=== PATIENT | male | born 1960 | race Caucasian/White ===

== ENCOUNTER 2024-03-09 20:39 | Emergency (ER) | payer OTHER, SELFPAY ==
[2024-03-09] VITALS (8 sets, daily range): BP systolic 148–174; BP diastolic 59–88; BMI 33.9
--- NOTE | 2024-03-09 21:10 | ED.GENMED ---
History of Present Illness
General
Chief Complaint: Breathing Problem
Source: patient
Exam Limitations: none
Time Seen by Provider: 03/09/24 21:01
Nursing documentation reviewed up to this point in time: agreed with
Travel History
Have you had any contact with someone who has COVID-19?: No
Do you have any symptoms of coronavirus? Fever > 100 degrees, chills, cough, shortness of breath, sore throat, loss of taste or smell, muscle aches, or headache?: No
History of Present Illness
History of Present Illness:
63-year-old male presents emergency department due to shortness of breath ongoing for the past week. He states his blood count is low and he was due to get a blood transfusion at [facility]. He had a valve replacement surgery at
[facility]. This was in the past month. He states he had some type of abnormality on his EKG.
Past History
Past History
ED Past Medical History: CAD, Cancer (Kidney, Prostate CA, ), GERD, HTN, Hypercholesterolemia, [place], Renal failure, Seizures, Valvular disease and Other (Chronic kidney disease, Sleep apnea, H-Pylori, Anemia, Stage 4 kidney disease)
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
Social History
Tobacco: Former smoker
Alcohol: None
Drug: None
Personal:
Living: with family
Employment: Employed
Family History
Family History: Hypertension
Review of Systems
Review of Systems
Allergies reviewed?: Yes
All Other Systems: Not applicable
Constitutional: Reports fatigue
EENT: Reports no symptoms
Respiratory: Reports trouble breathing
Cardiac: Reports no symptoms
ABD/GI: Reports black stools
: Reports no symptoms
Musculoskeletal: Reports no symptoms
Skin: Reports no symptoms
Neurological: Reports no symptoms
Endocrine: Reports no symptoms
Hematologic/Lymphatic: Reports no symptoms
Psychiatric: Reports no symptoms
Phy Exam
Physical Exam
Physical Exam:
Physical Exam
General: no apparent distress, not acutely ill
Neck: supple. no meningeal signs. normal posterior pharynx
Heart: s1/s2 regular rate and rhythm, no murmur. equal radial
pulses.
HEENT: Pupils equal round reactive to light, EOMI
Lungs: no acute respiratory distress. clear bilaterally, port right upper chest
Abdomen: normal bowel sounds. not tender. no CVAT
Neuro: alert and oriented. no focal neurological deficits cranial nerves II through XII intact
Skin: no rash
Psychiatric: well kept. interactive and cooperative
Extremities: no edema. no calf tenderness. negative homans. good distal pulses
Scores
Heart Failure Risk
Heart Failure Risk Score: Not Applicable
Course
Orders/Labs/Results
Orders:
Orders
03/09/24 20:48
Electrocardiogram (*1) Urgent
Reason for Study: Shortness of Breath
EKG- Treatment ONCE
03/09/24 21:13
Type+Screen Urgent
CMP [Comprehensive Metabolic Panel] Urgent
Complete Blood Count/With Diff Urgent
03/09/24 21:32
Blood Bank Products [* Blood Bank Products] Urgent
Dr's Orders: 2 units prbcs
Blood Bank Products: *Packed RBC Leuko(PRBC's)
Quantity: 2
Transfuse Today: Yes
Reason: Anemia
Abnormal Lab Results
03/09/24
21:13
RBC 2.06 L 10^6/uL
(4.70-6.10)
Hgb 6.0 L* g/dL
(13.0-18.0)
Hct 18.1 L* %
(39.0-52.0)
RDW 15.4 H %
(11.5-14.5)
MPV 10.6 H fL
(7.4-10.4)
Abs Immat Gran (auto) 0.1 H 10^3/uL
(0-0.05)
Absolute Lymphs (auto) 1.0 L 10^3/uL
(1.2-3.4)
Absolute Monos (auto) 0.7 H 10^3/uL
(0.1-0.6)
Immature Gran % 1.4 H %
(0-0.5)
Lymphocytes % 11.8 L %
(20.5-51.1)
Sodium 133 L mmol/L
(135-145)
Chloride 110 H mmol/L
(98-107)
Carbon Dioxide 16 L mmol/L
(22-30)
BUN 78 H mg/dl
(9-20)
Creatinine 4.8 H* mg/dL
(0.7-1.3)
Glucose 157 H mg/dl
(70-99)
Calcium 7.5 L mg/dl
(8.4-10.2)
Total Bilirubin 0.1 L mg/dl
(0.2-1.3)
AST 16 L U/L
(17-59)
Total Protein 5.4 L g/dl
(6.3-8.2)
Albumin 3.3 L g/dl
(3.5-5.0)
Crossmatch IS Only See Detail
03/09/24 21:13
03/09/24 21:13
Vital Signs
Initial and Last Documented VS:
Initial Vital Signs
Temp Pulse Resp BP Pulse Ox
98.3 F 104 18 174/88 99
03/09/24 20:41 03/09/24 20:41 03/09/24 20:41 03/09/24 20:41 03/09/24 20:41
Last Documented Vital Signs
Temp Pulse Resp BP Pulse Ox
97.5 F 75 17 153/63 98
03/10/24 01:50 03/10/24 01:50 03/10/24 01:50 03/10/24 01:50 03/10/24 01:50
MDM/Problems Addressed
Differential Diagnosis Includes:
GI bleed, renal failure
MDM/Problems Addressed:
63-year-old male with anemia, chronic renal failure and likely GI bleed. Patient declines admission. Will give 2 units packed red blood cells and discharge. Patient will follow-up with nephrology and his dry end tester at [place].
Chronic conditions affecting care: CAD, Cardiomyopathy and Other (Anemia, GI bleed)
Acute Exacerbation and/or Progression of Chronic Illness: CAD, Cardiomyopathy and Other (Anemia, GI bleed)
*Pulse Oximetry
Patient hypoxic: no
*EKG
Interpreted by ED Provider?: Yes
EKG Intrepretation Date: 03/09/24
EKG Intrepretation Time: 20:51
Interpretation: abnormal
Comparison EKG: changes noted
Heart Rate: 96
Rate: normal
Rhythm: sinus
[place]: normal axis
Interval: normal interval
QRS Pattern: left bundle branch block
Ischemia: no ischemia
*Executive Wellness Programs Director Interpretation
Rate: Executive Wellness Programs Director- N/A
*Critical Care Note
Total Time (30-74mins, 75-104mins- exclusive of procedures): 30
comment:
Critical care statement: A total of 30 minutes of critical care time was provided for this patient. This includes management of unstable vital signs, evaluation of the patient at bedside, reviewing the patient's pertinent medical records, discussion
with consultants, review of old EKGs and review of pertinent medical records. This time with separate from time utilized to perform the aforementioned documented procedures
Data Reviewed
Review of Other/Old Records Reveals: Labs
Source: records (Prior hemoglobin 6)
Further Testing Considered But Not Given:
Endoscopy considered, patient declines admission
Patient Management
Social determinants of health affecting care: Living situation
Escalation/DeEscalation of care consider admission/obs:
Admit considered, but patient declines
ED Attending Note
-
Portions of this chart may have been created with voice recognition software.� Occasional wrong word or��sound alike� substitutions may have occurred due to the inherent limitations of voice recognition software.
Discharge Plan
Departure
Patient Disposition: Home (Routine Discharge)
Date of Disposition: 03/10/24
Time of Disposition: 02:06
Patient with high blood pressure during this ER visit?: Yes
Condition: Fair
Discharge Problem:
Anemia
Instructions: Blood transfusion
Prescriptions:
No Action
calcitriol 0.25 mcg capsule
0.25 mcg PO DAILY
cholecalciferol (vitamin D3) [Vitamin D3] 25 mcg (1,000 unit) Tablet
25 mcg PO BID
Blood Dr Infusion
1 dose IM MO PRN (Reason: if hematocrit is below 30)
sertraline 100 mg Tablet
100 mg PO DAILY
hydralazine 25 mg Tablet
75 mg PO Q8H
aspirin 81 mg Tablet,Delayed Release (Dr/Ec)
81 mg PO DAILY
sodium bicarbonate 650 mg Tablet
650 mg PO Q12H
amlodipine 10 mg Tablet
10 mg PO DAILY
lansoprazole 30 mg Capsule,Delayed Release(Dr/Ec)
30 mg PO DAILY
rosuvastatin 10 mg Tablet
10 mg PO HS
Referrals:
NONE,* [Active] -
Activity Restrictions/Additional Instructions:
Follow-up with your primary care and dry end tester, along with your deli manager.
Interventions
Interventions:
*Risk Screen - Suicide Last Done: 03/09/24 22:44
*General Assessment Last Done: 03/09/24 20:41
*Neglect/Abuse Screening Last Done: 03/09/24 20:41
ED- Fall Risk Assessment Last Done: 03/09/24 21:31
*ED COVID-19 Vaccine History Last Done: 03/09/24 22:38
ED- Cardiac Assessment Last Done: 03/09/24 21:31
ED- Pulmonary Assessment Last Done: 03/09/24 21:31
Discharge Date and Time
Print Language: BARBADIAN
[2024-03-09 21:22] LABS: % Basophils 1.4 % (0-2); % Eosinophils 4.2 % (0-6); % Immature Granulocytes 1.4 % (0-0.5); % Lymphocytes 11.8 % (20.5-51.1); % Monocytes 8.1 % (1.7-9.3); % Neutrophils 73.1 % (42.2-75.2); Absolute Basophils 0.1 10^3/uL (0-0.2); Absolute Eosinophils 0.3 10^3/uL (0-0.7); Absolute Immature Granulocytes 0.1 10^3/uL (0-0.05); Absolute Monocytes 0.7 10^3/uL (0.1-0.6); Absolute Neutrophils 5.9 10^3/uL (1.4-6.5); Mean Corp Hgb Conc. 33.1 g/dL (33.0-37.0); Mean Corpuscular Hgb 29.1 pg (27.0-31.0); Mean Corpuscular Volume 87.9 fL (80.0-94.0); Mean Platelet Volume 10.6 fL (7.4-10.4); Nucleated Red Blood Cells % 0 % (-); Platelet Count 250 10^3/uL (130-400); Red Blood Cell Count 2.06 10^6/uL (4.70-6.10); Red Cell Dist. Width 15.4 % (11.5-14.5); White Blood Cell Count 8.1 10^3/uL (4.8-10.8)
[2024-03-09 21:23] LABS: Hematocrit 18.1 % (39.0-52.0)
[2024-03-09 21:53] LABS: ALT (SGPT) 12 U/L (0-50); AST (SGOT) 16 U/L (17-59); Albumin 3.3 g/dl (3.5-5.0); Alkaline Phosphatase 82 U/L (38-126); Blood Urea Nitrogen 78 mg/dl (9-20); Calcium 7.5 mg/dl (8.4-10.2); Carbon Dioxide 16 mmol/L (22-30); Chloride 110 mmol/L (98-107); Estimated Creatinine Clearance 21 ml/min; Glucose 157 mg/dl (70-99); Potassium 4.7 mmol/L (3.5-5.1); Sodium 133 mmol/L (135-145); Total Bilirubin 0.1 mg/dl (0.2-1.3); Total Protein 5.4 g/dl (6.3-8.2); eGFR 12.87
[2024-03-10] VITALS (8 sets, daily range): BP systolic 138–157; BP diastolic 44–64
== END 2024-03-10 02:20 | disposition home or self-care (01) ==
LOC: EMR 20:39
PROVIDERS: EMERGENCY PHYSICIAN Emergency Medicine; FAMILY PHYSICIAN Family Medicine
DX: D64.9 Anemia, unspecified (principal); I25.10 Atherosclerotic heart disease of native coronary artery without angina pectoris; K21.9 Gastro-esophageal reflux disease without esophagitis; I12.9 Hypertensive chronic kidney disease with stage 1 through stage 4 chronic kidney disease, or unspecified chronic kidney disease; D63.1 Anemia in chronic kidney disease; N18.4 Chronic kidney disease, stage 4 (severe); I38 Endocarditis, valve unspecified; E78.00 Pure hypercholesterolemia, unspecified; G47.30 Sleep apnea, unspecified; Z82.49 Family history of ischemic heart disease and other diseases of the circulatory system; Z85.46 Personal history of malignant neoplasm of prostate; Z85.528 Personal history of other malignant neoplasm of kidney; Z87.891 Personal history of nicotine dependence; Z90.5 Acquired absence of kidney; Z95.2 Presence of prosthetic heart valve; Z95.5 Presence of coronary angioplasty implant and graft
CPT/HCPCS: 99283; 36430; 80053; 85025; 86850; 86900; 86901; 86920; 93005; P9016

== ENCOUNTER 2024-04-04 17:03 | Emergency (ER) | payer OTHER, SELFPAY ==
[2024-04-04] VITALS (12 sets, daily range): BP systolic 150–184; BP diastolic 55–90; BMI 33.7
[2024-04-04 18:05] LABS: % Basophils 0.8 % (0-2); % Eosinophils 4.3 % (0-6); % Immature Granulocytes 0.5 % (0-0.5); % Lymphocytes 12.7 % (20.5-51.1); % Neutrophils 74.7 % (42.2-75.2); Absolute Basophils 0.1 10^3/uL (0-0.2); Absolute Eosinophils 0.3 10^3/uL (0-0.7); Absolute Lymphocytes 0.8 10^3/uL (1.2-3.4); Absolute Monocytes 0.5 10^3/uL (0.1-0.6); Absolute Neutrophils 4.9 10^3/uL (1.4-6.5); Hematocrit 23.2 % (39.0-52.0); Hemoglobin 7.4 g/dL (13.0-18.0); Mean Corp Hgb Conc. 31.9 g/dL (33.0-37.0); Mean Corpuscular Hgb 28.7 pg (27.0-31.0); Mean Corpuscular Volume 89.9 fL (80.0-94.0); Mean Platelet Volume 10.6 fL (7.4-10.4); Nucleated Red Blood Cells % 0 % (-); Platelet Count 218 10^3/uL (130-400); Red Blood Cell Count 2.58 10^6/uL (4.70-6.10); Red Cell Dist. Width 15.2 % (11.5-14.5); White Blood Cell Count 6.5 10^3/uL (4.8-10.8)
[2024-04-04 18:19] LABS: ALT (SGPT) 11 U/L (0-50); AST (SGOT) 18 U/L (17-59); Albumin 3.8 g/dl (3.5-5.0); Alkaline Phosphatase 83 U/L (38-126); Blood Urea Nitrogen 61 mg/dl (9-20); Calcium 8.4 mg/dl (8.4-10.2); Carbon Dioxide 19 mmol/L (22-30); Chloride 110 mmol/L (98-107); Glucose 183 mg/dl (70-99); Potassium 4.1 mmol/L (3.5-5.1); Total Bilirubin 0.3 mg/dl (0.2-1.3); Total Protein 6.1 g/dl (6.3-8.2)
[2024-04-04 18:28] LABS: Sodium 138 mmol/L (135-145)
[2024-04-04 18:29] LABS: Troponin I 0.141 ng/ml
--- NOTE | 2024-04-04 19:08 | ED.GENMED ---
History of Present Illness
General
Chief Complaint: Chest Pain
Source: patient
Exam Limitations: none
Time Seen by Provider: 04/04/24 18:53
Nursing documentation reviewed up to this point in time: agreed with
Travel History
Have you had any contact with someone who has COVID-19?: No
Do you have any symptoms of coronavirus? Fever > 100 degrees, chills, cough, shortness of breath, sore throat, loss of taste or smell, muscle aches, or headache?: No
History of Present Illness
History of Present Illness:
Pleasant 63-year-old male presents with substernal chest pain that began yesterday and has progressively worsened since then. He does have a past medical history significant for coronary artery disease. He has had stenting and is followed at
[facility]. GI bleeding, chronic kidney disease, hypertension, lipidemia, dyspnea. Patient is unable to take any anticoagulation because while he has chronic GI bleeding, he states that anticoagulation of any type exacerbates it.
Patient has had dark stools. Patient was initially on blood thinners and brought back down to Plavix and aspirin and the Plavix was discontinued. Patient has had frequent transfusions for chronic GI bleeding.
Vital signs are stable. Patient not hypoxic
Nursing note reviewed. I agree with nursing documentation up to this point in time.
Home Meds and allergies reviewed.
NUMBER AND COMPLEXITY OF PROBLEMS ADDRESSED AT THE ENCOUNTER
� Chronic conditions affecting care:
� Acute Exacerbation and/or Progression of Chronic Illness:
� Differential Diagnosis includes:
AMOUNT AND/OR COMPLEXITY OF DATA TO BE REVIEWED AND ANALYZED
I performed an independent evaluation of the following and my interpretation is:
EKG:
CT:
X-rays:
Ultrasound:
Laboratory Studies:
Other:
Review of other/old records:
Clinical information was obtained by an independent historian:
Prescriptions/Medications Considered but not given:
Further testing considered but not performed:
RISK OF COMPLICATIONS AND/OR MORBIDITY OR MORTALITY OF PATIENT MANAGEMENT
Social determinants of health affecting care: Good Social Support
Discussion with other providers:
Escalation of care including admission/observation vs risk of discharge considered:
CRITICAL CARE NOTE:
Total Time (exclusive of procedures):
Update:
Past History
Past History
ED Past Medical History: CAD, Cancer (Kidney, Prostate CA, ), GERD, HTN, Hypercholesterolemia, [place], Renal failure, Seizures, Valvular disease and Other (Chronic kidney disease, Sleep apnea, H-Pylori, Anemia, Stage 4 kidney disease)
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
Social History
Tobacco: Former smoker
Alcohol: None
Drug: None
Personal:
Living: with family
Employment: Employed
Family History
Family History: Hypertension
Phy Exam
General Physical Exam
General Presentation: mild distress
General age: appears stated age
General Skin: warm and dry
General Habitus: debilitated
General Mental: alert
General Hydration: appears well hydrated
ENT Exam
ENT Exam: EOMI, pharynx normal, neck supple and normocephalic
Eye Exam
Eye Exam: PERRL, cornea clear and conjunctiva normal
Cardiovascular Exam
Cardiovascular Exam: regular rate/rhythm and no edema
Pulmonary Exam
Pulmonary Exam: generalized wheezing
Breath Sounds: Wheeze: generalized
Gastrointestinal Exam
Gastrointestinal Exam: normal bowel sounds, non tender, soft, no organomegaly, no pulsatile mass and non distended
Rectal Exam: normal external exam and normal sphincter tone
Stool: brown
Guaiac Status: negative
Neurological Exam
Neurological Exam: alert, oriented x3, no motor deficits and speech normal
Musculoskeletal Exam
Musculoskeletal Exam: full ROM and no edema
Skin Exam
Skin Exam: normal color, warm/dry, no rash and no petechia
Psychiatric Exam
Psychiatric Exam: normal mood/affect
Scores
Heart Score for Chest Pain Patients
STEMI patient?: No
History: Moderately Suspicious
ECG: Normal
Age: >45 - <65 years
Risk Factors: >/= 3 Risk Factors or History of CAD
Troponin: >1 - <3 x Normal Limit
Heart Score for Chest Pain Patients: 5
Heart Score Risk: 20.3% MACE over next 6 weeks
Course
Orders/Labs/Results
Orders:
Orders
04/04/24 17:10
Electrocardiogram (*1) Urgent
Reason for Study: Chest Pain
EKG- Treatment ONCE
04/04/24 17:49
Type+Screen Urgent
Complete Blood Count/With Diff Urgent
Comprehensive Metabolic Panel Urgent
Troponin I Urgent
04/04/24 19:15
Pantoprazole [Protonix IV] 80 mg IV NOW STA
04/04/24 19:31
Heparin Pf [Heparin Lock Flush] 500 unit .ROUTE .STK-MED ONE
04/04/24 21:13
* Blood Bank Products Urgent
Blood Bank Products: *Packed RBC Leuko(PRBC's)
Quantity: 2
Transfuse Today: Yes
Reason: Anemia
Abnormal Lab Results
04/04/24
17:49
RBC 2.58 L 10^6/uL
(4.70-6.10)
Hgb 7.4 L g/dL
(13.0-18.0)
Hct 23.2 L %
(39.0-52.0)
MCHC 31.9 L g/dL
(33.0-37.0)
RDW 15.2 H %
(11.5-14.5)
MPV 10.6 H fL
(7.4-10.4)
Absolute Lymphs (auto) 0.8 L 10^3/uL
(1.2-3.4)
Lymphocytes % 12.7 L %
(20.5-51.1)
Chloride 110 H mmol/L
(98-107)
Carbon Dioxide 19 L mmol/L
(22-30)
BUN 61 H mg/dl
(9-20)
Creatinine 4.7 H* mg/dL
(0.7-1.3)
Glucose 183 H mg/dl
(70-99)
Troponin I 0.141 H* ng/ml
Total Protein 6.1 L g/dl
(6.3-8.2)
Crossmatch IS Only See Detail
04/04/24 17:49
04/04/24 17:49
Vital Signs
Initial and Last Documented VS:
Initial Vital Signs
Temp Pulse Resp BP Pulse Ox
98.1 F 94 20 184/90 98
04/04/24 17:10 04/04/24 17:10 04/04/24 17:10 04/04/24 17:10 04/04/24 17:10
Last Documented Vital Signs
Temp Pulse Resp BP Pulse Ox
97.9 F 64 16 166/66 99
04/05/24 01:20 04/05/24 01:20 04/05/24 01:20 04/05/24 01:20 04/05/24 01:20
*Critical Care Note
Total Time (30-74mins, 75-104mins- exclusive of procedures): 30
comment:
Critical care statement: A total of 30 minutes of critical care time was provided for this patient. This time is separate from time utilized to perform the aforementioned documented procedures. Aggregate critical care time includes only time
during which I was engaged in work directly related to the patient's care, as described above, whether at the bedside or elsewhere in the Emergency Department.
Update Note
Update Note:
Hemoccult negative on rectal exam
Patient signed blood consent.
AMA Statement: This patient is choosing to leave against medical advice. I have personally explained to the patient that choosing to do so may result in permanent bodily harm or . I discussed at great length that without further evaluation
and monitoring there may be unforeseen circumstances and deterioration causing permanent bodily harm or as a result of their choice. The patient is alert, oriented, and shows the mental capacity to make clear decisions regarding his health
care at the time. The patient verbalized understanding of these risks and continues to wish to leave against medical advice.
In light of the patient�s decision to leave AMA, follow-up has been arranged and he is aware of the importance of following up as instructed. The patient has been advised that he should return to the ED immediately if he changes his mind at any
time, or if his condition begins to change or worsen.
ED Attending Note
-
Portions of this chart may have been created with voice recognition software.� Occasional wrong word or��sound alike� substitutions may have occurred due to the inherent limitations of voice recognition software.
Discharge Plan
Departure
Patient Disposition: Against Medical Advice
Date of Disposition: 04/04/24
Time of Disposition: 21:15
Admit to: IVU
Presentation/result/management discussed w/ accepting MD/DO: Hospitalist
Condition: Fair
Discharge Problem:
Anemia, CKD (chronic kidney disease), Elevated troponin, Left against medical advice
Instructions: Anemia of inflammation (anemia of chronic disease), Blood transfusion
Prescriptions:
No Action
calcitriol 0.25 mcg capsule
0.25 mcg PO HS
cholecalciferol (vitamin D3) [Vitamin D3] 25 mcg (1,000 unit) Tablet
25 mcg PO DAILY
sertraline 100 mg Tablet
100 mg PO DAILY
hydralazine 25 mg Tablet
75 mg PO Q8H
aspirin 81 mg Tablet,Delayed Release (/Ec)
81 mg PO DAILY
sodium bicarbonate 650 mg Tablet
650 mg PO Q12H
amlodipine 10 mg Tablet
10 mg PO HS
lansoprazole 30 mg Capsule,Delayed Release(Dr/Ec)
30 mg PO BID
rosuvastatin 10 mg Tablet
10 mg PO HS
acetaminophen 325 mg Tablet
650 mg PO Q4H PRN (Reason: mild pain/fever)
Referrals:
Cici Schulz DO [Family Provider] -
Interventions
Interventions:
*Risk Screen - Suicide Last Done: 04/04/24 18:59
*General Assessment Last Done: 04/04/24 18:59
*Neglect/Abuse Screening Last Done: 04/04/24 18:59
ED- Fall Risk Assessment Last Done: 04/04/24 19:15
*ED COVID-19 Vaccine History Last Done: 04/04/24 18:59
ED- Cardiac Assessment Last Done: 04/04/24 19:15
Discharge Date and Time
Print Language: HUNGARIAN
[2024-04-04] MEDS: PROTONIX IV 80 MG IV (19:31)
[2024-04-05] VITALS (12 sets, daily range): BP systolic 110–174; BP diastolic 62–85
--- NOTE | 2024-04-05 03:33 | VATNOTE ---
04/05 200
Paged by PCN to deaccess patients port. Port flushed with hep and deaccessed per protocol.
== END 2024-04-05 04:42 | disposition left against medical advice (07) ==
LOC: EMR 17:03
PROVIDERS: Emergency Medicine; EMERGENCY PHYSICIAN Student in an Organized Health Care Education/Training Program; FAMILY PHYSICIAN Family Medicine
DX: D64.9 Anemia, unspecified (principal); I12.9 Hypertensive chronic kidney disease with stage 1 through stage 4 chronic kidney disease, or unspecified chronic kidney disease; N18.4 Chronic kidney disease, stage 4 (severe); R79.89 Other specified abnormal findings of blood chemistry; I25.10 Atherosclerotic heart disease of native coronary artery without angina pectoris; E78.00 Pure hypercholesterolemia, unspecified; G47.30 Sleep apnea, unspecified; K21.9 Gastro-esophageal reflux disease without esophagitis; Z79.01 Long term (current) use of anticoagulants; Z82.49 Family history of ischemic heart disease and other diseases of the circulatory system; Z85.46 Personal history of malignant neoplasm of prostate; Z85.528 Personal history of other malignant neoplasm of kidney; Z87.891 Personal history of nicotine dependence; Z90.5 Acquired absence of kidney; Z95.5 Presence of coronary angioplasty implant and graft
CPT/HCPCS: 99284; 80053; 84484; 85025; 86850; 86900; 86901; 86920; 93005; P9016

== ENCOUNTER 2024-04-13 15:14 | Emergency (ER) | payer OTHER, SELFPAY ==
[2024-04-13] VITALS (8 sets, daily range): BP systolic 160–187; BP diastolic 65–88; BMI 34.2
--- NOTE | 2024-04-13 15:37 | ED.GENMED ---
History of Present Illness
General
Chief Complaint: Abnormal Lab Value
Time Seen by Provider: 04/13/24 15:29
Travel History
Have you had any contact with someone who has COVID-19?: No
Do you have any symptoms of coronavirus? Fever > 100 degrees, chills, cough, shortness of breath, sore throat, loss of taste or smell, muscle aches, or headache?: No
History of Present Illness
History of Present Illness:
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 Today he was found to have a hemoglobin of 7.1. This is down from a few days ago at 8.4. He feels more weak and somewhat short of
breath. He had a TAVR a few months ago. He denies any obvious rectal bleeding. He states he could not tolerate being on 'blood thinners' in the past and is now currently just on baby aspirin. He had Procrit earlier today.
EXAM:
GENERAL: Well appearing but appears only slightly weak
HEENT: Moist oral mucosa
CARDIOVASCULAR: No murmurs, normal heart rate, regular rhythm, No chest wall tenderness
PULMONARY: No respiratory distress, breath sounds are clear and equal
ABDOMEN: Soft with no peritoneal signs, no tenderness, heme positive brown stool with no gross blood or any obvious hemorrhoids
NEUROLOGIC: Excellent strength all extremities, no coordination deficits
PSYCHIATRIC: Appropriate mental status, normal insight and judgement
EXTREMITIES: Nontender, no edema, moves all extremities equally
SKIN: No rash, no lesions
TIME OF INITIAL ENCOUNTER: 40 5 PM
NUMBER AND COMPLEXITY OF PROBLEMS ADDRESSED AT THE ENCOUNTER
� Chronic conditions affecting care: CKD stage V, chronic anemia, seizure disorder, CAD, high blood pressure, hyperlipidemia
� Acute Exacerbation and/or Progression of Chronic Illness: This is an acute but recurring problem
� Differential Diagnosis includes: GI bleed, anemia of chronic disease
AMOUNT AND/OR COMPLEXITY OF DATA TO BE REVIEWED AND ANALYZED
� I performed an independent evaluation of and my interpretation is:
EKG:
CT:
X-rays:
Laboratory Studies: Hemoglobin 6.6, white count 6.6, creatinine 4.4, BUN 68
Other:
� Review of other/old records: The patient had a hemoglobin of 6.0 recently. Renal function is near baseline.
� Clinical information was obtained by an independent historian: None needed
� Prescriptions/Medications Considered but not given:
� Further testing considered but not performed:
RISK OF COMPLICATIONS AND/OR MORBIDITY OR MORTALITY OF PATIENT MANAGEMENT
� Social determinants of health affecting care: Lives at home
� Discussion with other providers:
� Escalation of care including admission/observation vs risk of discharge considered: Patient has a hemoglobin 7.1. Old records show that he had a clean globin of 6.0 about a month ago and was given blood through the ED and
discharged. He does have some symptoms. I did inform patient of the patient's low hemoglobin and positive Hemoccult testing. I offered and considered keeping him here in the hospital however the patient declined stating that he wants to follow-up
with his GI doctor as an outpatient. He is on baby aspirin. The patient was given 2 units of blood. He has no further symptoms or concerns and adamantly does not want to stay in the hospital. He is to follow-up with GI this coming Friday. He
will remain on aspirin for cardiac protection.
Past History
Past History
ED Past Medical History: CAD, Cancer (Kidney, Prostate CA, ), GERD, HTN, Hypercholesterolemia, [place], Renal failure, Seizures, Valvular disease and Other (Chronic kidney disease, Sleep apnea, H-Pylori, Anemia, Stage 4 kidney disease)
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
Social History
Tobacco: Former smoker
Alcohol: None
Drug: None
Personal:
Living: with family
Employment: Employed
Family History
Family History: Hypertension
Phy Exam
Physical Exam
Physical Exam:
See HPI
Course
Orders/Labs/Results
Orders:
Orders
04/13/24 15:49
* Blood Bank Products Urgent
Blood Bank Products: *Packed RBC Leuko(PRBC's)
Quantity: 2
Transfuse Today: Yes
Reason: Anemia
Patient will require pre-treatment for transfusion:: No
04/13/24 15:57
Type+Screen Urgent
Complete Blood Count/With Diff Urgent
Comprehensive Metabolic Panel Urgent
Ferritin Urgent
Iron Urgent
TIBC [Total Iron Binding] Urgent
Abnormal Lab Results
04/13/24
15:57
RBC 2.37 L 10^6/uL
(4.70-6.10)
Hgb 6.6 L* g/dL
(13.0-18.0)
Hct 20.2 L* %
(39.0-52.0)
MCHC 32.7 L g/dL
(33.0-37.0)
RDW 14.9 H %
(11.5-14.5)
Absolute Lymphs (auto) 0.9 L 10^3/uL
(1.2-3.4)
Lymphocytes % 13.1 L %
(20.5-51.1)
Monocytes % 9.6 H %
(1.7-9.3)
Chloride 110 H mmol/L
(98-107)
Carbon Dioxide 21 L mmol/L
(22-30)
BUN 68 H mg/dl
(9-20)
Creatinine 4.4 H* mg/dL
(0.7-1.3)
Glucose 124 H mg/dl
(70-99)
Calcium 7.8 L mg/dl
(8.4-10.2)
% Saturation 17 L %
(20-50)
Total Protein 5.7 L g/dl
(6.3-8.2)
Albumin 3.4 L g/dl
(3.5-5.0)
Crossmatch IS Only See Detail
04/13/24 15:57
04/13/24 15:57
Vital Signs
Initial and Last Documented VS:
Initial Vital Signs
Temp Pulse Resp BP Pulse Ox
97.5 F 80 20 187/77 85
04/13/24 15:15 04/13/24 15:15 04/13/24 15:15 04/13/24 15:15 04/13/24 15:15
Last Documented Vital Signs
Temp Pulse Resp BP Pulse Ox
97.6 F 78 18 178/80 98
04/13/24 20:12 04/13/24 20:12 04/13/24 20:12 04/13/24 20:12 04/13/24 20:12
*Critical Care Note
Total Time (30-74mins, 75-104mins- exclusive of procedures): Not Applicable
ED Attending Note
-
Portions of this chart may have been created with voice recognition software.� Occasional wrong word or��sound alike� substitutions may have occurred due to the inherent limitations of voice recognition software.
Discharge Plan
Departure
Patient Disposition: Home (Routine Discharge)
Date of Disposition: 04/13/24
Time of Disposition: 18:32
Patient with high blood pressure during this ER visit?: Yes
Discharge Problem:
Anemia
Instructions: Anemia of inflammation (anemia of chronic disease)
Prescriptions:
No Action
calcitriol 0.25 mcg capsule
0.25 mcg PO DAILY
cholecalciferol (vitamin D3) [Vitamin D3] 25 mcg (1,000 unit) Tablet
25 mcg PO DAILY
sertraline 100 mg Tablet
100 mg PO DAILY
hydralazine 25 mg Tablet
75 mg PO Q8H
aspirin 81 mg Tablet,Delayed Release (Dr/Ec)
81 mg PO DAILY
sodium bicarbonate 650 mg Tablet
650 mg PO Q12H
amlodipine 10 mg Tablet
10 mg PO HS
lansoprazole 30 mg Capsule,Delayed Release(Dr/Ec)
30 mg PO DAILY
rosuvastatin 10 mg Tablet
10 mg PO DAILY
Referrals:
Cici Schulz DO [Family Provider] -
Activity Restrictions/Additional Instructions:
Iron level is within normal range, hemoglobin is 6.6. We have given you 2 units of blood. I did inform you that you do have blood in your stool and it is strongly recommend that you follow-up with your GI doctor. Return here if worse.
Interventions
Interventions:
*Risk Screen - Suicide Last Done: 04/13/24 15:15
*General Assessment Last Done: 04/13/24 15:15
*Neglect/Abuse Screening Last Done: 04/13/24 15:15
Discharge Date and Time
Print Language: MONTSERRATIAN
[2024-04-13 16:14] LABS: % Basophils 1.1 % (0-2); % Eosinophils 4.3 % (0-6); % Immature Granulocytes 0.5 % (0-0.5); % Lymphocytes 13.1 % (20.5-51.1); % Monocytes 9.6 % (1.7-9.3); % Neutrophils 71.4 % (42.2-75.2); Absolute Basophils 0.1 10^3/uL (0-0.2); Absolute Eosinophils 0.3 10^3/uL (0-0.7); Absolute Lymphocytes 0.9 10^3/uL (1.2-3.4); Absolute Monocytes 0.6 10^3/uL (0.1-0.6); Absolute Neutrophils 4.7 10^3/uL (1.4-6.5); Mean Corp Hgb Conc. 32.7 g/dL (33.0-37.0); Mean Corpuscular Hgb 27.8 pg (27.0-31.0); Mean Corpuscular Volume 85.2 fL (80.0-94.0); Mean Platelet Volume 10.3 fL (7.4-10.4); Nucleated Red Blood Cells % 0 % (-); Platelet Count 246 10^3/uL (130-400); Red Blood Cell Count 2.37 10^6/uL (4.70-6.10); Red Cell Dist. Width 14.9 % (11.5-14.5); White Blood Cell Count 6.6 10^3/uL (4.8-10.8)
[2024-04-13 16:31] LABS: ALT (SGPT) 10 U/L (0-50); AST (SGOT) 19 U/L (17-59); Albumin 3.4 g/dl (3.5-5.0); Alkaline Phosphatase 84 U/L (38-126); Blood Urea Nitrogen 68 mg/dl (9-20); Calcium 7.8 mg/dl (8.4-10.2); Carbon Dioxide 21 mmol/L (22-30); Chloride 110 mmol/L (98-107); Glucose 124 mg/dl (70-99); Iron 60 ug/dl (49-181); Potassium 4.4 mmol/L (3.5-5.1); Sodium 138 mmol/L (135-145); Total Bilirubin 0.2 mg/dl (0.2-1.3); Total Protein 5.7 g/dl (6.3-8.2); eGFR 14.29
[2024-04-13 16:34] LABS: Hematocrit 20.2 % (39.0-52.0); Hemoglobin 6.6 g/dL (13.0-18.0)
[2024-04-13 16:40] LABS: Percent Saturation 17 % (20-50); Total Iron Binding Capacity 337 ug/dl (261-462)
[2024-04-13 18:01] LABS: Ferritin 24.9 ng/ml (17.9-464.0)
--- NOTE | 2024-04-13 22:05 | PTCARENOTE ---
Right SC port de-accessed, 10 ml saline flush and heparin flush instilled
== END 2024-04-13 22:10 | disposition home or self-care (01) ==
LOC: EMR 15:14
PROVIDERS: EMERGENCY PHYSICIAN Emergency Medicine; FAMILY PHYSICIAN Family Medicine
DX: D64.9 Anemia, unspecified (principal); I12.9 Hypertensive chronic kidney disease with stage 1 through stage 4 chronic kidney disease, or unspecified chronic kidney disease; N18.4 Chronic kidney disease, stage 4 (severe); Z87.891 Personal history of nicotine dependence
CPT/HCPCS: 99283; 80053; 82728; 83540; 83550; 85025; 86850; 86900; 86901; 86920; P9016

== ENCOUNTER 2024-05-07 09:25 | Inpatient (IN) | payer OTHER, SELFPAY ==
[2024-05-05 18:39] VITALS: BP 173/96
[2024-05-05] MEDS: TYLENOL 650 MG PO (20:28)
[2024-05-05] MEDS: NSS 500 IV (20:29)
[2024-05-05 20:32] VITALS: BMI 32.9
[2024-05-05 20:37] LABS: % Basophils 0.9 % (0-2); % Eosinophils 2.3 % (0-6); % Immature Granulocytes 0.4 % (0-0.5); % Lymphocytes 6.2 % (20.5-51.1); % Monocytes 8.8 % (1.7-9.3); % Neutrophils 81.4 % (42.2-75.2); Absolute Basophils 0.1 10^3/uL (0-0.2); Absolute Eosinophils 0.3 10^3/uL (0-0.7); Absolute Lymphocytes 0.7 10^3/uL (1.2-3.4); Absolute Neutrophils 8.8 10^3/uL (1.4-6.5); Hematocrit 25.6 % (39.0-52.0); Mean Corp Hgb Conc. 31.3 g/dL (33.0-37.0); Mean Corpuscular Hgb 26.8 pg (27.0-31.0); Mean Corpuscular Volume 85.9 fL (80.0-94.0); Mean Platelet Volume 10.7 fL (7.4-10.4); Nucleated Red Blood Cells % 0 % (-); Platelet Count 258 10^3/uL (130-400); Red Blood Cell Count 2.98 10^6/uL (4.70-6.10); Red Cell Dist. Width 15.1 % (11.5-14.5); White Blood Cell Count 10.9 10^3/uL (4.8-10.8)
[2024-05-05 20:39] VITALS: BP 166/73
--- NOTE | 2024-05-05 20:45 | ED.GENMED ---
History of Present Illness
General
Chief Complaint: Breathing Problem
Source: patient
Exam Limitations: none
Time Seen by Provider: 05/05/24 19:56
Nursing documentation reviewed up to this point in time: agreed with
History of Present Illness
History of Present Illness:
63 Y/O M with h/o CAD, stetns, ckd stage v, s/p nephrectomy L isaac, prostate ca
chrnoinc anemia requiring transfusions
also h/o GI bleed and does not tolerate AC
here with exertional dyspnea since yesterday
and chest pain with walking today when he got from the car to the ER
no ches tpain at rest
says that he felt chills today and stood in a hot shower to warm up
he didn't know about his fever until he got here
nausea and 1 episode dry heave
no cough, sore throat, colds ymtpoms, diarrhea, urinary sypmtoms
Past History
Past History
ED Past Medical History: CAD, Cancer (Kidney, Prostate CA, ), GERD, HTN, Hypercholesterolemia, MD, Renal failure, Seizures, Valvular disease and Other (Chronic kidney disease, Sleep apnea, H-Pylori, Anemia, Stage 4 kidney disease)
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
Social History
Tobacco: Former smoker
Alcohol: None
Drug: None
Personal:
Living: with family
Employment: Employed
Family History
Family History: Hypertension
Review of Systems
Review of Systems
Allergies reviewed?: Yes
All Other Systems: Not applicable
Phy Exam
Physical Exam
Physical Exam:
GENERAL: Alert , in no apparent distress, nontoxic
EYE: pupils equal and reactive
NECK: Supple
ENT: o/p clr, mmm.
CARDIAC: initially mildly tachy (pt was febrile)
chest wall: port
LUNGS: Clear breath sounds bilaterally, no acute respiratory distress, no wheezes/rales/rhonchi
ABDOMEN: Soft, without focal tenderness, no r/g, no cvat, normal bowel sounds
NEUROLOGICAL: Alert and oriented, no focal neuro deficits
SKIN: Warm and dry, skin intact.
MUSCULOSKELETAL: No edema, well perfused. neg deshawn's sign
PSYCH: Normal and appropriate interaction.
Scores
Heart Failure Risk
Heart Failure Risk Score: Not Applicable
Course
Orders/Labs/Results
Orders:
Orders
05/05/24 20:16
Electrocardiogram (*1) Urgent
Reason for Study: Other
Other Reason for Exam: sepsis
Cardiac Monitoring- Treatment ONCE
EKG- Treatment ONCE
0.9% Sodium Chloride 500 ml [Nss] 500 ml IV BOLUS
Acetaminophen [Tylenol] 650 mg PO NOW STA
CR Chest - 2 Views Urgent
Comment:
Reason For Exam: fever, sob
05/05/24 20:21
Type+Screen Urgent
COVID-19 Antigen Urgent
Source: Nasal Swab
Complete Blood Count/With Diff Urgent
Comprehensive Metabolic Panel Urgent
Lactic Acid Q4H
Comment: CANCEL 2nd LACTIC ACID IF 1st LACTIC ACID IS LESS THAN 2
Lipase Urgent
NT-proBNP Urgent
Troponin I Urgent
Blood Culture Urgent
EDVIN Source: Blood/Venous
Specimen Description:
05/05/24 21:13
COVID-19 Antigen Urgent
Urinalysis Reflex To Culture Urgent
Date Specimen was Collected: 05/05/24
Time Specimen was Collected: 21:12
Urine Microscopic Reflex Cult Urgent
05/05/24 23:00
Flush (0.9% Sodium Chloride) [Flush (Nss)] See Dose Instructions IV PER PROTOCOL
05/05/24 23:07
Admit/Transfer Patient As Directed
Co-Sign Provider:
Level of Care: Observation services
Assign to:: Telemetry
Physician / Group: carmela
Diagnosis: covid
Reason for Telemetry: Arrhythmia
Date to Stop Telemetry: 05/08/24
Time to Stop Telemetry: 11:00
Code Status As Directed
Resuscitation Status: Full Code
05/05/24 23:16
Sodium Bicarbonate 50 meq IV NOW STA
05/06/24 00:30
Lactic Acid Q4H
Comment: CANCEL 2nd LACTIC ACID IF 1st LACTIC ACID IS LESS THAN 2
05/08/24 11:00
DC Protocol for Telemetry ONCE
Abnormal Lab Results
05/05/24 05/05/24
20:21 21:13
WBC 10.9 H 10^3/uL
(4.8-10.8)
RBC 2.98 L 10^6/uL
(4.70-6.10)
Hgb 8.0 L g/dL
(13.0-18.0)
Hct 25.6 L %
(39.0-52.0)
MCH 26.8 L pg
(27.0-31.0)
MCHC 31.3 L g/dL
(33.0-37.0)
RDW 15.1 H %
(11.5-14.5)
MPV 10.7 H fL
(7.4-10.4)
Absolute Neuts (auto) 8.8 H 10^3/uL
(1.4-6.5)
Absolute Lymphs (auto) 0.7 L 10^3/uL
(1.2-3.4)
Absolute Monos (auto) 1.0 H 10^3/uL
(0.1-0.6)
Neutrophils % 81.4 H %
(42.2-75.2)
Lymphocytes % 6.2 L %
(20.5-51.1)
Chloride 112 H mmol/L
(98-107)
Carbon Dioxide 12 L* mmol/L
(22-30)
BUN 68 H mg/dl
(9-20)
Creatinine 4.7 H* mg/dL
(0.7-1.3)
Glucose 108 H mg/dl
(70-99)
Troponin I 0.259 H* ng/ml
Ur Occult Blood Reflex 1+ A
(Negative)
Urine Glucose Trace A
(Negative)
Urine Albumin (Reflex) 3+ A
(Neg - Trace)
SARS-CoV-2 Antigen Positive A
(Negative)
05/05/24 20:21
05/05/24 20:21
Vital Signs
Initial and Last Documented VS:
Initial Vital Signs
Temp Pulse Resp BP Pulse Ox
99.6 F 107 20 173/96 98
05/05/24 18:39 05/05/24 18:39 05/05/24 18:39 05/05/24 18:39 05/05/24 18:39
Last Documented Vital Signs
Temp Pulse Resp BP Pulse Ox
98.6 F 89 24 147/63 96
05/05/24 23:46 05/05/24 22:30 05/05/24 22:30 05/05/24 22:00 05/05/24 22:30
MDM/Problems Addressed
Differential Diagnosis Includes:
nstemi, trop elevation secnodary to CKD, less likely PE
MDM/Problems Addressed:
63 y/o M cad, stent 2022, AVR, L nephrectomy kdiney cancer, stage V CKD, h/o severe anemia and h/o GI bleed doesn't tolerate ac;
here with exertional dyspnea since yesterday, he thought his hemoglobin was low
but he had a fever and reported when walking from the car to the ER, he had chest pain which was unusual for him, it resolved
bp 150/60, febrile; has COVID
hg 8
LBBB on ekg which is unchanged
trop 0.2
his highest previously was in april 0.14;
he is pain free at rest; trend trop, consider VQ in the AM but low suspicion for PE;
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 grimes who agrees;
*Critical Care Note
Total Time (30-74mins, 75-104mins- exclusive of procedures): Not Applicable
ED Attending Note
-
Portions of this chart may have been created with voice recognition software.� Occasional wrong word or��sound alike� substitutions may have occurred due to the inherent limitations of voice recognition software.
Discharge Plan
Departure
Patient Disposition: Admit
Date of Disposition: 05/05/24
Time of Disposition: 22:08
Admit to: Telemetry
Presentation/result/management discussed w/ accepting MD/DO: Hospitalist
Condition: Fair
Covid-19: Not Applicable
Discharge Problem:
COVID-19, Elevated troponin
Prescriptions:
No Action
calcitriol 0.25 mcg capsule
0.25 mcg PO DAILY
cholecalciferol (vitamin D3) [Vitamin D3] 25 mcg (1,000 unit) Tablet
25 mcg PO DAILY
sertraline 100 mg Tablet
100 mg PO DAILY
hydralazine 25 mg Tablet
25 mg PO TID
aspirin 81 mg Tablet,Delayed Release (Dr/Ec)
81 mg PO DAILY
sodium bicarbonate 650 mg Tablet
650 mg PO Q12H
amlodipine 10 mg Tablet
10 mg PO HS
lansoprazole 30 mg Capsule,Delayed Release(Dr/Ec)
30 mg PO DAILY
rosuvastatin 10 mg Tablet
10 mg PO DAILY
octreotide acetate 50 mcg/mL Solution
100 mcg SC BID
Referrals:
NONE,* [Family Provider] -
Interventions
Interventions:
*Risk Screen - Suicide Last Done: 05/05/24 20:05
*Neglect/Abuse Screening Last Done: 05/05/24 20:05
ED- Fall Risk Assessment Last Done: 05/05/24 20:57
*ED COVID-19 Vaccine History Last Done: 05/05/24 18:41
ED- Cardiac Assessment Last Done: 05/05/24 20:57
ED- Pulmonary Assessment Last Done: 05/05/24 20:57
Discharge Date and Time
Print Language: KITTITIAN
[2024-05-05 20:47] LABS: Lactic Acid 1.2 mmol/L (0.7-2.0)
[2024-05-05 21:02] LABS: ALT (SGPT) 11 U/L (0-50); AST (SGOT) 19 U/L (17-59); Albumin 4.4 g/dl (3.5-5.0); Alkaline Phosphatase 70 U/L (38-126); Blood Urea Nitrogen 68 mg/dl (9-20); Calcium 8.6 mg/dl (8.4-10.2); Carbon Dioxide 12 mmol/L (22-30); Chloride 112 mmol/L (98-107); Estimated Creatinine Clearance 21 ml/min; Glucose 108 mg/dl (70-99); Lipase 80 U/L (23-300); Potassium 4.7 mmol/L (3.5-5.1); Sodium 138 mmol/L (135-145); Total Bilirubin 0.4 mg/dl (0.2-1.3); Total Protein 6.6 g/dl (6.3-8.2)
[2024-05-05 21:04] LABS: COVID-19 Antigen Invalid (Negative); NT-proBNP 5060 pg/ml; Troponin I 0.259 ng/ml
[2024-05-05 21:20] VITALS: BP 143/79
[2024-05-05 21:29] LABS: Urine Albumin 3+ (Neg - Trace); Urine Bilirubin Negative (Negative); Urine Color Yellow; Urine Glucose Trace (Negative); Urine Ketone Negative (Negative); Urine Leukocyte Negative (Negative); Urine Nitrite Negative (Negative); Urine Occult Blood 1+ (Negative); Urine Urobilinogen Negative (Neg - 1+)
[2024-05-05 21:40] LABS: Urine Red Blood Cell 0-2 /HPF (0-2)
[2024-05-05 21:41] LABS: Urine Character Clear (Clear)
[2024-05-05 21:42] LABS: COVID-19 Antigen Positive (Negative)
[2024-05-05 22:00] VITALS: BP 147/63
--- NOTE | 2024-05-05 22:57 | CON.CAR ---
Consultation
Consultation Request
Date/Time Consultation Requested: 05/05/24
Date/Time Consultation Performed: 05/05/24
Requesting Provider: Merna WADE
Performing Provider: Dr Parks
Reason for Consultation: elevated troponin
Medical History
-
History of Present Illness:
Patient is a 63-year-old gentleman with past medical history of chronic kidney disease STG 5 undergoing evaluation for transplant at [facility] [place], , extensive history of GI bleeding managed on octreotide injections, hypertension,
hyperlipidemia, coronary artery disease s/p prior PCI x 2 and prior TAVR, p/w ALVAREZ, palpitations and chills since getting home from work today. He states he came because he felt like either his hemoglobin was low or he thought he had COVID. He was
found to be COVID + with low grade fever and leukocytosis. He states he only feels poor if he is walking. At rest he feels well. Currently without complaint.
Past Medical History
Past Medical History: CAD (PCI to the 01/03/23), HTN, Hypercholesterolemia, Renal Failure ( currently being evaluated for transplant) and Valvular Disease (Moderate )
Past Surgical History: Other (pci on 01/03/23)
Social History
Tobacco: Former Smoker
Alcohol: Occasional
Family History
Family History: Reviewed & Not Pertinent
Allergies / Home Medications
Allergy/AdvReac Type Severity Reaction Status Date / Time
isosorbide Allergy Unknown Verified 05/05/24 18:40
Penicillins Allergy Anaphylaxis Verified 05/05/24 18:40
�Medication �Instructions �Recorded �Confirmed �Type
calcitriol 0.25 mcg capsule 0.25 mcg PO DAILY 05/23/23 05/05/24 History
cholecalciferol (vitamin D3) 25 25 mcg PO DAILY 05/23/23 05/05/24 History
mcg (1,000 unit) tablet (Vitamin
D3)
amlodipine 10 mg tablet 10 mg PO HS 03/09/24 05/05/24 History
aspirin 81 mg tablet,delayed 81 mg PO DAILY 03/09/24 05/05/24 History
release
hydralazine 25 mg tablet 25 mg PO TID 03/09/24 05/05/24 History
lansoprazole 30 mg capsule,delayed 30 mg PO DAILY 03/09/24 05/05/24 History
release
rosuvastatin 10 mg tablet 10 mg PO DAILY 03/09/24 05/05/24 History
sertraline 100 mg tablet 100 mg PO DAILY 03/09/24 05/05/24 History
sodium bicarbonate 650 mg tablet 650 mg PO Q12H 03/09/24 05/05/24 History
octreotide acetate 50 mcg/mL 100 mcg SC BID 05/05/24 05/05/24 History
injection solution
Review of Systems
-
All other systems: Negative unless noted
Abdomen/GI: Other (Bright red blood in his stool from his hemorrhoids per his report)
Physical Exam
Vital Signs
Temp Pulse Resp BP Pulse Ox
100.1 F 89 24 147/63 96
05/05/24 20:28 05/05/24 22:30 05/05/24 22:30 05/05/24 22:00 05/05/24 22:30
Lab Results
05/05/24 20:21
05/05/24 20:21
Troponin I 0.259 ng/ml H* 05/05/24 20:21
Qix-U-Uvfjbsqdvng Pept 5060 pg/ml 05/05/24 20:21
Physical Exam
General: Well Developed, Well Nourished and No Apparent Distress
HEENT: Normocephalic and Moist Mucous Membranes
Respiratory: Clear
Cardiac: S1/S2, Regular Rhythm, Murmur (None), Peripheral Edema (None) and JVD (None)
GI: Soft
Musculoskeletal: No Clubbing, No Cyanosis and No Edema
Neuro: AO x 3
Impression / Plan
-
63 yo with CKD st5, CAD sp PCI, S/p TAVR, extensive GIB history p/w alvarez, palpitations and found to have COVID-19.
Elevated troponin:
-suspect nonischemic myocardial injury due to acute COVID 19 infection and CKD
-given COVID 19 reasonable to consider PE, but he is not hypoxic or tachycardic, given h/o of GI bleeding ok with holding off on heparin
-trend troponin
[id number]:
-suspect the source of ALVAREZ
-as per medicine
ALVAREZ: likely due to COVID
-no e/o volume overload, BNP unreliable with CKD, would not diurese at this time
CAD: on asa, would continue
-no cp
h/o GIB: hgb at 8 which is better than prior baseline
CKD: Undergoing transplant evaluation, today is acidotic due to infection. Treat underlying cause. Monitor progression of acidosis and kidney failure.
s/p TAVR:
Data Reviewed
-
EKG: Tracing Personally Visualized and interpreted (NSR with LBBB and LAD)
Radiology: Image Personally Visualized and interpreted (prior tavr, no pna or chf, port )
Labs: Labs Reviewed by me (co2 12, cr 4.7(bl 4.4), hgb 8, trop 0.259, probnp 5060)
[2024-05-05 23:00] VITALS: BP 156/63
--- NOTE | 2024-05-05 23:13 | HPS.HSE ---
Family Physician
-
Family Physician: * NONE
Chief Complaint
-
chills, chest pressure, SOB
History of Present Illness
63-year-old male past medical history of anemia secondary to GI bleeding on chronic transfusions, history of small bowel angiectasias, coronary artery disease status post stenting 2022, aortic stenosis status post TAVR in February of this year,
hypertension, hyperlipidemia, CKD stage IV, kidney cancer status post left nephrectomy, prostate cancer, GERD, presenting with shortness of breath and chest pressure with walking today. He also had severe chills. He denies any sore throat or runny
nose. He did have some nausea and dry heaving but denies vomiting or diarrhea. He denies any dizziness. He denies any sick contacts.
He states that he is transfusion dependent due to history of small bowel angiectasias. Since his aortic valve replacement in February he has had 11 units of blood. He occasionally has some bright red blood or hemorrhoidal bleeding but he denied any
blood in the stool recently. However today he did note some dark stool. He is normally transfused to keep his hemoglobin above is 7.8.
He denies smoking or alcohol use.
Medical History
Past Medical History
Past Medical History: Reports Other (anemia secondary to GI bleeding on chronic transfusions, history of small bowel angiectasias, coronary artery disease status post stenting 2022, aortic stenosis status post TAVR in February of this year,
hypertension, hyperlipidemia, CKD stage IV, kidney cancer status post left nephrectomy, prostate ca)
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
Social History
Tobacco: Non-smoker
Alcohol: None
Drug: None
Family History
Family History: Not pertinent
Allergies / Home Medications
Allergies reflects when Allergies were last updated in [facility].
Home Medications with original date entered in [facility]
Allergy/Medication List:
Allergies
Allergy/AdvReac Type Severity Reaction Status Date / Time
isosorbide Allergy Unknown Verified 05/05/24 18:40
Penicillins Allergy Anaphylaxis Verified 05/05/24 18:40
Home Medications
calcitriol 0.25 mcg capsule 0.25 mcg PO DAILY 05/23/23
cholecalciferol (vitamin D3) 25 mcg (1,000 unit) tablet (Vitamin D3) 25 mcg PO DAILY 05/23/23
amlodipine 10 mg tablet 10 mg PO HS 03/09/24
aspirin 81 mg tablet,delayed release 81 mg PO DAILY 03/09/24
hydralazine 25 mg tablet 25 mg PO TID 03/09/24
lansoprazole 30 mg capsule,delayed release 30 mg PO DAILY 03/09/24
rosuvastatin 10 mg tablet 10 mg PO DAILY 03/09/24
sertraline 100 mg tablet 100 mg PO DAILY 03/09/24
sodium bicarbonate 650 mg tablet 650 mg PO Q12H 03/09/24
octreotide acetate 50 mcg/mL injection solution 100 mcg SC BID 05/05/24
Review of Systems
-
History Source: Patient
A 12 point ROS was completed and negative except as noted: Yes
Constitutional: Reports No Symptoms
EENT: Reports No Symptoms
Respiratory: Reports See HPI
Cardiac: Reports See HPI
Abdomen/GI: Reports No Symptoms
: Reports No Symptoms
Musculoskeletal: Reports No Symptoms
Skin: Reports No Symptoms
Neurological: Reports No Symptoms
Endocrine: Reports No Symptoms
Hematologic/Lymphatic: Reports No Symptoms
Psych: Reports No Symptoms
Physical Exam
Vital Signs
Vital Signs
Temp Pulse Resp BP Pulse Ox
100.1 F 89 24 147/63 96
05/05/24 20:28 05/05/24 22:30 05/05/24 22:30 05/05/24 22:00 05/05/24 22:30
Physical Exam
General: Well Developed, Well Nourished and No Apparent Distress
HEENT: NormoCephalic, Moist mucous membranes and Atraumatic
Respiratory: Clear
Cardiac: S1/S2 and Regular Rhythm; No Murmur or Rub
GI: Soft, Non Tender, Non Distended and Normal Bowel Sounds; No Organomegaly
Rectal: Deferred by Provider
Musculoskeletal: No Clubbing, No Cyanosis and No Edema
Skin: No Rash
Neuro: Nonfocal/grossly intact
Laboratory Results
-
05/05/24 20:21
05/05/24 20:21
Laboratory Results
Lactic Acid 1.2 mmol/L (0.7-2.0) 05/05/24 20:21
Total Bilirubin 0.4 mg/dl (0.2-1.3) 05/05/24 20:21
AST 19 U/L (17-59) 05/05/24 20:21
ALT 11 U/L (0-50) 05/05/24 20:21
Alkaline Phosphatase 70 U/L (38-126) 05/05/24 20:21
Troponin I 0.259 ng/ml H* 05/05/24 20:21
Lipase 80 U/L (23-300) 05/05/24 20:21
Data Reviewed
-
Lab Data: Labs Reviewed by me
Old Records: Reviewed
Impression/Plan
-
IMPRESSION:
PLAN:
# COVID infection
-Low-grade fever, leukocytosis,
-Chest x-ray does not appear to show infiltrates, report pending
-Not hypoxic
# Nonischemic myocardial injury
# History of CAD status post prior stent
# Old left bundle branch block
-Troponin of 0.26
-Continue to trend troponins
-EKG shows old left bundle branch block, no ischemic changes visible
-Cardiac BNP of 5000
-Continue aspirin
# Anion gap metabolic acidosis likely due to worsening of underlying renal failure
-IV fluids given in ER
-Bicarbonate pushe
CKD stage 4/5
-Renal function at baseline
-Continue calcitriol
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
History of GI bleeding secondary to small bowel angioectasias
-Patient with black stool today
-Check Hemoccult
-Hemoglobin of 8 which is at baseline
-Continue octreotide
-consult GI if significant hemoglobin drop or active bleeding
Aortic stenosis status post TAVR in February
-Continue aspirin
Essential hypertension
-Continue amlodipine, hydralazine
Hyperlipidemia
History of left kidney cancer status post left nephrectomy
History of prostate cancer
GERD
-Continue lansoprazole
Anxiety/depression
-Continue sertraline
Full code
DVT prophylaxis- SCDs
Regular diet
[2024-05-05] MEDS: SODIUM BICARBONATE 50 MEQ IV (23:40)
[2024-05-06] VITALS (11 sets, daily range): BP systolic 141–173; BP diastolic 61–85; BMI 32.9
[2024-05-06] MEDS: SODIUM BICARBONATE 650 MG PO (01:28)
[2024-05-06 01:59] LABS: Troponin I 0.299 ng/ml
[2024-05-06] MEDS: TYLENOL 650 MG PO (02:56)
[2024-05-06 07:45] LABS: % Basophils 0.8 % (0-2); % Eosinophils 2.2 % (0-6); % Immature Granulocytes 0.4 % (0-0.5); % Lymphocytes 7.8 % (20.5-51.1); % Monocytes 9.6 % (1.7-9.3); % Neutrophils 79.2 % (42.2-75.2); Absolute Eosinophils 0.1 10^3/uL (0-0.7); Absolute Lymphocytes 0.4 10^3/uL (1.2-3.4); Absolute Monocytes 0.5 10^3/uL (0.1-0.6); Absolute Neutrophils 4.1 10^3/uL (1.4-6.5); Hematocrit 21.9 % (39.0-52.0); Mean Corp Hgb Conc. 31.1 g/dL (33.0-37.0); Mean Corpuscular Hgb 26.9 pg (27.0-31.0); Mean Corpuscular Volume 86.6 fL (80.0-94.0); Mean Platelet Volume 10.5 fL (7.4-10.4); Nucleated Red Blood Cells % 0 % (-); Platelet Count 192 10^3/uL (130-400); Red Blood Cell Count 2.53 10^6/uL (4.70-6.10); Red Cell Dist. Width 14.8 % (11.5-14.5); White Blood Cell Count 5.1 10^3/uL (4.8-10.8)
[2024-05-06 07:59] LABS: Hemoglobin 6.8 g/dL (13.0-18.0)
[2024-05-06 08:10] LABS: Troponin I 0.443 ng/ml
[2024-05-06] MEDS: ROCALTROL 0.25 MCG PO (08:18)
[2024-05-06] MEDS: APRESOLINE 25 MG PO ×3 (08:18→20:53)
[2024-05-06] MEDS: ZOLOFT 100 MG PO (08:18)
[2024-05-06] MEDS: CRESTOR 10 MG PO (08:18)
[2024-05-06 08:19] LABS: ALT (SGPT) 12 U/L (0-50); AST (SGOT) 21 U/L (17-59); Albumin 3.4 g/dl (3.5-5.0); Alkaline Phosphatase 54 U/L (38-126); Blood Urea Nitrogen 65 mg/dl (9-20); Calcium 8.1 mg/dl (8.4-10.2); Carbon Dioxide 17 mmol/L (22-30); Chloride 114 mmol/L (98-107); Estimated Creatinine Clearance 23 ml/min; Glucose 94 mg/dl (70-99); Potassium 4.3 mmol/L (3.5-5.1); Sodium 140 mmol/L (135-145); Total Bilirubin 0.3 mg/dl (0.2-1.3); Total Protein 5.4 g/dl (6.3-8.2); eGFR 14.29
[2024-05-06] MEDS: SANDOSTATIN 100 MCG SC ×2 (08:19→20:42)
[2024-05-06] MEDS: VITAMIN D3 (cholecalciferol) 25 MCG PO (08:19)
[2024-05-06] MEDS: PROTONIX 40 MG PO (08:19)
[2024-05-06] MEDS: ASPIR LOW (ENTERIC COATED) PO (08:22)
--- NOTE | 2024-05-06 10:00 | W.PN.CD ---
Today's Communication / Plan
-
-Suspect nonischemic myocardial injury due to acute COVID 19 infection, CKD, and anemia.
-Trend troponin to peak.
-Hemoglobin dropped from 8.0 to 6.8; management as per primary team.
Impression / Plan
-
63 yo with CKD st5, CAD sp PCI, S/p TAVR, extensive GIB history p/w sinha, palpitations and found to have COVID-19.
Elevated troponin:
-Suspect nonischemic myocardial injury due to acute COVID 19 infection, CKD, and anemia.
-Trend troponin to peak.
[id number]:
-Management as per medicine.
CAD: On aspirin and statin.
h/o GIB:
-Hemoglobin dropped from 8.0 to 6.8; management as per primary team.
CKD:
-Undergoing transplant evaluation
-Monitor renal function.
s/p TAVR:
-Stable.
Hypertension:
-On amlodipine.
Physical Exam
Vital Signs/Labs
Vital Signs
Temp Pulse Resp BP Pulse Ox
98.6 F 82 16 141/61 97
05/06/24 07:35 05/06/24 07:35 05/06/24 07:35 05/06/24 08:18 05/06/24 07:35
05/05/24 05/06/24 05/07/24
06:59 06:59 06:59
Actual Weight 113.143 kg
05/06/24 07:37
05/06/24 07:37
05/05/24
20:21
Lxx-L-Jrfhvbeatli Pept 5060
LAB Results
05/05/24 05/06/24 05/06/24
20:21 01:23 07:37
Troponin I 0.259 H* 0.299 H* 0.443 H* D
Physical Exam
Examination deferred secondary to COVID-19 isolation protocols.
Data Reviewed
-
Date of Service: May 06, 2024
EKG: Tracing Personally Visualized and interpreted (Telemetry: Sinus rhythm)
Labs: Labs Reviewed by me
--- NOTE | 2024-05-06 12:19 | W.PN.HOSP.TC ---
Today's Communication/Plan
-
see outlined plan
Assessment / Plan
Assessment / Plan
Assessment:
COVID-19 infection
- CXR: negative
- no hypoxia, just chills
- supportive care, monitor O2 needs
- continue isolation
Nonischemic myocardial injury, likely driven by CKD, COVID and anemia
History of CAD status post prior stent
Old left bundle branch block
- trend to peak
- continue ASA/Statin
- Cardiac BNP of 5000 in setting of CKD, no overt volume overload on exam
Anion gap metabolic acidosis likely due to worsening of underlying CKD stage 5
- s/p IVF and IV Bicarb pushes
- increase oral sodium bicarb to 1300mg BID
- continue Calcitriol
- he is on transplant pathway with [facility]
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
History of GI bleeding secondary to small bowel angioectasias
- Patient with black stool today; has known history of small bowel bleeding and takes Octreotide
- continue Octreotide
- Hb 6.8 today, 1 unit PRBC ordered
- repeat AM Hb
- consider GI evaluation if overt bleeding develops
Aortic stenosis status post TAVR in February
- continue aspirin
Essential hypertension
- continue amlodipine, hydralazine
Hyperlipidemia
History of left kidney cancer status post left nephrectomy
History of prostate cancer
GERD
- continue lansoprazole
Anxiety/depression
- continue sertraline
DVT ppx: SCDs
Code: Full
Anticipated Discharge: > 48 hours
Subjective/Interval History
-
Date of Service: May 06, 2024
mild chills, no fevers
no SOB, cough. on RA
no chest pain
Objective Data
-
Labs:
Laboratory Results
05/06/24
07:37
WBC 5.1
Hgb 6.8 L*
Hct 21.9 L
Plt Count 192 D
Sodium 140
Potassium 4.3
Chloride 114 H
Carbon Dioxide 17 L
BUN 65 H
Creatinine 4.4 H*
Glucose 94
Calcium 8.1 L
Total Bilirubin 0.3
AST 21
ALT 12
Alkaline Phosphatase 54
Vital Signs:
Vital Signs
Temp Pulse Resp BP Pulse Ox
98.6 F 82 16 141/61 97
05/06/24 07:35 05/06/24 07:35 05/06/24 07:35 05/06/24 08:18 05/06/24 07:35
I&O
05/05/24 05/06/24 05/07/24
06:59 06:59 06:59
Intake Total 480 / 480
Output Total 800 / 800
Balance 480 / 480 -800 / -800
Physical Exam
-
General: No Apparent Distress
HEENT: Normocephalic and Atraumatic
Respiratory: Negative Wheezes
Cardiac: Regular Rhythm
GI: Soft
Genito-urinary: No Costovertebral Tender
Musculoskeletal: No Edema
Neuro: AO x 3
Psych: Calm
Data Reviewed
-
Total Time Spent with Patient (in minutes): 45
Labs: Labs Reviewed by me
--- NOTE | 2024-05-06 12:32 | PTCARENOTE ---
Addendum entered by Franca White RN 05/06/24 12:34:
pt states he typically takes benadryl PO or IV prior to blood administration. blood going through pt R SQ port.
Original Note:
pt with hx of anemia and gets frequent blood transfusions. morning CBC results showed hgb of 6.8. made aware, consent signed and PRBC hung by this nurse at the bedside. pt tested positive for covid in ED. pt is from home with his . he is a
self within the room and verbalizes no complaints at this time. See TAR for proper charting of blood administration.
[2024-05-06] MEDS: BENADRYL 50 MG IV (12:51)
[2024-05-06] MEDS: SODIUM BICARBONATE 1300 MG PO ×2 (12:51→20:43)
[2024-05-06 14:35] LABS: Troponin I 0.882 ng/ml
[2024-05-06 19:46] LABS: Troponin I 0.848 ng/ml
[2024-05-06] MEDS: NORVASC 10 MG PO (20:53)
--- NOTE | 2024-05-06 22:27 | PTCARENOTE ---
[employer] notified regarding Trop result, 0.848. No new orders at this time per Cardiology.
[2024-05-07 01:59] LABS: Troponin I 0.839 ng/ml
[2024-05-07 03:20] VITALS: BP 168/75
[2024-05-07 07:25] VITALS: BP 148/58
[2024-05-07 08:36] LABS: Hematocrit 23.7 % (39.0-52.0); Hemoglobin 7.8 g/dL (13.0-18.0); Mean Corp Hgb Conc. 32.9 g/dL (33.0-37.0); Mean Corpuscular Hgb 27.7 pg (27.0-31.0); Mean Platelet Volume 10.9 fL (7.4-10.4); Platelet Count 206 10^3/uL (130-400); Red Blood Cell Count 2.82 10^6/uL (4.70-6.10); Red Cell Dist. Width 15.2 % (11.5-14.5); White Blood Cell Count 4.7 10^3/uL (4.8-10.8)
[2024-05-07 08:54] LABS: Blood Urea Nitrogen 65 mg/dl (9-20); Calcium 8.1 mg/dl (8.4-10.2); Carbon Dioxide 19 mmol/L (22-30); Chloride 113 mmol/L (98-107); Estimated Creatinine Clearance 21 ml/min; Glucose 105 mg/dl (70-99); Potassium 4.4 mmol/L (3.5-5.1); Sodium 140 mmol/L (135-145); Troponin I 0.683 ng/ml; eGFR 12.87
--- NOTE | 2024-05-07 09:10 | W.PN.HOSP.TC ---
Today's Communication/Plan
-
ID consult, discussed with Dr. Gonsales
recheck Hgb tomorrow
Assessment / Plan
Assessment / Plan
Assessment:
COVID-19 infection
- CXR: negative
- no hypoxia, just chills
- supportive care, monitor O2 needs. SaO2 remains 97-98% on room air
- continue isolation
ID consult regarding benefit vs risk of anti viral agent in pt with CKD
Nonischemic myocardial injury, likely driven by CKD, COVID and anemia
History of CAD status post prior stent
Old left bundle branch block
- trend to peak
- continue ASA/Statin
- Cardiac BNP of 5000 in setting of CKD, no overt volume overload on exam
Trop 0.259-->0.299-->0.443-->0.882-->0.848-->0.839-->0.683
Anion gap metabolic acidosis likely due to worsening of underlying CKD stage 5
- s/p IVF and IV Bicarb pushes
- increase oral sodium bicarb to 1300mg BID
- continue Calcitriol
- he is on transplant pathway with [facility]
Creat 4.8/K 4.4
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
History of GI bleeding secondary to small bowel angioectasias
- Patient with black stool 05/06; has known history of small bowel bleeding and takes Octreotide
- continue Octreotide
- Hb 6.8 05/06, 1 unit PRBC-->7.8
- repeat AM Hb
- consider GI evaluation if overt bleeding develops
will recheck Hgb tomorrow, if drops again will transfuse 2nd unit and consider GI consult, if stable consider dc if all other aspects stable
Aortic stenosis status post TAVR in February
- continue aspirin
Essential hypertension
- continue amlodipine, hydralazine
Hyperlipidemia
History of left kidney cancer status post left nephrectomy
History of prostate cancer
GERD
- continue lansoprazole
Anxiety/depression
- continue sertraline
DVT ppx: SCDs
Code: Full
case reviewed with Dr. Watt, pt meets criteria for admission
Anticipated Discharge: 24 - 48 hours
Subjective/Interval History
-
Date of Service: May 07, 2024
Awake, alert, feels better since receiving blood
Objective Data
-
Labs:
Laboratory Results
05/07/24
08:06
WBC 4.7 L
Hgb 7.8 L
Hct 23.7 L
Plt Count 206
Sodium 140
Potassium 4.4
Chloride 113 H
Carbon Dioxide 19 L
BUN 65 H
Creatinine 4.8 H*
Glucose 105 H
Calcium 8.1 L
Vital Signs:
Vital Signs
Temp Pulse Resp BP Pulse Ox
98.4 F 68 18 148/58 98
05/07/24 07:25 05/07/24 07:25 05/07/24 07:25 05/07/24 07:25 05/07/24 07:25
I&O
05/06/24 05/07/24 05/08/24
06:59 06:59 06:59
Intake Total 480 / 480 3130 / 3130
Output Total 2500 / 2500
Balance 480 / 480 630 / 630
Review of Systems
-
History Source: Patient
Constitutional: Reports Fever (05/06 @03:00 was 100.5, afebrile otherwise)
EENT: Reports No Symptoms Reported
Respiratory: Reports No Symptoms; Denies Cough or Trouble Breathing
Cardiac: Reports No Symptoms; Denies Chest Pain
Abdomen/GI: Reports No Symptoms; Denies Abdominal Pain
Breast: Reports No Symptoms
Physical Exam
-
General: Well Developed, Well Nourished and No Apparent Distress
HEENT: Normocephalic, Atraumatic and Moist Mucous Membranes
Respiratory: Clear to Auscultation; Negative Wheezes, Rales or Rhonchi
Cardiac: Regular Rhythm and S1/S2
GI: Soft, Nontender and Nondistended
Musculoskeletal: No Clubbing, No Cyanosis and No Edema
Neuro: Awake, Alert and Oriented
[2024-05-07] MEDS: APRESOLINE 25 MG PO ×3 (09:11→23:01)
[2024-05-07] MEDS: CRESTOR 10 MG PO (09:11)
[2024-05-07] MEDS: PROTONIX 40 MG PO (09:11)
[2024-05-07] MEDS: VITAMIN D3 (cholecalciferol) 25 MCG PO (09:11)
[2024-05-07] MEDS: ZOLOFT 100 MG PO (09:11)
[2024-05-07] MEDS: SODIUM BICARBONATE 1300 MG PO ×2 (09:11→20:48)
[2024-05-07] MEDS: ROCALTROL 0.25 MCG PO (09:11)
[2024-05-07] MEDS: SANDOSTATIN 100 MCG SC ×2 (09:12→21:00)
[2024-05-07] MEDS: ASPIR LOW (ENTERIC COATED) PO (09:20)
--- NOTE | 2024-05-07 10:06 | CON.ID ---
Consultation
-
Date/Time Consultation Requested: 05/07/24 9:10
Date/Time Consultation Performed: 05/07/24 10:06
Requesting Provider: Dr Gonzales
Performing Provider: Dr Gonsales
Reason for Consultation: COVID, CKD5
Chief Complaint / Past History
Chief Complaint
chills, chest pressure, SOB
History of Present Illness
Mr Camacho is a 63 year old male with history of CKD stage IV, kidney cancer status post left nephrectomy who presented here 05/05 for shaking chills, dyspnea on exertion, chest pressure with exertion, nausea. No sore throat, runny nose, vomiting or
diarrhea. No known sick contacts.
Of note reports he's transfusion dependent due to small bowel angiectasias.
Since arrival here tmax 100.5 orally, otherwise no furhter betsy fevers, BP stable, saturating well on room air, wbc initially 10.9 now 4.7, hgb 7.8, plt 206, L shift was noted first two days as was lymphopenia, K 4.4, Cr 4.8, lactic acid 1.2,
troponins peaked at 0.8 now downtrending, covid ag initially invalid on repeat 05/05 positive, 05/05 CXR: no infiltrates, there is a port, single blood culture done on arrival and no growth at 24 hrs. Currently not on antivirals
Past History
Additional Past Medical History:
anemia secondary to GI bleeding on chronic transfusions, history of small bowel angiectasias, coronary artery disease status post stenting 2022, aortic stenosis status post TAVR in February of this year, hypertension, hyperlipidemia, CKD stage IV,
kidney cancer status post left nephrectomy, prostate ca
Additional Past Surgical History:
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
Allergy History:
isosorbide Allergy (Verified 05/05/24 18:40)
Unknown
Penicillins Allergy (Verified 05/05/24 18:40)
Anaphylaxis
Medications Reviewed: Yes
Social History
Tobacco: Non-Smoker
Alcohol: None
Drug: None
Family History
Family History: Not Pertinent
Review of Systems
Review of Systems
General: Fever and Chills
All systems: All other systems were reviewed and were negative
Vital Signs
Temp Pulse Resp BP Pulse Ox
98.4 F 68 18 148/58 97
05/07/24 07:25 05/07/24 07:25 05/07/24 07:25 05/07/24 09:11 05/07/24 09:41
Physical Exam
Physical Exam
Constitutional: No Acute Distress
Cardiovascular: Regular Rate and S1/S2; Negative Murmur or Rub
Pulmonary: Clear and Symmetric; Negative Wheezes, Rales or Rhonchi
Gastrointestinal: Soft, Non Tender, Non Distended and Normal Bowel Sounds
Skin: Warm and Dry; Negative Rash or Jaundice
Lab / Diagnostic Study Results
05/07/24 08:06
05/07/24 08:06
Abs Immat Gran (auto) 0.0 10^3/uL (0-0.05) 05/06/24 07:37
Absolute Neuts (auto) 4.1 10^3/uL (1.4-6.5) 05/06/24 07:37
Absolute Lymphs (auto) 0.4 10^3/uL (1.2-3.4) L 05/06/24 07:37
Absolute Monos (auto) 0.5 10^3/uL (0.1-0.6) 05/06/24 07:37
Absolute Basos (auto) 0.0 10^3/uL (0-0.2) 05/06/24 07:37
Immature Gran % 0.4 % (0-0.5) 05/06/24 07:37
Neutrophils % 79.2 % (42.2-75.2) H 05/06/24 07:37
Lymphocytes % 7.8 % (20.5-51.1) L 05/06/24 07:37
Monocytes % 9.6 % (1.7-9.3) H 05/06/24 07:37
Eosinophils % 2.2 % (0-6) 05/06/24 07:37
Basophils % 0.8 % (0-2) 05/06/24 07:37
Lactic Acid Cancelled 05/06/24 00:30
Microbiology Results
Micro:
05/05/24 20:21 Blood Culture - Preliminary
Blood/Venous No Growth in 24 hours- Final report to follow
Assessment / Plan
COVID-19 Infection - mild
Leukopenia
CKD4/5
Allergy: reports anaphylaxis to penicillin
- mild covid infection - previously vaccinated x3, one previous infection
- minimal symptoms some dyspnea with moderate exertion
- we discussed that there may be some mild benefit to paxlovid, either taking or not taking it are reasonable, given that no decline in kidney function would be expected he's happy to try the medication; renal dose ordered x5 days
- hold statin while on paxlovid
- stable for dc from ID perspective, follow up with PCP
Care Review
Plan reviewed with: Physician (Dr Manzano - consult)
[2024-05-07 11:15] VITALS: BP 147/77
--- NOTE | 2024-05-07 11:48 | W.PN.CD ---
Addendum entered and electronically signed by Kemar Mathur MD 05/07/24 16:16:
63 yo male with recent TAVR, CAD s/p PCI last in 04/2023, recurrent GI bleed and anemia, CKD5 undergoing renal txp eval. Admitted with COVID. We are consulted for abnormal troponin. He denies CP. Exam with RRR, no edema.EKG: NSR, LBBB (stable from
prior). TnI peak 0.882. Echo shows EF 55-60%, TAVR with grads 31/18 mmHg, no AR.
Elevated troponin seems to be acute non-ischemic myocardial injury in setting of anemia, renal failure, COVID.
Please call us back with additional questions.
Original Note:
Today's Communication / Plan
-
-no CP, trop peaked as below. Tele stable.
-echo results pending
-continue current cardiac meds
Impression / Plan
-
63 y/o with CKD IV, CAD sp PCI, s/p TAVR, extensive GIB history p/w sinha and palpitations and found to have COVID-19.
Elevated troponin:
-Suspect nonischemic myocardial injury due to acute COVID 19 infection, CKD, and anemia.
-peak trop 0.882
-no CP
-echo pending
COVID19 Positive:
-Management as per medicine and ID
CAD:
-denies any CP
-On aspirin and statin.
h/o GIB:
-Hemoglobin as low as 6.8. Now s/p 1 unit PRBC and is 7.8. Management as per primary team.
CKD:
-Undergoing transplant evaluation
-Monitor renal function.
s/p TAVR:
-Stable
-echo updated and pending
Hypertension:
-On amlodipine and hydralazine- continue
Physical Exam
Vital Signs/Labs
Vital Signs
Temp Pulse Resp BP Pulse Ox
98.4 F 68 18 148/58 97
05/07/24 07:25 05/07/24 07:25 05/07/24 07:25 05/07/24 09:11 05/07/24 09:41
05/06/24 05/07/24 05/08/24
06:59 06:59 06:59
Actual Weight 113.143 kg
05/07/24 08:06
05/07/24 08:06
05/05/24
20:21
[id number] Pept 5060
LAB Results
05/05/24 05/06/24 05/06/24
20:21 01:23 07:37
Troponin I 0.259 H* 0.299 H* 0.443 H* D
05/06/24 05/06/24 05/07/24
13:55 19:12 01:24
Troponin I 0.882 H* D 0.848 H* 0.839 H*
05/07/24
08:06
Troponin I 0.683 H*
Physical Exam
Constitutional: No acute distress
EENT: Anicteric
Cardiovascular: Rhythm & rate is regular
Respiratory: Respiratory effort normal and Lungs clear to auscul.
Neuro/Psych: AO x 3
Data Reviewed
-
Date of Service: May 07, 2024
Medical Tests (PFT, Pathology etc): Other (tele SR)
Labs: Labs Reviewed by me
[2024-05-07] MEDS: PAXLOVID 150-100 MG DOSE PACK 1 DOSE PO ×2 (11:55→20:47)
--- NOTE | 2024-05-07 11:59 | CM ---
CM placed call to patients room due to COVID restrictions, initial assessment completed. Patient resides with his in a two story home, two steps to enter. Patient is employed, denies DME, VN, or SNF history. Patient does not currently have a
PCP, is in process of finding new PCP. Pharmacy used is [facility] in [place]. Patient denies housing/utility, food, and transportation insecurities. CM reviewed OBS form with patient, understands status. CM will continue to follow for all
discharge planning needs.
Plan; home no needs likely.
[2024-05-07 15:53] VITALS: BP 148/74
[2024-05-07 19:32] VITALS: BP 154/74
[2024-05-07] MEDS: NORVASC 10 MG PO (23:00)
[2024-05-07 23:11] VITALS: BP 155/69
[2024-05-08 02:43] VITALS: BP 102/65
[2024-05-08 03:02] VITALS: BP 102/65
[2024-05-08 05:25] LABS: % Eosinophils 3.6 % (0-6); % Immature Granulocytes 0.4 % (0-0.5); % Lymphocytes 14.9 % (20.5-51.1); % Monocytes 14.7 % (1.7-9.3); % Neutrophils 65.4 % (42.2-75.2); Absolute Basophils 0.1 10^3/uL (0-0.2); Absolute Eosinophils 0.2 10^3/uL (0-0.7); Absolute Lymphocytes 0.7 10^3/uL (1.2-3.4); Absolute Monocytes 0.7 10^3/uL (0.1-0.6); Absolute Neutrophils 3.2 10^3/uL (1.4-6.5); Hematocrit 26.7 % (39.0-52.0); Hemoglobin 8.5 g/dL (13.0-18.0); Mean Corp Hgb Conc. 31.8 g/dL (33.0-37.0); Mean Corpuscular Hgb 27.4 pg (27.0-31.0); Mean Corpuscular Volume 86.1 fL (80.0-94.0); Mean Platelet Volume 11.1 fL (7.4-10.4); Nucleated Red Blood Cells % 0 % (-); Platelet Count 213 10^3/uL (130-400); Red Cell Dist. Width 14.9 % (11.5-14.5)
[2024-05-08 05:59] LABS: Blood Urea Nitrogen 67 mg/dl (9-20); Calcium 8.2 mg/dl (8.4-10.2); Carbon Dioxide 18 mmol/L (22-30); Chloride 111 mmol/L (98-107); Estimated Creatinine Clearance 21 ml/min; Glucose 108 mg/dl (70-99); Potassium 4.5 mmol/L (3.5-5.1); Sodium 140 mmol/L (135-145)
[2024-05-08 07:30] VITALS: BP 166/81
--- NOTE | 2024-05-08 07:55 | W.PN.HOSP.TC ---
Today's Communication/Plan
-
dc to home
Assessment / Plan
Assessment / Plan
Assessment:
COVID-19 infection
- CXR: negative
- no hypoxia, just chills
- supportive care, monitor O2 needs. SaO2 remains 97-98% on room air
- continue isolation
ID consult regarding benefit vs risk of anti viral agent in pt with CKD, noted and appreciated
Nonischemic myocardial injury, likely driven by CKD, COVID and anemia
History of CAD status post prior stent
Old left bundle branch block
- trend to peak
- continue ASA/Statin
- Cardiac BNP of 5000 in setting of CKD, no overt volume overload on exam
Trop 0.259-->0.299-->0.443-->0.882-->0.848-->0.839-->0.683
Anion gap metabolic acidosis likely due to worsening of underlying CKD stage 5
- s/p IVF and IV Bicarb pushes
- increase oral sodium bicarb to 1300mg BID
- continue Calcitriol
- he is on transplant pathway with [facility]
Creat 4.8/K 4.4
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
History of GI bleeding secondary to small bowel angioectasias
- Patient with black stool 05/06; has known history of small bowel bleeding and takes Octreotide
- continue Octreotide
- Hb 6.8 05/06, 1 unit PRBC-->7.8
- repeat AM Hb
- consider GI evaluation if overt bleeding develops
will recheck Hgb tomorrow, if drops again will transfuse 2nd unit and consider GI consult, if stable consider dc if all other aspects stable
Aortic stenosis status post TAVR in February
- continue aspirin
Essential hypertension
- continue amlodipine, hydralazine
Hyperlipidemia
History of left kidney cancer status post left nephrectomy
History of prostate cancer
GERD
- continue lansoprazole
Anxiety/depression
- continue sertraline
DVT ppx: SCDs
Code: Full
case reviewed with Dr. Watt, pt meets criteria for admission
Doing well for dc, will need f/u with PCP prior to return to work
More than 30 minutes spent in discharge including
Final examination of the patient
Summarizing hospital stay
Instructions for continuing care to all relevant caregivers
Preparation of discharge records, prescriptions, and referral forms
Total time spent (in minutes): 45
Anticipated Discharge: Today
Subjective/Interval History
-
Date of Service: May 08, 2024
Generally feels well, had bad coughing episode last evening, none since
Objective Data
-
Labs:
Laboratory Results
05/08/24
05:12
WBC 5.0
Hgb 8.5 L
Hct 26.7 L
Plt Count 213
Sodium 140
Potassium 4.5
Chloride 111 H
Carbon Dioxide 18 L
BUN 67 H
Creatinine 4.7 H*
Glucose 108 H
Calcium 8.2 L
Vital Signs:
Vital Signs
Temp Pulse Resp BP Pulse Ox
98.4 F 73 16 102/65 96
05/08/24 03:02 05/08/24 03:02 05/08/24 03:02 05/08/24 03:02 05/08/24 03:02
I&O
05/07/24 05/08/24 05/09/24
06:59 06:59 06:59
Intake Total 3130 / 3130 2219 / 2220
Output Total 2500 / 2500
Balance 630 / 630 2219 / 2220
Review of Systems
-
History Source: Patient
Constitutional: Reports Fever (05/06 @03:00 was 100.5, afebrile otherwise)
EENT: Reports No Symptoms Reported
Respiratory: Reports No Symptoms; Denies Cough (last evening, none since) or Trouble Breathing
Cardiac: Reports No Symptoms; Denies Chest Pain
Abdomen/GI: Reports No Symptoms; Denies Abdominal Pain
Breast: Reports No Symptoms
Neuro: Reports No Symptoms
Physical Exam
-
General: Well Developed, Well Nourished and No Apparent Distress
HEENT: Normocephalic, Atraumatic and Moist Mucous Membranes
Respiratory: Clear to Auscultation; Negative Wheezes, Rales or Rhonchi
Cardiac: Regular Rhythm and S1/S2
GI: Soft, Nontender and Nondistended
Musculoskeletal: No Clubbing, No Cyanosis and No Edema
Neuro: Awake, Alert and Oriented
--- NOTE | 2024-05-08 08:17 | W.DS.TRANS ---
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
-
Discharge Instructions:
Discharge Diagnosis/Procedures Covid
Diet Low Sodium
Activity No strenuous activity
Additional Activity no work and stay out of crowds until cleared by
PCP
Driving Restrictions Not until seen by your Dr
Bathing Restrictions None
Blood Work CBC, BMP in 1-2 weeks
Instructions:
Stand-Alone Forms:
Changes to Home Medications: Yes
Discharge Medications:
DC Medications w/original date entered in [facility]
calcitriol 0.25 mcg capsule 0.25 mcg PO DAILY Kidney Disease 05/23/23
cholecalciferol (vitamin D3) 25 mcg (1,000 unit) tablet (Vitamin D3) 25 mcg PO DAILY Supplement 05/23/23
amlodipine 10 mg tablet 10 mg PO HS Blood Pressure 03/09/24
aspirin 81 mg tablet,delayed release 81 mg PO DAILY Blood Clot Prevention/Tx 03/09/24
hydralazine 25 mg tablet 25 mg PO TID Blood Pressure 03/09/24
lansoprazole 30 mg capsule,delayed release 30 mg PO DAILY Gastrointestinal Issue 03/09/24
sertraline 100 mg tablet 100 mg PO DAILY Mental Health/Anxiety 03/09/24
sodium bicarbonate 650 mg tablet 650 mg PO Q12H Electrolyte Repletion 03/09/24
octreotide acetate 50 mcg/mL injection solution 100 mcg SC BID CHRONIC GIB 05/05/24
nirmatrelvir 150 mg-ritonavir 100 mg tablets in a dose pack (Paxlovid) 1 ea PO BID Infection #10 tabs 05/08/24
rosuvastatin 10 mg tablet 10 mg PO DAILY High Cholesterol #0 tabs 05/08/24
Home Medication Changes
Paxlovid bid for 8 more doses
Do not take Crestor while on Paxlovid, resume after completes dose course
Pending Results: No
[2024-05-08] MEDS: SANDOSTATIN 100 MCG SC (08:38)
[2024-05-08] MEDS: ASPIR LOW (ENTERIC COATED) 81 MG PO (08:38)
[2024-05-08] MEDS: APRESOLINE 25 MG PO (08:38)
[2024-05-08] MEDS: PROTONIX 40 MG PO (08:39)
[2024-05-08] MEDS: SODIUM BICARBONATE 1300 MG PO (08:39)
[2024-05-08] MEDS: VITAMIN D3 (cholecalciferol) 25 MCG PO (08:39)
[2024-05-08] MEDS: ZOLOFT 100 MG PO (08:39)
[2024-05-08] MEDS: ROCALTROL 0.25 MCG PO (08:39)
[2024-05-08] MEDS: PAXLOVID 150-100 MG DOSE PACK 1 DOSE PO (08:39)
--- NOTE | 2024-05-08 10:17 | W.PN.ID1 ---
Date of Service
Date of Service: May 08, 2024
Today's Communication
complete 5 day course of paxlovid
follow up with pcp
Assessment / Plan
COVID-19 Infection - mild
Leukopenia
CKD4/5
H/o hypogammaglobulinemia 2021
Allergy: reports anaphylaxis to penicillin
- mild covid infection - previously vaccinated x3, one previous infection
- minimal symptoms some dyspnea with moderate exertion
- we discussed that there may be some mild benefit to paxlovid x5 day course, either taking or not taking it are reasonable, given that no decline in kidney function would be expected he's happy to try the medication; renal dose ordered x5 days
- hold statin while on paxlovid
- stable for dc from ID perspective, follow up with PCP
Chief Complaint
-: Other (covid infection)
Subjective / Review of Systems
remains afebrile
saturating well on room air
leukopenia resolved
hgb improved
K 4.5
note hypogammaglobulinemia 2021
blood culture no growth to date
less dyspnea on exertion
Vital Signs / Physical Exam
Vital Signs
Vital Signs
Temp Pulse Resp BP Pulse Ox
98.1 F 67 16 166/81 96
05/08/24 07:30 05/08/24 08:38 05/08/24 07:30 05/08/24 08:38 05/08/24 07:30
Physical Exam
Constitutional: No Acute Distress
Cardiovascular: Regular Rate and S1/S2; Negative Murmur or Rub
Pulmonary: Clear and Symmetric; Negative Wheezes or Rales
Gastrointestinal: Soft, Non Tender, Non Distended and Normal Bowel Sounds
Skin: Warm and Dry; Negative Rash or Jaundice
Objective Data
Lab Data
Lab Results
05/08/24 05:12
05/08/24 05:12
Estimated Creat Clear 21 ml/min 05/08/24 05:12
Lactic Acid Cancelled 05/06/24 00:30
Total Bilirubin 0.3 mg/dl (0.2-1.3) 05/06/24 07:37
AST 21 U/L (17-59) 05/06/24 07:37
ALT 12 U/L (0-50) 05/06/24 07:37
Alkaline Phosphatase 54 U/L (38-126) 05/06/24 07:37
Most recent labs reviewed.
Micro Results:
05/05/24 20:21 Blood Culture - Preliminary
Blood/Venous No Growth in 48 hours- Final report to follow
[2024-05-08 11:28] VITALS: BP 163/79
--- NOTE | 2024-05-08 13:13 | PTCARENOTE ---
Patient discharged home, transported by spouse. This RN removed patient's telemetry pack, R subq port de-accessed by IV team. Discharge instructions and medications reviewed with patient, patient verbalized understanding. Patient confirmed paxlovid
prescription was sent and filled at appropriate pharmacy. Patient dressed and belongings gathered in room independently, patient taken down to spouse's car at main lobby via staff escort and wheelchair.
--- NOTE | 2024-05-08 15:35 | CM ---
Patient has been medically cleared for discharge to home with no additional skilled services. Patient arranged for transport home.
== END 2024-05-08 13:11 | disposition home or self-care (01) | DRG 177 ==
LOC: 2 NORTH 09:25
PROVIDERS: Internal Medicine; Nurse Practitioner Family; Physician Assistant; ADMITTING PHYSICIAN Hospitalist; ATTENDING PHYSICIAN Internal Medicine; CONSULT PHYSICIAN Student in an Organized Health Care Education/Training Program; EMERGENCY PHYSICIAN Emergency Medicine; OTHER PHYSICIAN Internal Medicine Cardiovascular Disease
PROC: 30243N1 Transfusion of Nonautologous Red Blood Cells into Central Vein, Percutaneous Approach (ICD-10-PCS; 2024-05-06)
DX: U07.1 COVID-19 (principal); K31.811 Angiodysplasia of stomach and duodenum with bleeding; E87.20 Acidosis, unspecified; I12.0 Hypertensive chronic kidney disease with stage 5 chronic kidney disease or end stage renal disease; N18.5 Chronic kidney disease, stage 5; I5A Non-ischemic myocardial injury (non-traumatic); I25.10 Atherosclerotic heart disease of native coronary artery without angina pectoris; D50.0 Iron deficiency anemia secondary to blood loss (chronic); K21.9 Gastro-esophageal reflux disease without esophagitis; F41.9 Anxiety disorder, unspecified; F32.A Depression, unspecified; E78.5 Hyperlipidemia, unspecified; D72.819 Decreased white blood cell count, unspecified; E78.00 Pure hypercholesterolemia, unspecified; G47.30 Sleep apnea, unspecified; I25.2 Old myocardial infarction; Z87.891 Personal history of nicotine dependence; Z95.5 Presence of coronary angioplasty implant and graft; Z85.46 Personal history of malignant neoplasm of prostate; Z90.5 Acquired absence of kidney; Z82.49 Family history of ischemic heart disease and other diseases of the circulatory system; Z88.0 Allergy status to penicillin; Z88.8 Allergy status to other drugs, medicaments and biological substances; Z95.2 Presence of prosthetic heart valve; Z85.528 Personal history of other malignant neoplasm of kidney
CPT/HCPCS: 71046; 80048; 80053; 81003; 81015; 83605; 83690; 83880; 84484; 85025; 85027; 86850; 86900; 86901; 86920; 87040; 87811; 93005; 93306; 96360; 99285; P9016

== ENCOUNTER 2024-05-29 23:56 | Emergency (ER) | payer OTHER, SELFPAY ==
[2024-05-30] VITALS (10 sets, daily range): BP systolic 153–177; BP diastolic 70–87
[2024-05-30 02:09] LABS: % Basophils 0.7 % (0-2); % Eosinophils 3.6 % (0-6); % Immature Granulocytes 1.3 % (0-0.5); % Lymphocytes 9.9 % (20.5-51.1); % Monocytes 9.9 % (1.7-9.3); % Neutrophils 74.6 % (42.2-75.2); Absolute Basophils 0.1 10^3/uL (0-0.2); Absolute Eosinophils 0.3 10^3/uL (0-0.7); Absolute Immature Granulocytes 0.1 10^3/uL (0-0.05); Absolute Lymphocytes 0.7 10^3/uL (1.2-3.4); Absolute Monocytes 0.7 10^3/uL (0.1-0.6); Absolute Neutrophils 5.2 10^3/uL (1.4-6.5); Hematocrit 21.9 % (39.0-52.0); Hemoglobin 7.5 g/dL (13.0-18.0); Mean Corp Hgb Conc. 34.2 g/dL (33.0-37.0); Mean Corpuscular Volume 84.6 fL (80.0-94.0); Mean Platelet Volume 10.6 fL (7.4-10.4); Nucleated Red Blood Cells % 0.3 % (-); Platelet Count 206 10^3/uL (130-400); Red Blood Cell Count 2.59 10^6/uL (4.70-6.10); Red Cell Dist. Width 17.1 % (11.5-14.5); White Blood Cell Count 6.9 10^3/uL (4.8-10.8)
[2024-05-30 02:23] LABS: ALT (SGPT) 13 U/L (0-50); AST (SGOT) 19 U/L (17-59); Albumin 3.6 g/dl (3.5-5.0); Alkaline Phosphatase 103 U/L (38-126); Blood Urea Nitrogen 66 mg/dl (9-20); Carbon Dioxide 17 mmol/L (22-30); Chloride 113 mmol/L (98-107); Glucose 128 mg/dl (70-99); Sodium 139 mmol/L (135-145); Total Bilirubin 0.3 mg/dl (0.2-1.3); Total Protein 5.8 g/dl (6.3-8.2); eGFR 11.97
[2024-05-30 02:47] LABS: Troponin I 0.117 ng/ml
[2024-05-30] MEDS: BENADRYL 50 MG IV (03:22)
--- NOTE | 2024-05-30 03:39 | ED.GENMED ---
History of Present Illness
General
Chief Complaint: Abnormal Lab Value
Source: patient
Exam Limitations: none
Time Seen by Provider: 05/30/24 00:29
History of Present Illness
History of Present Illness:
63-year-old male with a history of end-stage renal disease and chronic anemia who presents feeling like his hemoglobin is low. He states he has a history of GI bleeds in the past but this time he has not had a GI bleeding. He reports cynthia when he
is walking he feels short of breath. He admits that when his hemoglobin drops below 7.8 he does get symptomatic and they have been transfusing him. Denies abdominal pain or chest pain. Does occasionally get chest tightness when he is short of
breath. He states same symptoms he has had in the past. No fevers.
Past History
Past History
ED Past Medical History: CAD, Cancer (Kidney, Prostate CA, ), GERD, HTN, Hypercholesterolemia, [place], Renal failure, Seizures, Valvular disease and Other (Chronic kidney disease, Sleep apnea, H-Pylori, Anemia, Stage 4 kidney disease)
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
Social History
Tobacco: Former smoker
Alcohol: None
Drug: None
Personal:
Living: with family
Employment: Employed
Family History
Family History: Hypertension
Phy Exam
Physical Exam
Physical Exam:
CONSTITUTIONAL Patient alert and oriented to person, place and time. Well-appearing. Vital signs reviewed.
HEAD atraumatic, normocephalic.
EYES eyelids normal to inspection, Pupils equally round and reactive to light, Extraocular muscles intact, Conjunctiva normal, Sclera normal.
NECK normal range of motion, Trachea midline, no jugular venous distention.
RESPIRATORY CHEST No respiratory distress noted, Chest expansion equal, Bilateral breath sounds clear.
CARDIOVASCULAR regular rate and rhythm, 3/6 systolic ejection murmur
ABDOMEN abdomen nontender, Bowel sounds normal. No distention.
BACK normal inspection, no obvious deformities
UPPER EXTREMITY range of motion normal, Motor strength normal, no cyanosis, no edema.
LOWER EXTREMITY range of motion normal, Motor strength normal, no cyanosis, no edema.
NEURO Speech normal, No focal motor deficits, Meaghan coma scale 15, Memory normal, Cranial Nerves intact to screening exam.
SKIN skin warm, dry, and normal in color.
PSYCHIATRIC patient oriented to person place and time, Normal affect.
Course
Orders/Labs/Results
Orders:
Orders
05/30/24 00:48
Electrocardiogram (*1) Stat
Reason for Study: Shortness of Breath
EKG- Treatment ONCE
05/30/24 01:59
Type+Screen Urgent
Complete Blood Count/With Diff Urgent
Comprehensive Metabolic Panel Urgent
Troponin I Urgent
05/30/24 02:28
CR Chest - 2 Views Urgent
Comment:
Reason For Exam: dyspnea
05/30/24 02:58
* Blood Bank Products Urgent
Blood Bank Products: *Packed RBC Leuko(PRBC's)
Quantity: 1
Transfuse Today: Yes
Reason: Anemia
Patient will require pre-treatment for transfusion:: No
05/30/24 03:02
Diphenhydramine [Benadryl] 50 mg IV NOW STA
Abnormal Lab Results
05/30/24
01:59
RBC 2.59 L 10^6/uL
(4.70-6.10)
Hgb 7.5 L g/dL
(13.0-18.0)
Hct 21.9 L %
(39.0-52.0)
RDW 17.1 H %
(11.5-14.5)
MPV 10.6 H fL
(7.4-10.4)
Abs Immat Gran (auto) 0.1 H 10^3/uL
(0-0.05)
Absolute Lymphs (auto) 0.7 L 10^3/uL
(1.2-3.4)
Absolute Monos (auto) 0.7 H 10^3/uL
(0.1-0.6)
Immature Gran % 1.3 H %
(0-0.5)
Lymphocytes % 9.9 L %
(20.5-51.1)
Monocytes % 9.9 H %
(1.7-9.3)
Chloride 113 H mmol/L
(98-107)
Carbon Dioxide 17 L mmol/L
(22-30)
BUN 66 H mg/dl
(9-20)
Creatinine 5.1 H* mg/dL
(0.7-1.3)
Glucose 128 H mg/dl
(70-99)
Calcium 8.0 L mg/dl
(8.4-10.2)
Troponin I 0.117 H* ng/ml
Total Protein 5.8 L g/dl
(6.3-8.2)
Crossmatch IS Only See Detail
05/30/24 01:59
05/30/24 01:59
Vital Signs
Initial and Last Documented VS:
Initial Vital Signs
Temp Pulse Resp BP Pulse Ox
97.8 F 84 16 176/86 98
05/30/24 00:14 05/30/24 00:14 05/30/24 00:14 05/30/24 00:14 05/30/24 00:14
Last Documented Vital Signs
Temp Pulse Resp BP Pulse Ox
98.0 F 68 18 177/76 97
05/30/24 03:29 05/30/24 03:29 05/30/24 03:29 05/30/24 03:29 05/30/24 03:29
MDM/Problems Addressed
MDM/Problems Addressed:
Acute on chronic anemia, chronic renal failure
*Radiology
Radiology exam reviewed: all reviewed NAD by ED Provider
*Pulse Oximetry
Patient hypoxic: no
*EKG
Interpreted by ED Provider?: Yes
Interpretation: abnormal
Rate: normal
Rhythm: sinus
QRS Pattern: left bundle branch block
Ischemia: non-specific ST changes
*Water Treatment Plant Operator Interpretation
Rate: normal
Interpretation: normal
Rhythm: sinus
*Critical Care Note
Total Time (30-74mins, 75-104mins- exclusive of procedures): Not Applicable
Data Reviewed
Review of Other/Old Records Reveals: Labs (Prior labs reviewed)
Source: patient
Patient Management
Escalation/DeEscalation of care consider admission/obs:
Patient states that he is typically transfused and less than 7.8-8. Will give 1 unit and okay for discharge and outpatient follow-up.
ED Attending Note
-
Portions of this chart may have been created with voice recognition software.� Occasional wrong word or��sound alike� substitutions may have occurred due to the inherent limitations of voice recognition software.
Discharge Plan
Departure
Patient Disposition: Home (Routine Discharge)
Date of Disposition: 05/30/24
Time of Disposition: 03:42
Patient with high blood pressure during this ER visit?: Yes
Discharge Problem:
CKD (chronic kidney disease), Symptomatic anemia
Instructions: BLOOD PRESSURE
Prescriptions:
No Action
calcitriol 0.25 mcg capsule
0.25 mcg PO DAILY
cholecalciferol (vitamin D3) [Vitamin D3] 25 mcg (1,000 unit) Tablet
25 mcg PO DAILY
sertraline 100 mg Tablet
100 mg PO DAILY
hydralazine 25 mg Tablet
25 mg PO TID
aspirin 81 mg Tablet,Delayed Release (Dr/Ec)
81 mg PO DAILY
sodium bicarbonate 650 mg Tablet
650 mg PO Q12H
amlodipine 10 mg Tablet
10 mg PO HS
lansoprazole 30 mg Capsule,Delayed Release(Dr/Ec)
30 mg PO DAILY
octreotide acetate 50 mcg/mL Solution
100 mcg SC BID
rosuvastatin 10 mg Tablet
10 mg PO DAILY Qty: 0 0RF
Rx Instructions:
do not take while on Paxlovid
Paxlovid 150-100 mg tablets,dose pack
See Rx Instructions .ROUTE .COMPLEX Qty: 10 0RF
Rx Instructions:
orally per package directions orally 2 times a day;
Referrals:
NONE,* [Family Provider] -
Activity Restrictions/Additional Instructions:
Anemia
Please see your doctor in follow-up in the next 48 hours. Return for chest shortness of breath, fevers or any other concerns
Interventions
Interventions:
*Risk Screen - Suicide Last Done: 05/30/24 00:14
*Neglect/Abuse Screening Last Done: 05/30/24 00:14
ED- Fall Risk Assessment Last Done: 05/30/24 01:55
*ED COVID-19 Vaccine History Last Done: 05/30/24 00:14
Discharge Date and Time
Print Language: KYRGYZ
== END 2024-05-30 06:27 | disposition home or self-care (01) ==
LOC: EMR 23:56
PROVIDERS: EMERGENCY PHYSICIAN Emergency Medicine
DX: N18.6 End stage renal disease (principal); D63.1 Anemia in chronic kidney disease; I12.0 Hypertensive chronic kidney disease with stage 5 chronic kidney disease or end stage renal disease; Z87.891 Personal history of nicotine dependence
CPT/HCPCS: 99285; 36430; 96374; 71046; 80053; 84484; 85025; 86850; 86900; 86901; 86920; 93005; P9016

== ENCOUNTER 2024-06-05 01:40 | Inpatient (IN) | payer OTHER, SELFPAY ==
[2024-06-04 21:43] VITALS: BMI 33.6
[2024-06-04 21:46] VITALS: BP 197/92
[2024-06-04 22:00] VITALS: BP 188/74
[2024-06-04 22:17] LABS: % Eosinophils 4.3 % (0-6); % Immature Granulocytes 1.2 % (0-0.5); % Lymphocytes 10.3 % (20.5-51.1); % Monocytes 9.2 % (1.7-9.3); Absolute Basophils 0.1 10^3/uL (0-0.2); Absolute Eosinophils 0.3 10^3/uL (0-0.7); Absolute Immature Granulocytes 0.1 10^3/uL (0-0.05); Absolute Lymphocytes 0.6 10^3/uL (1.2-3.4); Absolute Monocytes 0.6 10^3/uL (0.1-0.6); Absolute Neutrophils 4.4 10^3/uL (1.4-6.5); Hematocrit 26.6 % (39.0-52.0); Hemoglobin 8.9 g/dL (13.0-18.0); Mean Corp Hgb Conc. 33.5 g/dL (33.0-37.0); Mean Corpuscular Volume 86.6 fL (80.0-94.0); Mean Platelet Volume 10.5 fL (7.4-10.4); Nucleated Red Blood Cells % 0 % (-); Platelet Count 232 10^3/uL (130-400); Red Blood Cell Count 3.07 10^6/uL (4.70-6.10); Red Cell Dist. Width 18.9 % (11.5-14.5)
[2024-06-04] MEDS: NITROSTAT (SUBLINGUAL) 0.4 MG SL ×2 (22:32→22:56)
[2024-06-04] MEDS: TYLENOL 1000 MG PO (22:34)
--- NOTE | 2024-06-04 22:35 | ED.GENMED ---
History of Present Illness
General
Chief Complaint: Chest Pain
Source: patient
Time Seen by Provider: 06/04/24 22:14
History of Present Illness
History of Present Illness:
63-year-old male presents to the emergency room complaining of chest pain. Patient was getting his medication together for the evening when he began having chest discomfort. Chest pain is on the left side radiates down both arms and into his back.
He had associated shortness of breath. Pain was like an 8 out of 10. It feels somewhat better now and he rates it a 4 out of 10. Patient had 2 stents placed about 1 year ago. He was unable to tolerate Plavix due to bleeding from small intestine
angiodysplasia. The patient's procedures were done at the hospital of the [facility]. His initial catheterization showed triple-vessel disease. His stenting was done in 2 stages. Patient was hospitalized almost a month ago for
COVID.
Past History
Past History
ED Past Medical History: CAD, Cancer (Kidney, Prostate CA, ), GERD, HTN, Hypercholesterolemia, [place], Renal failure, Seizures, Valvular disease and Other (Chronic kidney disease, Sleep apnea, H-Pylori, Anemia, Stage 4 kidney disease)
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
Social History
Tobacco: Former smoker
Alcohol: None
Drug: None
Personal:
Living: with family
Employment: Employed
Family History
Family History: Hypertension
Phy Exam
Physical Exam
Physical Exam:
General: Awake, Alert, Oriented X3. No acute distress.
Vitals: unremarkable
Head: Atraumatic
Eyes: Pupils equal, EOMI
Throat: Airway intact, no exudates
Neck: Trachea midline
Lungs: Clear and equal b/l
Heart: Regular rate, 2/6 murmur noted with maximum intensity left lower sternal border
Abd: Soft, Nontender, No pulsatile mass
Neuro: Cranial nerves intact, muscle strength equal bilaterally, cerebellar exam normal
Skin: Warm, dry, no rash
Extremities: pulses equal b/l, no edema
Scores
Heart Score for Chest Pain Patients
STEMI patient?: No
History: Highly Suspicious
ECG: Significant ST-Depression
Age: >45 - <65 years
Risk Factors: >/= 3 Risk Factors or History of CAD
Troponin: >/= 3 x Normal Limit
Heart Score for Chest Pain Patients: 9
Heart Score Risk: 72.7 % MACE over next 6 weeks
Course
Orders/Labs/Results
Orders:
Orders
06/04/24 21:45
Electrocardiogram (*1) Urgent
Reason for Study: QTc Monitoring
06/04/24 21:46
EKG- Treatment ONCE
06/04/24 22:09
Complete Blood Count/With Diff Urgent
Comprehensive Metabolic Panel Urgent
Troponin I Urgent
06/04/24 22:30
Nitroglycerin Sublingual [Nitrostat (Sublingual)] 0.4 mg SL [id number] PRN
06/04/24 22:31
Acetaminophen [Tylenol] 1,000 mg PO NOW STA
Nitroglycerin Sublingual [Nitrostat (Sublingual)] 0.4 mg .ROUTE .STK-MED ONE
CR Chest - 2 Views Urgent
Comment:
Reason For Exam: chest pain
06/04/24 22:56
Nitroglycerin Sublingual [Nitrostat (Sublingual)] 0.4 mg SL NOW STA
06/04/24 23:19
Electrocardiogram (*1) Urgent
Reason for Study: QTc Monitoring
EKG- Treatment ONCE
06/05/24 00:11
Heparin 4,000 units IV NOW STA
Nursing to Place Non Medication Order As Directed
Physician Order: PTT 6 hours after initial start of Heparin infusion
Above order entered?: Yes
06/05/24 00:14
PTT Urgent
Comment: Obtain baseline before beginning heparin infusion if not already collected
06/05/24 00:15
Heparin 78280 Units/250 ml 25,000 units in 250 ml IV PER PROTOCOL
Weight to be used for heparin protocol in kilograms (kg):: 115.6
Protocol:: Cardiac Tx/Acute Coronary
PTT Goal Range to be used:: PTT 73 to 111 seconds
Order type:: Initial
INITIAL Infusion Dose (UNITS/KG/hr) & then follow protocol:: 12 units/kg/hr
Infusion Dose in UNITS/hr & then follow protocol (UNITS/hr):: 1,000
INFUSION RATE in mL/hr & then follow protocol (mL/hr):: 10
PTT less than or equal to 64 seconds:: Increase rate by 200 units/hr (+ 2 mL/hr)
PTT 64.1 to 72.9 seconds:: Increase rate by 100 units/hr (+ 1 mL/hr)
PTT 73 to 111 seconds:: Target Range. No change in rate.
PTT 111.1 to 130.9 seconds:: Decrease rate by 100 units/hr (- 1 mL/hr)
PTT 131 to 199.9 seconds:: HOLD for 1 hr. Then decrease rate by 200 units/hr (- 2 mL/hr)
PTT greater than or equal to 200 seconds:: HOLD for 2 hrs & Notify Provider. Then decrease by 200 units/hr (-
2 mL/hr)
Lab follow-up:: Each change, PTT q6h until 2 consecutive are therapeutic. Then PTT
daily.
06/05/24 00:57
Admit/Transfer Patient As Directed
Co-Sign Provider:
Level of Care: Inpatient admission
Assign to:: IVU
Physician / Group: Paige
Diagnosis: Paige
Patient Condition: Fair
Reason for Hospitalization: NSTEMI
Expected length of stay greater than two midnights?: Yes
ELOS- Estimated Length of Stay in days: 2
I certify the patient meets the requirements for IP care: Yes
PRN Pain Medication Management As Directed
May give lesser potent ordered pain med per pt: Yes
preference::
Protocol:: Medication orders for pain may be administered in a
manner that supports deferring to patient preference
when the pt is:
- Requesting an ordered lesser potent pain medication.
Least to most potent pain medications are defined
as: acetaminophen < NSAID < tramadol < opioids
(morphine, oxycodone, hydromorphone).
- Requesting a lesser dose of the same medication IF
ORDERED.
- Requesting a less intrusive route of administration
if both routes are prescribed by the provider (PO <
IV).
06/05/24 01:00
Flush (0.9% Sodium Chloride) [Flush (Nss)] See Dose Instructions IV PER PROTOCOL
06/05/24 01:01
Code Status As Directed
Resuscitation Status: Full Code
06/05/24 01:04
CARDIOLOGY CONSULT Routine
Consulting Provider: Madi Lomas
Was physician already notified: Yes
Reason for consult: nstemi - does not want heparin (hx gib)
06/05/24 01:19
Transfer Patient As Directed
Transfer to: IVU
Patient Condition: Fair
06/05/24 01:20
NEPHROLOGY CONSULT Routine
Consulting Provider: Arnaud Carty V.
Was physician already notified: Yes
Reason for consult: advanced CKD. metabolic acidosis
06/05/24 02:29
Acetaminophen [Tylenol] 650 mg PO Q4HPRN PRN
Bisacodyl [Dulcolax] 10 mg RECTAL [id number] PRN
Docusate W/Senna [Senokot-S] 1 tablet PO BIDPRN PRN
Morphine Sulfate 2 mg IV Q4HPRN PRN
Octreotide [Sandostatin] 100 mcg SC BID
Polyethylene Glycol Powder [Miralax] 17 grams PO DAILYPRN PRN
06/05/24 02:29
Activity As Directed
Activity Level: Bedrest
Intake/ Output As Directed
Frequency: Per unit guidelines
Pneumatic Compression Sleeves As Directed
Type: Knee high
Venous Foot Pumps As Directed
Location: Bilateral feet
Vital Signs As Directed
Frequency: Per unit guidelines
Rx Incentive Spirometry [RESP] Routine
Frequency: q1h while awake
DX Deep Vein Thrombosis Video Routine
06/05/24 04:00
Troponin I Q6H
06/05/24 05:00
EKG [Electrocardiogram (*1)] Q4H
Reason for Study: Chest Pain
06/05/24 06:00
Echo 2D MMode Color/Doppler [Echo 2D MMode Color/Doppler] IN AM
Reason for Study: nstemi
Cardiology Consult: Madi Lomas
NPO
Allow oral meds: Yes
Allow clear liquids: No
NPO with Ice Chips: Yes
Basic Metabolic Panel IN AM
Cardiovascular Evaluation IN AM
Complete Blood Count/With Diff IN AM
Hemoglobin A1c [Glycohemoglobin (HgbA1c)] IN AM
Venous Blood Gas IN AM
%Oxygen/Room Air: 21%
06/05/24 08:00
Aspirin Low Dose EC [Aspir Low (Enteric Coated)] 81 mg PO DAILY
Calcitriol [Rocaltrol] 0.25 mcg PO DAILY
Cholecalciferol (Vitamin D3) [VITAMIN D3 (cholecalciferol)] 25 mcg PO DAILY
HydrALAZINE [Apresoline] 25 mg PO TID
Pantoprazole [Protonix] 40 mg PO DAILY
Rosuvastatin Calcium [Crestor] 10 mg PO DAILY
Sertraline HCl [Zoloft] 100 mg PO DAILY
Sodium Bicarbonate 650 mg PO Q8
06/05/24 09:00
EKG [Electrocardiogram (*1)] Q4H
Reason for Study: Chest Pain
06/05/24 10:00
Troponin I Q6H
06/05/24 22:00
Amlodipine [Norvasc] 10 mg PO HS
Abnormal Lab Results
06/04/24 06/05/24
22:09 00:14
RBC 3.07 L 10^6/uL
(4.70-6.10)
Hgb 8.9 L g/dL
(13.0-18.0)
Hct 26.6 L %
(39.0-52.0)
RDW 18.9 H %
(11.5-14.5)
MPV 10.5 H fL
(7.4-10.4)
Abs Immat Gran (auto) 0.1 H 10^3/uL
(0-0.05)
Absolute Lymphs (auto) 0.6 L 10^3/uL
(1.2-3.4)
Immature Gran % 1.2 H %
(0-0.5)
Lymphocytes % 10.3 L %
(20.5-51.1)
APTT 45.6 H Sec
(23.4-35.0)
Chloride 113 H mmol/L
(98-107)
Carbon Dioxide 16 L mmol/L
(22-30)
BUN 62 H mg/dl
(9-20)
Creatinine 4.7 H* mg/dL
(0.7-1.3)
Glucose 219 H mg/dl
(70-99)
Calcium 8.2 L mg/dl
(8.4-10.2)
Troponin I 0.197 H* ng/ml
Total Protein 6.0 L g/dl
(6.3-8.2)
06/04/24 22:09
06/04/24 22:09
Vital Signs
Initial and Last Documented VS:
Initial Vital Signs
Temp Pulse Resp BP Pulse Ox
97.5 F 92 20 197/92 98
06/04/24 21:46 06/04/24 21:46 06/04/24 21:46 06/04/24 21:46 06/04/24 21:46
Last Documented Vital Signs
Temp Pulse Resp BP Pulse Ox
97.5 F 84 13 161/70 97
06/04/24 21:46 06/05/24 02:31 06/05/24 02:15 06/05/24 02:00 06/05/24 02:15
MDM/Problems Addressed
Differential Diagnosis Includes:
NSTEMI, hypertensive emergency, unstable angina
MDM/Problems Addressed:
Patient presents with chest pain. His EKG shows a chronic left bundle. There does appear to be more ST depression laterally when compared to an EKG on May 30.
Troponin is elevated 0.19. He has had elevated troponins during a recent hospitalization for symptomatic anemia. At that time it was thought that the elevated troponins were due to nonischemic myocardial injury from the anemia. Given that he had
chest pain that is suspicious for angina, some EKG changes and now an elevated troponin we must assume that his chest pain is angina and that he is having a non-ST elevation RI. We will trend troponins. He already had 4 baby aspirin. We will
start heparin. Case discussed with Dr. monroe who is on-call for cardiology.
*Pulse Oximetry
Patient hypoxic: no
*EKG
Interpreted by ED Provider?: Yes
Interpretation: abnormal
Comparison EKG: changes noted
Heart Rate: 86
Rate: normal
Rhythm: sinus
QRS Pattern: left vent hypertrophy
Ischemia: ST depression (Subtle ST depression noted laterally)
*Lawn Sprinkler Installer Interpretation
Rate: normal
Rhythm: sinus
*Critical Care Note
Total Time (30-74mins, 75-104mins- exclusive of procedures): 33 min
comment:
Critical care statement: A total of 33 minutes of critical care time was provided for this patient. This includes management of unstable vital signs, evaluation of the patient at bedside, reviewing the patient's pertinent medical records, discussion
with consultants, review of old EKGs and review of pertinent medical records. This time with separate from time utilized to perform the aforementioned documented procedures
ED Attending Note
-
Portions of this chart may have been created with voice recognition software.� Occasional wrong word or��sound alike� substitutions may have occurred due to the inherent limitations of voice recognition software.
Discharge Plan
Departure
Patient Disposition: Admit
Date of Disposition: 06/04/24
Time of Disposition: 23:48
Admit to: IVU
Presentation/result/management discussed w/ accepting MD/DO: Hospitalist
Condition: Fair
Discharge Problem:
Non-ST elevation RI (NSTEMI), CKD (chronic kidney disease)
Interventions
Interventions:
*Risk Screen - Suicide Last Done: 06/05/24 02:41
*General Assessment Last Done: 06/05/24 02:33
*Neglect/Abuse Screening Last Done: 06/05/24 00:00
ED- Fall Risk Assessment Last Done: 06/04/24 22:30
*ED COVID-19 Vaccine History Last Done: 06/05/24 02:37
*Nursing Disposition Last Done: 06/05/24 02:33
ED- Cardiac Assessment Last Done: 06/04/24 22:30
Discharge Date and Time
Discharge Date/Time: 06/05/24 02:34
[2024-06-04 22:38] LABS: ALT (SGPT) 14 U/L (0-50); AST (SGOT) 20 U/L (17-59); Albumin 3.9 g/dl (3.5-5.0); Alkaline Phosphatase 88 U/L (38-126); Blood Urea Nitrogen 62 mg/dl (9-20); Calcium 8.2 mg/dl (8.4-10.2); Carbon Dioxide 16 mmol/L (22-30); Chloride 113 mmol/L (98-107); Glucose 219 mg/dl (70-99); Potassium 3.5 mmol/L (3.5-5.1); Sodium 139 mmol/L (135-145); Total Bilirubin 0.3 mg/dl (0.2-1.3)
[2024-06-04 22:43] LABS: Troponin I 0.197 ng/ml
[2024-06-04 22:51] VITALS: BP 142/77
[2024-06-04 23:00] VITALS: BP 172/70
[2024-06-04 23:49] VITALS: BP 174/61
[2024-06-05] VITALS (11 sets, daily range): BP systolic 141–178; BP diastolic 60–86; BMI 32.8
[2024-06-05] MEDS: HEPARIN 25000 UNITS/250 ML IV (00:31)
[2024-06-05 00:33] LABS: APTT 45.6 Sec (23.4-35.0)
[2024-06-05] MEDS: HEPARIN 4000 UNITS IV (00:35)
--- NOTE | 2024-06-05 01:10 | HPS.HSE ---
Addendum entered and electronically signed by Yen Gibson DO 06/05/24 01:36:
EKGs personally reviewed:
06/04/242: NSR @ 86bpm LBBB, ST-Depressions/TWI V5-V6, I-AVL, QTC 557ms.�
06/04/240:�NSR @ 75bpm, LBBB, ST-Depressions/TWI V5-V6, I-AVL, QTC 556ms
Original Note:
Family Physician
-
Family Physician: * NONE
Chief Complaint
-
Chest Pain
History of Present Illness
63yo M with PMH HTN/HLD, LBBB, CAD s/p Stentsx2, Aortic Stenosis s/p TAVR, ELENI untreated, CKD V, Seizures, Prostate Ca, BPH, Hx GIB on Chronic Octreotide, Chronic Anemia, Former Tobacco abuse presents to ER [facility] complaint of left sided chest pain
with radiation to left scapula. Pt states pain was 10/10 in severity, 'so severe i dont remember whether I was SOB.' Denies any recent significant limitations with exertion though does state he was ambulating to bathroom when this event happened
around 8-9pm. Pt took SL nitro with improvement and was given 4 baby aspirin by EMS en route.
Pt reports having most recent stents placed approximately 1 year ago ant [facility]. States TAVR surgeon Dr. Lackey and Smokehouse Worker Dr. Butt. Currently denies CP. After discussion of risks/benefits of heparin, heparin was discontinued as pt has
severe GIB concerns noting last bleed was 1 month ago. Denies fever, chills, palps, wheezing, cough, abd pain, n/v/d/c, dysuria, calf or leg pain.
ER course: Pt presents BP 197/92, RR 20-25, HR 78-92, Sat 98% RA. Hgb 8.9 g/dL. CO2 16. BUN/Cr 62/4.7, BG 219. Trop 0.197. S/P Tylenol 1000mg, Heparin bolus/gtt, and SL Nitro with BP improvement to 144/77, chest pain free. CXR NAD. Cardiology
notified in ER.
Swamper: Dr. Burns; Follows with Transplant team awaiting transplant
Medical History
Past Medical History
Past Medical History: Reports Other (HTN/HLD, LBBB, CAD s/p Stentsx2, Aortic Stenosis s/p TAVR, ELENI untreated, Seizures, Prostate Ca, BPH, Hx GIB on Chronic Octreotide, Chronic Anemia, Former Tobacco abuse)
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
Social History
Tobacco: Former Smoker
Alcohol: None
Drug: None
Personal:
Employment: Employed
Family History
Family History: Other (Father with HTN and CAD)
Allergies / Home Medications
Allergies reflects when Allergies were last updated in [employer].
Home Medications with original date entered in [employer]
Allergy/Medication List:
Allergies
Allergy/AdvReac Type Severity Reaction Status Date / Time
isosorbide Allergy Unknown Verified 05/30/24 00:14
Penicillins Allergy Anaphylaxis Verified 05/30/24 00:14
Home Medications
calcitriol 0.25 mcg capsule 0.25 mcg PO DAILY Kidney Disease 05/23/23
cholecalciferol (vitamin D3) 25 mcg (1,000 unit) tablet (Vitamin D3) 25 mcg PO DAILY Supplement 05/23/23
amlodipine 10 mg tablet 10 mg PO HS Blood Pressure 03/09/24
aspirin 81 mg tablet,delayed release 81 mg PO DAILY Blood Clot Prevention/Tx 03/09/24
hydralazine 25 mg tablet 25 mg PO TID Blood Pressure 03/09/24
lansoprazole 30 mg capsule,delayed release 30 mg PO DAILY Gastrointestinal Issue 03/09/24
sertraline 100 mg tablet 100 mg PO DAILY Mental Health/Anxiety 03/09/24
sodium bicarbonate 650 mg tablet 650 mg PO Q12H Electrolyte Repletion 03/09/24
octreotide acetate 50 mcg/mL injection solution 100 mcg SC BID CHRONIC GIB 05/05/24
rosuvastatin 10 mg tablet 10 mg PO DAILY High Cholesterol #0 tabs 05/08/24
Review of Systems
-
A 12 point ROS was completed and negative except as noted: Yes
Physical Exam
Vital Signs
Vital Signs
Temp Pulse Resp BP Pulse Ox
97.5 F 66 20 158/65 98
06/04/24 21:46 06/05/24 00:30 06/05/24 00:30 06/05/24 00:00 06/05/24 00:30
Physical Exam
General: Well Developed, Well Nourished and No Apparent Distress
HEENT: NormoCephalic, Moist mucous membranes and Atraumatic
Respiratory: Clear
Cardiac: S1/S2, Regular Rhythm, Murmur and Other (no reproducible chest wall tenderness)
GI: Soft, Non Tender, Non Distended, Normal Bowel Sounds and Other (obese); No Organomegaly
Rectal: Deferred by Provider
Musculoskeletal: No Clubbing, No Cyanosis and No Edema
Skin: No Rash
Neuro: Nonfocal/grossly intact
Laboratory Results
-
06/04/24 22:09
06/04/24 22:09
Laboratory Results
APTT Cancelled 06/05/24 06:31
Total Bilirubin 0.3 mg/dl (0.2-1.3) 06/04/24 22:09
AST 20 U/L (17-59) 06/04/24 22:09
ALT 14 U/L (0-50) 06/04/24 22:09
Alkaline Phosphatase 88 U/L (38-126) 06/04/24 22:09
Troponin I 0.197 ng/ml H* 06/04/24 22:09
Data Reviewed
-
Diagnostic Radiology: Image Personally Visualized and interpreted
Lab Data: Labs Reviewed by me
Old Records: Reviewed
Impression/Plan
-
NSTEMI / Hx CAD s/p Stent / HTN / HLD
- Endorses left sided CP with radiation to left scapula with 10/10 severity, now resolved
- HS Trop 0.197. Trend per ACS protocol. EKG with chronic LBBB ST-Depressions/TWI laterally more prominent. Repeat EKG for AM
- Initial heparin bolus/gtt started. After further discussion given his bleed risks pt is adamant about holding off on heparin. Heparin discontinued, nurse notified.
- S/P 4 bASA and Nitro SL en route. Continue bASA daily and Nitro SL
- BP improved from 197/92 -> 142/77 on admission. Continue home hydralazine, amlodipine. Continue home statin
- TTE 05/07/2024:
Normal biventricular size and systolic function without regional wall motion
abnormality. Estimated LVEF 55-60%.
Mild concentric left ventricular hypertrophy.
Abnormal (paradoxical) septal motion consistent with left bundle branch block.
s/p TAVR. Peak/mean gradients 31/18 mmHg. No aortic regurgitation is seen.
- Check Lipids/A1C. Obtain repeat TTE
- NPO pending cardiac eval.
Hx Aortic Stenosis - S/P TAVR approx 1 year ago at [facility]. Follow up TTE.
Anemia - Hgb 8.9 g/dL. Normocytic. At or above prior thresholds. Denies current bleeding but was given heparin bolus/gtt in ER. Will monitor closely with gtt now discontinued. Consider chemical DVT ppx pending reassessment in AM.
Metabolic Acidosis - Bicarb 16. Likely 2/2 advanced CKD V. Increase bicarb to 650mg TID. Check VBG for completeness in AM. Appreciate nephro recs.
CKD V
- BUN/Cr 62/4.7. Pt is on transplant list following with Swamper Dr. Burns. Consult nephro for further management.
- Continue vitamin D3 and calcitriol
Hyperglycemia - BG 219 on admission. Check A1C. Consider SSI/accuchecks if remains elevated.
Hx GIB - Hx noted. Continue octreotide SC BID.
Anxiety/Depression - Continue sertraline.
Diet: NPO
DVT Ppx: SCDs, consider chemical pending reassessment of H&H and monitor of GIB
Code status: Full
[2024-06-05] MEDS: SANDOSTATIN 100 MCG SC ×3 (03:14→21:05)
[2024-06-05] MEDS: FLUSH (NSS) 2 FLUSH IV ×2 (04:24→06:33)
[2024-06-05 05:12] LABS: % Basophils 1.4 % (0-2); % Eosinophils 4.3 % (0-6); % Immature Granulocytes 1.2 % (0-0.5); % Lymphocytes 13.7 % (20.5-51.1); % Monocytes 12.2 % (1.7-9.3); % Neutrophils 67.2 % (42.2-75.2); Absolute Basophils 0.1 10^3/uL (0-0.2); Absolute Eosinophils 0.3 10^3/uL (0-0.7); Absolute Immature Granulocytes 0.1 10^3/uL (0-0.05); Absolute Lymphocytes 0.8 10^3/uL (1.2-3.4); Absolute Monocytes 0.7 10^3/uL (0.1-0.6); Absolute Neutrophils 3.9 10^3/uL (1.4-6.5); Hemoglobin 8.7 g/dL (13.0-18.0); Mean Corp Hgb Conc. 32.2 g/dL (33.0-37.0); Mean Platelet Volume 11.1 fL (7.4-10.4); Nucleated Red Blood Cells % 0 % (-); Platelet Count 220 10^3/uL (130-400); Red Cell Dist. Width 18.6 % (11.5-14.5); White Blood Cell Count 5.8 10^3/uL (4.8-10.8)
--- NOTE | 2024-06-05 05:12 | PTCARENOTE ---
Rec'd pt from ED. Pt ambulated from stretcher to scale then to bed with minimal assistance. Pt oriented to room and unit. Pt on threat monitoring analyst in normal sinus rhythm, with left bundle branch block confirmed by ekg and hr in the 60's. Pt
admission complete and denies any chest pain or discomfort. Pt agreed to report any pain or discomfort. Pt resting in bed. Plan of care continues.
[2024-06-05 05:45] LABS: Blood Urea Nitrogen 64 mg/dl (9-20); Calcium 8.2 mg/dl (8.4-10.2); Carbon Dioxide 13 mmol/L (22-30); Chloride 115 mmol/L (98-107); Estimated Creatinine Clearance 21 ml/min; Glucose 96 mg/dl (70-99); HDL Cholesterol 27 mg/dl; LDL Cholesterol, Calculated 123 mg/dl; Potassium 4.2 mmol/L (3.5-5.1); Sodium 141 mmol/L (135-145); Total Cholesterol 206 mg/dl (50-199); Triglyceride 283 mg/dl (10-149); Very Low Density Lipoprotein 56 mg/dl (0-30); eGFR 12.87
--- NOTE | 2024-06-05 06:13 | W.PN.UPDATE ---
Update Note
Progress Note Update
Patient with worsening of bicarb from 16 to 13 overnight. Will give 2 amps Bicarbonate push. Follow up VBG. Pt increased to 650mg TID bicarbonate tabs on admission but on review of last admission 1300mg BID adjustment made. Will consider further
dose increases accordingly.
[2024-06-05] MEDS: SODIUM BICARBONATE 50 MEQ IV ×2 (06:32)
--- NOTE | 2024-06-05 08:32 | CON.CAR ---
Addendum entered and electronically signed by Madi Lomas MD 06/05/24 11:37:
Patient seen and examined in collaboration with PACKAGE DESIGNER; agree with below.
-Patient with coronary artery disease (as outlined below), TAVR earlier this year, and significant CKD (currently on the transplant list at [facility]), and history of significant GI bleeding admitted with chest pain; cardiac enzymes elevated, consistent
with an NSTEMI.
-Patient currently declines heparin due to bleeding risk and states that he would not want to take Plavix either; therefore, patient will be managed conservatively from a cardiac standpoint.
-Continue aspirin 81 mg daily.
-Continue to trend cardiac enzymes until peak; the patient denies chest pain currently.
-Continue gambling monitor.
-Will obtain an echocardiogram on Friday to thoroughly reassess cardiac function.
-Will follow.
Original Note:
Consultation
Consultation Request
Date/Time Consultation Requested: 06/05/2024 08
Date/Time Consultation Performed: 06/05/2024 0800
Requesting Provider: DR. Borges
Performing Provider:
Reason for Consultation: CP
Medical History
-
Chief Complaint: CP
History of Present Illness:
63-year-old patient with history of CAD prior stenting at the [facility] in 01/23/23 and April 2023, (had bleeding on Plavix post PCI and was only able to tolerate aspirin therapy) TAVR 02/2024, CKD currently on transplant list at [facility],
chronic anemia, history of GI bleeding, hypertension, hyperlipidemia and recent COVID 05/2024. He was going to the bathroom yesterday evening and developed sharp chest discomfort. It was on the left side. It radiated to the back and bilateral
arms. He did feel nausea and did vomit. An ambulance was called. He chewed 4 aspirins prior to their arrival. Upon arrival at [place] he was given nitroglycerin. After his second nitroglycerin dose he became chest pain-free. He has not had
any recurrent chest pain. Leading up to yesterday he denies having episodes of chest pain or shortness of breath. Of note for his chronic anemia he receives Procrit and since February 2024 has had 13 units of packed red blood cells. This is managed
by his communications supervisor Dr. Casanova at the [facility].
Past Medical History
Past Medical History: Other (CAD previous PCI in 2022, GI bleeding, chronic anemia, hypertension hyperlipidemia, hypertension CKD 5 on transplant list, TAVR 02/2024, TIA 01/2023, ELENI untreated)
Past Surgical History: Other (CAD-PCI January 2023 and April 2023, TAVR 02/2024-all at [facility]. Bilateral rotator cuff surgery, left nephrectomy, brain tumor removed as a child, hernia repair)
Social History
Tobacco: Former Smoker
Alcohol: None
Drug: None
Personal:
Living: With Family
Family History
Family History: Reviewed & Not Pertinent
Allergies / Home Medications
Allergy/AdvReac Type Severity Reaction Status Date / Time
isosorbide Allergy Unknown Verified 05/30/24 00:14
Penicillins Allergy Anaphylaxis Verified 05/30/24 00:14
�Medication �Instructions �Recorded �Confirmed �Type
calcitriol 0.25 mcg capsule 0.25 mcg PO DAILY Kidney Disease 05/23/23 06/05/24 History
cholecalciferol (vitamin D3) 25 25 mcg PO BID Supplement 05/23/23 06/05/24 History
mcg (1,000 unit) tablet (Vitamin
D3)
amlodipine 10 mg tablet 10 mg PO HS Blood Pressure 03/09/24 06/05/24 History
aspirin 81 mg tablet,delayed 81 mg PO DAILY Blood Clot 03/09/24 06/05/24 History
release Prevention/Tx
hydralazine 25 mg tablet 25 mg PO TID Blood Pressure 03/09/24 06/05/24 History
lansoprazole 30 mg capsule,delayed 30 mg PO BID Gastrointestinal Issue 03/09/24 06/05/24 History
release
sertraline 100 mg tablet 100 mg PO DAILY Mental 03/09/24 06/05/24 History
Health/Anxiety
sodium bicarbonate 650 mg tablet 650 mg PO Q12H Electrolyte 03/09/24 06/05/24 History
Repletion
octreotide acetate 50 mcg/mL 100 mcg SC BID CHRONIC GIB 05/05/24 06/05/24 History
injection solution
rosuvastatin 10 mg tablet 10 mg PO DAILY High Cholesterol #0 05/08/24 06/05/24 Rx
tabs
Review of Systems
-
History Source: Patient
Constitutional: Fatigue
EENT: No Symptoms
Respiratory: No Symptoms
Cardiac: No Symptoms
Abdomen/GI: No Symptoms
: No Symptoms
Musculoskeletal: No Symptoms
Neurological: No Symptoms
Hematologic/Lymphatic: No Symptoms
Physical Exam
Vital Signs
Temp Pulse Resp BP Pulse Ox
97.8 F 66 16 163/86 99
06/05/24 03:00 06/05/24 03:00 06/05/24 03:00 06/05/24 03:00 06/05/24 04:45
Lab Results
06/05/24 04:35
06/05/24 04:35
Troponin I 4.200 ng/ml H* D 06/05/24 04:35
Physical Exam
General: Well Developed, Well Nourished and No Apparent Distress
HEENT: Normocephalic and Moist Mucous Membranes
Respiratory: Clear
Cardiac: S1/S2 and Regular Rhythm
Breast: N/A
GI: Soft, Non Tender and Normal Bowel Sounds
Rectal: Deferred by Provider
Musculoskeletal: No Edema
Neuro: AO x 3
Psych: Calm
Impression / Plan
-
Fire Extinguisher Mechanic: Dr. Burns;
[place] Utility Worker: Dr. Butt
CT surgery: Dr. Lackey
Hematology: Dr. Casanova
Non-STEMI:
-Patient with chest pain concerning for anginal pattern. Currently chest pain-free.
-Peak troponin so far was 4.2. Continue to trend.
-Patient declined IV heparin as in the past he has had GI bleeding on Plavix. He also has chronic anemia for which she receives Procrit and frequent blood transfusions. Patient has received 13 units of packed red blood cells since February 2024 per
his report.
-Previous PCI at the [facility] in January 2023 and April 2023. On aspirin.
-Patient states he does not tolerate isosorbide secondary to severe headaches.
-Patient not currently on beta-peter therapy. He does not recall why.
-Continue current statin. LDL 123 - increase rosuvastatin
-Update echocardiogram
LBBB:
-Left bundle branch block noted. This was noted on previous EKGs as well.
CKD V:
-Followed by transplant team at the [facility]. He has a family donor who is in the process of their workup.
Chronic anemia:
-Patient states he usually gets transfused for hemoglobins less than 7.8. He is on chronic Procrit as well. He is followed by hematology at the [facility]
h/o GIB: on octreotide SC BID.
Hypertension:
-Continue current antihypertensives
Data Reviewed
-
EKG: Tracing Personally Visualized and interpreted (EKG with normal sinus rhythm at 63 bpm with left bundle branch block.)
Radiology: Report Reviewed by me (Chest x-ray no acute disease)
Labs: Labs Reviewed by me, Discussed with Physician and Discussed with Patient
[2024-06-05] MEDS: CRESTOR 10 MG PO (08:36)
[2024-06-05] MEDS: SODIUM BICARBONATE 650 MG PO (08:36)
[2024-06-05] MEDS: VITAMIN D3 (cholecalciferol) 25 MCG PO (08:37)
[2024-06-05] MEDS: PROTONIX 40 MG PO (08:37)
[2024-06-05] MEDS: APRESOLINE 25 MG PO ×3 (08:37→22:53)
[2024-06-05] MEDS: ASPIR LOW (ENTERIC COATED) 81 MG PO (08:37)
[2024-06-05] MEDS: ZOLOFT 100 MG PO (08:38)
[2024-06-05] MEDS: ROCALTROL 0.25 MCG PO (08:38)
--- NOTE | 2024-06-05 08:38 | W.PN.HOSP.TC ---
Today's Communication/Plan
-
await cards/renal input for next steps
Assessment / Plan
Assessment / Plan
pt is a 63 year old male
NSTEMI--Hx CAD s/p Stent --did not tolerate plavix due to GI bleeding--await cards--no IV heparin due to bleeding risk as well--s/p SL NTG en rout to hospital with improvement--no need to repeat ECHO as had 05/07/24- Normal biventricular size and
systolic function without regional wall motion abnormality. Estimated LVEF 55-60%. Mild concentric left ventricular hypertrophy. Abnormal (paradoxical) septal motion consistent with left bundle branch block-- s/p TAVR--Peak/mean gradients 31/18
Essential HTN--cont hydralazine and amlodipine
HLD--cont statin--check lipids
Hx Aortic Stenosis - S/P TAVR approx 1 year ago at [facility]
Anemia likely of chronic disease from CKD stage 5- Hgb 8.9 g/dL. Normocytic. At or above prior thresholds
Metabolic Acidosis due to CKD stage 5-- Bicarb 16. Increase bicarb to 650mg TID--await renal
CKD V --transplant eval with [facility]- BUN/Cr 62/4.7. Pt is on transplant list following with [employer] Sql Developer Dr. Burns--await renal-- Continue vitamin D3 and calcitriol
Hyperglycemia - BG 219 on admission. Check A1C. Consider SSI/accuchecks if remains elevated.
Hx GIB - Hx noted. Continue octreotide SC BID.
Anxiety/Depression - Continue sertraline.
DVT Ppx: SCDs
Code status: Full
Anticipated Discharge: 24 - 48 hours
Subjective/Interval History
-
Date of Service: June 05, 2024
pt not very talkative--denies further chest pain
Objective Data
-
Labs:
Laboratory Results
06/04/24 06/05/24 06/05/24
22:09 00:14 04:35
WBC 6.0 5.8
Hgb 8.9 L 8.7 L
Hct 26.6 L 27.0 L
Plt Count 232 220
APTT 45.6 H
Sodium 139 141
Potassium 3.5 4.2
Chloride 113 H 115 H
Carbon Dioxide 16 L 13 L*
BUN 62 H 64 H
Creatinine 4.7 H* 4.8 H*
Glucose 219 H 96
Calcium 8.2 L 8.2 L
Total Bilirubin 0.3
AST 20
ALT 14
Alkaline Phosphatase 88
06/05/24
06:31
WBC
Hgb
Hct
Plt Count
APTT Cancelled
Sodium
Potassium
Chloride
Carbon Dioxide
BUN
Creatinine
Glucose
Calcium
Total Bilirubin
AST
ALT
Alkaline Phosphatase
Vital Signs:
max temp for 24 hours
06/05/24
03:00
Temp 97.8 F
Vital Signs
Temp Pulse Resp BP Pulse Ox
97.8 F 66 16 163/86 99
06/05/24 03:00 06/05/24 03:00 06/05/24 03:00 06/05/24 03:00 06/05/24 04:45
Review of Systems
-
All other systems: Reviewed and negative
Physical Exam
-
General: Well Developed, Well Nourished and No Apparent Distress
HEENT: Normocephalic and Atraumatic
Respiratory: Clear to Auscultation; Negative Wheezes, Rhonchi or Crackles
Cardiac: Regular Rhythm and S1/S2; Negative Murmur
GI: Soft, Nontender, Nondistended and Normal Bowel Sounds
Musculoskeletal: No Clubbing, No Cyanosis and No Edema
Skin: Warm
Neuro: Awake
Psych: Calm
[2024-06-05 10:22] LABS: Venous Blood Gas B.E. -7.6 mmol/L (-4 to +4); Venous Blood Gas HCO3 18.8 mmol/L (22-27); Venous Blood Gas O2 Sat % 98.2 %; Venous Blood Gas pCO2 41 mmHg (35-48); Venous Blood Gas pH 7.27 (7.32-7.43); Venous Blood Gas pO2 95 mmHg (30-50)
--- NOTE | 2024-06-05 10:24 | W.CON.NEPH ---
Consultation
-
Date/Time Consultation Requested: 06/05/2024 7:30 AM
Date/Time Consultation Performed: 06/05/2024 10:15 AM
Requesting Provider: Dr. Borges
Performing Provider: Dr. Carty
Reason for Consultation: Chronic kidney disease stage V
Medical History
-
Chief Complaint: Chronic kidney disease stage V
History of Present Illness:
The patient is a 63-year-old male with a past medical history of CKD stage V who maintains a baseline creatinine of 4.8. He has a history of hypertension and is maintained on amlodipine. He is maintained on sodium bicarbonate for his chronic
metabolic acidosis and calcitriol for secondary hyperparathyroidism. Patient presented to the hospital with left-sided chest pain with radiation to the left scapula. Patient's symptoms were consistent with non-ST elevation LA. Troponin currently
at 4.2 The patient does have an extensive history of coronary artery disease and has undergone previous coronary stents the last 1 being approximately 1 year prior to [facility]. He also has a history of aortic stenosis and has
undergone previous TAVR procedure at an outside institution. He was hypertensive on presentation. He is followed by an outside bottle packer Dr. Burns. Nephrology was consulted in regards to his chronic kidney disease stage V anemia metabolic
acidosis, and secondary hyperparathyroid.
Past Medical History
CAD previous PCI in 2022, GI bleeding, chronic anemia, hypertension hyperlipidemia, hypertension CKD 5 (4.8)on transplant list, TAVR 02/2024, TIA 01/2023, ELENI untreated, secondary hyperparathyroidism, metabolic acidosis
Past Surgical History: Other (CAD-PCI January 2023 and April 2023, TAVR 02/2024-all at [facility]. Bilateral rotator cuff surgery, left nephrectomy, brain tumor removed as a child, hernia repair)
Social History
Tobacco: Former Smoker
Alcohol: None
Family History
No CKD
Allergies / Home Medications
Allergy/AdvReac Type Severity Reaction Status Date / Time
isosorbide Allergy Unknown Verified 05/30/24 00:14
Penicillins Allergy Anaphylaxis Verified 05/30/24 00:14
�Medication �Instructions �Recorded �Confirmed �Type
calcitriol 0.25 mcg capsule 0.25 mcg PO DAILY Kidney Disease 05/23/23 06/05/24 History
cholecalciferol (vitamin D3) 25 25 mcg PO BID Supplement 05/23/23 06/05/24 History
mcg (1,000 unit) tablet (Vitamin
D3)
amlodipine 10 mg tablet 10 mg PO HS Blood Pressure 03/09/24 06/05/24 History
aspirin 81 mg tablet,delayed 81 mg PO DAILY Blood Clot 03/09/24 06/05/24 History
release Prevention/Tx
hydralazine 25 mg tablet 25 mg PO TID Blood Pressure 03/09/24 06/05/24 History
lansoprazole 30 mg capsule,delayed 30 mg PO BID Gastrointestinal Issue 03/09/24 06/05/24 History
release
sertraline 100 mg tablet 100 mg PO DAILY Mental 03/09/24 06/05/24 History
Health/Anxiety
sodium bicarbonate 650 mg tablet 650 mg PO Q12H Electrolyte 03/09/24 06/05/24 History
Repletion
octreotide acetate 50 mcg/mL 100 mcg SC BID CHRONIC GIB 05/05/24 06/05/24 History
injection solution
rosuvastatin 10 mg tablet 10 mg PO DAILY High Cholesterol #0 05/08/24 06/05/24 Rx
tabs
Review of Systems
-
History Source: Patient
All other systems: Negative unless noted
Cardiac: Chest Pain (Now without symptoms)
Physical Exam
Vital Signs
Vital Signs
Temp Pulse Resp BP Pulse Ox
97.8 F 63 16 177/69 99
06/05/24 03:00 06/05/24 08:37 06/05/24 03:00 06/05/24 08:37 06/05/24 04:45
Lab Results
06/05/24 04:35
06/05/24 04:35
WBC 5.8 10^3/uL (4.8-10.8) 06/05/24 04:35
RBC 3.00 10^6/uL (4.70-6.10) L 06/05/24 04:35
Hgb 8.7 g/dL (13.0-18.0) L 06/05/24 04:35
Hct 27.0 % (39.0-52.0) L 06/05/24 04:35
Plt Count 220 10^3/uL (130-400) 06/05/24 04:35
Sodium 141 mmol/L (135-145) 06/05/24 04:35
Potassium 4.2 mmol/L (3.5-5.1) 06/05/24 04:35
Chloride 115 mmol/L (98-107) H 06/05/24 04:35
Carbon Dioxide 13 mmol/L (22-30) L* 06/05/24 04:35
BUN 64 mg/dl (9-20) H 06/05/24 04:35
Creatinine 4.8 mg/dL (0.7-1.3) H* 06/05/24 04:35
eGFR 12.87 06/05/24 04:35
Glucose 96 mg/dl (70-99) 06/05/24 04:35
Calcium 8.2 mg/dl (8.4-10.2) L 06/05/24 04:35
Albumin 3.9 g/dl (3.5-5.0) 06/04/24 22:09
Physical Exam
General: AOx3, Nontoxic , NAD
HEENT: PERRL, EOMI, Anicteric, Conjunctivae Clear, Ear/Nose Intact, Hearing Normal, Oropharynx Clear/Moist, Dentition Intact, Facial Symmetry, Neck Supple, Neck: Trachea Midline, No JVD and No Thyromegaly, no Bruits
Respiratory: Clear to auscultation bilaterally with normal lung exersion
Cardiac: S1/S2 and Regular Rate/Rhythm
Breast: Deferred by me
Abdomen: Soft, Nontender, Nondistended, Normal Bowel Sounds and No Hepatosplenomegaly
Rectal: Deferred by Provider
Genito-urinary: No Costovertebral Tenderness
Extremities: No Clubbing, No Cyanosis and No Edema
Skin: No Rash or open lesions
Neuro: Nonfocal/Grossly Intact, CN II-XII (Intact) and Strength (Musculoskeletal exam 5 out of 5 both upper and lower extremities)
Hematologic/Lymphatic: No Cervical Lymphadenopathy, No Submandibular Lymphadenopathy and No Supraclavicular Lymphadenopathy
Psych: Mood/afflect pleasant, Insight/judgement good and Appropriate
Vascular: plus 2 pedal and radial pulses
Data Reviewed
-
Radiology: Image Personally Visualized and interpreted (Chest x-ray reviewed without evidence of congestive heart failure, right IJ CVC noted)
Medical Tests (Nuc Med, Echo etc): Other (EKG reviewed left bundle branch block sinus rhythm at 63 bpm)
Labs: Labs Reviewed by me (BMP CBC)
Old Records: Reviewed (Creatinine value reviewed from March 09, 2024 in electronic medical record 4.8)
Assessment/Plan
-
Impression:
CKD V
Non-ST elevation LA/Chest pain
Hypertension
Secondary hyperparathyroidism
Chronic metabolic acidosis
Chronic anemia
Coronary artery disease with previous PCI in January and April 2023 with stents
History of TAVR are February 2024
History of GI bleed
Plan:
-Although patient has advanced kidney disease his creatinine remained stable at his baseline
-No acute need for dialysis nor evidence of gross volume overload
-Maintain sodium bicarbonate in setting of metabolic acidosis, will escalate in setting of worsening metabolic acidosis
-Maintain current antihypertensives in setting of hypertension
-Maintain calcitriol in setting of secondary hyperparathyroid
-If patient proceeds to cardiac Game Producer he will likely require dialysis secondary to contrast administration
-Will check iron stores and provide IV iron in setting of anemia
[2024-06-05] MEDS: LOPRESSOR 12.5 MG PO ×2 (11:04→19:55)
--- NOTE | 2024-06-05 11:32 | PTCARENOTE ---
pt continues to be sr on the monitor, hr in the 60s, vss. pt offers no complaints at this time. trop level drawn and notified dr. valderrama, will draw another trop at 1600. pt denies cp at this time. pt educated on plan of care and pt verbalized
understanding. pt ambulating in room and tolerating well. pt visiting with family at bedside. call bonilla within reach.
[2024-06-05] MEDS: SODIUM BICARBONATE 1300 MG PO ×2 (15:52→22:53)
[2024-06-05] MEDS: LIPITOR 40 MG PO (17:19)
--- NOTE | 2024-06-05 17:48 | PTCARENOTE ---
pt is sr on the monitor, hr in the 60s, vss. pt offers no complaints at this time. pt has been educated on plan of care throughout the day and pt verbalized understanding. call bonilla within reach.
[2024-06-05] MEDS: SANDOSTATIN SC (19:56)
[2024-06-05] MEDS: NORVASC 10 MG PO (22:53)
[2024-06-06] VITALS (8 sets, daily range): BP systolic 146–176; BP diastolic 61–74; BMI 32.8
--- NOTE | 2024-06-06 02:44 | PTCARENOTE ---
Pt. has had no complaints of chest pain or discomfort so far this shift, VSS, NSR with rate high 50's-60's on the monitor. Pt. pleasant and cooperative, currently asleep.
[2024-06-06] MEDS: FLUSH (NSS) 2 FLUSH IV (05:04)
[2024-06-06 06:00] LABS: Hematocrit 25.8 % (39.0-52.0); Hemoglobin 8.4 g/dL (13.0-18.0); Mean Corp Hgb Conc. 32.6 g/dL (33.0-37.0); Mean Corpuscular Hgb 28.4 pg (27.0-31.0); Mean Corpuscular Volume 87.2 fL (80.0-94.0); Mean Platelet Volume 10.8 fL (7.4-10.4); Platelet Count 218 10^3/uL (130-400); Red Blood Cell Count 2.96 10^6/uL (4.70-6.10); Red Cell Dist. Width 18.9 % (11.5-14.5); White Blood Cell Count 6.6 10^3/uL (4.8-10.8)
[2024-06-06 06:24] LABS: ALT (SGPT) 15 U/L (0-50); AST (SGOT) 29 U/L (17-59); Albumin 3.4 g/dl (3.5-5.0); Alkaline Phosphatase 62 U/L (38-126); Blood Urea Nitrogen 62 mg/dl (9-20); Calcium 7.8 mg/dl (8.4-10.2); Carbon Dioxide 19 mmol/L (22-30); Chloride 112 mmol/L (98-107); Estimated Creatinine Clearance 21 ml/min; Glucose 122 mg/dl (70-99); Iron 57 ug/dl (49-181); Magnesium 1.5 mg/dl (1.6-2.3); Sodium 139 mmol/L (135-145); Total Bilirubin 0.3 mg/dl (0.2-1.3); Total Protein 5.5 g/dl (6.3-8.2)
[2024-06-06 06:32] LABS: Percent Saturation 23 % (20-50); Potassium 4.3 mmol/L (3.5-5.1); Total Iron Binding Capacity 247 ug/dl (261-462)
--- NOTE | 2024-06-06 08:30 | W.PN.HOSP.TC ---
Today's Communication/Plan
-
ECHO Friday
apprec all consultants' input
Assessment / Plan
Assessment / Plan
pt is a 63 year old male
NSTEMI--Hx CAD s/p Stent --did not tolerate plavix due to GI bleeding--apprec cards--no IV heparin due to bleeding risk as well--s/p SL NTG en rout to hospital with improvement-- ECHO 05/07/24- Normal biventricular size and systolic function without
regional wall motion abnormality. Estimated LVEF 55-60%. Mild concentric left ventricular hypertrophy. Abnormal (paradoxical) septal motion consistent with left bundle branch block, repeat Friday-- s/p TAVR--Peak/mean gradients 31/18--troponin
downtrending
Essential HTN--cont hydralazine and amlodipine
HLD--cont statin--lipids (trig 283, Tchol 206, LDL 123)--should have better control, consider increasing rosuvastatin dosing
Hx Aortic Stenosis - S/P TAVR approx 1 year ago at [facility]
Anemia likely of chronic disease from CKD stage 5- Hgb 8.9 g/dL. Normocytic. At or above prior thresholds
Metabolic Acidosis due to CKD stage 5-- Bicarb 16. Increase bicarb to 650mg TID--await renal
CKD V --transplant eval with [facility]- BUN/Cr 62/4.7. Pt is on transplant list following with Braille Operator Dr. Burns--apprec renal-- Continue vitamin D3 and calcitriol
Hyperglycemia - BG 219 on admission--HGB A1C pending-- Consider SSI/accuchecks if remains elevated.
Hx GIB - Hx noted. Continue octreotide SC BID.
Anxiety/Depression - Continue sertraline.
DVT Ppx: SCDs
Code status: Full
Anticipated Discharge: 24 - 48 hours
Subjective/Interval History
-
Date of Service: June 06, 2024
pt denies chest pain--otherwise not interested in communicating
Objective Data
-
Labs:
Laboratory Results
06/06/24
05:07
WBC 6.6
Hgb 8.4 L
Hct 25.8 L
Plt Count 218
Sodium 139
Potassium 4.3
Chloride 112 H
Carbon Dioxide 19 L
BUN 62 H
Creatinine 4.7 H*
Glucose 122 H
Calcium 7.8 L
Total Bilirubin 0.3
AST 29
ALT 15
Alkaline Phosphatase 62
Vital Signs:
max temp for 24 hours
06/06/24
03:10
Temp 98.4 F
Vital Signs
Temp Pulse Resp BP Pulse Ox
97.4 F 58 20 166/62 98
06/06/24 06:58 06/06/24 05:00 06/06/24 06:58 06/06/24 03:08 06/06/24 06:58
I&O
06/05/24 06/06/24 06/07/24
06:59 06:59 06:59
Intake Total 1440 / 1440
Balance 1440 / 1440
Review of Systems
-
All other systems: Reviewed and negative
Physical Exam
-
General: Well Developed, Well Nourished and No Apparent Distress
HEENT: Normocephalic and Atraumatic
Respiratory: Clear to Auscultation; Negative Wheezes or Rhonchi
Cardiac: Regular Rhythm and S1/S2; Negative Murmur
GI: Soft, Nontender, Nondistended and Normal Bowel Sounds
Musculoskeletal: No Clubbing, No Cyanosis and No Edema
Skin: Warm
Psych: Calm
[2024-06-06] MEDS: LOPRESSOR 12.5 MG PO ×2 (09:21→20:33)
[2024-06-06] MEDS: PROTONIX 40 MG PO (09:22)
[2024-06-06] MEDS: ASPIR LOW (ENTERIC COATED) 81 MG PO (09:22)
[2024-06-06] MEDS: VITAMIN D3 (cholecalciferol) 25 MCG PO (09:22)
[2024-06-06] MEDS: ROCALTROL 0.25 MCG PO (09:22)
[2024-06-06] MEDS: SODIUM BICARBONATE 1300 MG PO ×3 (09:22→22:58)
[2024-06-06] MEDS: ZOLOFT 100 MG PO (09:22)
[2024-06-06] MEDS: SANDOSTATIN 100 MCG SC ×2 (09:22→20:34)
[2024-06-06] MEDS: APRESOLINE 50 MG PO ×3 (09:24→21:54)
[2024-06-06] MEDS: APRESOLINE PO (09:30)
--- NOTE | 2024-06-06 10:02 | W.PN.NEPH.PH ---
Today's Communication / Plan
-
Follow BMP while inpatient
Maintain escalated sodium bicarb drip for metabolic acidosis
Assessment/Plan
-
Impression:
CKD V
Non-ST elevation CT/Chest pain
Hypertension
Secondary hyperparathyroidism
Chronic metabolic acidosis
Chronic anemia
Coronary artery disease with previous PCI in January and April 2023 with stents
History of TAVR are February 2024
History of GI bleed
Plan:
-Although patient has advanced kidney disease his creatinine remained stable at his baseline 4.7
-No acute need for dialysis nor evidence of gross volume overload
-Maintain sodium bicarbonate which was escalated yesterday to 1300 mg 3 times daily with improvement of metabolic acidosis
-Maintain current antihypertensives in setting of hypertension
-Maintain calcitriol in setting of secondary hyperparathyroid
-If patient proceeds to cardiac Research Electrician he will likely require dialysis secondary to contrast administration, creatinine has a apparently peaked around 7.5, echo tomorrow
-Checked iron stores and provide IV iron in setting of anemia
-
-
Date of Service: June 06, 2024
CC / HPI / ROS
-
Chief Complaint:
CKD stage IV
History of Present Illness:
Hemodynamically stable
Metabolic acidosis improved with escalated sodium bicarb
Creatinine stable at 4.7
Review of Systems:
Labs
-
Labs:
WBC 6.6 10^3/uL (4.8-10.8) 06/06/24 05:07
RBC 2.96 10^6/uL (4.70-6.10) L 06/06/24 05:07
Hgb 8.4 g/dL (13.0-18.0) L 06/06/24 05:07
Hct 25.8 % (39.0-52.0) L 06/06/24 05:07
Plt Count 218 10^3/uL (130-400) 08/04/24 05:07
Sodium 139 mmol/L (135-145) 06/06/24 05:07
Potassium 4.3 mmol/L (3.5-5.1) 06/06/24 05:07
Chloride 112 mmol/L (98-107) H 06/06/24 05:07
Carbon Dioxide 19 mmol/L (22-30) L 06/06/24 05:07
BUN 62 mg/dl (9-20) H 06/06/24 05:07
Creatinine 4.7 mg/dL (0.7-1.3) H* 06/06/24 05:07
eGFR 13.20 06/06/24 05:07
Glucose 122 mg/dl (70-99) H 06/06/24 05:07
Calcium 7.8 mg/dl (8.4-10.2) L 06/06/24 05:07
Albumin 3.4 g/dl (3.5-5.0) L 06/06/24 05:07
Physical Exam
-
Vital Signs:
Vital Signs
Temp Pulse Resp BP Pulse Ox
97.4 F 56 20 143/63 98
06/06/24 06:58 06/06/24 09:21 06/06/24 06:58 06/06/24 09:21 06/06/24 06:58
Cardiovascular:: Regular rate and rhythm
Respiratory:: Bilateral: CTA
Lung Excursion:: Normal
Abdomen:: Nontender and Soft
Bowel Sounds:: Normal
Extremity Edema:: None: Bilateral:
Joseph Catheter: No
[2024-06-06 10:58] LABS: Glycohemoglobin (HgbA1c) 5.5 % (4.0-5.6)
--- NOTE | 2024-06-06 12:44 | W.PN.CD ---
Today's Communication / Plan
-
-Troponin now peaked at 7.5, down to 6.0; patient refused intravenous heparin and Plavix due to bleeding.
-Patient is currently chest pain-free.
-Echocardiogram tomorrow; possible discharge to home thereafter, if unremarkable.
-Blood pressure suboptimally controlled; will increase hydralazine to 50 mg TID.
Impression / Plan
-
High School Principal: Dr. Burns;
Organ Pipe Finisher: Dr. Butt
CT surgery: Dr. Lackey
Hematology: Dr. Casanova
Non-STEMI:
-Troponin now peaked at 7.5, down to 6.0; patient refused intravenous heparin and Plavix due to bleeding.
-Patient is currently chest pain-free.
-Echocardiogram tomorrow; possible discharge to home thereafter, if unremarkable.
-Patient declined IV heparin as in the past he has had GI bleeding on Plavix. He also has chronic anemia for which she receives Procrit and frequent blood transfusions. Patient has received 13 units of packed red blood cells since February 2024 per
his report.
-Previous PCI at the [facility] in January 2023 and April 2023; on aspirin.
-Patient states he does not tolerate isosorbide secondary to severe headaches.
-Continue metoprolol tartrate 12.5 mg BID.
-Continue atorvastatin 40 mg daily (was increased from 20 mg daily as LDL was 123).
LBBB:
-Chronic; stable.
CKD V:
-Followed by transplant team at the [facility]. He has a family donor who is in the process of their workup.
Chronic anemia:
-Patient states he usually gets transfused for hemoglobins less than 7.8. He is on chronic Procrit as well. He is followed by hematology at the [facility]
h/o GIB: on octreotide SC BID.
Hypertension:
-Blood pressure suboptimally controlled; will increase hydralazine to 50 mg TID.
Physical Exam
Vital Signs/Labs
Vital Signs
Temp Pulse Resp BP Pulse Ox
97.8 F 62 18 148/73 97
06/06/24 11:55 06/06/24 12:00 06/06/24 11:55 06/06/24 11:58 06/06/24 11:55
06/05/24 06/06/24 06/07/24
06:59 06:59 06:59
Actual Weight 112.9 kg 112.7 kg
06/06/24 05:07
06/06/24 05:07
APTT Cancelled 06/05/24 06:31
Magnesium 1.5 mg/dl (1.6-2.3) L 06/06/24 05:07
Triglycerides 283 mg/dl (10-149) H 06/05/24 04:35
LDL Cholesterol, Calc 123 mg/dl 06/05/24 04:35
VLDL Cholesterol, Calc 56 mg/dl (0-30) H 06/05/24 04:35
HDL Cholesterol 27 mg/dl 06/05/24 04:35
LAB Results
06/04/24 06/05/24 06/05/24
22:09 04:35 10:13
Troponin I 0.197 H* 4.200 H* D 7.520 H* D
06/05/24 06/05/24
15:59 16:58
Troponin I 6.080 H* Cancelled
Physical Exam
Constitutional: No acute distress and Comfortable
EENT: Anicteric
Cardiovascular: Rhythm & rate is regular, Pedal edema is absent, Systolic murmur present (2-3/6) and S1S2 is normal
Respiratory: Respiratory effort normal and Lungs clear to auscul.
GI: Soft
Neuro/Psych: AO x 3
Other: Skin (Warm, dry, intact)
Data Reviewed
-
Date of Service: June 06, 2024
EKG: Tracing Personally Visualized and interpreted (Telemetry: Sinus rhythm)
Labs: Labs Reviewed by me
[2024-06-06] MEDS: LIPITOR 40 MG PO (17:16)
--- NOTE | 2024-06-06 17:37 | PTCARENOTE ---
pt continues to be sr on the monitor, hr in the 60s, vss. pt educated on plan of care and pt verbalized understanding. pt ambulating in room and tolerating well. pt denies cp at this time. call bonilla within reach.
[2024-06-06] MEDS: NORVASC 10 MG PO (21:54)
[2024-06-07] VITALS (7 sets, daily range): BP systolic 142–164; BP diastolic 61–71; BMI 32.6
[2024-06-07 04:45] LABS: Hematocrit 27.1 % (39.0-52.0); Mean Corp Hgb Conc. 33.2 g/dL (33.0-37.0); Mean Corpuscular Hgb 28.6 pg (27.0-31.0); Mean Platelet Volume 10.9 fL (7.4-10.4); Platelet Count 228 10^3/uL (130-400); Red Blood Cell Count 3.15 10^6/uL (4.70-6.10); Red Cell Dist. Width 18.3 % (11.5-14.5); White Blood Cell Count 6.9 10^3/uL (4.8-10.8)
[2024-06-07 05:11] LABS: Blood Urea Nitrogen 67 mg/dl (9-20); Calcium 7.6 mg/dl (8.4-10.2); Carbon Dioxide 17 mmol/L (22-30); Chloride 109 mmol/L (98-107); Estimated Creatinine Clearance 21 ml/min; Glucose 120 mg/dl (70-99); Magnesium 1.5 mg/dl (1.6-2.3); Potassium 4.4 mmol/L (3.5-5.1); Sodium 138 mmol/L (135-145); eGFR 12.87
[2024-06-07 05:16] LABS: NT-proBNP 6680 pg/ml
[2024-06-07] MEDS: LOPRESSOR 12.5 MG PO ×2 (08:36→20:25)
[2024-06-07] MEDS: PROTONIX 40 MG PO (08:37)
[2024-06-07] MEDS: ASPIR LOW (ENTERIC COATED) 81 MG PO (08:37)
[2024-06-07] MEDS: SODIUM BICARBONATE 1300 MG PO ×3 (08:37→23:03)
[2024-06-07] MEDS: ROCALTROL 0.25 MCG PO (08:37)
[2024-06-07] MEDS: ZOLOFT 100 MG PO (08:37)
[2024-06-07] MEDS: APRESOLINE 50 MG PO ×3 (08:37→23:02)
[2024-06-07] MEDS: SANDOSTATIN 100 MCG SC ×2 (08:38→20:25)
[2024-06-07] MEDS: VITAMIN D3 (cholecalciferol) 25 MCG PO (08:38)
--- NOTE | 2024-06-07 11:41 | W.PN.CD ---
Today's Communication / Plan
-
Echocardiogram pending.
Repeat lipid panel in 3 months.
The patient will likely need a heart catheterization given his NSTEMI and transplant intentions.
The question will be timing and location. Depending on the findings on echo and [facility] transplant team, we can consider cath here vs. deferring to the [facility] system.
Begin discharge planning.
Impression / Plan
-
Impression/Plan: 63 y/o male with HTN, HLD, s/p TAVR, untreated ELENI, SzDO, CAD s/p PCI x2, chronic anemia due to GIB on chronic octreotide admitted with NSTEMI, managed medically due to patient declining any anticoagulation/antiplatelet therapy
due to history and frequency of GIB's.
#NSTEMI
-Acute.
-Troponin peaked at 7.5, down to 6.0.
-Previous PCI at the [facility] in January 2023 and April 2023; on aspirin.
-Patient refused intravenous heparin and P2Y12i due to bleeding.
-Patient is currently chest pain-free.
-Echocardiogram today, possible discharge to home if unremarkable.
-Previous PCI at the [facility] in January 2023 and April 2023; on aspirin.
-Patient states he does not tolerate isosorbide secondary to severe headaches.
-Continue metoprolol tartrate 12.5 mg BID.
-Continue atorvastatin 40 mg daily (was increased from rosuvastatin 10 mg daily as LDL was 123).
#HLD
-Chronic, uncontrolled.
-Total cholestrol = 206, LDL = 123, HDL = 27, Triglycerides = 283.
-Atorvastatin increased to 40 mg daily.
-Goal LDL < 55.
-He may benefit from icosapent ethyl at discharge.
#LBBB
-Chronic; stable.
#CKD V
-Followed by transplant team at the [facility].
-He has a family donor who is in the process of their workup.
#Anemia
-Chronic, stable.
-Patient has received 13 units of packed red blood cells since February 2024 per his report.
-Patient states he usually gets transfused for hemoglobins less than 7.8. He is on chronic Procrit as well. He is followed by hematology at the [facility].
#GIB
-Recurrent.
-On octreotide SC BID.
#Hypertension
-Chronic, uncontrolled.
-Blood pressure suboptimally controlled; will increase hydralazine to 50 mg TID.
Route Process Administrator: Dr. Burns
Shoe Handler: Dr. Butt
TAVR IC: Dr. Lackey
Hematology: Dr. Casanova
Subjective/Interval History:
Hydralazine increased to 50 mg TID yesterday.
BP is better controlled today.
DATA:
TTE, 05/07/2024:
CONCLUSIONS
Normal biventricular size and systolic function without regional wall motion
abnormality. Estimated LVEF 55-60%.
Mild concentric left ventricular hypertrophy.
Abnormal (paradoxical) septal motion consistent with left bundle branch block.
s/p TAVR. Peak/mean gradients 31/18 mmHg. No aortic regurgitation is seen.
No prior study available for comparison.
Physical Exam
Vital Signs/Labs
Vital Signs
Temp Pulse Resp BP Pulse Ox
36.8 C 58 20 150/61 97
06/07/24 10:43 06/07/24 11:00 06/07/24 10:43 06/07/24 10:44 06/07/24 10:43
06/05/24 06/06/24 06/07/24
11:59 11:59 11:59
Actual Weight 112.9 kg 112.6 kg 112 kg
06/07/24 04:17
06/07/24 04:17
APTT Cancelled 06/05/24 06:31
Magnesium 1.5 mg/dl (1.6-2.3) L 06/07/24 04:17
Triglycerides 283 mg/dl (10-149) H 06/05/24 04:35
LDL Cholesterol, Calc 123 mg/dl 06/05/24 04:35
VLDL Cholesterol, Calc 56 mg/dl (0-30) H 06/05/24 04:35
HDL Cholesterol 27 mg/dl 06/05/24 04:35
06/07/24
04:17
Awe-K-Khtayfezaxb Pept 6680
LAB Results
06/04/24 06/05/24 06/05/24
22:09 04:35 10:13
Troponin I 0.197 H* 4.200 H* D 7.520 H* D
06/05/24 06/05/24
15:59 16:58
Troponin I 6.080 H* Cancelled
Physical Exam
Constitutional: No acute distress and Comfortable
EENT: Anicteric and Moist mucous membranes
Cardiovascular: Rhythm & rate is regular, Pedal edema is absent, JVD pressure is normal, S1S2 is normal and Murmur/rub/gallop absent
Respiratory: Respiratory effort normal, Lungs clear to auscul., Wheeze Absent, Crackles Absent and Rhonchi Absent
GI: Soft, Distention absent, Flat, Non tender and Normal bowel sounds
Neuro/Psych: AO x 3
Data Reviewed
-
Date of Service: June 07, 2024
Medical Decision Making: Reviewed Test Results, Independent Historian Assessment, Test Interpretation and Review of Case with other Provider
EKG: Tracing Personally Visualized and interpreted and Report Reviewed by me
Echo: Report Reviewed by me
X-Ray/CT/US/MRI/NUC/PET: Image Personally Visualized and interpreted and Report Reviewed by me
Labs: Labs Reviewed by me
Old Records: Reviewed
--- NOTE | 2024-06-07 11:57 | PTCARENOTE ---
Assumed care of pt from prev nsg shift this AM; Pt AAOx3 w/no c/o CP or SOB. Pt's VS stable w/HR in the 60's and most recent BP 150/61. Pt remain's SB?SRw/L BBB & prol Qt on telemetry monitoring. Pt's ECHO from this AM completed, awaiting report. Pt
w/call bonilla within reach & no addtl needs at this time. Plan of care ongoing.
--- NOTE | 2024-06-07 12:25 | CM ---
spoke to pt in room, he is prev i ndep, lives with his son and in a 2 story home with 3 steps to enter. he denies any dc planning needs or dme's. plan is for dc to home when medically stable.
--- NOTE | 2024-06-07 12:34 | W.PN.NEPH.PH ---
Today's Communication / Plan
-
- EPO provided
Assessment/Plan
-
Impression:
CKD V
Non-ST elevation VA/Chest pain
Hypertension
Secondary hyperparathyroidism
Chronic metabolic acidosis
Chronic anemia
Coronary artery disease with previous PCI in January and April 2023 with stents
History of TAVR are February 2024
History of GI bleed
Plan:
-Although patient has advanced kidney disease his creatinine remained stable at his baseline 4.8
-No acute need for dialysis nor evidence of gross volume overload
-Maintain sodium bicarbonate which was escalated yesterday to 1300 mg 3 times daily, might need an amp of bicarb to correct his bicarb defecit
-Maintain current antihypertensives in setting of hypertension
-Maintain calcitriol in setting of secondary hyperparathyroid
-If patient proceeds to cardiac Professor Of Management he will likely require dialysis secondary to contrast administration, echo today with d/c home afterwards if okay with cardiology
-Checked iron stores, okay for DANIEL today as TSAT >20%. will give 10,000 units, can get another dose in 2 weeks.
-
-
Date of Service: June 07, 2024
CC / HPI / ROS
-
Chief Complaint:
CKD stage IV
History of Present Illness:
Hemodynamically stable
Metabolic acidosis stable with escalated sodium bicarb
Creatinine stable at 4.7
Review of Systems:
feeling well
Labs
-
Labs:
WBC 6.9 10^3/uL (4.8-10.8) 06/07/24 04:17
RBC 3.15 10^6/uL (4.70-6.10) L 06/07/24 04:17
Hgb 9.0 g/dL (13.0-18.0) L 06/07/24 04:17
Hct 27.1 % (39.0-52.0) L 06/07/24 04:17
Plt Count 228 10^3/uL (130-400) 06/07/24 04:17
Sodium 138 mmol/L (135-145) 06/07/24 04:17
Potassium 4.4 mmol/L (3.5-5.1) 06/07/24 04:17
Chloride 109 mmol/L (98-107) H 06/07/24 04:17
Carbon Dioxide 17 mmol/L (22-30) L 06/07/24 04:17
BUN 67 mg/dl (9-20) H 06/07/24 04:17
Creatinine 4.8 mg/dL (0.7-1.3) H* 06/07/24 04:17
eGFR 12.87 06/07/24 04:17
Glucose 120 mg/dl (70-99) H 06/07/24 04:17
Calcium 7.6 mg/dl (8.4-10.2) L 06/07/24 04:17
Mwz-R-Igdzlrkjdnb Pept 6680 pg/ml 06/07/24 04:17
Albumin 3.4 g/dl (3.5-5.0) L 06/06/24 05:07
Physical Exam
-
Vital Signs:
Vital Signs
Temp Pulse Resp BP Pulse Ox
98.3 F 58 20 150/61 97
06/07/24 10:43 06/07/24 11:00 06/07/24 10:43 06/07/24 10:44 06/07/24 10:43
Cardiovascular:: Regular rate and rhythm
Respiratory:: Bilateral: Coarse
Lung Excursion:: Normal
Abdomen:: Nontender and Soft
Bowel Sounds:: Normal
Extremity Edema:: None: Bilateral:
Joseph Catheter: No
[2024-06-07] MEDS: FLUSH (NSS) 2 FLUSH IV (15:01)
[2024-06-07] MEDS: RETACRIT 10000 UNITS IV (15:02)
--- NOTE | 2024-06-07 16:05 | W.PN.HOSP.TC ---
Addendum entered and electronically signed by Prasad Simpson MD 06/07/24 20:32:
I saw and evaluated the patient. I reviewed the resident�s note and agree with findings and plan as documented in the resident�s note.
Pt asymptomatic without further CP or is having clincal evidence of CHF.Cr stable.
ECHO without WMA and EF is ok.
DW Cards - inview of plans for renal transplant , need to know anatomy of the CA . Dr Alston spoke with primary card at [facility] and plan is for transfer to [facility] for cardiac cath eval and tx.
Tx to [facility] when bed available.
Original Note:
Today's Communication/Plan
-
Discharge planning
Pending echocardiography
Appreciate cards, nephro consult
Assessment / Plan
Assessment / Plan
IMPRESSION: Pt is a 63 year old male with a known history of left kidney cancer (transplant candidate for left kidney), hypertension, hyperlipidemia, CAD status post stents, TAVR, CKD stage V, prostate cancer hyperparathyroidism, GI bleeding (on
chronic octreotide) with NSTEMI. Patient denies chest pain. Discharge planning
NSTEMI--Hx CAD s/p Stent --did not tolerate plavix due to GI bleeding--apprec cards--no IV heparin due to bleeding risk as well--s/p SL NTG en rout to hospital with improvement-- ECHO 05/07/24- Normal biventricular size and systolic function without
regional wall motion abnormality. Estimated LVEF 55-60%. Mild concentric left ventricular hypertrophy. Abnormal (paradoxical) septal motion consistent with left bundle branch block, repeat echo shows normal right ventricular size and systolic
function without regional wall motion abnormality. Normal functioning aortic valve. Mild to moderate mitral regurgitation-- s/p TAVR--Peak/mean gradients 31/18--troponin downtrending
Essential HTN--cont hydralazine and amlodipine
HLD--cont statin--lipids (trig 283, Tchol 206, LDL 123)--should have better control, repeat lipid panel in 3 months
Hx Aortic Stenosis - S/P TAVR approx 1 year ago at [facility]
Anemia likely of chronic disease from CKD stage 5- Hgb 9.0 g/dL. Normocytic. At or above prior thresholds-Per nephrology, EPO 10,000 units provided, can get another dose in 2 weeks
Metabolic Acidosis due to CKD stage 5-- Bicarb 16. Increase bicarb to 650mg TID--await renal
CKD V --transplant eval with [facility]- BUN/Cr 62/4.7. Pt is on transplant list following with Enforcement Officer Dr. Burns--apprec renal-- Continue vitamin D3 and calcitriol
Hyperglycemia - BG 219 on admission--today 120-
Hx GIB - Hx noted. Continue octreotide SC BID.
Anxiety/Depression - Continue sertraline.
DVT Ppx: SCDs
Code status: Full
Anticipated Discharge: Today
Subjective/Interval History
-
Date of Service: June 07, 2024
Objective Data
-
Labs:
Laboratory Results
06/07/24
04:17
WBC 6.9
Hgb 9.0 L
Hct 27.1 L
Plt Count 228
Sodium 138
Potassium 4.4
Chloride 109 H
Carbon Dioxide 17 L
BUN 67 H
Creatinine 4.8 H*
Glucose 120 H
Calcium 7.6 L
Vital Signs:
Vital Signs
Temp Pulse Resp BP Pulse Ox
97.9 F 60 20 157/66 98
06/07/24 15:01 06/07/24 15:02 06/07/24 15:01 06/07/24 15:02 06/07/24 15:01
I&O
06/06/24 06/07/24 06/08/24
06:59 06:59 06:59
Intake Total 1440 / 1440 1440 / 1440 480 / 480
Output Total 1275 / 1275 500 / 500
Balance 1440 / 1440 165 / 165 -20 / -20
Review of Systems
-
All other systems: Reviewed and negative
Physical Exam
-
General: Well Developed, Well Nourished and No Apparent Distress
HEENT: Normocephalic and Atraumatic
Respiratory: Clear to Auscultation; Negative Wheezes or Rhonchi
Cardiac: Regular Rhythm and S1/S2; Negative Murmur
GI: Soft, Nontender, Nondistended and Normal Bowel Sounds
Musculoskeletal: No Clubbing, No Cyanosis and No Edema
Skin: Warm
Psych: Calm
[2024-06-07] MEDS: LIPITOR 40 MG PO (17:52)
--- NOTE | 2024-06-07 18:54 | PTCARENOTE ---
Pt's D/C cancelled and pt has orders to be transferred to [facility] when bed available. medical data entry clerk setting up transport. This RN gave report to transport center at [facility]. Pt aware of waiting for bed at this time. Plan of care
ongoing.
[2024-06-07] MEDS: NORVASC 10 MG PO (23:01)
[2024-06-08] VITALS (8 sets, daily range): BP systolic 140–169; BP diastolic 56–68; BMI 32.2
--- NOTE | 2024-06-08 03:28 | PTCARENOTE ---
Rec'd pt at change of shift. Pt on cafeteria monitor in a sinus juana rhythm with BBB and prolonged QT interval. Pt waiting for room at [place] for heart cath. Pt denies any pain or discomfort. Pt resting in bed with call bonilla in reach. Plan of care
ongoing.
[2024-06-08 04:47] LABS: % Basophils 0.8 % (0-2); % Eosinophils 4.3 % (0-6); % Immature Granulocytes 0.3 % (0-0.5); % Lymphocytes 9.3 % (20.5-51.1); % Monocytes 9.9 % (1.7-9.3); % Neutrophils 75.4 % (42.2-75.2); Absolute Basophils 0.1 10^3/uL (0-0.2); Absolute Eosinophils 0.3 10^3/uL (0-0.7); Absolute Lymphocytes 0.6 10^3/uL (1.2-3.4); Absolute Monocytes 0.6 10^3/uL (0.1-0.6); Absolute Neutrophils 4.7 10^3/uL (1.4-6.5); Hematocrit 28.5 % (39.0-52.0); Hemoglobin 9.4 g/dL (13.0-18.0); Mean Corpuscular Hgb 29.2 pg (27.0-31.0); Mean Corpuscular Volume 88.5 fL (80.0-94.0); Mean Platelet Volume 10.5 fL (7.4-10.4); Nucleated Red Blood Cells % 0 % (-); Platelet Count 202 10^3/uL (130-400); Red Blood Cell Count 3.22 10^6/uL (4.70-6.10); White Blood Cell Count 6.3 10^3/uL (4.8-10.8)
[2024-06-08 05:51] LABS: Blood Urea Nitrogen 69 mg/dl (9-20); Calcium 7.7 mg/dl (8.4-10.2); Carbon Dioxide 20 mmol/L (22-30); Chloride 109 mmol/L (98-107); Estimated Creatinine Clearance 21 ml/min; Glucose 121 mg/dl (70-99); Potassium 4.2 mmol/L (3.5-5.1); Sodium 139 mmol/L (135-145); eGFR 12.87
--- NOTE | 2024-06-08 08:06 | W.PN.HOSP.TC ---
Today's Communication/Plan
-
Awaiting transfer to [facility]
Continue blood pressure meds
Monitor sodium bicarbonate
Monitor creatinine
Assessment / Plan
Assessment / Plan
IMPRESSION: Pt is a 63 year old male with a known history of left kidney cancer (transplant candidate for left kidney), hypertension, hyperlipidemia, CAD status post stents, TAVR, CKD stage V, prostate cancer hyperparathyroidism, GI bleeding (on
chronic octreotide) with NSTEMI. Patient is chest pain-free. No new symptoms. Waiting for transfer to [facility].
NSTEMI--Hx CAD s/p Stent --did not tolerate plavix due to GI bleeding--apprec cards--no IV heparin due to bleeding risk as well--s/p SL NTG en rout to hospital with improvement-- ECHO 05/07/24- Normal biventricular size and systolic function without
regional wall motion abnormality. Estimated LVEF 55-60%. Mild concentric left ventricular hypertrophy. Abnormal (paradoxical) septal motion consistent with left bundle branch block, repeat echo shows normal right ventricular size and systolic
function without regional wall motion abnormality. Normal functioning aortic valve. Mild to moderate mitral regurgitation-- s/p TAVR--Peak/mean gradients 31/18--troponin downtrending
Essential HTN--cont hydralazine, amlodipine, Lopressor
HLD--cont statin--lipids (trig 283, Tchol 206, LDL 123)--should have better control, repeat lipid panel in 3 months
Hx Aortic Stenosis - S/P TAVR approx 1 year ago at [facility]
Anemia likely of chronic disease from CKD stage 5- Hgb 9.4 g/dL. Normocytic. At or above prior thresholds-Per nephrology, EPO 10,000 units received yesterday, can get another dose in 2 weeks
Metabolic Acidosis due to CKD stage 5-- Bicarb 16. Continue bicarb 1300 mg TID
CKD V --transplant eval with [facility]- BUN/Cr 62/4.7. Pt is on transplant list following with [employer] Boat Assembly Supervisor Dr. Burns--apprec renal-- Continue vitamin D3 and calcitriol
Hyperglycemia - BG 219 on admission--today 120-
Hx GIB - Hx noted. Continue octreotide SC BID.
Anxiety/Depression - Continue sertraline.
DVT Ppx: SCDs
Code status: Full
Anticipated Discharge: Today
Subjective/Interval History
-
Date of Service: June 08, 2024
Objective Data
-
Labs:
Laboratory Results
06/08/24
04:36
WBC 6.3
Hgb 9.4 L
Hct 28.5 L
Plt Count 202
Sodium 139
Potassium 4.2
Chloride 109 H
Carbon Dioxide 20 L
BUN 69 H
Creatinine 4.8 H*
Glucose 121 H
Calcium 7.7 L
Vital Signs:
Vital Signs
Temp Pulse Resp BP Pulse Ox
97.6 F 58 16 155/63 97
06/08/24 07:43 06/08/24 07:44 06/08/24 07:43 06/08/24 07:44 06/08/24 07:43
I&O
06/07/24 06/08/24 06/09/24
06:59 06:59 06:59
Intake Total 1440 / 1440 960 / 960
Output Total 1275 / 1275 500 / 500
Balance 165 / 165 460 / 460
Review of Systems
-
All other systems: Reviewed and negative
Physical Exam
-
General: Well Developed, Well Nourished and No Apparent Distress
HEENT: Normocephalic and Atraumatic
Respiratory: Clear to Auscultation; Negative Wheezes or Rhonchi
Cardiac: Regular Rhythm and S1/S2; Negative Murmur
GI: Soft, Nontender, Nondistended and Normal Bowel Sounds
Musculoskeletal: No Clubbing, No Cyanosis and No Edema
Skin: Warm
Psych: Calm
--- NOTE | 2024-06-08 08:27 | PTCARENOTE ---
Assumed care of pt from prev nsg shift this AM; Pt AAOx3 w/no c/o CP or SOB. Pt's VS stable w/HR in the 50's/60's and most recent BP 155/63. Pt remain's SB/SR w/L BBB & prol QT on telemetry monitoring. Pt awaiting transport to [facility]. Pt
w/call bonilla within reach & no addtl needs at this time. Plan of care ongoing.
[2024-06-08] MEDS: SANDOSTATIN 100 MCG SC ×2 (08:46→19:41)
[2024-06-08] MEDS: PROTONIX 40 MG PO (08:47)
[2024-06-08] MEDS: SODIUM BICARBONATE 1300 MG PO ×3 (08:47→23:56)
[2024-06-08] MEDS: VITAMIN D3 (cholecalciferol) 25 MCG PO (08:48)
[2024-06-08] MEDS: LOPRESSOR 12.5 MG PO ×2 (08:48→19:41)
[2024-06-08] MEDS: ASPIR LOW (ENTERIC COATED) 81 MG PO (08:48)
[2024-06-08] MEDS: ZOLOFT 100 MG PO (08:48)
[2024-06-08] MEDS: ROCALTROL 0.25 MCG PO (08:48)
[2024-06-08] MEDS: APRESOLINE 50 MG PO ×3 (08:48→21:20)
--- NOTE | 2024-06-08 09:15 | W.PN.UPDATE ---
Update Note
Progress Note Update
I saw and evaluated the patient. I reviewed the resident�s note and agree with findings and plan as documented in the resident�s note.
Patient remains asymptomatic without further chest pain.
No overnight events.
Hemodynamically stable.
Clinically not in heart failure.
Await transfer to [facility] for further cardiac eval. see my discussions yesterday with cardiology team from here.Pt is in agreement for transfer to [facility].
Discussed with transfer center-they have accepting physician and await a bed availability. Also insurance authorization pending.
--- NOTE | 2024-06-08 11:20 | W.PN.NEPH.PH ---
Today's Communication / Plan
-
- transfer to [place]
Assessment/Plan
-
Impression:
CKD V
Non-ST elevation DC/Chest pain
Hypertension
Secondary hyperparathyroidism
Chronic metabolic acidosis
Chronic anemia
Coronary artery disease with previous PCI in January and April 2023 with stents
History of TAVR are February 2024
History of GI bleed
Plan:
-Although patient has advanced kidney disease his creatinine remained stable at his baseline 4.8
-No acute need for dialysis nor evidence of gross volume overload
-Maintain sodium bicarbonate which was escalated yesterday to 1300 mg 3 times daily, might need an amp of bicarb to correct his bicarb deficit
-Maintain current antihypertensives in setting of hypertension
-Maintain calcitriol in setting of secondary hyperparathyroid
-per discussion with primary team, the patient is planned for [facility] transfer for further cardiac eval. patient in agreement with transfer
-Checked iron stores, okay for DANIEL today as TSAT >20%. will give 10,000 units, can get another dose in 2 weeks.
-
-
Date of Service: June 08, 2024
CC / HPI / ROS
-
Chief Complaint:
CKD stage IV
History of Present Illness:
Hemodynamically stable
Metabolic acidosis stable with escalated sodium bicarb
Creatinine stable at 4.8
Review of Systems:
feeling well
Labs
-
Labs:
WBC 6.3 10^3/uL (4.8-10.8) 06/08/24 04:36
RBC 3.22 10^6/uL (4.70-6.10) L 06/08/24 04:36
Hgb 9.4 g/dL (13.0-18.0) L 06/08/24 04:36
Hct 28.5 % (39.0-52.0) L 06/08/24 04:36
Plt Count 202 10^3/uL (130-400) 06/08/24 04:36
Sodium 139 mmol/L (135-145) 06/08/24 04:36
Potassium 4.2 mmol/L (3.5-5.1) 06/08/24 04:36
Chloride 109 mmol/L (98-107) H 06/08/24 04:36
Carbon Dioxide 20 mmol/L (22-30) L 06/08/24 04:36
BUN 69 mg/dl (9-20) H 06/08/24 04:36
Creatinine 4.8 mg/dL (0.7-1.3) H* 06/08/24 04:36
eGFR 12.87 06/08/24 04:36
Glucose 121 mg/dl (70-99) H 06/08/24 04:36
Calcium 7.7 mg/dl (8.4-10.2) L 06/08/24 04:36
Qlh-G-Tvrooexduiz Pept 6680 pg/ml 06/07/24 04:17
Albumin 3.4 g/dl (3.5-5.0) L 06/06/24 05:07
Physical Exam
-
Vital Signs:
Vital Signs
Temp Pulse Resp BP Pulse Ox
97.8 F 53 18 156/68 97
06/08/24 10:48 06/08/24 11:00 06/08/24 10:48 06/08/24 10:48 06/08/24 10:48
Cardiovascular:: Regular rate and rhythm
Respiratory:: Bilateral: Coarse
Lung Excursion:: Normal
Abdomen:: Nontender and Soft
Bowel Sounds:: Normal
Extremity Edema:: None: Bilateral:
Joseph Catheter: No
--- NOTE | 2024-06-08 11:20 | PTCARENOTE ---
Clinical status update on pt given to Mary at [facility]'s transport center at [phone]. Pt still awaiting a bed at [facility]. plan of care ongoing.
--- NOTE | 2024-06-08 11:28 | W.PN.CD ---
Today's Communication / Plan
-
Stable and awaiting discharge to [facility] for coronary angiography. No medication changes.
Impression / Plan
-
Impression/Plan: 63 y/o male with HTN, HLD, s/p TAVR, untreated ELENI, SzDO, CAD s/p PCI x2, chronic anemia due to GIB on chronic octreotide admitted with NSTEMI, managed medically due to patient declining any anticoagulation/antiplatelet therapy
due to history and frequency of GIBs and concern regarding contrast toxicity in setting of severe CKD. Awaiting transfer to [facility] for coronary angiography for continuity of care.
#NSTEMI in setting of acute on set chest pain
-Troponin peaked at 7.5, down to 6.0.
-Previous PCI at the [facility] in January 2023 and April 2023; on aspirin
-Patient refused intravenous heparin and P2Y12i due to bleeding.
-Patient is currently chest pain-free.
-Echocardiogram yesterday without RWMAs
-Patient states he does not tolerate isosorbide secondary to severe headaches.
-Continue metoprolol tartrate 12.5 mg BID
-Continue atorvastatin 40 mg daily (was increased from rosuvastatin 10 mg daily as LDL was 123).
#HLD
-Chronic, uncontrolled.
-Total cholestrol = 206, LDL = 123, HDL = 27, Triglycerides = 283.
-Atorvastatin increased to 40 mg daily.
-Goal LDL < 55. May require zetia/PCSK9i
-He may benefit from icosapent ethyl at discharge.
#LBBB
-Chronic; stable.
#CKD V
-Followed by transplant team at the [facility].
-He has a family donor who is in the process of their workup.
#Anemia
-Chronic, stable.
-Patient has received 13 units of packed red blood cells since February 2024 per his report.
-Patient states he usually gets transfused for hemoglobins less than 7.8. He is on chronic Procrit as well. He is followed by hematology at the [facility].
#GIB
-Recurrent.
-On octreotide SC BID.
-Hb stable here and no clinical bleeding
#Hypertension
-Chronic, uncontrolled.
-cont. hydralazine to 50 mg TID (recently uptitrated), amlodipine 10; consider further uptitration but will defer for now given likely upcoming cath
Travel Accommodations Rater: Dr. Burns
Cosmetologist: Dr. Butt
TAVR IC: Dr. Lackey
Hematology: Dr. Casanova
Subjective/Interval History:
No new chest pain.
BP remains suboptimally controlled
Pending transfer to [facility] for coronary angiography
DATA:
TTE, 05/07/2024:
CONCLUSIONS
Normal biventricular size and systolic function without regional wall motion
abnormality. Estimated LVEF 55-60%.
Mild concentric left ventricular hypertrophy.
Abnormal (paradoxical) septal motion consistent with left bundle branch block.
s/p TAVR. Peak/mean gradients 31/18 mmHg. No aortic regurgitation is seen.
No prior study available for comparison.
Physical Exam
Vital Signs/Labs
Vital Signs
Temp Pulse Resp BP Pulse Ox
36.6 C 53 18 156/68 97
06/08/24 10:48 06/08/24 11:00 06/08/24 10:48 06/08/24 10:48 06/08/24 10:48
06/07/24 06/08/24 06/09/24
06:59 06:59 06:59
Actual Weight 112 kg 110.7 kg
06/08/24 04:36
06/08/24 04:36
APTT Cancelled 06/05/24 06:31
Magnesium 1.5 mg/dl (1.6-2.3) L 06/07/24 04:17
Triglycerides 283 mg/dl (10-149) H 08/03/24 04:35
LDL Cholesterol, Calc 123 mg/dl 06/05/24 04:35
VLDL Cholesterol, Calc 56 mg/dl (0-30) H 06/05/24 04:35
HDL Cholesterol 27 mg/dl 06/05/24 04:35
06/07/24
04:17
Hnt-H-Scrgqmwtkyd Pept 6680
LAB Results
06/05/24
15:59
Troponin I 6.080 H*
Physical Exam
Constitutional: No acute distress
Cardiovascular: Rhythm & rate is regular, Pedal edema is absent, Systolic murmur absent and Diastolic murmur absent
Respiratory: Respiratory effort normal, Lungs clear to auscul., Wheeze Absent and Crackles Absent
GI: Soft and Distention absent
Neuro/Psych: Alert and Oriented
Data Reviewed
-
Date of Service: June 08, 2024
Medical Decision Making: Reviewed Test Results
EKG: Tracing Personally Visualized and interpreted
Echo: Tracing Personally Visualized and interpreted
Labs: Labs Reviewed by me
[2024-06-08] MEDS: LIPITOR 40 MG PO (16:58)
--- NOTE | 2024-06-08 19:13 | PTCARENOTE ---
Pt. received at change of shift. Pt. seen in room. Pt. AOx3. No complaints at this time. VS WNL. Tele reading SB/NSR. Continuing to monitor the patient.
[2024-06-08] MEDS: NORVASC 10 MG PO (21:21)
[2024-06-09] VITALS (7 sets, daily range): BP systolic 137–161; BP diastolic 58–70; BMI 32.1
[2024-06-09 06:03] LABS: Hematocrit 29.1 % (39.0-52.0); Hemoglobin 9.6 g/dL (13.0-18.0); Mean Corpuscular Hgb 28.4 pg (27.0-31.0); Mean Corpuscular Volume 86.1 fL (80.0-94.0); Mean Platelet Volume 10.6 fL (7.4-10.4); Platelet Count 226 10^3/uL (130-400); Red Blood Cell Count 3.38 10^6/uL (4.70-6.10); Red Cell Dist. Width 18.3 % (11.5-14.5); White Blood Cell Count 6.5 10^3/uL (4.8-10.8)
[2024-06-09 06:33] LABS: Blood Urea Nitrogen 68 mg/dl (9-20); Calcium 7.8 mg/dl (8.4-10.2); Carbon Dioxide 22 mmol/L (22-30); Chloride 108 mmol/L (98-107); Estimated Creatinine Clearance 21 ml/min; Glucose 118 mg/dl (70-99); Potassium 4.2 mmol/L (3.5-5.1); Sodium 139 mmol/L (135-145); eGFR 12.87
[2024-06-09] MEDS: SODIUM BICARBONATE 1300 MG PO ×3 (08:33→22:49)
[2024-06-09] MEDS: ZOLOFT 100 MG PO (08:33)
[2024-06-09] MEDS: APRESOLINE 50 MG PO ×4 (08:33→22:49)
[2024-06-09] MEDS: VITAMIN D3 (cholecalciferol) 25 MCG PO (08:33)
[2024-06-09] MEDS: ASPIR LOW (ENTERIC COATED) 81 MG PO (08:33)
[2024-06-09] MEDS: ROCALTROL 0.25 MCG PO (08:33)
[2024-06-09] MEDS: LOPRESSOR 12.5 MG PO ×2 (08:34→20:18)
[2024-06-09] MEDS: PROTONIX 40 MG PO (08:34)
[2024-06-09] MEDS: SANDOSTATIN 100 MCG SC ×2 (08:39→20:17)
--- NOTE | 2024-06-09 09:16 | W.PN.UPDATE ---
Update Note
Progress Note Update
I saw and evaluated the patient. I reviewed the resident�s note and agree with findings and plan as documented in the resident�s note.
No overnight events.
No chest pain or shortness of breath. Tolerating diet.
Afebrile and hemodynamically stable.
Blood pressure not under goal.
Chest CTA.
continue with current treatments but increase hydralazine to 50 mg 4 times daily to optimize blood pressure as he is not under goal for severe chronic kidney disease scenario.
Await transfer to [facility] for cardiac catheterization eval. Patient is waiting for her renal transplant.
--- NOTE | 2024-06-09 10:36 | W.PN.CD ---
Today's Communication / Plan
-
-Awaiting transfer to [facility] to undergo cardiac catheterization, as coronary anatomy needs to be known as the patient is on the renal transplant list.
-Blood pressure remains suboptimally controlled.
-Increase hydralazine.
Impression / Plan
-
Impression/Plan: 63 y/o male with HTN, HLD, s/p TAVR, untreated ELENI, SzDO, CAD s/p PCI x2, chronic anemia due to GIB on chronic octreotide admitted with NSTEMI, managed medically due to patient declining any anticoagulation/antiplatelet therapy
due to history and frequency of GIBs and concern regarding contrast toxicity in setting of severe CKD. Awaiting transfer to [facility] for coronary angiography for continuity of care.
#NSTEMI in setting of acute on set chest pain
-Troponin peaked at 7.5, down to 6.0.
-Previous PCI at the [facility] in January 2023 and April 2023; on aspirin
-Patient refused intravenous heparin and P2Y12i due to bleeding.
-Patient is currently chest pain-free.
-Echocardiogram 06/07/2024 with LVEF of 55-60%, normal TAVR function, and mild to moderate MR.
-Patient states he does not tolerate isosorbide secondary to severe headaches.
-Continue metoprolol tartrate 12.5 mg BID
-Continue atorvastatin 40 mg daily (was increased from rosuvastatin 10 mg daily as LDL was 123).
-Awaiting transfer to [facility] to undergo cardiac catheterization, as coronary anatomy needs to be known as the patient is on the renal transplant list.
#CKD V
-Followed by transplant team at the [facility]; awaiting transfer to there.
#HLD
-Chronic, uncontrolled.
-Total cholestrol = 206, LDL = 123, HDL = 27, Triglycerides = 283.
-Atorvastatin increased to 40 mg daily.
-Goal LDL < 55. May require zetia/PCSK9i
-He may benefit from icosapent ethyl at discharge.
#LBBB
-Chronic; stable.
#Anemia
-Chronic, stable.
-Patient has received 13 units of packed red blood cells since February 2024 per his report.
-Patient states he usually gets transfused for hemoglobins less than 7.8. He is on chronic Procrit as well. He is followed by hematology at the [facility].
#GIB
-Recurrent.
-On octreotide SC BID.
-Currently stable.
#Hypertension
-Blood pressure remains suboptimally controlled.
-Increase hydralazine.
Senior Bi Developer: Dr. Burns
Finishing Pan Operator: Dr. Butt
TAVR IC: Dr. Lackey
Hematology: Dr. Casanova
Subjective/Interval History:
No major events overnight. No cardiac complaints this a.m.
DATA:
TTE, 05/07/2024:
CONCLUSIONS
Normal biventricular size and systolic function without regional wall motion
abnormality. Estimated LVEF 55-60%.
Mild concentric left ventricular hypertrophy.
Abnormal (paradoxical) septal motion consistent with left bundle branch block.
s/p TAVR. Peak/mean gradients 31/18 mmHg. No aortic regurgitation is seen.
No prior study available for comparison.
Physical Exam
Vital Signs/Labs
Vital Signs
Temp Pulse Resp BP Pulse Ox
98.0 F 59 16 161/60 96
06/09/24 06:59 06/09/24 08:00 06/09/24 06:59 06/09/24 07:02 06/09/24 06:59
06/08/24 06/09/24 06/10/24
06:59 06:59 06:59
Actual Weight 110.7 kg 110.5 kg
06/09/24 05:52
06/09/24 05:52
APTT Cancelled 06/05/24 06:31
Magnesium 1.5 mg/dl (1.6-2.3) L 06/07/24 04:17
Triglycerides 283 mg/dl (10-149) H 06/05/24 04:35
LDL Cholesterol, Calc 123 mg/dl 06/05/24 04:35
VLDL Cholesterol, Calc 56 mg/dl (0-30) H 06/05/24 04:35
HDL Cholesterol 27 mg/dl 06/05/24 04:35
06/07/24
04:17
Ovb-Q-Lmbfpybxrvk Pept 6680
Physical Exam
Constitutional: No acute distress and Comfortable
EENT: Anicteric
Cardiovascular: Rhythm & rate is regular, Pedal edema is absent, Systolic murmur present (12/09) and S1S2 is normal
Respiratory: Respiratory effort normal and Lungs clear to auscul.
GI: Soft
Neuro/Psych: AO x 3
Other: Skin (Warm, dry, intact)
Data Reviewed
-
Date of Service: June 09, 2024
EKG: Tracing Personally Visualized and interpreted (Telemetry: Sinus rhythm)
Medical Tests (PFT, Pathology etc): Discussed with Physician (Primary Hospitalist) and Discussed with Nurse
Labs: Labs Reviewed by me
--- NOTE | 2024-06-09 14:01 | CM ---
CM following for DC planning needs.
Reviewed initial assessment. Pt. resides w/ spouse/ son in a private, 2 story home w/ 3 ATUL. Functionally, patient is indep. w/ ADLs, mobility without the use of any assisted device.
Anticipated transfer to [facility]. Awaiting bed availability.
Call to [facility] transfer center, - no available beds yet, however, patient is on the list. They have IVU # to call when bed is available.
CM will cont to follow.
--- NOTE | 2024-06-09 14:59 | W.PN.HOSP.TC ---
Today's Communication/Plan
-
Awaiting transfer to [facility]
Continue blood pressure meds
Continue sodium bicarbonate
Monitor creatinine
Assessment / Plan
Assessment / Plan
IMPRESSION: Pt is a 63 year old male with a known history of left kidney cancer (transplant candidate for left kidney), hypertension, hyperlipidemia, CAD status post stents, TAVR, CKD stage V, prostate cancer hyperparathyroidism, GI bleeding (on
chronic octreotide) with NSTEMI. Patient is chest pain-free. No new symptoms. Waiting for transfer to [facility].
NSTEMI--Hx CAD s/p Stent --did not tolerate plavix due to GI bleeding--apprec cards--no IV heparin due to bleeding risk as well--s/p SL NTG en rout to hospital with improvement-- ECHO 05/07/24- Normal biventricular size and systolic function without
regional wall motion abnormality. Estimated LVEF 55-60%. Mild concentric left ventricular hypertrophy. Abnormal (paradoxical) septal motion consistent with left bundle branch block, repeat echo shows normal right ventricular size and systolic
function without regional wall motion abnormality. Normal functioning aortic valve. Mild to moderate mitral regurgitation-- s/p TAVR--Peak/mean gradients 31/18--troponin downtrended
Essential HTN--cont hydralazine, amlodipine, Lopressor
HLD--cont statin--lipids (trig 283, Tchol 206, LDL 123)--should have better control, repeat lipid panel in 3 months
Hx Aortic Stenosis - S/P TAVR approx 1 year ago at [facility]
Anemia likely of chronic disease from CKD stage 5- Hgb 9.4 g/dL. Normocytic. At or above prior thresholds-Per nephrology, EPO 10,000 units received yesterday, can get another dose in 2 weeks
Metabolic Acidosis due to CKD stage 5-- Bicarb 16. Continue bicarb 1300 mg TID
CKD V --transplant eval with [facility]- BUN/Cr 62/4.7. Pt is on transplant list following with Chain Sales Consultant Dr. Burns--apprec renal-- Continue vitamin D3 and calcitriol
Hyperglycemia - BG 219 on admission--today 120-
Hx GIB - Hx noted. Continue octreotide SC BID.
Anxiety/Depression - Continue sertraline.
DVT Ppx: SCDs
Code status: Full
Anticipated Discharge: Within 24 hours
Subjective/Interval History
-
Date of Service: June 09, 2024
Objective Data
-
Labs:
Laboratory Results
06/09/24
05:52
WBC 6.5
Hgb 9.6 L
Hct 29.1 L
Plt Count 226
Sodium 139
Potassium 4.2
Chloride 108 H
Carbon Dioxide 22
BUN 68 H
Creatinine 4.8 H*
Glucose 118 H
Calcium 7.8 L
Vital Signs:
Vital Signs
Temp Pulse Resp BP Pulse Ox
98.0 F 56 18 153/68 98
06/09/24 11:19 06/09/24 12:00 06/09/24 11:19 06/09/24 11:22 06/09/24 11:19
I&O
06/08/24 06/09/24 06/10/24
06:59 06:59 06:59
Intake Total 960 / 960 920 / 920
Output Total 500 / 500
Balance 460 / 460 920 / 920
Review of Systems
-
All other systems: Reviewed and negative
Physical Exam
-
General: Well Developed, Well Nourished and No Apparent Distress
HEENT: Normocephalic and Atraumatic
Respiratory: Clear to Auscultation; Negative Wheezes or Rhonchi
Cardiac: Regular Rhythm and S1/S2; Negative Murmur
GI: Soft, Nontender, Nondistended and Normal Bowel Sounds
Musculoskeletal: No Clubbing, No Cyanosis and No Edema
Skin: Warm
Psych: Calm
[2024-06-09] MEDS: LIPITOR 40 MG PO (18:19)
--- NOTE | 2024-06-09 18:24 | PTCARENOTE ---
Pt denies any chest pain or sob. Awaiting to be transferred to [place] when bed available. OOB ad angely with no c/o offered.
[2024-06-09] MEDS: NORVASC 10 MG PO (22:48)
--- NOTE | 2024-06-10 02:43 | PTCARENOTE ---
Assumed care of patient at change of shift. Sinus juana with BBB on tele. Pt. denies chest pain at this time and instructed to call RN immediately if chest pain occurs. Ambulating independently in room without difficulty. Awaiting bed at [facility] for
cardiac cath. Update provided via telephone to [facility] transfer center. Patient verbalizes understanding of plan of care and can make needs known. Call bonilla within reach.
[2024-06-10 04:15] VITALS: BMI 32.0
[2024-06-10 04:23] VITALS: BP 141/59
[2024-06-10 04:48] LABS: % Basophils 0.9 % (0-2); % Immature Granulocytes 0.4 % (0-0.5); % Lymphocytes 10.3 % (20.5-51.1); % Monocytes 10.4 % (1.7-9.3); Absolute Basophils 0.1 10^3/uL (0-0.2); Absolute Eosinophils 0.3 10^3/uL (0-0.7); Absolute Lymphocytes 0.7 10^3/uL (1.2-3.4); Absolute Monocytes 0.7 10^3/uL (0.1-0.6); Absolute Neutrophils 5.1 10^3/uL (1.4-6.5); Hematocrit 32.1 % (39.0-52.0); Hemoglobin 10.5 g/dL (13.0-18.0); Mean Corp Hgb Conc. 32.7 g/dL (33.0-37.0); Mean Corpuscular Hgb 29.2 pg (27.0-31.0); Mean Corpuscular Volume 89.4 fL (80.0-94.0); Mean Platelet Volume 10.6 fL (7.4-10.4); Nucleated Red Blood Cells % 0 % (-); Platelet Count 233 10^3/uL (130-400); Red Blood Cell Count 3.59 10^6/uL (4.70-6.10); Red Cell Dist. Width 18.1 % (11.5-14.5); White Blood Cell Count 6.9 10^3/uL (4.8-10.8)
[2024-06-10 05:16] LABS: Blood Urea Nitrogen 71 mg/dl (9-20); Calcium 8.4 mg/dl (8.4-10.2); Carbon Dioxide 21 mmol/L (22-30); Chloride 106 mmol/L (98-107); Estimated Creatinine Clearance 19 ml/min; Glucose 123 mg/dl (70-99); Potassium 4.5 mmol/L (3.5-5.1); Sodium 137 mmol/L (135-145)
[2024-06-10 07:31] VITALS: BP 140/56
[2024-06-10] MEDS: ZOLOFT 100 MG PO (07:40)
[2024-06-10] MEDS: ASPIR LOW (ENTERIC COATED) 81 MG PO (07:40)
[2024-06-10] MEDS: VITAMIN D3 (cholecalciferol) 25 MCG PO (07:40)
[2024-06-10] MEDS: APRESOLINE 50 MG PO (07:40)
[2024-06-10] MEDS: PROTONIX 40 MG PO (07:40)
[2024-06-10] MEDS: LOPRESSOR 12.5 MG PO (07:44)
[2024-06-10] MEDS: SODIUM BICARBONATE 1300 MG PO (07:45)
[2024-06-10] MEDS: ROCALTROL 0.25 MCG PO (07:45)
--- NOTE | 2024-06-10 08:21 | W.PN.CD ---
Today's Communication / Plan
-
will discuss timing of transfer with [facility] cytology laboratory manager; if unalbe to be cathed at [facility] this week will plan on discharge to home with plan for outpatient cath next week; if still poorly controlled BP tomorrow, recommend transitioning from metop 12.5
BID to coreg 12.5 BID
Impression / Plan
-
Impression/Plan: 63 y/o male with HTN, HLD, s/p TAVR, untreated ELENI, SzDO, CAD s/p PCI x2, chronic anemia due to GIB on chronic octreotide admitted with NSTEMI, managed medically due to patient declining any anticoagulation/antiplatelet therapy
due to history and frequency of GIBs and concern regarding contrast toxicity in setting of severe CKD. Awaiting transfer to [facility] for coronary angiography for continuity of care.
#NSTEMI in setting of acute on set chest pain
-Troponin peaked at 7.5, down to 6.0.
-Previous PCI at the [facility] in January 2023 and April 2023; on aspirin
-Patient refused intravenous heparin and P2Y12i due to bleeding.
-Patient is currently chest pain-free.
-Echocardiogram 06/07/2024 with LVEF of 55-60%, normal TAVR function, and mild to moderate MR.
-Patient states he does not tolerate isosorbide secondary to severe headaches.
-Continue metoprolol tartrate 12.5 mg BID
-Continue atorvastatin 40 mg daily (was increased from rosuvastatin 10 mg daily as LDL was 123).
-Awaiting transfer to [facility] to undergo cardiac catheterization, as coronary anatomy needs to be known as the patient is on the renal transplant list.
#CKD V
-Followed by transplant team at the [facility]; awaiting transfer to there.
#HLD
-Chronic, uncontrolled.
-Total cholestrol = 206, LDL = 123, HDL = 27, Triglycerides = 283.
-Atorvastatin increased to 40 mg daily.
-Goal LDL < 55. May require zetia/PCSK9i
-He may benefit from icosapent ethyl at discharge.
#LBBB
-Chronic; stable.
#Anemia
-Chronic, stable.
-Patient has received 13 units of packed red blood cells since February 2024 per his report.
-Patient states he usually gets transfused for hemoglobins less than 7.8. He is on chronic Procrit as well. He is followed by hematology at the [facility].
#GIB
-Recurrent.
-On octreotide SC BID.
-Currently stable.
#Hypertension
-Blood pressure remains suboptimally controlled with hydral increased 25-->50
-if remains >150 systolics throughout today, tomorrow can transition metoprolol to carvedilol 12.5 BID
Belting Cutter: Dr. Burns
Hospitalist: Dr. Butt
TAVR IC: Dr. Lackey
Hematology: Dr. Casanova
Subjective/Interval History:
No major events overnight. No cardiac complaints this a.m. Anxious to be transferred for cath.
DATA:
TTE, 05/07/2024:
CONCLUSIONS
Normal biventricular size and systolic function without regional wall motion
abnormality. Estimated LVEF 55-60%.
Mild concentric left ventricular hypertrophy.
Abnormal (paradoxical) septal motion consistent with left bundle branch block.
s/p TAVR. Peak/mean gradients 31/18 mmHg. No aortic regurgitation is seen.
No prior study available for comparison.
Physical Exam
Vital Signs/Labs
Vital Signs
Temp Pulse Resp BP Pulse Ox
37.0 C 64 16 141/59 94
06/10/24 07:28 06/10/24 07:28 06/10/24 07:28 06/10/24 04:23 06/10/24 07:28
06/09/24 06/10/24 06/11/24
06:59 06:59 06:59
Actual Weight 110.5 kg 110.1 kg
06/10/24 04:21
06/10/24 04:21
APTT Cancelled 06/05/24 06:31
Magnesium 1.5 mg/dl (1.6-2.3) L 06/07/24 04:17
Triglycerides 283 mg/dl (10-149) H 06/05/24 04:35
LDL Cholesterol, Calc 123 mg/dl 06/05/24 04:35
VLDL Cholesterol, Calc 56 mg/dl (0-30) H 06/05/24 04:35
HDL Cholesterol 27 mg/dl 06/05/24 04:35
06/07/24
04:17
Uai-M-Hivehgnghqi Pept 6680
Physical Exam
Constitutional: No acute distress
Cardiovascular: Rhythm & rate is regular, JVD pressure is normal, Systolic murmur absent and Diastolic murmur absent
Respiratory: Respiratory effort normal and Lungs clear to auscul.
GI: Soft and Distention absent
Neuro/Psych: Alert, Oriented and AO x 3
Data Reviewed
-
Date of Service: June 10, 2024
Labs: Labs Reviewed by me
[2024-06-10] MEDS: SANDOSTATIN 100 MCG SC (09:09)
--- NOTE | 2024-06-10 09:14 | W.PN.HOSP.TC ---
Addendum entered and electronically signed by Prasad Simpson MD 06/10/24 10:05:
Seen and examined by me independently in collaboration with the medical management trainer Yazmin.
Lab data and imaging data reviewed.
No chest pain or shortness of breath
Improved blood pressure with adjustment of hydralazine.
Just heard from cardiology that he will be going to [facility] straight to [place] [employer] there today. Will keep him n.p.o. as the plan is for Cardiac catheterization today.
Discussed with RN.
Medically stable for transfer to [facility].
Total time of discharge 32 minutes.
Original Note:
Today's Communication/Plan
-
Awaiting transfer to [facility]
Monitor blood pressures
Assessment / Plan
Assessment / Plan
IMPRESSION: Pt is a 63 year old male with a known history of left kidney cancer (transplant candidate for left kidney), hypertension, hyperlipidemia, CAD status post stents, TAVR, CKD stage V, prostate cancer hyperparathyroidism, GI bleeding (on
chronic octreotide) with NSTEMI. Patient is chest pain-free. No new symptoms. Waiting for transfer to [facility]. Patient is agitated. Per cardiology, if transferred to [facility] will not happen this week, will discharge to home and recommend outpatient
follow-up.
NSTEMI--Hx CAD s/p Stent --did not tolerate plavix due to GI bleeding--apprec cards--no IV heparin due to bleeding risk as well--s/p SL NTG en rout to hospital with improvement-- ECHO 05/07/24- Normal biventricular size and systolic function without
regional wall motion abnormality. Estimated LVEF 55-60%. Mild concentric left ventricular hypertrophy. Abnormal (paradoxical) septal motion consistent with left bundle branch block, repeat echo shows normal right ventricular size and systolic
function without regional wall motion abnormality. Normal functioning aortic valve. Mild to moderate mitral regurgitation-- s/p TAVR--Peak/mean gradients 31/18--troponin downtrended
Essential HTN--cont hydralazine, amlodipine, Lopressor
Blood pressure suboptimally controlled. Per cardiology, if blood pressures not controlled by tomorrow, recommend transitioning from metoprolol 12.5 twice daily to Coreg 12.5 twice daily.
HLD--cont statin--lipids (trig 283, Tchol 206, LDL 123)--should have better control, repeat lipid panel in 3 months
Hx Aortic Stenosis - S/P TAVR approx 1 year ago at [facility]
Anemia likely of chronic disease from CKD stage 5- Hgb 9.4 g/dL. Normocytic. At or above prior thresholds-Per nephrology, EPO 10,000 units received yesterday, can get another dose in 2 weeks
Metabolic Acidosis due to CKD stage 5-- Bicarb 16. Continue bicarb 1300 mg TID
CKD V --transplant eval with [facility]- BUN/Cr 71/5.2. Pt is on transplant list following with Homicide Detective Dr. Burns--apprec renal-- Continue vitamin D3 and calcitriol
Hyperglycemia - BG 219 on admission--today 123
Hx GIB - Hx noted. Continue octreotide SC BID.
Anxiety/Depression - Continue sertraline.
DVT Ppx: SCDs
Code status: Full
Anticipated Discharge: Within 24 hours
Subjective/Interval History
-
Date of Service: June 10, 2024
Objective Data
-
Labs:
Laboratory Results
06/10/24
04:21
WBC 6.9
Hgb 10.5 L
Hct 32.1 L
Plt Count 233
Sodium 137
Potassium 4.5
Chloride 106
Carbon Dioxide 21 L
BUN 71 H
Creatinine 5.2 H*
Glucose 123 H
Calcium 8.4
Vital Signs:
Vital Signs
Temp Pulse Resp BP Pulse Ox
98.6 F 64 16 141/59 94
06/10/24 07:28 06/10/24 07:28 06/10/24 07:28 06/10/24 04:23 06/10/24 07:28
I&O
06/09/24 06/10/24 06/11/24
06:59 06:59 06:59
Intake Total 920 / 920
Balance 920 / 920
Review of Systems
-
All other systems: Reviewed and negative
Physical Exam
-
General: Well Developed, Well Nourished and No Apparent Distress
HEENT: Normocephalic and Atraumatic
Respiratory: Clear to Auscultation; Negative Wheezes or Rhonchi
Cardiac: Regular Rhythm and S1/S2; Negative Murmur
GI: Soft, Nontender, Nondistended and Normal Bowel Sounds
Musculoskeletal: No Clubbing, No Cyanosis and No Edema
Skin: Warm
Psych: Calm
--- NOTE | 2024-06-10 10:10 | CM ---
Rec'd call from [facility]. 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
Arranged ALS transport for 1045 PU.
Updated Attg., RN, and patient at bedside.
No other identified needs.
PLAN: Emi TA., 6th flr., electric distribution engineer
RN report: [phone]
--- NOTE | 2024-06-10 11:27 | PTCARENOTE ---
Pt received this am with no c/o of chest pain or sob. OOB independently in the room. Room air sat 96%. Pt was awaiting bed at [facility] for cardiac cath. [facility] able to take pt today and was transferred at 11am via ambulance. Report called to nurse
receiving pt in the bundle tier and labeler.
== END 2024-06-10 10:38 | disposition short-term general hospital (02) | DRG 281 ==
LOC: IVU 01:40
PROVIDERS: Emergency Medicine; Internal Medicine; Nurse Practitioner; ADMITTING PHYSICIAN Internal Medicine; ATTENDING PHYSICIAN Internal Medicine; CONSULT PHYSICIAN Internal Medicine; CONSULT PHYSICIAN Specialist; EMERGENCY PHYSICIAN Emergency Medicine
DX: I21.4 Non-ST elevation (NSTEMI) myocardial infarction (principal); E87.22 Chronic metabolic acidosis; I12.0 Hypertensive chronic kidney disease with stage 5 chronic kidney disease or end stage renal disease; N18.5 Chronic kidney disease, stage 5; N25.81 Secondary hyperparathyroidism of renal origin; D63.1 Anemia in chronic kidney disease; E78.00 Pure hypercholesterolemia, unspecified; N40.0 Benign prostatic hyperplasia without lower urinary tract symptoms; G47.33 Obstructive sleep apnea (adult) (pediatric); I44.7 Left bundle-branch block, unspecified; G47.30 Sleep apnea, unspecified; R73.9 Hyperglycemia, unspecified; F32.A Depression, unspecified; F41.9 Anxiety disorder, unspecified; I25.10 Atherosclerotic heart disease of native coronary artery without angina pectoris; K21.9 Gastro-esophageal reflux disease without esophagitis; I25.2 Old myocardial infarction; Z95.5 Presence of coronary angioplasty implant and graft; Z87.891 Personal history of nicotine dependence; Z90.5 Acquired absence of kidney; Z86.16 Personal history of COVID-19; Z95.3 Presence of xenogenic heart valve; Z85.46 Personal history of malignant neoplasm of prostate; Z82.49 Family history of ischemic heart disease and other diseases of the circulatory system; Z88.0 Allergy status to penicillin; Z88.8 Allergy status to other drugs, medicaments and biological substances; Z79.82 Long term (current) use of aspirin; Z76.82 Awaiting organ transplant status
CPT/HCPCS: 71046; 80048; 80053; 80061; 82728; 82805; 83036; 83540; 83550; 83735; 83880; 84484; 85025; 85027; 85730; 93005; 93306; 99291; Q5106

== ENCOUNTER 2024-07-09 18:24 | Emergency (ER) | payer OTHER, SELFPAY ==
[2024-07-09 18:28] VITALS: BP 156/80
--- NOTE | 2024-07-09 18:43 | ED.GENMED ---
History of Present Illness
General
Chief Complaint: Abnormal Lab Value
Source: patient
Exam Limitations: none
Time Seen by Provider: 07/09/24 18:31
History of Present Illness
History of Present Illness:
This is a 63 year old male that comes in with c/o abnormal labs. States that he got a phone call from his Financial Operations Analyst and he was told that his potassium is elevated. States that his blood work was done yesterday and his potassium was 6.1. States
that he is SOB with activity and he just has to stop and catch his breath. Patient has Open heart surgery in June and was discharged on 06/24/24. Denies any fever, chills, chest pain, abd pain, nausea, vomiting, diarrhea, headache, dizziness,
urinary burning.
Past History
Past History
ED Past Medical History: CAD, Cancer (Kidney, Prostate CA, ), GERD, HTN, Hypercholesterolemia, [place], Renal failure, Seizures, Valvular disease and Other (Chronic kidney disease, Sleep apnea, H-Pylori, Anemia, Stage 4 kidney disease, GI bleeding)
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
3, Hydrocele X 2)
Social History
Tobacco: Former smoker
Alcohol: None
Drug: None
Personal:
Living: with family
Employment: Employed
Family History
Family History: Hypertension
Review of Systems
Review of Systems
All Other Systems: ROS reviewed and negative except as documented in HPI and ROS
Constitutional: Reports no symptoms; Denies fever or chills
EENT: Reports no symptoms
Respiratory: Reports trouble breathing; Denies cough
Cardiac: Reports no symptoms; Denies chest pain
ABD/GI: Reports no symptoms; Denies abdominal pain, nausea, vomiting or diarrhea
: Reports no symptoms; Denies dysuria, frequency or urgency
Musculoskeletal: Reports no symptoms
Skin: Reports no symptoms
Neurological: Reports no symptoms; Denies dizzy or headache
Psychiatric: Reports no symptoms
Phy Exam
General Physical Exam
General Presentation: no apparent distress
General age: appears stated age
General Skin: warm and dry
General Habitus: normal
General Mental: alert
General Hydration: appears well hydrated
ENT Exam
ENT Exam: TM's normal, pharynx normal and neck supple
Eye Exam
Eye Exam: EOMI
Cardiovascular Exam
Cardiovascular Exam: regular rate/rhythm, no edema and normal peripheral pulses
Pulmonary Exam
Pulmonary Exam: no rales, chest non tender, no crackles, no rhonchi, no wheezing, no cough and decreased breath sounds (at bases)
Gastrointestinal Exam
Gastrointestinal Exam: normal bowel sounds, non tender, soft, no organomegaly, no pulsatile mass and non distended
Musculoskeletal Exam
Musculoskeletal Exam: full ROM and no edema
Skin Exam
Skin Exam: normal color, warm/dry, no rash and no petechia
Psychiatric Exam
Psychiatric Exam: normal mood/affect
Course
Orders/Labs/Results
Orders:
Orders
07/09/24 18:30
Electrocardiogram (*1) Urgent
Reason for Study: Other
Other Reason for Exam: hyperkalemia
EKG- Treatment ONCE
07/09/24 18:42
CR Chest - 2 Views Urgent
Comment:
Reason For Exam: SOB
07/09/24 19:20
Complete Blood Count/With Diff Urgent
Comprehensive Metabolic Panel Urgent
NT-proBNP Urgent
Troponin I Urgent
Abnormal Lab Results
07/09/24
19:20
RBC 3.03 L 10^6/uL
(4.70-6.10)
Hgb 8.8 L g/dL
(13.0-18.0)
Hct 27.4 L %
(39.0-52.0)
MCHC 32.1 L g/dL
(33.0-37.0)
RDW 14.6 H %
(11.5-14.5)
MPV 10.5 H fL
(7.4-10.4)
Absolute Lymphs (auto) 0.8 L 10^3/uL
(1.2-3.4)
Lymphocytes % 11.0 L %
(20.5-51.1)
Eosinophils % 9.6 H %
(0-6)
Potassium 5.2 H mmol/L
(3.5-5.1)
Carbon Dioxide 21 L mmol/L
(22-30)
BUN 64 H mg/dl
(9-20)
Creatinine 5.2 H* mg/dL
(0.7-1.3)
Glucose 117 H mg/dl
(70-99)
Calcium 8.3 L mg/dl
(8.4-10.2)
Troponin I 0.071 H* ng/ml
Total Protein 5.8 L g/dl
(6.3-8.2)
07/09/24 19:20
07/09/24 19:20
H/H low. Potassium 5.2, Carbon dioxide very slightly elevated. Chronic renal failure ( numbers are consistent with prior labs), glucose nonfasting. troponin 0.071 ( patient chronically elevated due to renal function)
Vital Signs
Initial and Last Documented VS:
Initial Vital Signs
Temp Pulse Resp BP Pulse Ox
98.6 F 76 16 156/80 98
07/09/24 18:28 07/09/24 18:28 07/09/24 18:28 07/09/24 18:28 07/09/24 18:28
Last Documented Vital Signs
Temp Pulse Resp BP Pulse Ox
98.6 F 76 16 156/80 98
07/09/24 18:28 07/09/24 18:28 07/09/24 18:28 07/09/24 18:28 07/09/24 18:28
County Adviser consulted with Physician
County Adviser consulted with physician?: Yes
Name of Physician Consulted: Dr. Catalan
MDM/Problems Addressed
Differential Diagnosis Includes:
Abnormal labs. Pleural effusion, CHF
MDM/Problems Addressed:
This is a 63 year old male that comes in with c/o abnormal labs. States that he was called today and told he needed to come in by his group director as his potassium was elevated.
will check labs, Chest x-ray, ECG, Will medicate as needed
Back into see patient. Reviewed labs and chest x-ray findings. Offered patient admission. State that he was told that he will be SOB for another week or more due to his surgery. Patient Pulse ox is 98% on room air. Patient states that he wants to go
home. Patient has not had any chest pain. Will discharge.
Chronic conditions affecting care: CAD and Kidney disease
Acute Exacerbation and/or Progression of Chronic Illness: CAD and Kidney disease
*Radiology
Radiology exam reviewed: preliminary read by ED provider (Chest- Pleural effusion)
*Pulse Oximetry
Patient hypoxic: no
*EKG
Interpreted by ED Provider?: Yes
Heart Rate: 72
Rate: normal
Rhythm: sinus
[place]: normal axis
Interval: normal interval
QRS Pattern: left bundle branch block
Ischemia: T-wave inversion (I, II, aVL, aVF, V5, V6, Checked by Dr. Funes)
*Media Sales Consultant Interpretation
Rate: normal
Heart Rate: 86
Rhythm: sinus
*Critical Care Note
Total Time (30-74mins, 75-104mins- exclusive of procedures): Not Applicable
ED Attending Note
-
Portions of this chart may have been created with voice recognition software.� Occasional wrong word or��sound alike� substitutions may have occurred due to the inherent limitations of voice recognition software.
Discharge Plan
Departure
Patient Disposition: Home (Routine Discharge)
Date of Disposition: 07/09/24
Time of Disposition: 20:32
Patient with high blood pressure during this ER visit?: Yes
Condition: Good
Covid-19: Not Applicable
Discharge Problem:
Chronic renal failure, Pleural effusion on left
Instructions: Chronic kidney disease, Pleural effusion - Discharge instructions, BLOOD PRESSURE
Prescriptions:
No Action
cholecalciferol (vitamin D3) [Vitamin D3] 25 mcg (1,000 unit) Tablet
25 mcg PO BID
sertraline 100 mg Tablet
100 mg PO DAILY
hydralazine 25 mg Tablet
25 mg PO TID
aspirin 81 mg Tablet,Delayed Release (Dr/Ec)
81 mg PO DAILY
amlodipine 10 mg Tablet
10 mg PO DAILY
lansoprazole 30 mg Capsule,Delayed Release(Dr/Ec)
30 mg PO BID
Rx Instructions:
before meals
metoprolol tartrate 25 mg Tablet
12.5 mg PO BID Qty: 60 1RF
carvedilol 25 mg Tablet
25 mg PO BID
rosuvastatin 20 mg Tablet
20 mg PO HS
sevelamer carbonate 800 mg Tablet
1,600 mg PO TID
sodium bicarbonate 650 mg tablet
650 mg PO BID
Referrals:
Georgina Dunn MD [Family Provider] - Follow up in 2-3 days
Activity Restrictions/Additional Instructions:
As discussed, your blood work shows that your potassium is 5.2. Normal high is 5.1. This will not be treated as this changes daily with your fluid volume. YOU NEED TO FOLLOW UP WITH THE COMMODITY SUPERVISOR. PLEASE CALL THEM ON FRIDAY. You chest x-ray shows
that you have a pleural effusion. IF YOU HAVE INCREASED SHORTNESS OF BREATH, OR YOU HAVE ANY OTHER CONCERNS PLEASE RETURN TO THE EMERGENCY ROOM.
Interventions
Interventions:
*Risk Screen - Suicide Last Done: 07/09/24 19:05
*General Assessment Last Done: 07/09/24 19:05
*Neglect/Abuse Screening Last Done: 07/09/24 19:05
ED- Fall Risk Assessment Last Done: 07/09/24 19:06
Discharge Date and Time
Print Language: ICELANDIC
[2024-07-09 19:28] LABS: % Basophils 1.6 % (0-2); % Eosinophils 9.6 % (0-6); % Immature Granulocytes 0.3 % (0-0.5); % Monocytes 8.3 % (1.7-9.3); % Neutrophils 69.2 % (42.2-75.2); Absolute Basophils 0.1 10^3/uL (0-0.2); Absolute Eosinophils 0.7 10^3/uL (0-0.7); Absolute Lymphocytes 0.8 10^3/uL (1.2-3.4); Absolute Monocytes 0.6 10^3/uL (0.1-0.6); Absolute Neutrophils 5.3 10^3/uL (1.4-6.5); Hematocrit 27.4 % (39.0-52.0); Hemoglobin 8.8 g/dL (13.0-18.0); Mean Corp Hgb Conc. 32.1 g/dL (33.0-37.0); Mean Corpuscular Volume 90.4 fL (80.0-94.0); Mean Platelet Volume 10.5 fL (7.4-10.4); Nucleated Red Blood Cells % 0 % (-); Platelet Count 294 10^3/uL (130-400); Red Blood Cell Count 3.03 10^6/uL (4.70-6.10); Red Cell Dist. Width 14.6 % (11.5-14.5); White Blood Cell Count 7.7 10^3/uL (4.8-10.8)
[2024-07-09 19:53] LABS: ALT (SGPT) 10 U/L (0-50); AST (SGOT) 20 U/L (17-59); Albumin 3.5 g/dl (3.5-5.0); Alkaline Phosphatase 84 U/L (38-126); Blood Urea Nitrogen 64 mg/dl (9-20); Calcium 8.3 mg/dl (8.4-10.2); Carbon Dioxide 21 mmol/L (22-30); Chloride 107 mmol/L (98-107); Glucose 117 mg/dl (70-99); Potassium 5.2 mmol/L (3.5-5.1); Sodium 141 mmol/L (135-145); Total Bilirubin 0.3 mg/dl (0.2-1.3); Total Protein 5.8 g/dl (6.3-8.2)
[2024-07-09 20:06] LABS: NT-proBNP 6700 pg/ml; Troponin I 0.071 ng/ml
--- NOTE | 2024-07-09 20:54 | VATNOTE ---
deaccessed right subq power port now per protocol. Brisk blood return noted prior to.
== END 2024-07-09 20:56 | disposition home or self-care (01) ==
LOC: EMR 18:24
PROVIDERS: Clinical Nurse Specialist Family Health; EMERGENCY PHYSICIAN Emergency Medicine; FAMILY PHYSICIAN Internal Medicine Nephrology
DX: N18.4 Chronic kidney disease, stage 4 (severe) (principal); J90 Pleural effusion, not elsewhere classified; I25.10 Atherosclerotic heart disease of native coronary artery without angina pectoris; I12.9 Hypertensive chronic kidney disease with stage 1 through stage 4 chronic kidney disease, or unspecified chronic kidney disease; I25.2 Old myocardial infarction; I38 Endocarditis, valve unspecified; E78.00 Pure hypercholesterolemia, unspecified; G47.30 Sleep apnea, unspecified; D64.9 Anemia, unspecified; K21.9 Gastro-esophageal reflux disease without esophagitis; Z82.49 Family history of ischemic heart disease and other diseases of the circulatory system; Z85.46 Personal history of malignant neoplasm of prostate; Z85.528 Personal history of other malignant neoplasm of kidney; Z87.891 Personal history of nicotine dependence; Z90.5 Acquired absence of kidney; Z95.2 Presence of prosthetic heart valve; Z95.5 Presence of coronary angioplasty implant and graft
CPT/HCPCS: 99283; 96374; 71046; 80053; 83880; 84484; 85025; 93005

== ENCOUNTER 2024-07-24 11:05 | Emergency (ER) | payer OTHER, SELFPAY ==
[2024-07-24] VITALS (20 sets, daily range): BP systolic 111–163; BP diastolic 48–75; BMI 30.2
--- NOTE | 2024-07-24 11:53 | ED.GENMED ---
History of Present Illness
<Moises Diaz PA-C - Last Filed: 07/24/24 14:46>
General
Chief Complaint: Abnormal Lab Value
Source: patient
Exam Limitations: none
Time Seen by Provider: 07/24/24 11:36
History of Present Illness
History of Present Illness:
63-year-old male with chronic kidney disease, coronary artery disease requiring recent CABG surgery with history of anemia presents with feelings of lightheadedness and fatigue. He states blood work drawn as an outpatient yesterday which
demonstrated hemoglobin of 7.2. He notes a chronic GI bleed. He is followed at [facility] for all of these issues. He was told to come to the emergency room for blood transfusion. He denies chest pain. He denies any significant
shortness of breath. No other complaints
Past History
<Moises Diaz PA-C - Last Filed: 07/24/24 14:46>
Past History
ED Past Medical History: CAD, Cancer (Kidney, Prostate CA, ), GERD, HTN, Hypercholesterolemia, [place], Renal failure, Seizures, Valvular disease and Other (Chronic kidney disease, Sleep apnea, H-Pylori, Anemia, Stage 4 kidney disease, GI bleeding)
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
3, Hydrocele X 2)
Social History
Tobacco: Former smoker
Alcohol: None
Drug: None
Personal:
Living: with family
Employment: Employed
Family History
Family History: Hypertension
Phy Exam
<Moises Diaz PA-C - Last Filed: 07/24/24 14:46>
Physical Exam
Physical Exam:
General: Well appearing male, NAD
HEENT: NC/at
Heart: RRr, no murmurs
Lungs; CTA bilaterally
ABd: soft, nontender
Ext: No cyanosis
Skin: Warm, no rash
Course
<Moises Diaz PA-C - Last Filed: 07/24/24 14:46>
Orders/Labs/Results
Orders:
Orders
07/24/24 12:18
Type+Screen Urgent
Complete Blood Count/With Diff Urgent
Comprehensive Metabolic Panel Urgent
07/24/24 12:30
Heparin Pf [Heparin Lock Flush] 500 unit IV PER PROTOCOL
07/24/24 14:13
Blood Bank Products [* Blood Bank Products] Urgent
Blood Bank Products: *Packed RBC Leuko(PRBC's)
Quantity: 2
Transfuse Today: Yes
Reason: Anemia
Patient will require pre-treatment for transfusion:: No
Abnormal Lab Results
07/24/24
12:18
RBC 2.31 L 10^6/uL
(4.70-6.10)
Hgb 6.4 L* g/dL
(13.0-18.0)
Hct 20.2 L* %
(39.0-52.0)
MCHC 31.7 L g/dL
(33.0-37.0)
RDW 15.1 H %
(11.5-14.5)
Absolute Lymphs (auto) 0.7 L 10^3/uL
(1.2-3.4)
Lymphocytes % 12.2 L %
(20.5-51.1)
Monocytes % 9.7 H %
(1.7-9.3)
BUN 78 H mg/dl
(9-20)
Creatinine 5.4 H* mg/dL
(0.7-1.3)
Glucose 109 H mg/dl
(70-99)
Total Protein 6.0 L g/dl
(6.3-8.2)
Crossmatch IS Only See Detail
07/24/24 12:18
07/24/24 12:18
Vital Signs
Initial and Last Documented VS:
Initial Vital Signs
Temp Pulse Resp BP Pulse Ox
98.2 F 68 18 113/58 98
07/24/24 11:16 07/24/24 11:16 07/24/24 11:16 07/24/24 11:16 07/24/24 11:16
Last Documented Vital Signs
Temp Pulse Resp BP Pulse Ox
97.9 F 66 22 144/65 95
07/24/24 18:07 07/24/24 19:00 07/24/24 19:00 07/24/24 18:07 07/24/24 19:00
<Dat Guzman PA-C - Last Filed: 07/24/24 19:43>
Orders/Labs/Results
Orders:
Orders
07/24/24 12:18
Type+Screen Urgent
Complete Blood Count/With Diff Urgent
Comprehensive Metabolic Panel Urgent
07/24/24 12:30
Heparin Pf [Heparin Lock Flush] 500 unit IV PER PROTOCOL
07/24/24 14:13
Blood Bank Products [* Blood Bank Products] Urgent
Blood Bank Products: *Packed RBC Leuko(PRBC's)
Quantity: 2
Transfuse Today: Yes
Reason: Anemia
Patient will require pre-treatment for transfusion:: No
Abnormal Lab Results
07/24/24
12:18
RBC 2.31 L 10^6/uL
(4.70-6.10)
Hgb 6.4 L* g/dL
(13.0-18.0)
Hct 20.2 L* %
(39.0-52.0)
MCHC 31.7 L g/dL
(33.0-37.0)
RDW 15.1 H %
(11.5-14.5)
Absolute Lymphs (auto) 0.7 L 10^3/uL
(1.2-3.4)
Lymphocytes % 12.2 L %
(20.5-51.1)
Monocytes % 9.7 H %
(1.7-9.3)
BUN 78 H mg/dl
(9-20)
Creatinine 5.4 H* mg/dL
(0.7-1.3)
Glucose 109 H mg/dl
(70-99)
Total Protein 6.0 L g/dl
(6.3-8.2)
Crossmatch IS Only See Detail
07/24/24 12:18
07/24/24 12:18
Vital Signs
Initial and Last Documented VS:
Initial Vital Signs
Temp Pulse Resp BP Pulse Ox
98.2 F 68 18 113/58 98
07/24/24 11:16 07/24/24 11:16 07/24/24 11:16 07/24/24 11:16 07/24/24 11:16
Last Documented Vital Signs
Temp Pulse Resp BP Pulse Ox
97.9 F 66 22 144/65 95
07/24/24 18:07 07/24/24 19:00 07/24/24 19:00 07/24/24 18:07 07/24/24 19:00
<Moises Diaz PA-C - Last Filed: 07/24/24 14:46>
MDM/Problems Addressed
Differential Diagnosis Includes:
Fatigue and lightheadedness. Recent outpatient labs demonstrated low hemoglobin. Question anemia acute on chronic. Check labs.
If hemoglobin low consider blood transfusion. This is not an acute problem. May be a candidate for discharge
<Dat Guzman PA-C - Last Filed: 07/24/24 19:43>
*Critical Care Note
Total Time (30-74mins, 75-104mins- exclusive of procedures): Not Applicable
<Dat Guzman PA-C - Last Filed: 07/24/24 19:43>
Patient Management
Escalation/DeEscalation of care consider admission/obs:
Patient received in signout pending completion of blood transfusions. Tolerated without difficulty. Continues to want to go home. Aware of return precautions and follow up recommendations. Needs repeat labs in 1 week.
<Moises Diaz PA-C - Last Filed: 07/24/24 14:46>
Update Note
Update Note:
Hemoglobin is 6.4. Reviewed prior records. He has been here before for the same. He has chronic kidney disease. Creatinine today is 5.4 which is baseline he has a normal potassium. Vital signs remained stable. Offered and recommended admission
to hospital secondary to amount of blood he would need however he is declining. He will receive 2 units of blood and will be discharged with follow-up with his GI to [facility].
ED Attending Note
<Moises Diaz PA-C - Last Filed: 07/24/24 14:46>
-
Portions of this chart may have been created with voice recognition software.� Occasional wrong word or��sound alike� substitutions may have occurred due to the inherent limitations of voice recognition software.
Discharge Plan
Departure
Patient Disposition: Home (Routine Discharge)
Date of Disposition: 07/24/24
Time of Disposition: 19:33
Patient with high blood pressure during this ER visit?: No
Discharge Problem:
Anemia
Instructions: Anemia caused by low iron in adults - Discharge instructions
Prescriptions:
No Action
cholecalciferol (vitamin D3) [Vitamin D3] 25 mcg (1,000 unit) Tablet
25 mcg PO BID
sertraline 100 mg Tablet
100 mg PO DAILY
hydralazine 25 mg Tablet
25 mg PO TID
aspirin 81 mg Tablet,Delayed Release (Dr/Ec)
81 mg PO DAILY
amlodipine 10 mg Tablet
10 mg PO DAILY
lansoprazole 30 mg Capsule,Delayed Release(Dr/Ec)
30 mg PO BID
Rx Instructions:
before meals
metoprolol tartrate 25 mg Tablet
12.5 mg PO BID Qty: 60 1RF
carvedilol 25 mg Tablet
25 mg PO BID
rosuvastatin 20 mg Tablet
20 mg PO HS
sevelamer carbonate 800 mg Tablet
1,600 mg PO TID
sodium bicarbonate 650 mg tablet
650 mg PO BID
Referrals:
NONE,* [Family Provider] -
Activity Restrictions/Additional Instructions:
Please return here for worsening symptoms. Follow-up with your treating physicians
Interventions
Interventions:
*Risk Screen - Suicide Last Done: 07/24/24 11:07
*General Assessment Last Done: 07/24/24 13:30
*Neglect/Abuse Screening Last Done: 07/24/24 13:30
ED- Fall Risk Assessment Last Done: 07/24/24 15:18
*ED COVID-19 Vaccine History Last Done: 07/24/24 15:36
Discharge Date and Time
Print Language: FAROESE
[2024-07-24 12:55] LABS: ALT (SGPT) 13 U/L (0-50); AST (SGOT) 19 U/L (17-59); Albumin 3.6 g/dl (3.5-5.0); Alkaline Phosphatase 79 U/L (38-126); Blood Urea Nitrogen 78 mg/dl (9-20); Calcium 8.8 mg/dl (8.4-10.2); Carbon Dioxide 23 mmol/L (22-30); Chloride 106 mmol/L (98-107); Glucose 109 mg/dl (70-99); Sodium 140 mmol/L (135-145); Total Bilirubin 0.3 mg/dl (0.2-1.3); eGFR 11.18
[2024-07-24 13:36] LABS: % Basophils 0.9 % (0-2); % Eosinophils 5.6 % (0-6); % Immature Granulocytes 0.2 % (0-0.5); % Lymphocytes 12.2 % (20.5-51.1); % Monocytes 9.7 % (1.7-9.3); % Neutrophils 71.4 % (42.2-75.2); Absolute Basophils 0.1 10^3/uL (0-0.2); Absolute Eosinophils 0.3 10^3/uL (0-0.7); Absolute Lymphocytes 0.7 10^3/uL (1.2-3.4); Absolute Monocytes 0.5 10^3/uL (0.1-0.6); Hematocrit 20.2 % (39.0-52.0); Hemoglobin 6.4 g/dL (13.0-18.0); Mean Corp Hgb Conc. 31.7 g/dL (33.0-37.0); Mean Corpuscular Hgb 27.7 pg (27.0-31.0); Mean Corpuscular Volume 87.4 fL (80.0-94.0); Mean Platelet Volume 10.3 fL (7.4-10.4); Nucleated Red Blood Cells % 0 % (-); Platelet Count 199 10^3/uL (130-400); Red Blood Cell Count 2.31 10^6/uL (4.70-6.10); Red Cell Dist. Width 15.1 % (11.5-14.5); White Blood Cell Count 5.6 10^3/uL (4.8-10.8)
--- NOTE | 2024-07-24 20:38 | VATNOTE ---
Patient's right SQ port was flushed with heparin then deaccessed as patient is being discharged.
== END 2024-07-24 20:45 | disposition home or self-care (01) ==
LOC: EMR 11:05
PROVIDERS: Physician Assistant; EMERGENCY PHYSICIAN Student in an Organized Health Care Education/Training Program
DX: D64.9 Anemia, unspecified (principal); I12.9 Hypertensive chronic kidney disease with stage 1 through stage 4 chronic kidney disease, or unspecified chronic kidney disease; N18.4 Chronic kidney disease, stage 4 (severe); E78.00 Pure hypercholesterolemia, unspecified; G47.30 Sleep apnea, unspecified; I25.10 Atherosclerotic heart disease of native coronary artery without angina pectoris; K21.9 Gastro-esophageal reflux disease without esophagitis; Z82.49 Family history of ischemic heart disease and other diseases of the circulatory system; Z85.46 Personal history of malignant neoplasm of prostate; Z85.528 Personal history of other malignant neoplasm of kidney; Z87.891 Personal history of nicotine dependence; Z90.5 Acquired absence of kidney; Z95.1 Presence of aortocoronary bypass graft; Z95.2 Presence of prosthetic heart valve; Z95.5 Presence of coronary angioplasty implant and graft
CPT/HCPCS: 99283; 80053; 85025; 86850; 86900; 86901; 86920; P9016

== ENCOUNTER 2025-01-11 16:18 | Emergency (ER) | payer OTHER, SELFPAY ==
[2025-01-11] VITALS (18 sets, daily range): BP systolic 117–141; BP diastolic 61–93; BMI 28.2
--- NOTE | 2025-01-11 17:25 | ED.GENMED ---
History of Present Illness
General
Chief Complaint: Abnormal Lab Value
Source: patient
Exam Limitations: none
Time Seen by Provider: 01/11/25 17:08
Nursing documentation reviewed up to this point in time: agreed with
History of Present Illness
History of Present Illness:
64 yo male self peritoneal dialysis patient, one kidney, on transplant list, L nephrectomy d/t CA, CAD, HTN, HLD, [place], GERD, GI bleed, chronic anemia getting iron infusions went to [facility] today for iron infusion and found to have Hgb 6.1, it
was too late to get PRBCs there so sent here. Denies CP. Has felt SOB w exertion and feels heart beating fast with exertion.
Is scheduled for mitral valve clip at [place] in 2 weeks
Past History
Past History
ED Past Medical History: CAD, Cancer (L Kidney, Prostate CA, ), GERD, HTN, Hypercholesterolemia, [place], Renal failure, Seizures, Valvular disease and Other (Self Peritoneal Dialysis, Sleep apnea, H-Pylori, Anemia, GI bleeding)
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
3, Hydrocele X 2)
Social History
Tobacco: Former smoker
Alcohol: None
Drug: None
Personal:
Living: with family
Employment: Employed
Family History
Family History: Hypertension
Review of Systems
Review of Systems
Allergies reviewed?: Yes
All Other Systems: ROS reviewed and negative except as documented in HPI and ROS
Constitutional: Reports fatigue; Denies fever
Respiratory: Denies trouble breathing (SOB with exertion)
Cardiac: Reports palpitations (heart 'beats fast' with exertion); Denies chest pain
ABD/GI: Denies abdominal pain, nausea, vomiting, diarrhea, constipated, bloody stools, black stools or anorexia
: Reports other (makes very little urine)
Musculoskeletal: Reports no symptoms
Skin: Reports no symptoms
Neurological: Reports no symptoms
Phy Exam
Physical Exam
Physical Exam:
GENERAL: No acute distress. A&Ox3.
CONSTITUTIONAL: Afebrile.
EYES: clear, conjunctivae normal
ENMT: moist mucus membranes, Pharynx nl
RESPIRATORY: Regular respirations, nonlabored, lungs clear.
CARDIOVASCULAR: Regular rate and rhythm, no murmurs, no rubs.
GI: Soft, nontender, normal BS
: No stool in rectal vault. Mucus on gloved finger heme positive
MUSCULOSKELETAL: Moves with ease. Well perfused.
SKIN: Warm, dry, pale
PSYCH: Normal mood and affect. Well kept, interactive and appropriate
NEUROLOGIC: Awake, alert and oriented. No focal neurological deficits
Course
Orders/Labs/Results
Orders:
Orders
01/11/25 17:31
Type+Screen Urgent
Basic Metabolic Panel Urgent
Complete Blood Count/With Diff Urgent
01/11/25 17:50
* Blood Bank Products Urgent
Blood Bank Products: *Packed RBC Leuko(PRBC's)
Quantity: 2
Transfuse Today: Yes
Reason: Anemia
Patient will require pre-treatment for transfusion:: No
IV Insert/Care/Rem.- Treatment PRN
Pantoprazole 80 mg/100 ml Nss [Protonix] 80 mg in 100 ml IV NOW
01/11/25 17:52
Acetaminophen [Tylenol] 1,000 mg PO NOW STA
Diphenhydramine [Benadryl] 50 mg IV NOW STA
01/11/25 19:06
Pantoprazole [Protonix IV] 80 mg IV NOW STA
01/11/25 19:07
Pantoprazole [Protonix IV] 80 mg .ROUTE .STK-MED ONE
Abnormal Lab Results
01/11/25
17:31
RBC 2.04 L 10^6/uL
(4.70-6.10)
Hgb 5.6 L* g/dL
(13.0-18.0)
Hct 18.5 L* %
(39.0-52.0)
MCHC 30.3 L g/dL
(33.0-37.0)
RDW 17.1 H %
(11.5-14.5)
Absolute Lymphs (auto) 0.9 L 10^3/uL
(1.2-3.4)
Absolute Monos (auto) 0.8 H 10^3/uL
(0.1-0.6)
Lymphocytes % 11.4 L %
(20.5-51.1)
Monocytes % 9.4 H %
(1.7-9.3)
BUN 61 H mg/dl
(9-20)
Creatinine 5.1 H* mg/dL
(0.7-1.3)
Glucose 162 H mg/dl
(70-99)
Calcium 8.3 L mg/dl
(8.4-10.2)
Crossmatch IS Only See Detail
01/11/25 17:31
01/11/25 17:31
Vital Signs
Initial and Last Documented VS:
Initial Vital Signs
Temp Pulse Resp BP Pulse Ox
97.9 F 97 16 121/65 98
01/11/25 16:29 01/11/25 16:29 01/11/25 16:29 01/11/25 16:29 01/11/25 16:29
Last Documented Vital Signs
Temp Pulse Resp BP Pulse Ox
97.8 F 102 20 141/85 97
01/11/25 20:01 01/11/25 20:01 01/11/25 20:01 01/11/25 20:01 01/11/25 20:01
MDM/Problems Addressed
Differential Diagnosis Includes:
GI bleed, Iron deficiency anemia
MDM/Problems Addressed:
64 yo male self peritoneal dialysis patient, one kidney, on transplant list, L nephrectomy d/t CA, CAD, HTN, HLD, [place], GERD, GI bleed, chronic anemia getting iron infusions went to [facility] today for iron infusion and found to have Hgb 6.1, it
was too late to get PRBCs there so sent here. Denies CP. Has felt SOB w exertion and feels heart beating fast with exertion. Denies change in color of stool.
Is scheduled for mitral valve clip at [place] in 2 weeks
VSS, NAD
5:50 p.m.
CBC: Hgb 5.6
CMP:
Pt states he usually gets pre treatment with 'Tylenol and Benadryl' but does not know why. These have been ordered
Pt does not want to be admitted as all his doctors are at [facility]
He is hemodynamically stable, no significant active bleeding, VSS
Case discussed with Dr. Laguerre who agrees he is stable for discharge
He has appointment with his Image Processing Engineer in one week. Sees his claims representative in 3 days.
Chronic conditions affecting care: HTN and CAD
ED Attending Note
-
Portions of this chart may have been created with voice recognition software.� Occasional wrong word or��sound alike� substitutions may have occurred due to the inherent limitations of voice recognition software.
Discharge Plan
Departure
Prescriptions:
No Action
cholecalciferol (vitamin D3) [Vitamin D3] 25 mcg (1,000 unit) Tablet
25 mcg PO BID
sertraline 100 mg Tablet
100 mg PO DAILY
hydralazine 25 mg Tablet
25 mg PO TID
aspirin 81 mg Tablet,Delayed Release (Dr/Ec)
81 mg PO DAILY
amlodipine 10 mg Tablet
10 mg PO DAILY
lansoprazole 30 mg Capsule,Delayed Release(Dr/Ec)
30 mg PO BID
Rx Instructions:
before meals
metoprolol tartrate 25 mg Tablet
12.5 mg PO BID Qty: 60 1RF
carvedilol 25 mg Tablet
25 mg PO BID
rosuvastatin 20 mg Tablet
20 mg PO HS
sevelamer carbonate 800 mg Tablet
1,600 mg PO TID
sodium bicarbonate 650 mg tablet
650 mg PO BID
Referrals:
UNKNOWN - PT DOES,NOT KNOW [Family Provider] -
Interventions
Interventions:
*Risk Screen - Suicide Last Done: 01/11/25 16:29
*General Assessment Last Done: 01/11/25 16:29
*Neglect/Abuse Screening Last Done: 01/11/25 16:29
*ED COVID-19 Vaccine History Last Done: 01/11/25 17:34
Discharge Date and Time
Print Language: ALBANIAN
[2025-01-11 17:50] LABS: % Basophils 0.9 % (0-2); % Eosinophils 5.5 % (0-6); % Immature Granulocytes 0.4 % (0-0.5); % Lymphocytes 11.4 % (20.5-51.1); % Monocytes 9.4 % (1.7-9.3); % Neutrophils 72.4 % (42.2-75.2); Absolute Basophils 0.1 10^3/uL (0-0.2); Absolute Eosinophils 0.5 10^3/uL (0-0.7); Absolute Lymphocytes 0.9 10^3/uL (1.2-3.4); Absolute Monocytes 0.8 10^3/uL (0.1-0.6); Absolute Neutrophils 5.9 10^3/uL (1.4-6.5); Hematocrit 18.5 % (39.0-52.0); Hemoglobin 5.6 g/dL (13.0-18.0); Mean Corp Hgb Conc. 30.3 g/dL (33.0-37.0); Mean Corpuscular Hgb 27.5 pg (27.0-31.0); Mean Corpuscular Volume 90.7 fL (80.0-94.0); Mean Platelet Volume 10.2 fL (7.4-10.4); Nucleated Red Blood Cells % 0 % (-); Platelet Count 228 10^3/uL (130-400); Red Blood Cell Count 2.04 10^6/uL (4.70-6.10); Red Cell Dist. Width 17.1 % (11.5-14.5); White Blood Cell Count 8.2 10^3/uL (4.8-10.8)
[2025-01-11 18:11] LABS: Blood Urea Nitrogen 61 mg/dl (9-20); Calcium 8.3 mg/dl (8.4-10.2); Carbon Dioxide 24 mmol/L (22-30); Chloride 106 mmol/L (98-107); Estimated Creatinine Clearance 17 ml/min; Glucose 162 mg/dl (70-99); Sodium 139 mmol/L (135-145)
[2025-01-11] MEDS: TYLENOL 1000 MG PO (19:07)
[2025-01-11] MEDS: PROTONIX IV 80 MG IV (19:09)
[2025-01-11] MEDS: BENADRYL 50 MG IV (19:30)
== END 2025-01-11 23:01 | disposition home or self-care (01) ==
LOC: EMR 16:18
PROVIDERS: EMERGENCY PHYSICIAN Emergency Medicine
DX: K92.1 Melena (principal); D64.9 Anemia, unspecified; I10 Essential (primary) hypertension; I25.10 Atherosclerotic heart disease of native coronary artery without angina pectoris; Z87.891 Personal history of nicotine dependence; K21.9 Gastro-esophageal reflux disease without esophagitis; E78.00 Pure hypercholesterolemia, unspecified
CPT/HCPCS: 99285; 36430; 96374; 96375; 80048; 85025; 86850; 86900; 86901; 86920; P9016

== ENCOUNTER 2025-03-01 19:24 | Emergency (ER) | payer OTHER, SELFPAY ==
[2025-03-01 19:32] VITALS: BP 124/86
[2025-03-01 20:32] LABS: % Basophils 1.4 % (0-2); % Eosinophils 5.4 % (0-6); % Immature Granulocytes 0.4 % (0-0.5); % Lymphocytes 9.1 % (20.5-51.1); % Monocytes 9.2 % (1.7-9.3); % Neutrophils 74.5 % (42.2-75.2); Absolute Basophils 0.1 10^3/uL (0-0.2); Absolute Eosinophils 0.4 10^3/uL (0-0.7); Absolute Lymphocytes 0.7 10^3/uL (1.2-3.4); Absolute Monocytes 0.7 10^3/uL (0.1-0.6); Hematocrit 22.2 % (39.0-52.0); Hemoglobin 6.9 g/dL (13.0-18.0); Mean Corp Hgb Conc. 31.1 g/dL (33.0-37.0); Mean Corpuscular Hgb 28.9 pg (27.0-31.0); Mean Corpuscular Volume 92.9 fL (80.0-94.0); Mean Platelet Volume 10.8 fL (7.4-10.4); Nucleated Red Blood Cells % 0 % (-); Platelet Count 239 10^3/uL (130-400); Red Blood Cell Count 2.39 10^6/uL (4.70-6.10); Red Cell Dist. Width 17.1 % (11.5-14.5)
[2025-03-01 20:36] LABS: INR 0.96; PT 13.1 Sec (11.4-14.6)
[2025-03-01 20:40] LABS: ALT (SGPT) 10 U/L (0-50); AST (SGOT) 19 U/L (17-59); Albumin 3.9 g/dl (3.5-5.0); Alkaline Phosphatase 85 U/L (38-126); Blood Urea Nitrogen 68 mg/dl (9-20); Calcium 8.1 mg/dl (8.4-10.2); Carbon Dioxide 25 mmol/L (22-30); Chloride 102 mmol/L (98-107); Glucose 193 mg/dl (70-99); Sodium 141 mmol/L (135-145); Total Bilirubin 0.5 mg/dl (0.2-1.3); Total Protein 5.9 g/dl (6.3-8.2); eGFR 8.73
[2025-03-01 21:10] VITALS: BP 143/72
[2025-03-01 21:11] VITALS: BMI 29.8
[2025-03-01 22:00] VITALS: BP 135/69
--- NOTE | 2025-03-01 22:17 | ED.GENMED ---
History of Present Illness
General
Chief Complaint: Abnormal Lab Value
Source: patient
Time Seen by Provider: 03/01/25 22:04
Nursing documentation reviewed up to this point in time: agreed with
History of Present Illness
History of Present Illness:
Pleasant 64-year-old male presents to the emergency department shortness of breath and dyspnea on exertion. He had a hemoglobin today as an outpatient of 7.5. Was sent in by his oncologist. Patient has kidney disease and is on a transplant list.
He performs peritoneal dialysis every evening. He was at [facility] today who advised him to come to the department for transfusion. He has no chest pain but does have shortness of breath especially with
Past History
Past History
ED Past Medical History: CAD, Cancer (L Kidney, Prostate CA, ), GERD, HTN, Hypercholesterolemia, [place], Renal failure, Seizures, Valvular disease and Other (Self Peritoneal Dialysis, Sleep apnea, H-Pylori, Anemia, GI bleeding)
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
3, Hydrocele X 2)
Social History
Tobacco: Former smoker
Alcohol: None
Drug: None
Personal:
Living: with family
Employment: Employed
Family History
Family History: Hypertension
Review of Systems
Review of Systems
Allergies reviewed?: Yes
All Other Systems: ROS reviewed and negative except as documented in HPI and ROS
Constitutional: Reports fatigue; Denies fever
EENT: Reports no symptoms
Respiratory: Reports trouble breathing
Cardiac: Reports no symptoms
ABD/GI: Reports no symptoms
: Reports no symptoms
Musculoskeletal: Reports no symptoms
Skin: Reports no symptoms
Neurological: Reports no symptoms
Endocrine: Reports no symptoms
Hematologic/Lymphatic: Reports no symptoms
Psychiatric: Reports no symptoms
Phy Exam
General Physical Exam
General Presentation: well appearing, mild distress and other (Port in his right chest wall)
General Skin: warm and dry
General Habitus: normal
General Mental: alert
General Hydration: appears well hydrated
ENT Exam
ENT Exam: EOMI, neck supple and normocephalic
Eye Exam
Eye Exam: PERRL, cornea clear and conjunctiva normal
Cardiovascular Exam
Cardiovascular Exam: regular rate/rhythm, no edema, no murmur and normal peripheral pulses
Pulmonary Exam
Pulmonary Exam: lungs clear, no respiratory distress, no rales, no crackles, no rhonchi, no stridor, no wheezing and no cough
Gastrointestinal Exam
Gastrointestinal Exam: normal bowel sounds, non tender, soft, no organomegaly, no pulsatile mass and non distended
Neurological Exam
Neurological Exam: alert, oriented x3, no motor deficits and speech normal
Musculoskeletal Exam
Musculoskeletal Exam: full ROM and no edema
Skin Exam
Skin Exam: normal color, warm/dry, no rash, no petechia and other (Multiple tattoos)
Psychiatric Exam
Psychiatric Exam: normal mood/affect
Course
Orders/Labs/Results
Orders:
Orders
03/01/25 20:04
Type+Screen Urgent
Complete Blood Count/With Diff Urgent
Comprehensive Metabolic Panel Urgent
Prothrombin Time Urgent
03/01/25 20:09
EKG [Electrocardiogram (*1)] Urgent
Reason for Study: Shortness of Breath
EKG- Treatment ONCE
03/01/25 22:12
Blood Bank Products [* Blood Bank Products] Urgent
Blood Bank Products: *Packed RBC Leuko(PRBC's)
Quantity: 2
Transfuse Today: Yes
Reason: Anemia
Patient will require pre-treatment for transfusion:: Yes
Acetaminophen [Tylenol] 650 mg PO NOW STA
Diphenhydramine [Benadryl] 50 mg PO NOW STA
Abnormal Lab Results
03/01/25
20:04
RBC 2.39 L 10^6/uL
(4.70-6.10)
Hgb 6.9 L* g/dL
(13.0-18.0)
Hct 22.2 L %
(39.0-52.0)
MCHC 31.1 L g/dL
(33.0-37.0)
RDW 17.1 H %
(11.5-14.5)
MPV 10.8 H fL
(7.4-10.4)
Absolute Lymphs (auto) 0.7 L 10^3/uL
(1.2-3.4)
Absolute Monos (auto) 0.7 H 10^3/uL
(0.1-0.6)
Lymphocytes % 9.1 L %
(20.5-51.1)
BUN 68 H mg/dl
(9-20)
Creatinine 6.6 H* mg/dL
(0.7-1.3)
Glucose 193 H mg/dl
(70-99)
Calcium 8.1 L mg/dl
(8.4-10.2)
Total Protein 5.9 L g/dl
(6.3-8.2)
Crossmatch IS Only See Detail
03/01/25 20:04
03/01/25 20:04
Vital Signs
Initial and Last Documented VS:
Initial Vital Signs
Temp Pulse Resp BP Pulse Ox
98.7 F 98 17 124/86 99
03/01/25 19:32 03/01/25 19:32 03/01/25 19:32 03/01/25 19:32 03/01/25 19:32
Last Documented Vital Signs
Temp Pulse Resp BP Pulse Ox
98.7 F 93 13 133/63 99
03/01/25 19:32 03/01/25 23:30 03/01/25 23:30 03/01/25 23:00 03/01/25 19:32
MDM/Problems Addressed
Differential Diagnosis Includes:
Anemia of chronic disease, end-stage renal failure
Chronic conditions affecting care:
Anemia of chronic disease, end-stage renal failure
*Pulse Oximetry
Patient hypoxic: no
*Critical Care Note
Total Time (30-74mins, 75-104mins- exclusive of procedures): 35
comment:
Critical care statement: A total of 35 minutes of critical care time was provided for this patient. This time is separate from time utilized to perform the aforementioned documented procedures. Aggregate critical care time includes only time
during which I was engaged in work directly related to the patient's care, as described above, whether at the bedside or elsewhere in the Emergency Department.
Patient Management
Social determinants of health affecting care: Strong social support
ED Attending Note
-
Portions of this chart may have been created with voice recognition software.� Occasional wrong word or��sound alike� substitutions may have occurred due to the inherent limitations of voice recognition software.
Discharge Plan
Departure
Prescriptions:
No Action
cholecalciferol (vitamin D3) [Vitamin D3] 25 mcg (1,000 unit) Tablet
25 mcg PO BID
sertraline 100 mg Tablet
100 mg PO DAILY
hydralazine 25 mg Tablet
25 mg PO TID
aspirin 81 mg Tablet,Delayed Release (Dr/Ec)
81 mg PO DAILY
lansoprazole 30 mg Capsule,Delayed Release(Dr/Ec)
30 mg PO BID
carvedilol 25 mg Tablet
25 mg PO BID
rosuvastatin 20 mg Tablet
20 mg PO HS
sevelamer carbonate 800 mg Tablet
1,600 mg PO TID
sodium bicarbonate 650 mg tablet
650 mg PO BID
metoprolol succinate [Toprol XL] 50 mg Tablet Extended Release 24 Hr
50 mg PO DAILY
amlodipine [Norvasc] 5 mg Tablet
5 mg PO DAILY
furosemide [Lasix] 80 mg Tablet
80 mg PO BIDPRN PRN (Reason: fluid build up)
Renal Softgels 1 mg Capsule
1 cap PO DAILY
calcitriol 0.25 mcg Capsule
0.25 mcg PO Q48H
Referrals:
UNKNOWN - PT DOES,NOT KNOW [Family Provider] -
Interventions
Interventions:
*Risk Screen - Suicide Last Done: 03/01/25 19:33
*General Assessment Last Done: 03/01/25 19:33
*Neglect/Abuse Screening Last Done: 03/01/25 19:33
*ED COVID-19 Vaccine History Last Done: 03/01/25 19:33
Discharge Date and Time
Print Language: GREEK
[2025-03-01 23:00] VITALS: BP 133/63
[2025-03-01] MEDS: TYLENOL 650 MG PO (23:16)
[2025-03-01] MEDS: BENADRYL 50 MG PO (23:17)
[2025-03-02] VITALS (9 sets, daily range): BP systolic 119–132; BP diastolic 67–79
== END 2025-03-02 05:30 | disposition home or self-care (01) ==
LOC: EMR 19:24
PROVIDERS: Student in an Organized Health Care Education/Training Program; EMERGENCY PHYSICIAN Student in an Organized Health Care Education/Training Program
DX: N18.6 End stage renal disease (principal); D63.1 Anemia in chronic kidney disease; Z87.891 Personal history of nicotine dependence
CPT/HCPCS: 99291; 36430; 80053; 85025; 85610; 86850; 86900; 86901; 86920; 93005; P9016

== ENCOUNTER 2025-03-12 12:42 | Emergency (ER) | payer OTHER, SELFPAY ==
[2025-03-12 12:53] VITALS: BP 124/88
--- NOTE | 2025-03-12 14:39 | ED.GENMED ---
History of Present Illness
General
Chief Complaint: Abnormal Lab Value
Source: patient and records
Exam Limitations: none
Time Seen by Provider: 03/12/25 14:08
Nursing documentation reviewed up to this point in time: agreed with
History of Present Illness
History of Present Illness:
64-year-old male with past medical history as noted significant for ESRD on peritoneal dialysis and chronic GI bleeding, chronic anemia who presents to the emergency department for evaluation of shortness of breath and fatigue similar to his chronic
anemia symptoms. Patient has chronic GI bleeding of unclear source. He gets regular octreotide injections as an outpatient. He has also been receiving iron infusions. He most recently received iron infusion this past at [facility]
[place]. He says his hemoglobin last week was 7.7. He says that over the past few days he has had some increased shortness of breath with exertion, lightheadedness and fatigue which is his typical symptom for severe anemia requiring
transfusion. He has not noticed any black or bloody stools although he says his Hemoccult is always positive and that this is a chronic issue. He says that he came in for a blood transfusion.
Past History
Past History
ED Past Medical History: CAD, Cancer (L Kidney, Prostate CA, ), GERD, HTN, Hypercholesterolemia, [place], Renal failure, Seizures, Valvular disease and Other (Self Peritoneal Dialysis, Sleep apnea, H-Pylori, Anemia, GI bleeding)
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
3, Hydrocele X 2)
Social History
Tobacco: Former smoker
Alcohol: None
Drug: None
Personal:
Living: with family
Employment: Employed
Family History
Family History: Hypertension
Review of Systems
Review of Systems
All Other Systems: ROS reviewed and negative except as documented in HPI and ROS
Constitutional: Reports fatigue
Respiratory: Reports trouble breathing
Cardiac: Denies chest pain
ABD/GI: Denies abdominal pain, vomiting, bloody stools or black stools
Neurological: Reports dizzy and headache
Phy Exam
Physical Exam
Physical Exam:
General: Awake, alert; no acute distress
Head: Normocephalic, atraumatic
Eyes: Conjunctiva normal, sclera anicteric
Throat: Airway intact, handling secretions
Neck: Trachea midline, supple without meningismus
Lungs: Clear to auscultation bilaterally, no wheezing, rales, rhonchi
Heart: Regular rate and rhythm, no murmurs, gallops, or rubs
Abd: Soft, non distended, nontender
Rectal: Brown stool Hemoccult trace positive
Neuro: No gross deficit
Skin: no rash
Extremities: Warm and well-perfused
Scores
Heart Failure Risk
Heart Failure Risk Score: Not Applicable
Heart Score for Chest Pain Patients
STEMI patient?: Not applicable
Withdrawal Assessment of Alcohol
Withdrawal Assessment Completed?: Not applicable
Course
Orders/Labs/Results
Orders:
Orders
03/12/25 12:57
Electrocardiogram (*1) Urgent
Reason for Study: Shortness of Breath
EKG- Treatment ONCE
03/12/25 15:33
Type+Screen Urgent
Complete Blood Count/With Diff Urgent
Comprehensive Metabolic Panel Urgent
03/12/25 16:07
Blood Bank Products [* Blood Bank Products] Urgent
Blood Bank Products: *Packed RBC Leuko(PRBC's)
Quantity: 2
Transfuse Today: Yes
Reason: Bleeding
Patient will require pre-treatment for transfusion:: No
Abnormal Lab Results
03/12/25
15:33
RBC 2.26 L 10^6/uL
(4.70-6.10)
Hgb 6.2 L* g/dL
(13.0-18.0)
Hct 20.2 L* %
(39.0-52.0)
MCHC 30.7 L g/dL
(33.0-37.0)
RDW 16.4 H %
(11.5-14.5)
MPV 10.8 H fL
(7.4-10.4)
Absolute Lymphs (auto) 0.6 L 10^3/uL
(1.2-3.4)
Absolute Monos (auto) 0.8 H 10^3/uL
(0.1-0.6)
Neutrophils % 77.2 H %
(42.2-75.2)
Lymphocytes % 7.9 L %
(20.5-51.1)
Monocytes % 9.6 H %
(1.7-9.3)
03/12/25 15:33
Vital Signs
Initial and Last Documented VS:
Initial Vital Signs
Temp Pulse Resp BP Pulse Ox
36.8 C 87 16 124/88 98
03/12/25 12:53 03/12/25 12:53 03/12/25 12:53 03/12/25 12:53 03/12/25 12:53
Last Documented Vital Signs
Temp Pulse Resp BP Pulse Ox
36.8 C 87 16 124/88 98
03/12/25 12:53 03/12/25 12:53 03/12/25 12:53 03/12/25 12:53 03/12/25 12:53
MDM/Problems Addressed
Differential Diagnosis Includes:
Anemia
MDM/Problems Addressed:
64-year-old male presents for his typical anemia symptoms. He has a history of chronic anemia and chronic GI bleeding. Came to the emergency room seeking blood transfusion. Vitals and exam as above. He did have trace positive Hemoccult he says
this is a chronic issue and he gets regular outpatient octreotide injections for chronic GI bleeding. No change in his bowel movements recently. Will check labs, type and screen. Reassess after the above.
Hemoglobin today 6.2 down from reportedly 7.7 a week ago. Hemodynamically stable. Will transfuse 2 units of PRBCs. I had a long discussion with the patient�Hemoccult was trace positive today he says this is a chronic issue he does not want to
stay in the hospital. He wishes to receive blood transfusion and be discharged. Will plan to transfuse and discharge in keeping with his wishes.
Chronic conditions affecting care:
Chronic GI bleeding, chronic anemia
*Pulse Oximetry
Patient hypoxic: no
*EKG
Interpreted by ED Provider?: Yes
Comparison EKG: no changes
Heart Rate: 94
Rate: normal
Rhythm: sinus
QRS Pattern: left bundle branch block
Ischemia: non-specific ST changes
*Critical Care Note
Total Time (30-74mins, 75-104mins- exclusive of procedures): Not Applicable
Data Reviewed
Review of Other/Old Records Reveals: Labs and Records
Source: patient and records
Patient Management
Escalation/DeEscalation of care consider admission/obs:
Recommended admission�patient does not wish to stay in the hospital; shared decision making discharge after transfusion
ED Attending Note
-
Portions of this chart may have been created with voice recognition software.� Occasional wrong word or��sound alike� substitutions may have occurred due to the inherent limitations of voice recognition software.
Discharge Plan
Departure
Patient with high blood pressure during this ER visit?: No
Discharge Problem:
Acute on chronic blood loss anemia, Chronic gastrointestinal bleeding
Instructions: Anemia overview
Prescriptions:
No Action
cholecalciferol (vitamin D3) [Vitamin D3] 25 mcg (1,000 unit) Tablet
25 mcg PO BID
sertraline 100 mg Tablet
100 mg PO DAILY
hydralazine 25 mg Tablet
25 mg PO TID
aspirin 81 mg Tablet,Delayed Release (Dr/Ec)
81 mg PO DAILY
lansoprazole 30 mg Capsule,Delayed Release(Dr/Ec)
30 mg PO BID
carvedilol 25 mg Tablet
25 mg PO BID
rosuvastatin 20 mg Tablet
20 mg PO HS
sevelamer carbonate 800 mg Tablet
1,600 mg PO TID
sodium bicarbonate 650 mg tablet
650 mg PO BID
metoprolol succinate [Toprol XL] 50 mg Tablet Extended Release 24 Hr
50 mg PO DAILY
amlodipine [Norvasc] 5 mg Tablet
5 mg PO DAILY
furosemide [Lasix] 80 mg Tablet
80 mg PO BIDPRN PRN (Reason: fluid build up)
Renal Softgels 1 mg Capsule
1 cap PO DAILY
calcitriol 0.25 mcg Capsule
0.25 mcg PO Q48H
Referrals:
Cici Schulz DO [Family Provider] - Follow up in 2-3 days
Activity Restrictions/Additional Instructions:
You should follow-up earlier this week with your primary doctor to have repeat blood work. If you have increased blood in your stool or any other symptoms that are concerning return to the emergency room to be reassessed.
Interventions
Interventions:
*Risk Screen - Suicide Last Done: 03/12/25 12:53
*General Assessment Last Done: 03/12/25 14:00
*Neglect/Abuse Screening Last Done: 03/12/25 12:53
*ED- Fall Risk Assessment Last Done: 03/12/25 14:00
Discharge Date and Time
Print Language: SALVADOREAN
[2025-03-12 16:07] LABS: % Basophils 0.9 % (0-2); % Immature Granulocytes 0.4 % (0-0.5); % Lymphocytes 7.9 % (20.5-51.1); % Monocytes 9.6 % (1.7-9.3); % Neutrophils 77.2 % (42.2-75.2); Absolute Basophils 0.1 10^3/uL (0-0.2); Absolute Eosinophils 0.3 10^3/uL (0-0.7); Absolute Lymphocytes 0.6 10^3/uL (1.2-3.4); Absolute Monocytes 0.8 10^3/uL (0.1-0.6); Absolute Neutrophils 6.2 10^3/uL (1.4-6.5); Hematocrit 20.2 % (39.0-52.0); Hemoglobin 6.2 g/dL (13.0-18.0); Mean Corp Hgb Conc. 30.7 g/dL (33.0-37.0); Mean Corpuscular Hgb 27.4 pg (27.0-31.0); Mean Corpuscular Volume 89.4 fL (80.0-94.0); Mean Platelet Volume 10.8 fL (7.4-10.4); Nucleated Red Blood Cells % 0 % (-); Platelet Count 235 10^3/uL (130-400); Red Blood Cell Count 2.26 10^6/uL (4.70-6.10); Red Cell Dist. Width 16.4 % (11.5-14.5)
[2025-03-12 16:21] LABS: ALT (SGPT) < 10 U/L (0-50); AST (SGOT) 22 U/L (17-59); Albumin 3.4 g/dl (3.5-5.0); Alkaline Phosphatase 62 U/L (38-126); Blood Urea Nitrogen 89 mg/dl (9-20); Calcium 8.3 mg/dl (8.4-10.2); Carbon Dioxide 26 mmol/L (22-30); Chloride 107 mmol/L (98-107); Glucose 171 mg/dl (70-99); Potassium 4.2 mmol/L (3.5-5.1); Sodium 143 mmol/L (135-145); Total Bilirubin 0.5 mg/dl (0.2-1.3); Total Protein 5.5 g/dl (6.3-8.2); eGFR 9.79
[2025-03-12 18:28] VITALS: BP 125/76
[2025-03-12 18:46] VITALS: BP 131/68
[2025-03-12 18:47] VITALS: BP 132/77
[2025-03-12 20:47] VITALS: BP 129/75
[2025-03-12 21:06] VITALS: BP 126/66; BP 134/76
== END 2025-03-12 22:57 | disposition home or self-care (01) ==
LOC: EMR 12:42
PROVIDERS: EMERGENCY PHYSICIAN Emergency Medicine; FAMILY PHYSICIAN Family Medicine
DX: K92.2 Gastrointestinal hemorrhage, unspecified (principal); D62 Acute posthemorrhagic anemia; R79.89 Other specified abnormal findings of blood chemistry; I12.0 Hypertensive chronic kidney disease with stage 5 chronic kidney disease or end stage renal disease; N18.6 End stage renal disease; E78.00 Pure hypercholesterolemia, unspecified; I25.2 Old myocardial infarction; I38 Endocarditis, valve unspecified; G47.30 Sleep apnea, unspecified; I25.10 Atherosclerotic heart disease of native coronary artery without angina pectoris; I44.7 Left bundle-branch block, unspecified; Z82.49 Family history of ischemic heart disease and other diseases of the circulatory system; Z85.528 Personal history of other malignant neoplasm of kidney; Z87.891 Personal history of nicotine dependence; Z90.5 Acquired absence of kidney; Z95.2 Presence of prosthetic heart valve; Z95.5 Presence of coronary angioplasty implant and graft; Z99.2 Dependence on renal dialysis
CPT/HCPCS: 99283; 80053; 85025; 86850; 86900; 86901; 86920; 93005; P9016

== ENCOUNTER 2025-04-25 15:50 | Emergency (ER) | payer OTHER, SELFPAY ==
[2025-04-25] VITALS (10 sets, daily range): BP systolic 102–141; BP diastolic 57–79; BMI 31.3
[2025-04-25 16:11] LABS: % Basophils 1.6 % (0-2); % Immature Granulocytes 0.4 % (0-0.5); % Lymphocytes 10.4 % (20.5-51.1); % Monocytes 9.6 % (1.7-9.3); Absolute Basophils 0.1 10^3/uL (0-0.2); Absolute Eosinophils 0.5 10^3/uL (0-0.7); Absolute Lymphocytes 0.8 10^3/uL (1.2-3.4); Absolute Monocytes 0.7 10^3/uL (0.1-0.6); Absolute Neutrophils 5.5 10^3/uL (1.4-6.5); Hematocrit 23.7 % (39.0-52.0); Hemoglobin 7.3 g/dL (13.0-18.0); Mean Corp Hgb Conc. 30.8 g/dL (33.0-37.0); Mean Corpuscular Hgb 26.9 pg (27.0-31.0); Mean Corpuscular Volume 87.5 fL (80.0-94.0); Mean Platelet Volume 11.1 fL (7.4-10.4); Nucleated Red Blood Cells % 0 % (-); Platelet Count 230 10^3/uL (130-400); Red Blood Cell Count 2.71 10^6/uL (4.70-6.10); Red Cell Dist. Width 16.5 % (11.5-14.5); White Blood Cell Count 7.7 10^3/uL (4.8-10.8)
[2025-04-25 17:02] LABS: ALT (SGPT) < 10 U/L (0-50); AST (SGOT) 19 U/L (17-59); Alkaline Phosphatase 60 U/L (38-126); Blood Urea Nitrogen 89 mg/dl (9-20); Carbon Dioxide 18 mmol/L (22-30); Chloride 110 mmol/L (98-107); Glucose 106 mg/dl (70-99); Potassium 4.8 mmol/L (3.5-5.1); Sodium 140 mmol/L (135-145); Total Bilirubin 0.5 mg/dl (0.2-1.3); Total Protein 6.1 g/dl (6.3-8.2); eGFR 7.04
--- NOTE | 2025-04-25 20:28 | ED.GENMED ---
History of Present Illness
General
Chief Complaint: Breathing Problem
Source: patient
Time Seen by Provider: 04/25/25 20:16
History of Present Illness
History of Present Illness:
64-year-old male presents to the emergency room weakness and shortness of breath with exertion. Patient states he feels that he needs a transfusion. 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 Patient
states he has noted some black stool but this is something he has been dealing with for the past couple years. He does not believe he is experiencing any greater melena than normal. Patient states that his doctors at [facility] like to keep his
hemoglobin around 8.5-9.5. Patient has end-stage renal disease and is on the renal transplant list. Patient is also undergoing evaluation for possible heart transplant. Patient has not parents any chest pain. He is having no shortness breath at
rest.
Past History
Past History
ED Past Medical History: CAD, Cancer (L Kidney, Prostate CA, ), GERD, HTN, Hypercholesterolemia, [place], Renal failure, Seizures, Valvular disease and Other (Self Peritoneal Dialysis, Sleep apnea, H-Pylori, Anemia, GI bleeding)
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
3, Hydrocele X 2)
Social History
Tobacco: Former smoker
Alcohol: None
Drug: None
Personal:
Living: with family
Employment: Employed
Family History
Family History: Hypertension
Phy Exam
Physical Exam
Physical Exam:
General: Awake, Alert, Oriented X3. No acute distress.
Vitals: unremarkable
Head: Atraumatic
Eyes: Pupils equal, EOMI
Throat: Airway intact, no exudates
Neck: Trachea midline
Lungs: Clear and equal b/l
Heart: Regular rate, no murmurs
Abd: Soft, Nontender, No pulsatile mass
Neuro: Nonfocal
Skin: Pale, no rash
Extremities: pulses equal b/l, trace edema
Scores
Heart Failure Risk
Heart Failure Risk Score: Not Applicable
Course
Orders/Labs/Results
Orders:
Orders
04/25/25 15:53
Electrocardiogram (*1) Urgent
Reason for Study: Shortness of Breath
EKG- Treatment ONCE
04/25/25 16:05
Type+Screen Urgent
Complete Blood Count/With Diff Urgent
Comprehensive Metabolic Panel Urgent
04/25/25 20:26
Blood Bank Products [* Blood Bank Products] Urgent
Blood Bank Products: *Packed RBC Leuko(PRBC's)
Quantity: 2
Transfuse Today: Yes
Reason: Anemia
Patient will require pre-treatment for transfusion:: Yes
Acetaminophen [Tylenol] 1,000 mg PO NOW STA
Diphenhydramine [Benadryl] 25 mg IV NOW STA
Abnormal Lab Results
04/25/25
16:05
RBC 2.71 L 10^6/uL
(4.70-6.10)
Hgb 7.3 L g/dL
(13.0-18.0)
Hct 23.7 L %
(39.0-52.0)
MCH 26.9 L pg
(27.0-31.0)
MCHC 30.8 L g/dL
(33.0-37.0)
RDW 16.5 H %
(11.5-14.5)
MPV 11.1 H fL
(7.4-10.4)
Absolute Lymphs (auto) 0.8 L 10^3/uL
(1.2-3.4)
Absolute Monos (auto) 0.7 H 10^3/uL
(0.1-0.6)
Lymphocytes % 10.4 L %
(20.5-51.1)
Monocytes % 9.6 H %
(1.7-9.3)
Chloride 110 H mmol/L
(98-107)
Carbon Dioxide 18 L mmol/L
(22-30)
BUN 89 H mg/dl
(9-20)
Creatinine 7.9 H* mg/dL
(0.7-1.3)
Glucose 106 H mg/dl
(70-99)
Calcium 8.0 L mg/dl
(8.4-10.2)
Total Protein 6.1 L g/dl
(6.3-8.2)
Crossmatch IS Only See Detail
04/25/25 16:05
04/25/25 16:05
Vital Signs
Initial and Last Documented VS:
Initial Vital Signs
Temp Pulse Resp BP Pulse Ox
98.2 F 90 16 137/66 97
04/25/25 15:58 04/25/25 15:58 04/25/25 15:58 04/25/25 15:58 04/25/25 15:58
Last Documented Vital Signs
Temp Pulse Resp BP Pulse Ox
97.7 F 83 16 109/64 96
04/26/25 02:07 04/26/25 02:07 04/26/25 02:07 04/26/25 02:07 04/26/25 02:07
MDM/Problems Addressed
Differential Diagnosis Includes:
Symptomatic anemia, angina, electrolyte abnormality
MDM/Problems Addressed:
Patient has known loss through his GI tract. No further workup for this indicated. Patient will receive 2 units of blood. If he tolerates the 2 units of blood he can be discharged and follow-up as an outpatient with his doctors at [facility].
*Pulse Oximetry
SaO2: 97
Oxygen Mode of Delivery: Room air
Patient hypoxic: no
*EKG
Interpreted by ED Provider?: Yes
Interpretation: normal
Comparison EKG: no changes
Heart Rate: 95
Rate: normal
QRS Pattern: left vent hypertrophy
Ischemia: non-specific ST changes
*Tablet Making Machine Operator Helper Interpretation
Rate: normal
Interpretation: abnormal
Heart Rate: 95
Rhythm: sinus
*Critical Care Note
Total Time (30-74mins, 75-104mins- exclusive of procedures): Not Applicable
ED Attending Note
-
Portions of this chart may have been created with voice recognition software.� Occasional wrong word or��sound alike� substitutions may have occurred due to the inherent limitations of voice recognition software.
Discharge Plan
Departure
Patient Disposition: Home (Routine Discharge)
Patient with high blood pressure during this ER visit?: No
Condition: Good
Discharge Problem:
Symptomatic anemia
Instructions: Anemia in adults, possibly from low iron - ED discharge instructions
Prescriptions:
No Action
cholecalciferol (vitamin D3) [Vitamin D3] 25 mcg (1,000 unit) Tablet
25 mcg PO BID
sertraline 100 mg Tablet
100 mg PO DAILY
hydralazine 25 mg Tablet
25 mg PO TID
aspirin 81 mg Tablet,Delayed Release (Dr/Ec)
81 mg PO DAILY
lansoprazole 30 mg Capsule,Delayed Release(Dr/Ec)
30 mg PO BID
carvedilol 25 mg Tablet
25 mg PO BID
rosuvastatin 20 mg Tablet
20 mg PO HS
sevelamer carbonate 800 mg Tablet
1,600 mg PO TID
sodium bicarbonate 650 mg tablet
650 mg PO BID
metoprolol succinate [Toprol XL] 50 mg Tablet Extended Release 24 Hr
50 mg PO DAILY
amlodipine [Norvasc] 5 mg Tablet
5 mg PO DAILY
furosemide [Lasix] 80 mg Tablet
80 mg PO BIDPRN PRN (Reason: fluid build up)
Renal Softgels 1 mg Capsule
1 cap PO DAILY
calcitriol 0.25 mcg Capsule
0.25 mcg PO Q48H
Referrals:
Zack Bullock MD [Family Provider, General]
Interventions
Interventions:
*Risk Screen - Suicide Last Done: 04/25/25 16:01
*General Assessment Last Done: 04/25/25 20:56
*Neglect/Abuse Screening Last Done: 04/25/25 16:01
*ED- Fall Risk Assessment Last Done: 04/25/25 20:56
*ED COVID-19 Vaccine History Last Done: 04/25/25 20:56
*Nursing Disposition Last Done: 04/26/25 02:20
ED- Cardiac Assessment Last Done: 04/25/25 20:56
ED- Pulmonary Assessment Last Done: 04/25/25 20:56
Discharge Date and Time
Discharge Date/Time: 04/26/25 02:21
Print Language: SOL[place] ISLAND[place]
[2025-04-25] MEDS: BENADRYL 25 MG IV (21:47)
[2025-04-25] MEDS: TYLENOL 1000 MG PO (21:47)
[2025-04-26 00:23] VITALS: BP 108/64
[2025-04-26 00:25] VITALS: BP 108/64
[2025-04-26 00:41] VITALS: BP 116/51
[2025-04-26 00:42] VITALS: BP 116/51
[2025-04-26 01:00] VITALS: BP 114/66
[2025-04-26 02:07] VITALS: BP 109/64
--- NOTE | 2025-04-26 02:15 | VATNOTE ---
04/26 212
Called by ER nurse to deaccess patients port. Port deaccessed per protocol, nurse aware.
== END 2025-04-26 02:21 | disposition home or self-care (01) ==
LOC: EMR 15:50
PROVIDERS: Student in an Organized Health Care Education/Training Program; EMERGENCY PHYSICIAN Emergency Medicine; FAMILY PHYSICIAN Internal Medicine
DX: D64.9 Anemia, unspecified (principal); I25.10 Atherosclerotic heart disease of native coronary artery without angina pectoris; I12.0 Hypertensive chronic kidney disease with stage 5 chronic kidney disease or end stage renal disease; N18.6 End stage renal disease; E78.00 Pure hypercholesterolemia, unspecified; G47.30 Sleep apnea, unspecified; Z76.82 Awaiting organ transplant status; Z82.49 Family history of ischemic heart disease and other diseases of the circulatory system; Z85.528 Personal history of other malignant neoplasm of kidney; Z87.891 Personal history of nicotine dependence; Z90.5 Acquired absence of kidney; Z95.2 Presence of prosthetic heart valve; Z95.5 Presence of coronary angioplasty implant and graft
CPT/HCPCS: 99283; 96374; 36430; 80053; 85025; 86850; 86900; 86901; 86920; 93005; P9016

== ENCOUNTER 2025-05-17 15:20 | Emergency (ER) | payer OTHER, SELFPAY ==
[2025-05-17] VITALS (19 sets, daily range): BP systolic 101–138; BP diastolic 47–92; BMI 28.9
[2025-05-17 16:36] LABS: Hematocrit 21.6 % (39.0-52.0); Hemoglobin 6.7 g/dL (13.0-18.0); Mean Corp Hgb Conc. 31.0 g/dL (33.0-37.0); Mean Corpuscular Volume 87.4 fL (80.0-94.0); Platelet Count 191 10^3/uL (130-400); Red Cell Dist. Width 16.4 % (11.5-14.5)
[2025-05-17 17:32] LABS: ALT (SGPT) < 10 U/L (0-50); AST (SGOT) 13 U/L (17-59); Albumin 3.7 g/dl (3.5-5.0); Alkaline Phosphatase 57 U/L (38-126); Blood Urea Nitrogen 70 mg/dl (9-20); Calcium 7.9 mg/dl (8.4-10.2); Carbon Dioxide 22 mmol/L (22-30); Chloride 106 mmol/L (98-107); Estimated Creatinine Clearance 13 ml/min; Glucose 106 mg/dl (70-99); Magnesium 2.1 mg/dl (1.6-2.3); Potassium 4.4 mmol/L (3.5-5.1); Sodium 136 mmol/L (135-145); Total Protein 5.8 g/dl (6.3-8.2); eGFR 8.57
--- NOTE | 2025-05-17 17:32 | ED.GENMED ---
History of Present Illness
General
Chief Complaint: Abnormal Lab Value
Source: patient
Exam Limitations: none
Time Seen by Provider: 05/17/25 17:03
Nursing documentation reviewed up to this point in time: agreed with
History of Present Illness
History of Present Illness:
Patient is a 64-year-old male with CAD, stage V CKD on dialysis, hypertension, GI bleeding who presents to the emergency department for anemia found on outpatient labs. Patient is followed very closely with hematology at [facility] and has routine blood
work drawn given known stable upper GI bleeding. He had a follow-up today with his garden center manager and was found to have a hemoglobin of 7.4 and sent to the emergency department for transfusion. Apparently he was initially planning to have
transfusion performed at [facility] however they did not have an appointment until next week prompting tonight. Patient states he receives frequent transfusion and typically 2 units if his hemoglobin drops below 7.5.
Patient does report feeling fatigue over the past few days as well as some exertional shortness of breath and elevated heart rate. He denies any significant bright red blood in stool or dark stools.
Patient denies any chest pain or dizziness/lightheadedness.
Patient also receives octreotide injections monthly.
He performs hemodialysis nightly at home.
Past History
Past History
ED Past Medical History: CAD, Cancer (L Kidney, Prostate CA, ), GERD, HTN, Hypercholesterolemia, [place], Renal failure, Seizures, Valvular disease and Other (Self Peritoneal Dialysis, Sleep apnea, H-Pylori, Anemia, GI bleeding)
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
3, Hydrocele X 2)
Social History
Tobacco: Former smoker
Alcohol: None
Drug: None
Personal:
Living: with family
Employment: Employed
Family History
Family History: Hypertension
Review of Systems
Review of Systems
Allergies reviewed?: Yes
All Other Systems: ROS reviewed and negative except as documented in HPI and ROS
Phy Exam
Physical Exam
Physical Exam:
Vitals: Patient's vital signs are stable. Afebrile
General: Patient is well appearing, no acute distress
Skin: Pale. Warm and dry, no rashes or lesions
Head: Normocephalic, atraumatic
Eyes: Sclera nonicteric. EOMs intact. No nystagmus.
Throat: Protecting airway
Neck: Normal ROM, no cervical spine tenderness, no meningismus
Cardiac: Regular rate and rhythm, no murmurs. No reproducible chest wall tenderness. Hemodialysis port in right upper chest wall
Pulm: Normal respiratory effort, no wheezes, rales, rhonchi heard on exam
Abdomen: Abdomen soft. No abdominal tenderness.
Extremities: No evidence of cyanosis or edema. 2+ palpable DP pulses bilaterally
Neuro: AAOx3. Grossly intact.
Psychiatric: Normal affect.
Course
Orders/Labs/Results
Orders:
Orders
05/17/25 16:09
EKG [Electrocardiogram (*1)] Urgent
Reason for Study: Fatigue / Weakness
EKG- Treatment ONCE
05/17/25 16:13
Type+Screen Urgent
Complete Blood Count/No Diff Urgent
Comprehensive Metabolic Panel Urgent
Magnesium Urgent
05/17/25 17:28
* Blood Bank Products Urgent
Blood Bank Products: *Packed RBC Leuko(PRBC's)
Quantity: 2
Transfuse Today: Yes
Reason: Anemia
Patient will require pre-treatment for transfusion:: Yes
Acetaminophen [Tylenol] 1,000 mg PO NOW STA
Diphenhydramine [Benadryl] 25 mg IV NOW STA
Abnormal Lab Results
05/17/25
16:13
RBC 2.47 L 10^6/uL
(4.70-6.10)
Hgb 6.7 L* g/dL
(13.0-18.0)
Hct 21.6 L %
(39.0-52.0)
MCHC 31.0 L g/dL
(33.0-37.0)
RDW 16.4 H %
(11.5-14.5)
MPV 11.2 H fL
(7.4-10.4)
BUN 70 H mg/dl
(9-20)
Creatinine 6.7 H* mg/dL
(0.7-1.3)
Glucose 106 H mg/dl
(70-99)
Calcium 7.9 L mg/dl
(8.4-10.2)
AST 13 L U/L
(17-59)
Total Protein 5.8 L g/dl
(6.3-8.2)
Crossmatch IS Only See Detail
05/17/25 16:13
05/17/25 16:13
Vital Signs
Initial and Last Documented VS:
Initial Vital Signs
Temp Pulse Resp BP Pulse Ox
98.1 F 80 16 109/47 99
05/17/25 15:33 05/17/25 15:33 05/17/25 15:33 05/17/25 15:33 05/17/25 15:33
Last Documented Vital Signs
Temp Pulse Resp BP Pulse Ox
97.6 F 83 18 122/69 97
05/17/25 22:22 05/17/25 22:45 05/17/25 22:45 05/17/25 22:22 05/17/25 22:45
MDM/Problems Addressed
Differential Diagnosis Includes:
Not limited to: Symptomatic anemia, upper GI bleeding, electrolyte abnormality, acute on chronic CKD
MDM/Problems Addressed:
64-year-old male presenting with his typical symptoms of anemia including exertional shortness of breath and fatigue. He has lengthy history of anemia secondary to CKD and GI bleeding. He is on dialysis nightly at home and receives octreotide
injections. Sent by garden center manager for blood transfusion following low hemoglobin values found on outpatient labs. He reports no evidence of current GI bleeding. Patient with very lengthy history of similar symptoms and anemia�do not feel further
workup indicated today. Labs were sent in triage reveal anemia with hemoglobin of 6.7. Chemistry reveals CKD with stable creatinine. He is hemodynamically stable. Will plan to transfer to units RBCs and reassess. Blood consent signed in the
chart.
Update: Patient received 2 units of blood in the emergency department without complication. He states he feels somewhat improved. He has remained stable. Do not feel admission indicated at this time. Feel stable for discharge home with continued
outpatient follow-up with hematology, nephrology, and GI. Very strict return precautions discussed. Patient comfortable with plan.
Chronic conditions affecting care:
Stage V CKD on dialysis, GI bleeding
Acute Exacerbation and/or Progression of Chronic Illness:
Acute on chronic anemia
*Pulse Oximetry
SaO2: 96
Oxygen Mode of Delivery: Room air
Patient hypoxic: no
*EKG
Interpreted by ED Provider?: Yes
EKG Intrepretation Date: 05/17/25
Interpretation: abnormal
Comparison EKG: no changes
Heart Rate: 78
Rate: normal
Rhythm: sinus
QRS Pattern: left bundle branch block
Ischemia: no ischemia
*Music Artist Interpretation
Rate: normal
Interpretation: normal
Heart Rate: 68
Rhythm: sinus
*Critical Care Note
Total Time (30-74mins, 75-104mins- exclusive of procedures): Not Applicable
ED Attending Note
-
Portions of this chart may have been created with voice recognition software.� Occasional wrong word or��sound alike� substitutions may have occurred due to the inherent limitations of voice recognition software.
Discharge Plan
Departure
Patient Disposition: Home (Routine Discharge)
Date of Disposition: 05/17/25
Time of Disposition: 22:44
Patient with high blood pressure during this ER visit?: No
Condition: Good
Discharge Problem:
Symptomatic anemia
Instructions: Blood transfusion, Anemia in adults, possibly from low iron - ED discharge instructions
Prescriptions:
No Action
sertraline 100 mg Tablet
100 mg PO HS
aspirin 81 mg Tablet,Delayed Release (Dr/Ec)
81 mg PO DAILY
rosuvastatin 20 mg Tablet
20 mg PO HS
sevelamer carbonate 800 mg Tablet
1,600 mg PO TID
amlodipine [Norvasc] 5 mg Tablet
5 mg PO DAILY
furosemide [Lasix] 80 mg Tablet
80 mg PO BID
Renal Softgels 1 mg Capsule
1 cap PO DAILY
calcitriol 0.25 mcg Capsule
0.25 mcg PO Q48H@0800
acetaminophen [Tylenol] 325 mg Tablet
975 mg PO Q6HPRN PRN (Reason: mild pain)
mirtazapine 15 mg Tablet
15 mg PO HS
cholecalciferol (vitamin D3) 25 mcg (1,000 unit) Capsule
25 mcg PO BID
Entresto 49-51 mg Tablet
1 tab PO BID
Referrals:
Zack Bullock MD [Family Provider, General] - Follow up in 5-7 days
Activity Restrictions/Additional Instructions:
RETURN TO THE EMERGENCY DEPARTMENT WITH ANY CHEST PAIN OR SHORTNESS OF BREATH, SIGNIFICANT WEAKNESS OR FATIGUE, LIGHTHEADEDNESS/DIZZINESS, PERSISTENT GI BLEEDING, WORSENING CURRENT SYMPTOMS, OR ANY OTHER CONCERNS
- As discussed that your hemoglobin was 6.7 while in the emergency department. You were given 2 units of red blood cells.
- Please continue to take all of your medications and perform hemodialysis as instructed. Follow very closely with your primary care provider and garden center manager for continued management. Please be sure to have your blood work obtained regularly as
scheduled.
Monitor your symptoms very closely return to the emergency department with any acute worsening/new symptoms or any other concerns
Interventions
Interventions:
*Risk Screen - Suicide Last Done: 05/17/25 15:33
*General Assessment Last Done: 05/17/25 16:23
*Neglect/Abuse Screening Last Done: 05/17/25 15:33
*ED- Fall Risk Assessment Last Done: 05/17/25 16:23
*ED COVID-19 Vaccine History Last Done: 05/17/25 16:23
*Nursing Disposition Last Done: 05/17/25 22:58
Discharge Date and Time
Discharge Date/Time: 05/17/25 22:58
Print Language: INDONESIAN
[2025-05-17] MEDS: TYLENOL 1000 MG PO (18:26)
[2025-05-17] MEDS: BENADRYL 25 MG IV (18:27)
--- NOTE | 2025-05-17 23:34 | VATNOTE ---
R SUBQ PORT FLUSHED WITH 500 UNITS OF HEPARIN FLUSH AND DEACCESSED PER PROTOCOL S/P BLD TRANSFUSION. PT D/C'S TO HOME. PCN MADE AWARE OF INTERVENTION.
== END 2025-05-17 22:58 | disposition home or self-care (01) ==
LOC: EMR 15:20
PROVIDERS: EMERGENCY PHYSICIAN Emergency Medicine; FAMILY PHYSICIAN Internal Medicine
DX: I12.0 Hypertensive chronic kidney disease with stage 5 chronic kidney disease or end stage renal disease (principal); D63.1 Anemia in chronic kidney disease; N18.6 End stage renal disease; Z99.2 Dependence on renal dialysis; I25.10 Atherosclerotic heart disease of native coronary artery without angina pectoris; E78.00 Pure hypercholesterolemia, unspecified; G47.30 Sleep apnea, unspecified; Z85.528 Personal history of other malignant neoplasm of kidney; Z87.891 Personal history of nicotine dependence; Z95.5 Presence of coronary angioplasty implant and graft; Z95.2 Presence of prosthetic heart valve
CPT/HCPCS: 96374; 36430; 99285; 80053; 83735; 85027; 86850; 86900; 86901; 86920; 93005; P9016

== ENCOUNTER 2025-05-31 17:32 | Emergency (ER) | payer OTHER, SELFPAY ==
[2025-05-31] VITALS (13 sets, daily range): BP systolic 99–127; BP diastolic 53–72; BMI 31.6
[2025-05-31 18:18] LABS: Hematocrit 21.1 % (39.0-52.0); Hemoglobin 6.5 g/dL (13.0-18.0); Mean Corp Hgb Conc. 30.8 g/dL (33.0-37.0); Mean Corpuscular Volume 84.4 fL (80.0-94.0); Nucleated Red Blood Cells % 0 % (-); Platelet Count 260 10^3/uL (130-400); Red Cell Dist. Width 16.4 % (11.5-14.5)
[2025-05-31 18:49] LABS: ALT (SGPT) < 10 U/L (0-50); AST (SGOT) 13 U/L (17-59); Albumin 3.7 g/dl (3.5-5.0); Alkaline Phosphatase 66 U/L (38-126); Blood Urea Nitrogen 84 mg/dl (9-20); Calcium 7.8 mg/dl (8.4-10.2); Carbon Dioxide 19 mmol/L (22-30); Chloride 103 mmol/L (98-107); Glucose 240 mg/dl (70-99); Potassium 4.7 mmol/L (3.5-5.1); Sodium 134 mmol/L (135-145); Total Protein 5.8 g/dl (6.3-8.2); eGFR 8.42
--- NOTE | 2025-05-31 18:55 | ED.GENMED ---
History of Present Illness
<Yesika Neal, PAINTINGS CONSERVATOR - Last Filed: 06/01/25 16:12>
General
Chief Complaint: Abnormal Lab Value
Source: patient
Exam Limitations: none
Time Seen by Provider: 05/31/25 18:32
Nursing documentation reviewed up to this point in time: agreed with
History of Present Illness
History of Present Illness:
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
had iron infusion today, hx chronic intermittent black stool, blood in stools, this is chronic and pt does not want a rectal exam. No increase in melena. Denies abdominal pain. He states his Hgb is to be kept 8.5-9.5 per [place] doctors. He has felt
SOB, denies chest pain. Denies fever.
Pt states he gets 'pre medicated' with Tylenol and Benadryl because he had 'a little reaction one time' of chills, no significant reaction. 'So they always give me that before blood transfusions.'
Past History
<Yesika Neal, PAINTINGS CONSERVATOR - Last Filed: 06/01/25 16:12>
Past History
ED Past Medical History: CAD, Cancer (L Kidney, Prostate CA, ), GERD, HTN, Hypercholesterolemia, VT, Renal failure, Seizures, Valvular disease and Other (Self Peritoneal Dialysis, Sleep apnea, H-Pylori, Anemia, GI bleeding)
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
3, Hydrocele X 2)
Social History
Tobacco: Former smoker
Alcohol: None
Drug: None
Personal:
Living: with family
Employment: Employed
Family History
Family History: Hypertension
Review of Systems
<Yesika Neal, PAINTINGS CONSERVATOR - Last Filed: 06/01/25 16:12>
Review of Systems
Allergies reviewed?: Yes
All Other Systems: ROS reviewed and negative except as documented in HPI and ROS
Constitutional: Reports fatigue; Denies fever
Respiratory: Reports other (feels short of breath)
Cardiac: Denies chest pain
ABD/GI: Reports bloody stools (intermittent); Denies abdominal pain, nausea, vomiting or diarrhea
Neurological: Denies dizzy or weakness
Phy Exam
<Yesika Neal, PAINTINGS CONSERVATOR - Last Filed: 06/01/25 16:12>
Physical Exam
Physical Exam:
GENERAL: No acute distress. A&Ox3.
CONSTITUTIONAL: Afebrile.
EYES: clear, conjunctivae normal
ENMT: moist mucus membranes
RESPIRATORY: Regular respirations, nonlabored, lungs clear.
CARDIOVASCULAR: Regular rate and rhythm, no murmurs, no rubs.
GI: Soft, nontender, normal BS
: Deferred due to pt refusal
MUSCULOSKELETAL: Moves with ease. Well perfused.
SKIN: Warm, dry, pink
PSYCH: Normal mood and affect. Well kept, interactive and appropriate
NEUROLOGIC: Awake, alert and oriented. No focal neurological deficits
Course
<Yesika Neal, PAINTINGS CONSERVATOR - Last Filed: 06/01/25 16:12>
Orders/Labs/Results
Orders:
Orders
05/31/25 17:56
Type And Crossmatch [Type+Screen] Urgent
Complete Blood Count/With Diff Urgent
Comprehensive Metabolic Panel Urgent
05/31/25 18:52
* Blood Bank Products Urgent
Blood Bank Products: *Packed RBC Leuko(PRBC's)
Quantity: 2
Transfuse Today: Yes
Reason: Anemia
Patient will require pre-treatment for transfusion:: Yes
IV Insert/Care/Rem.- Treatment PRN
05/31/25 19:07
Acetaminophen [Tylenol] 1,000 mg PO NOW STA
Diphenhydramine [Benadryl] 50 mg PO NOW STA
Abnormal Lab Results
05/31/25
17:56
RBC 2.50 L 10^6/uL
(4.70-6.10)
Hgb 6.5 L* g/dL
(13.0-18.0)
Hct 21.1 L %
(39.0-52.0)
MCH 26.0 L pg
(27.0-31.0)
MCHC 30.8 L g/dL
(33.0-37.0)
RDW 16.4 H %
(11.5-14.5)
MPV 11.0 H fL
(7.4-10.4)
Absolute Lymphs (auto) 0.6 L 10^3/uL
(1.2-3.4)
Neutrophils % 77.5 H %
(42.2-75.2)
Lymphocytes % 8.7 L %
(20.5-51.1)
Sodium 134 L mmol/L
(135-145)
Carbon Dioxide 19 L mmol/L
(22-30)
BUN 84 H mg/dl
(9-20)
Creatinine 6.8 H* mg/dL
(0.7-1.3)
Glucose 240 H mg/dl
(70-99)
Calcium 7.8 L mg/dl
(8.4-10.2)
AST 13 L U/L
(17-59)
Total Protein 5.8 L g/dl
(6.3-8.2)
Crossmatch IS Only See Detail
05/31/25 17:56
05/31/25 17:56
Vital Signs
Initial and Last Documented VS:
Initial Vital Signs
Temp Pulse Resp BP Pulse Ox
97.9 F 85 16 124/60 97
05/31/25 17:37 05/31/25 17:37 05/31/25 17:37 05/31/25 17:37 05/31/25 17:37
Last Documented Vital Signs
Temp Pulse Resp BP Pulse Ox
98.2 F 89 18 109/75 92
06/01/25 01:43 06/01/25 01:43 06/01/25 01:43 06/01/25 01:43 06/01/25 01:42
<Gloria Galicia PA-C - Last Filed: 06/01/25 04:12>
Orders/Labs/Results
Orders:
Orders
05/31/25 17:56
Type And Crossmatch [Type+Screen] Urgent
Complete Blood Count/With Diff Urgent
Comprehensive Metabolic Panel Urgent
05/31/25 18:52
* Blood Bank Products Urgent
Blood Bank Products: *Packed RBC Leuko(PRBC's)
Quantity: 2
Transfuse Today: Yes
Reason: Anemia
Patient will require pre-treatment for transfusion:: Yes
IV Insert/Care/Rem.- Treatment PRN
05/31/25 19:07
Acetaminophen [Tylenol] 1,000 mg PO NOW STA
Diphenhydramine [Benadryl] 50 mg PO NOW STA
Abnormal Lab Results
05/31/25
17:56
RBC 2.50 L 10^6/uL
(4.70-6.10)
Hgb 6.5 L* g/dL
(13.0-18.0)
Hct 21.1 L %
(39.0-52.0)
MCH 26.0 L pg
(27.0-31.0)
MCHC 30.8 L g/dL
(33.0-37.0)
RDW 16.4 H %
(11.5-14.5)
MPV 11.0 H fL
(7.4-10.4)
Absolute Lymphs (auto) 0.6 L 10^3/uL
(1.2-3.4)
Neutrophils % 77.5 H %
(42.2-75.2)
Lymphocytes % 8.7 L %
(20.5-51.1)
Sodium 134 L mmol/L
(135-145)
Carbon Dioxide 19 L mmol/L
(22-30)
BUN 84 H mg/dl
(9-20)
Creatinine 6.8 H* mg/dL
(0.7-1.3)
Glucose 240 H mg/dl
(70-99)
Calcium 7.8 L mg/dl
(8.4-10.2)
AST 13 L U/L
(17-59)
Total Protein 5.8 L g/dl
(6.3-8.2)
Crossmatch IS Only See Detail
05/31/25 17:56
05/31/25 17:56
Vital Signs
Initial and Last Documented VS:
Initial Vital Signs
Temp Pulse Resp BP Pulse Ox
97.9 F 85 16 124/60 97
05/31/25 17:37 05/31/25 17:37 05/31/25 17:37 05/31/25 17:37 05/31/25 17:37
Last Documented Vital Signs
Temp Pulse Resp BP Pulse Ox
98.2 F 89 18 109/75 92
06/01/25 01:43 06/01/25 01:43 06/01/25 01:43 06/01/25 01:43 06/01/25 01:42
<Yesika Neal, PAINTINGS CONSERVATOR - Last Filed: 06/01/25 16:12>
MDM/Problems Addressed
Differential Diagnosis Includes:
symptomatic anemia
GI bleed
MDM/Problems Addressed:
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
had iron infusion today, hx chronic intermittent black stool, blood in stools, this is chronic and pt does not want a rectal exam. No increase in melena. Denies abdominal pain. He states his Hgb is to be kept 8.5-9.5 per [place] doctors. He has felt
SOB, denies chest pain. Denies fever.
Pt states he gets 'pre medicated' with Tylenol and Benadryl because he had 'a little reaction one time' of chills, no significant reaction. 'So they always give me that before blood transfusions.'
CBC: Hgb 6.5
CMP: BUN/Creat 84/6.8 PD to be done tonight at home
Pt is stable, some SOB
11:00 PM:
Patient is sleeping, blood is infusing no sign of adverse reaction
Case discussed with Gloria WADE who will assume care from this point
<Yesika Neal, PAINTINGS CONSERVATOR - Last Filed: 06/01/25 16:12>
*Pulse Oximetry
SaO2: 97
Oxygen Mode of Delivery: Room air
<Gloria Galicia PA-C - Last Filed: 06/01/25 04:12>
*Pulse Oximetry
Patient hypoxic: no
*Critical Care Note
Total Time (30-74mins, 75-104mins- exclusive of procedures): Not Applicable
<Gloria Galicia PA-C - Last Filed: 06/01/25 04:12>
Update Note
Update Note:
Update I received patient in signout on my evaluation patient is well-appearing in no acute distress he feels well he is stable for discharge advised patient to follow-up with his residential nurse
ED Attending Note
<Yesika Neal NP - Last Filed: 06/01/25 16:12>
-
Portions of this chart may have been created with voice recognition software.� Occasional wrong word or��sound alike� substitutions may have occurred due to the inherent limitations of voice recognition software.
Discharge Plan
Departure
Patient Disposition: Home (Routine Discharge)
Date of Disposition: 06/01/25
Time of Disposition: 01:45
Patient with high blood pressure during this ER visit?: No
Condition: Good
Discharge Problem:
Anemia
Prescriptions:
No Action
sertraline 100 mg Tablet
100 mg PO HS
aspirin 81 mg Tablet,Delayed Release (Dr/Ec)
81 mg PO DAILY
rosuvastatin 20 mg Tablet
20 mg PO HS
sevelamer carbonate 800 mg Tablet
1,600 mg PO TID
amlodipine [Norvasc] 5 mg Tablet
5 mg PO DAILY
furosemide [Lasix] 80 mg Tablet
80 mg PO BID
Renal Softgels 1 mg Capsule
1 cap PO DAILY
calcitriol 0.25 mcg Capsule
0.25 mcg PO Q48H@0800
acetaminophen [Tylenol] 325 mg Tablet
650 mg PO Q6HPRN PRN (Reason: mild pain)
mirtazapine 15 mg Tablet
15 mg PO HS
sacubitril-valsartan [Entresto] 49-51 mg Tablet
1 tab PO BID
Referrals:
Your Adjunct Business Instructor [Other] - Tomorrow
UNKNOWN - PT DOES,NOT KNOW [Family Provider]
Activity Restrictions/Additional Instructions:
You received 2 units of blood
Inform your residential nurse that you received 2 units of blood
Interventions
Interventions:
*Risk Screen - Suicide Last Done: 05/31/25 19:38
*General Assessment Last Done: 05/31/25 19:38
*Neglect/Abuse Screening Last Done: 05/31/25 19:38
*ED- Fall Risk Assessment Last Done: 05/31/25 19:38
*ED COVID-19 Vaccine History Last Done: 05/31/25 19:38
*Nursing Disposition Last Done: 06/01/25 02:00
Discharge Date and Time
Discharge Date/Time: 06/01/25 02:02
Print Language: IRAQI
[2025-05-31] MEDS: TYLENOL 1000 MG PO (19:41)
[2025-05-31] MEDS: BENADRYL 50 MG PO (19:41)
[2025-06-01] VITALS: BP 104/59
[2025-06-01 01:00] VITALS: BP 109/60
[2025-06-01 01:42] VITALS: BP 109/75
[2025-06-01 01:43] VITALS: BP 109/75
--- NOTE | 2025-06-01 02:10 | VATNOTE ---
PRT FLUSHED WITH 500 UNITS OF HEPARIN FLUSH PER PROTOCOL PRIOR TO DEACCESSING.
== END 2025-06-01 02:02 | disposition home or self-care (01) ==
LOC: EMR 17:32
PROVIDERS: EMERGENCY PHYSICIAN Emergency Medicine
DX: I12.0 Hypertensive chronic kidney disease with stage 5 chronic kidney disease or end stage renal disease (principal); N18.6 End stage renal disease; D63.1 Anemia in chronic kidney disease; Z99.2 Dependence on renal dialysis; E78.00 Pure hypercholesterolemia, unspecified; G47.30 Sleep apnea, unspecified; Z85.528 Personal history of other malignant neoplasm of kidney; Z87.891 Personal history of nicotine dependence; Z90.5 Acquired absence of kidney; Z95.2 Presence of prosthetic heart valve; Z95.5 Presence of coronary angioplasty implant and graft; I25.10 Atherosclerotic heart disease of native coronary artery without angina pectoris
CPT/HCPCS: 99283; 80053; 85025; 86850; 86900; 86901; 86920; P9016

== ENCOUNTER 2025-06-25 10:41 | Emergency (ER) | payer OTHER, SELFPAY ==
[2025-06-25] VITALS (17 sets, daily range): BP systolic 115–138; BP diastolic 56–73; BMI 28.4
--- NOTE | 2025-06-25 11:37 | ED.GENMED ---
History of Present Illness
General
Chief Complaint: Abnormal Lab Value
Source: patient
Exam Limitations: none
Time Seen by Provider: 06/25/25 11:28
Nursing documentation reviewed up to this point in time: agreed with
History of Present Illness
History of Present Illness:
Note:
CHIEF COMPLAINT(S)
Anemia requiring regular blood transfusions.
HISTORY OF PRESENT ILLNESS
The patient is a 64-year-old male with a history of anemia requiring blood transfusions. The patients recent laboratory results indicated the necessity for a blood transfusion. According to the patient, this issue of low hemoglobin levels requiring
transfusions is a predictable occurrence but does not happen every month. The patient mentions undergoing a recent surgical procedure involving the small intestines to address bleeding. He reports always noticing a small amount of blood in his stool
but denied any noticeable increase in bleeding at this time. The patient has end-stage renal disease and is on peritoneal dialysis (PD), receiving erythropoietin injections weekly and an iron check every six weeks. He has deferred a rectal exam in
the past and again chose not to undergo one today. There seem to be inconsistencies in scheduling regular transfusions, pushing the patient to seek help through the emergency department frequently.
PAST MEDICAL AND SURIGICAL HISTORY
The patient mentions undergoing recent surgical repair of the small intestines for bleeding.
EXTERNAL RECORDS REVIEWED
The patient�s laboratory results from a few days prior indicated critically low hemoglobin levels necessitating a potentially urgent blood transfusion.
CHRONIC MEDICAL CONDITIONS SIGNIFICANTLY AFFECTING CARE
- End-stage renal disease requiring peritoneal dialysis
- Anemia managed with erythropoietin and regular transfusions
SOCIAL DETERMINANTS AFFECTING HEALTH
Frequent reliance on emergency department visits for blood transfusions due to challenges with scheduling routine appointments at the transfusion center.
REVIEW OF SYSTEMS
- Gastrointestinal: Routine presence of a small amount of blood in stool
PHYSICAL EXAM
General: Alert, no acute distress.
Skin: Warm, dry. Pallor observed.
Head: Normocephalic, atraumatic.
Neck: Supple, trachea midline.
Eye, Ears, Nose, Mouth, and Throat: Oral mucosa moist.
Cardiovascular: Normal peripheral perfusion, no edema.
Respiratory: Respirations are non-labored.
Gastrointestinal: Abdomen nondistended. Presence of surgical scars noted.
Back: Normal range of motion, normal alignment.
Musculoskeletal: Normal range of motion, normal strength.
Neurological: Alert and oriented to person, place, time, and situation, no focal neurological deficit observed.
Psychiatric: Cooperative, appropriate mood & affect.
PROBLEM LIST
Acute Problems:
- Anemia requiring transfusion
Chronic Problems:
- End-stage renal disease
- Chronic anemia
PLAN
The patient will be set up for a unit of blood to address the current low hemoglobin level. Further blood work will be ordered to assess current hemoglobin levels in conjunction to evaluate ongoing management needs. Coordination with a transfusion
center will be attempted to avoid emergency department reliance.
DIFFERENTIAL DIAGNOSIS
The Differential Diagnosis includes, in no particular order and is not limited to:
1. Chronic kidney disease-related anemia
2. Gastrointestinal bleeding
3. Iron deficiency anemia
4. Hemolytic anemia
5. Anemia of chronic disease
6. Malabsorption syndromes
7. Bone marrow disorders
8. Medication-induced anemia
9. Vitamin B12 deficiency
10. Folate deficiency
CARE-UPDATE
06/25/25 - 14:11
Patient continues to have chronic renal insufficiency and chronic anemia. One unit of packed red blood cells was administered. Plan is to discharge the patient with follow-up care coordinated through the primary care physician.
Disposition:
SUMMARY OF ENCOUNTER
The patient, a 64-year-old male with a history of anemia requiring regular blood transfusions, presented to the emergency department due to critically low hemoglobin levels identified in recent laboratory results. The anemia is likely due to
gastrointestinal-related blood loss. A blood transfusion was administered to address the current low hemoglobin levels, as the patient declined further workup and expressed a desire to receive the transfusion and return home.
DISPOSITION
Discharge
EMERGENCY TREATMENTS ADMINISTERED
One unit of packed red blood cells was administered.
PLAN
The plan includes the administration of a unit of blood, monitoring the patients hemoglobin levels, and organizing follow-up care with his primary care physician. Coordination with a transfusion center will be attempted to minimize emergency
department utilization, reflecting the patients reliance on emergency resources due to inadequate scheduling of regular transfusions.
MEDICATION RECONCILIATION
No new prescriptions were made as the focus was on immediate red blood cell transfusion.
MEDICAL DECISION MAKING
-Complexity of Data Reviewed: Chronic conditions affecting care include end-stage renal disease and chronic anemia. Differential diagnoses considered are chronic kidney disease-related anemia, gastrointestinal bleeding, and iron deficiency anemia.
-Data:
Category 1
Clinical information from external records: The patients outpatient laboratory results indicated critically low hemoglobin levels.
Category 3
Discussion of management was coordinated with a transfusion center to avoid future reliance on emergency department visits for transfusions.
DIAGNOSIS
Anemia due to chronic disease (ICD-10: D63.8)
Gastrointestinal hemorrhage (ICD-10: K92.2)
End-stage renal disease (ICD-10: N18.6)
Past History
Past History
ED Past Medical History: CAD, Cancer (L Kidney, Prostate CA, ), GERD, HTN, Hypercholesterolemia, [place], Renal failure, Seizures, Valvular disease and Other (Self Peritoneal Dialysis, Sleep apnea, H-Pylori, Anemia, GI bleeding)
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
3, Hydrocele X 2)
Social History
Tobacco: Former smoker
Alcohol: None
Drug: None
Personal:
Living: with family
Employment: Employed
Family History
Family History: Hypertension
Phy Exam
Physical Exam
Physical Exam:
.
Course
Orders/Labs/Results
Orders:
Orders
06/25/25 11:35
* Blood Bank Products Urgent
's Orders: 1 unit prbcs
Blood Bank Products: *Packed RBC Leuko(PRBC's)
Quantity: 1
Transfuse Today: Yes
Reason: Anemia
Patient will require pre-treatment for transfusion:: Yes
IV Insert/Care/Rem.- Treatment PRN
Acetaminophen [Tylenol] 650 mg PO NOW STA
Diphenhydramine [Benadryl] 25 mg IV NOW STA
06/25/25 12:50
Type+Screen Urgent
Complete Blood Count/No Diff Urgent
Comprehensive Metabolic Panel Urgent
Abnormal Lab Results
06/25/25
12:50
RBC 1.97 L 10^6/uL
(4.70-6.10)
Hgb 5.9 L* g/dL
(13.0-18.0)
Hct 18.6 L* %
(39.0-52.0)
MCV 94.4 H fL
(80.0-94.0)
MCHC 31.7 L g/dL
(33.0-37.0)
RDW 16.3 H %
(11.5-14.5)
Potassium 5.6 H mmol/L
(3.5-5.1)
Chloride 113 H mmol/L
(98-107)
Carbon Dioxide 18 L mmol/L
(22-30)
BUN 85 H mg/dl
(9-20)
Creatinine 6.0 H* mg/dL
(0.7-1.3)
Glucose 108 H mg/dl
(70-99)
Calcium 7.8 L mg/dl
(8.4-10.2)
Total Protein 5.0 L g/dl
(6.3-8.2)
Albumin 3.2 L g/dl
(3.5-5.0)
Crossmatch IS Only See Detail
06/25/25 12:50
06/25/25 12:50
Vital Signs
Initial and Last Documented VS:
Initial Vital Signs
Temp Pulse Resp BP Pulse Ox
98.0 F 82 16 138/73 99
06/25/25 10:42 06/25/25 10:42 06/25/25 10:42 06/25/25 10:42 06/25/25 10:42
Last Documented Vital Signs
Temp Pulse Resp BP Pulse Ox
97.7 F 85 19 127/62 98
06/25/25 14:09 06/25/25 14:09 06/25/25 14:09 06/25/25 14:09 06/25/25 14:00
*Pulse Oximetry
SaO2: 99
Oxygen Mode of Delivery: Room air
Patient hypoxic: no
*Critical Care Note
Total Time (30-74mins, 75-104mins- exclusive of procedures): 32
comment:
Critical care statement: A total of 32 minutes of critical care time was provided for this patient. This includes management of unstable vital signs, evaluation of the patient at bedside, reviewing the patient's pertinent medical records, discussion
with consultants, review of old EKGs and review of pertinent medical records. This time with separate from time utilized to perform the aforementioned documented procedures
ED Attending Note
-
Portions of this chart may have been created with voice recognition software.� Occasional wrong word or��sound alike� substitutions may have occurred due to the inherent limitations of voice recognition software.
Discharge Plan
Departure
Patient Disposition: Home (Routine Discharge)
Date of Disposition: 06/25/25
Time of Disposition: 14:14
Patient with high blood pressure during this ER visit?: Yes
Condition: Good
Discharge Problem:
Anemia
Instructions: Normocytic Normochromic Anemia (DC), BLOOD PRESSURE
Prescriptions:
No Action
sertraline 100 mg Tablet
100 mg PO HS
aspirin 81 mg Tablet,Delayed Release (Dr/Ec)
81 mg PO DAILY
rosuvastatin 20 mg Tablet
20 mg PO HS
sevelamer carbonate 800 mg Tablet
1,600 mg PO TID
amlodipine [Norvasc] 5 mg Tablet
5 mg PO DAILY
furosemide [Lasix] 80 mg Tablet
80 mg PO BID
Renal Softgels 1 mg Capsule
1 cap PO DAILY
calcitriol 0.25 mcg Capsule
0.25 mcg PO Q48H@0800
acetaminophen [Tylenol] 325 mg Tablet
650 mg PO Q6HPRN PRN (Reason: mild pain)
mirtazapine 15 mg Tablet
15 mg PO HS
sacubitril-valsartan [Entresto] 49-51 mg Tablet
1 tab PO BID
Referrals:
Zack Bullock MD [Family Provider, General]
Interventions
Interventions:
*Risk Screen - Suicide Last Done: 06/25/25 11:51
*General Assessment Last Done: 06/25/25 11:50
*Neglect/Abuse Screening Last Done: 06/25/25 11:51
*ED- Fall Risk Assessment Last Done: 06/25/25 11:50
*ED COVID-19 Vaccine History Last Done: 06/25/25 11:50
Discharge Date and Time
Print Language: AUSTRIAN
[2025-06-25 13:07] LABS: Hematocrit 18.6 % (39.0-52.0); Hemoglobin 5.9 g/dL (13.0-18.0); Mean Corp Hgb Conc. 31.7 g/dL (33.0-37.0); Mean Corpuscular Volume 94.4 fL (80.0-94.0); Platelet Count 213 10^3/uL (130-400); Red Cell Dist. Width 16.3 % (11.5-14.5)
[2025-06-25] MEDS: TYLENOL 650 MG PO (13:51)
[2025-06-25] MEDS: BENADRYL 25 MG IV (13:51)
[2025-06-25 13:54] LABS: ALT (SGPT) 12 U/L (0-50); AST (SGOT) 18 U/L (17-59); Albumin 3.2 g/dl (3.5-5.0); Alkaline Phosphatase 78 U/L (38-126); Blood Urea Nitrogen 85 mg/dl (9-20); Calcium 7.8 mg/dl (8.4-10.2); Carbon Dioxide 18 mmol/L (22-30); Chloride 113 mmol/L (98-107); Estimated Creatinine Clearance 14 ml/min; Glucose 108 mg/dl (70-99); Potassium 5.6 mmol/L (3.5-5.1); Sodium 138 mmol/L (135-145); Total Protein 5.0 g/dl (6.3-8.2); eGFR 9.79
== END 2025-06-25 18:03 | disposition home or self-care (01) ==
LOC: EMR 10:41
PROVIDERS: EMERGENCY PHYSICIAN Emergency Medicine; FAMILY PHYSICIAN Internal Medicine
DX: R79.89 Other specified abnormal findings of blood chemistry (principal); D63.1 Anemia in chronic kidney disease; I12.0 Hypertensive chronic kidney disease with stage 5 chronic kidney disease or end stage renal disease; N18.6 End stage renal disease; E78.00 Pure hypercholesterolemia, unspecified; G47.30 Sleep apnea, unspecified; I25.10 Atherosclerotic heart disease of native coronary artery without angina pectoris; Z82.49 Family history of ischemic heart disease and other diseases of the circulatory system; Z85.528 Personal history of other malignant neoplasm of kidney; Z87.891 Personal history of nicotine dependence; Z90.5 Acquired absence of kidney; Z95.2 Presence of prosthetic heart valve; Z95.5 Presence of coronary angioplasty implant and graft; Z99.2 Dependence on renal dialysis
CPT/HCPCS: 99291; 96374; 96375; 36430; 80053; 85027; 86850; 86900; 86901; 86920; P9016

== ENCOUNTER 2025-07-02 07:08 | Emergency (ER) | payer OTHER, SELFPAY ==
[2025-07-02] VITALS (18 sets, daily range): BP systolic 108–120; BP diastolic 54–72
--- NOTE | 2025-07-02 07:50 | ED.GENMED ---
History of Present Illness
<Pippa Hanna MD, Resident - Last Filed: 07/02/25 14:07>
General
Chief Complaint: Abnormal Lab Value
Source: patient
Time Seen by Provider: 07/02/25 07:34
History of Present Illness
History of Present Illness:
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
anemia. He states that he had his blood drawn on 06/30 and got his results back yesterday which showed a hemoglobin of 7.6 he states that his transfusions threshold per his certified medical records coder at [place] is <8. He presents today with palpitation, SOB on
exertion, nausea, and dizziness. He endorses black stool, without fresh blood (unlike when he had a GI bleed), and the little urine that he does make is not hematuric. Hunter states that he gets biweekly hemoglobin checks per his certified medical records coder.
Unfortunately, Hunter has been unable to get approved for regular transfusions despite multiple attempts and effort. As such, he will likely keep coming to the ED for repeat transfusions. He usually calls [facility] when he needs a transfusion,
however the timeframe has seldom worked for him. He also states that his hospitalization 06/03-06/21 for an acute GI bleed 'messed up his transfusion needs/schedule.' Today, he denies betsy blood in stool/urine, pain anywhere, being on a blood
thinner, and any other changes in his dialysis schedule.
Past History
<Pippa Hanna MD, Resident - Last Filed: 07/02/25 14:07>
Past History
ED Past Medical History: CAD, Cancer (L Kidney, Prostate CA, ), GERD, HTN, Hypercholesterolemia, CA, Renal failure, Seizures, Valvular disease and Other (Self Peritoneal Dialysis, Sleep apnea, H-Pylori, Anemia, GI bleeding)
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
3, Hydrocele X 2)
Social History
Tobacco: Former smoker
Alcohol: None
Drug: None
Personal:
Living: with family
Employment: Employed
Family History
Family History: Hypertension
Review of Systems
<Pippa Hanna MD, Resident - Last Filed: 07/02/25 14:07>
Review of Systems
Allergies reviewed?: No
All Other Systems: ROS reviewed and negative except as documented in HPI and ROS
Constitutional: Reports fatigue
Respiratory: Reports trouble breathing
Cardiac: Reports palpitations
Phy Exam
<Pippa Hanna MD, Resident - Last Filed: 07/02/25 14:07>
General Physical Exam
General Presentation: mild distress
General Skin: dry and pale
General Habitus: normal
General Mental: alert
ENT Exam
ENT Exam: EOMI
Cardiovascular Exam
Cardiovascular Exam: no edema and tachycardia
Pulmonary Exam
Pulmonary Exam: lungs clear and no respiratory distress
Gastrointestinal Exam
Gastrointestinal Exam: non tender, soft and non distended
Musculoskeletal Exam
Musculoskeletal Exam: full ROM
Course
<Pippa Hanna MD, Resident - Last Filed: 07/02/25 14:07>
Orders/Labs/Results
Orders:
Orders
07/02/25 07:47
Type+Screen Urgent
BMP [Basic Metabolic Panel] Urgent
Complete Blood Count/With Diff Urgent
07/02/25 08:28
* Blood Bank Products Urgent
Blood Bank Products: *Packed RBC Leuko(PRBC's)
Quantity: 1
Transfuse Today: Yes
Reason: Anemia
Patient will require pre-treatment for transfusion:: Yes
07/02/25 08:57
Acetaminophen [Tylenol] 650 mg PO NOW STA
Diphenhydramine [Benadryl] 50 mg IV NOW STA
07/02/25 13:29
* Blood Bank Products Urgent
Blood Bank Products: *Packed RBC Leuko(PRBC's)
Quantity: 1
Transfuse Today: Yes
Reason: Anemia
Patient will require pre-treatment for transfusion:: No
Abnormal Lab Results
07/02/25
07:47
RBC 2.36 L 10^6/uL
(4.70-6.10)
Hgb 6.9 L* g/dL
(13.0-18.0)
Hct 22.4 L %
(39.0-52.0)
MCV 94.9 H fL
(80.0-94.0)
MCHC 30.8 L g/dL
(33.0-37.0)
RDW 17.1 H %
(11.5-14.5)
MPV 10.5 H fL
(7.4-10.4)
Absolute Lymphs (auto) 0.6 L 10^3/uL
(1.2-3.4)
Absolute Monos (auto) 0.8 H 10^3/uL
(0.1-0.6)
Lymphocytes % 11.4 L %
(20.5-51.1)
Monocytes % 14.2 H %
(1.7-9.3)
Chloride 113 H mmol/L
(98-107)
Carbon Dioxide 21 L mmol/L
(22-30)
BUN 77 H mg/dl
(9-20)
Creatinine 6.0 H* mg/dL
(0.7-1.3)
Glucose 103 H mg/dl
(70-99)
Calcium 8.3 L mg/dl
(8.4-10.2)
Crossmatch IS Only See Detail
07/02/25 07:47
07/02/25 07:47
Vital Signs
Initial and Last Documented VS:
Initial Vital Signs
Temp Pulse Resp Pulse Ox
97.5 F 80 18 99
07/02/25 07:12 07/02/25 07:12 07/02/25 07:12 07/02/25 07:12
Last Documented Vital Signs
Temp Pulse Resp BP Pulse Ox
97.7 F 79 17 115/60 99
07/02/25 13:05 07/02/25 13:45 07/02/25 13:45 07/02/25 13:05 07/02/25 13:45
<Honorio Catalan MD - Last Filed: 07/02/25 08:46>
Orders/Labs/Results
Orders:
Orders
07/02/25 07:47
Type+Screen Urgent
BMP [Basic Metabolic Panel] Urgent
Complete Blood Count/With Diff Urgent
07/02/25 08:28
* Blood Bank Products Urgent
Blood Bank Products: *Packed RBC Leuko(PRBC's)
Quantity: 1
Transfuse Today: Yes
Reason: Anemia
Patient will require pre-treatment for transfusion:: Yes
07/02/25 08:57
Acetaminophen [Tylenol] 650 mg PO NOW STA
Diphenhydramine [Benadryl] 50 mg IV NOW STA
07/02/25 13:29
* Blood Bank Products Urgent
Blood Bank Products: *Packed RBC Leuko(PRBC's)
Quantity: 1
Transfuse Today: Yes
Reason: Anemia
Patient will require pre-treatment for transfusion:: No
Abnormal Lab Results
07/02/25
07:47
RBC 2.36 L 10^6/uL
(4.70-6.10)
Hgb 6.9 L* g/dL
(13.0-18.0)
Hct 22.4 L %
(39.0-52.0)
MCV 94.9 H fL
(80.0-94.0)
MCHC 30.8 L g/dL
(33.0-37.0)
RDW 17.1 H %
(11.5-14.5)
MPV 10.5 H fL
(7.4-10.4)
Absolute Lymphs (auto) 0.6 L 10^3/uL
(1.2-3.4)
Absolute Monos (auto) 0.8 H 10^3/uL
(0.1-0.6)
Lymphocytes % 11.4 L %
(20.5-51.1)
Monocytes % 14.2 H %
(1.7-9.3)
Chloride 113 H mmol/L
(98-107)
Carbon Dioxide 21 L mmol/L
(22-30)
BUN 77 H mg/dl
(9-20)
Creatinine 6.0 H* mg/dL
(0.7-1.3)
Glucose 103 H mg/dl
(70-99)
Calcium 8.3 L mg/dl
(8.4-10.2)
Crossmatch IS Only See Detail
07/02/25 07:47
07/02/25 07:47
Vital Signs
Initial and Last Documented VS:
Initial Vital Signs
Temp Pulse Resp Pulse Ox
97.5 F 80 18 99
07/02/25 07:12 07/02/25 07:12 07/02/25 07:12 07/02/25 07:12
Last Documented Vital Signs
Temp Pulse Resp BP Pulse Ox
97.7 F 79 17 115/60 99
07/02/25 13:05 07/02/25 13:45 07/02/25 13:45 07/02/25 13:05 07/02/25 13:45
<Pippa Hanna MD, Resident - Last Filed: 07/02/25 14:07>
MDM/Problems Addressed
Differential Diagnosis Includes:
Acute anemia
MDM/Problems Addressed:
Hunter is a 64-year-old male with extensive past medical history including CKD 5 on peritoneal dialysis with weekly EPO injections, CAD, recent GI bleed s/p ballooning at [facility], anemia requiring regular transfusions who presents with symptomatic anemia.
#History of anemia
#Symptomatic anemia
Today he has SOB on exertion, palpitations, nausea, and dizziness. He reports his last hemoglobin from 06/30 was 7.6, today 07/02 6.9. Will plan to transfuse 1U pRBC. Unfortunately, patient has been unable to get approved for regular transfusions
despite multiple attempts and effort. As such, he will likely keep coming to the ED for repeated transfusions.
- Transfusion threshold per his certified medical records coder: Hemoglobin <8
--Hemoglobin 6.9
--Type and screen completed, consented for blood
--Transfusing 2 pRBCs for goal of hemoglobin>8
<Pippa Hanna MD, Resident - Last Filed: 07/02/25 14:07>
*Pulse Oximetry
SaO2: 99
Oxygen Mode of Delivery: Room air
Patient hypoxic: no
*Critical Care Note
Total Time (30-74mins, 75-104mins- exclusive of procedures): Not Applicable
ED Attending Note
<Pippa Hanna MD, Resident - Last Filed: 07/02/25 14:07>
-
Portions of this chart may have been created with voice recognition software.� Occasional wrong word or��sound alike� substitutions may have occurred due to the inherent limitations of voice recognition software.
<Honorio Catalan MD - Last Filed: 07/02/25 08:46>
ED Attending Note
Patient seen and examined by attending physician: Yes
I performed a history and physical exam of patient and discussed management with resident, I reviewed resident's note and agree with documented findings and plan of care.: Yes
ED Attending Note:
I have seen and evaluated the patient with a [id number] encounter. I have spoken to the resident and involved in the medical history, the physical exam, medical decision making.
Evaluation and management service: agree unless noted differently below.
Results interpretation: agree unless noted differently below.
Focused HPI: 64-year-old male with history as noted returns to the ER for evaluation of anemia. He has a long history of chronic GI bleeding. He is well-established with hematology through [facility]. He has had extensive workup and treatment
for chronic GI bleeding including a recent hospitalization at [facility] for acute on chronic GI bleeding requiring multiple transfusions. He presents today for symptomatic anemia he says he has had increasing fatigue over
the past week consistent with his usual anemia symptoms. He had lab work drawn on that showed hemoglobin of 7.6. He was instructed go to the ER but was not able to come in until today. He did have recent admission for GI bleeding as
above at that time was having bright red blood per rectum as well as tarry stools. He says that since that admission his stools have become formed. He says they are dark brown but he has not noticed any bright red blood.
Physical exam: Awake and alert, pleasant and appropriate. Not in acute distress. Vital signs are all normal including heart rate in the 70s, blood pressure 120/63. Patient declined rectal examination today.
Medical Decision Makin-year-old male presents for evaluation of symptomatic anemia. Has a long history of chronic GI bleeding and chronic anemia requiring transfusions. He is having his typical anemia symptoms. Vitals and exam as above.
Repeat blood work today showed hemoglobin of 6.9. Will transfuse PRBCs. Offered admission, patient declined he says that he this is his typical pattern and that he is well-established as an outpatient and prefers to continue following his chronic
medical issues on an outpatient basis.
Discharge Plan
Departure
Patient Disposition: Home (Routine Discharge)
Date of Disposition: 07/02/25
Time of Disposition: 14:00
Patient with high blood pressure during this ER visit?: No
Discharge Problem:
Anemia
Instructions: Anemia overview
Prescriptions:
No Action
sertraline 100 mg Tablet
100 mg PO HS
aspirin 81 mg Tablet,Delayed Release (Dr/Ec)
81 mg PO DAILY
rosuvastatin 20 mg Tablet
20 mg PO HS
sevelamer carbonate 800 mg Tablet
1,600 mg PO TID
amlodipine [Norvasc] 5 mg Tablet
5 mg PO DAILY
furosemide [Lasix] 80 mg Tablet
80 mg PO BID
Renal Softgels 1 mg Capsule
1 cap PO DAILY
calcitriol 0.25 mcg Capsule
0.25 mcg PO Q48H@0800
acetaminophen [Tylenol] 325 mg Tablet
650 mg PO Q6HPRN PRN (Reason: mild pain)
mirtazapine 15 mg Tablet
15 mg PO HS
sacubitril-valsartan [Entresto] 49-51 mg Tablet
1 tab PO BID
Referrals:
UNKNOWN - PT DOES,NOT KNOW [Family Provider]
Activity Restrictions/Additional Instructions:
Thank you for visiting the Emergency Department at [facility].
1. Please schedule a follow up appointment as directed. Call first thing tomorrow morning to make an appointment.
2. If indicated, please take your medications as instructed and indicated on discharge paperwork.
3. If any of your symptoms do not improve, or persist, or become more severe within 6-12 hours, please return to the emergency department for further care.
4. Please return to the emergency department if you develop a headache, neck pain/stiffness, fever greater than 100.4F, chest pain, shortness of breath, persistent nausea, vomiting, slurred speech, difficulty walking, numbness/tingling, weakness,
signs of infection or any other symptoms that are worrisome to you.
Please call [phone] if you have any questions.
Interventions
Interventions:
*Risk Screen - Suicide Last Done: 07/02/25 07:12
*Neglect/Abuse Screening Last Done: 07/02/25 07:12
Discharge Date and Time
Print Language: QATARI
[2025-07-02 08:28] LABS: Hematocrit 22.4 % (39.0-52.0); Hemoglobin 6.9 g/dL (13.0-18.0); Mean Corp Hgb Conc. 30.8 g/dL (33.0-37.0); Mean Corpuscular Volume 94.9 fL (80.0-94.0); Nucleated Red Blood Cells % 0 % (-); Platelet Count 229 10^3/uL (130-400); Red Cell Dist. Width 17.1 % (11.5-14.5)
[2025-07-02 09:09] LABS: Blood Urea Nitrogen 77 mg/dl (9-20); Calcium 8.3 mg/dl (8.4-10.2); Carbon Dioxide 21 mmol/L (22-30); Chloride 113 mmol/L (98-107); Glucose 103 mg/dl (70-99); Potassium 4.7 mmol/L (3.5-5.1); Sodium 142 mmol/L (135-145); eGFR 9.79
[2025-07-02] MEDS: TYLENOL 650 MG PO (09:19)
[2025-07-02] MEDS: BENADRYL 50 MG IV (09:19)
== END 2025-07-02 16:35 | disposition home or self-care (01) ==
LOC: EMR 07:08
PROVIDERS: EMERGENCY PHYSICIAN Emergency Medicine
DX: D64.9 Anemia, unspecified (principal); I25.10 Atherosclerotic heart disease of native coronary artery without angina pectoris; I12.0 Hypertensive chronic kidney disease with stage 5 chronic kidney disease or end stage renal disease; N18.6 End stage renal disease; E78.00 Pure hypercholesterolemia, unspecified; I25.2 Old myocardial infarction; G47.30 Sleep apnea, unspecified; K21.9 Gastro-esophageal reflux disease without esophagitis; Z99.2 Dependence on renal dialysis; Z95.2 Presence of prosthetic heart valve; Z95.5 Presence of coronary angioplasty implant and graft; Z85.528 Personal history of other malignant neoplasm of kidney; Z90.5 Acquired absence of kidney; Z85.46 Personal history of malignant neoplasm of prostate; Z87.891 Personal history of nicotine dependence; Z82.49 Family history of ischemic heart disease and other diseases of the circulatory system; Z79.82 Long term (current) use of aspirin
CPT/HCPCS: 99285; 36430; 96374; 80048; 85025; 86850; 86900; 86901; 86920; P9016

== ENCOUNTER 2025-07-23 14:17 | Emergency (ER) | payer OTHER, SELFPAY ==
[2025-07-23] VITALS (18 sets, daily range): BP systolic 116–141; BP diastolic 56–83; BMI 29.7
[2025-07-23 15:41] LABS: Hematocrit 22.9 % (39.0-52.0); Hemoglobin 7.0 g/dL (13.0-18.0); Mean Corp Hgb Conc. 30.6 g/dL (33.0-37.0); Mean Corpuscular Volume 92.7 fL (80.0-94.0); Nucleated Red Blood Cells % 0 % (-); Platelet Count 238 10^3/uL (130-400); Red Cell Dist. Width 15.8 % (11.5-14.5)
--- NOTE | 2025-07-23 16:09 | ED.GENMED ---
History of Present Illness
General
Chief Complaint: Abnormal Lab Value
Source: patient
Exam Limitations: none
Time Seen by Provider: 07/23/25 15:05
Nursing documentation reviewed up to this point in time: agreed with
History of Present Illness
History of Present Illness:
The patient is a 64-year-old male past medical history of CKD chronic GI bleeds, CAD hypertension chronic anemia requiring frequent transfusions presenting to the emergency department today after he was told his hemoglobin was 7.0 as an outpatient.
The threshold at [place] [facility] recommended was anything below 8 he should be transfused for. He does have some vague fatigue and generalized weakness but denies any specific chest pain shortness of breath or other concerns. He claims that his
stool has been light brown in color and denies any overt bleeding or concerns in that regard.
Past History
Past History
ED Past Medical History: CAD, Cancer (L Kidney, Prostate CA, ), GERD, HTN, Hypercholesterolemia, AL, Renal failure, Seizures, Valvular disease and Other (Self Peritoneal Dialysis, Sleep apnea, H-Pylori, Anemia, GI bleeding)
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
3, Hydrocele X 2)
Social History
Tobacco: Former smoker
Alcohol: None
Drug: None
Personal:
Living: with family
Employment: Employed
Family History
Family History: Hypertension
Review of Systems
Review of Systems
Allergies reviewed?: Yes
All Other Systems: ROS reviewed and negative except as documented in HPI and ROS
Phy Exam
Physical Exam
Physical Exam:
GENERAL: Alert , in no apparent distress
EYE: pupils equal and reactive
NECK: Supple, no significant adenopathy.
ENT: o/p clr, mmm.
CARDIAC: Regular rate and rhythm .
LUNGS: Clear breath sounds bilaterally, no acute respiratory distress, no wheezes/rales/rhonchi
ABDOMEN: Soft, without focal tenderness, no r/g, no cvat
NEUROLOGICAL: Alert and oriented, no focal neuro deficits
SKIN: Warm and dry, skin intact.
MUSCULOSKELETAL: No edema, well perfused.
PSYCH: Normal and appropriate interaction.
Course
Orders/Labs/Results
Orders:
Orders
07/23/25 14:21
Cardiac Monitoring- Treatment ONCE
O2 Therapy [RESP] Urgent
Titrate/Wean O2 to maintain O2 sat greater than (%): 93
Special Instructions: MAINTAIN CONTINOUS O2 SATS > OR = 93%
Pulse Ox/spot Check [RESP] Urgent
Quantity: 1
Special Instructions: ON ROOM AIR
07/23/25 14:22
EKG [Electrocardiogram (*1)] Urgent
Reason for Study: Palpitations
EKG- Treatment ONCE
07/23/25 15:22
Type+Screen Urgent
BBK Wristband Number:
Complete Blood Count/With Diff Urgent
Comprehensive Metabolic Panel Urgent
07/23/25 15:59
* Blood Bank Products Urgent
Blood Bank Products: *Packed RBC Leuko(PRBC's)
Quantity: 2
Transfuse Today: Yes
Reason: Anemia
Patient will require pre-treatment for transfusion:: Yes
07/23/25 17:00
Acetaminophen [Tylenol] 650 mg PO NOW STA
Diphenhydramine [Benadryl] 50 mg IV NOW STA
07/23/25 17:02
Acetaminophen [Tylenol] 650 mg .ROUTE .STK-MED ONE
Diphenhydramine [Benadryl] 50 mg .ROUTE .STK-MED ONE
07/23/25 22:40
Heparin Pf [Heparin Lock Flush] 500 unit .ROUTE .STK-MED ONE
07/23/25 23:00
Heparin Pf [Heparin Lock Flush] 500 unit IV PER PROTOCOL
Abnormal Lab Results
07/23/25
15:22
RBC 2.47 L 10^6/uL
(4.70-6.10)
Hgb 7.0 L g/dL
(13.0-18.0)
Hct 22.9 L %
(39.0-52.0)
MCHC 30.6 L g/dL
(33.0-37.0)
RDW 15.8 H %
(11.5-14.5)
MPV 11.2 H fL
(7.4-10.4)
Absolute Lymphs (auto) 0.4 L 10^3/uL
(1.2-3.4)
Neutrophils % 79.6 H %
(42.2-75.2)
Lymphocytes % 7.1 L %
(20.5-51.1)
Monocytes % 9.5 H %
(1.7-9.3)
Chloride 109 H mmol/L
(98-107)
Carbon Dioxide 19 L mmol/L
(22-30)
BUN 64 H mg/dl
(9-20)
Creatinine 6.0 H* mg/dL
(0.7-1.3)
Glucose 259 H mg/dl
(70-99)
Calcium 7.5 L mg/dl
(8.4-10.2)
AST 12 L U/L
(17-59)
Total Protein 5.5 L g/dl
(6.3-8.2)
Crossmatch IS Only See Detail
07/23/25 15:22
07/23/25 15:22
Vital Signs
Initial and Last Documented VS:
Initial Vital Signs
Temp Pulse Resp BP Pulse Ox
97.6 F 99 26 137/71 98
07/23/25 14:19 07/23/25 14:19 07/23/25 14:19 07/23/25 14:19 07/23/25 14:19
Last Documented Vital Signs
Temp Pulse Resp BP Pulse Ox
98.3 F 98 18 141/79 96
07/23/25 20:52 07/23/25 22:30 07/23/25 22:30 07/23/25 22:30 07/23/25 22:30
MDM/Problems Addressed
MDM/Problems Addressed:
64-year-old male presenting for blood transfusion. He does get these frequently. Does have chronic GI bleeding of which he gets frequent transfusions. Recommendation is to be above 8. 2 units ordered. Pretreatment also ordered as well.
Tolerated the transfusion here well. Discharged in stable condition
*Pulse Oximetry
SaO2: 99
Oxygen Mode of Delivery: Room air
Patient hypoxic: no (96)
*Critical Care Note
Total Time (30-74mins, 75-104mins- exclusive of procedures): Not Applicable
ED Attending Note
-
Portions of this chart may have been created with voice recognition software.� Occasional wrong word or��sound alike� substitutions may have occurred due to the inherent limitations of voice recognition software.
Discharge Plan
Departure
Patient Disposition: Home (Routine Discharge)
Date of Disposition: 07/23/25
Time of Disposition: 22:51
Patient with high blood pressure during this ER visit?: No
Condition: Good
Covid-19: Not Applicable
Discharge Problem:
Anemia
Instructions: Blood transfusion
Prescriptions:
No Action
sertraline 100 mg Tablet
100 mg PO HS
aspirin 81 mg Tablet,Delayed Release (Dr/Ec)
81 mg PO DAILY
rosuvastatin 20 mg Tablet
10 mg PO HS
sevelamer carbonate 800 mg Tablet
1,600 mg PO TID
furosemide [Lasix] 80 mg Tablet
80 mg PO BID
calcitriol 0.25 mcg Capsule
0.25 mcg PO Q48H@0800
sacubitril-valsartan [Entresto] 49-51 mg Tablet
1 tab PO BID
mupirocin 2 % ointment
1 applic TOPICAL DAILY
Referrals:
Zack Bullock MD [Family Provider, General]
Activity Restrictions/Additional Instructions:
You came to the emergency department today for blood transfusion. Please follow-up closely as an outpatient. Return for any worsening, new or concerning symptoms.
Interventions
Interventions:
*Risk Screen - Suicide Last Done: 07/23/25 14:19
*General Assessment Last Done: 07/23/25 15:25
*Neglect/Abuse Screening Last Done: 07/23/25 14:19
*Nursing Disposition Last Done: 07/23/25 23:05
Discharge Date and Time
Print Language: VIET[place]ESE
[2025-07-23 16:33] LABS: ALT (SGPT) < 10 U/L (0-50); AST (SGOT) 12 U/L (17-59); Albumin 3.5 g/dl (3.5-5.0); Alkaline Phosphatase 58 U/L (38-126); Blood Urea Nitrogen 64 mg/dl (9-20); Calcium 7.5 mg/dl (8.4-10.2); Carbon Dioxide 19 mmol/L (22-30); Chloride 109 mmol/L (98-107); Estimated Creatinine Clearance 14 ml/min; Glucose 259 mg/dl (70-99); Potassium 4.6 mmol/L (3.5-5.1); Sodium 136 mmol/L (135-145); Total Protein 5.5 g/dl (6.3-8.2); eGFR 9.79
[2025-07-23] MEDS: TYLENOL 650 MG PO (17:02)
[2025-07-23] MEDS: BENADRYL 50 MG IV (17:02)
== END 2025-07-23 23:15 | disposition home or self-care (01) ==
LOC: EMR 14:17
PROVIDERS: Emergency Medicine; EMERGENCY PHYSICIAN Emergency Medicine; FAMILY PHYSICIAN Internal Medicine
DX: D64.9 Anemia, unspecified (principal); K92.2 Gastrointestinal hemorrhage, unspecified; I12.9 Hypertensive chronic kidney disease with stage 1 through stage 4 chronic kidney disease, or unspecified chronic kidney disease; N18.9 Chronic kidney disease, unspecified; G47.30 Sleep apnea, unspecified; E78.00 Pure hypercholesterolemia, unspecified; I25.10 Atherosclerotic heart disease of native coronary artery without angina pectoris; Z87.891 Personal history of nicotine dependence; Z95.2 Presence of prosthetic heart valve; Z95.5 Presence of coronary angioplasty implant and graft
CPT/HCPCS: 36430; 99285; 96374; 80053; 85025; 86850; 86900; 86901; 86920; 93005; P9016

== ENCOUNTER 2025-08-03 23:58 | Inpatient (IN) | payer OTHER, SELFPAY ==
[2025-08-03 20:02] VITALS: BP 156/91
[2025-08-03 20:21] LABS: Hematocrit 30.0 % (39.0-52.0); Hemoglobin 9.1 g/dL (13.0-18.0); Mean Corp Hgb Conc. 30.3 g/dL (33.0-37.0); Mean Corpuscular Volume 90.6 fL (80.0-94.0); Nucleated Red Blood Cells % 0 % (-); Platelet Count 242 10^3/uL (130-400); Red Cell Dist. Width 15.8 % (11.5-14.5)
[2025-08-03 20:41] LABS: ALT (SGPT) 11 U/L (0-50); AST (SGOT) 16 U/L (17-59); Albumin 3.9 g/dl (3.5-5.0); Alkaline Phosphatase 69 U/L (38-126); Blood Urea Nitrogen 63 mg/dl (9-20); Calcium 8.0 mg/dl (8.4-10.2); Carbon Dioxide 17 mmol/L (22-30); Chloride 115 mmol/L (98-107); Glucose 242 mg/dl (70-99); Potassium 4.9 mmol/L (3.5-5.1); Sodium 143 mmol/L (135-145); Total Protein 5.9 g/dl (6.3-8.2); eGFR 11.62
[2025-08-03 20:49] VITALS: BP 147/83
[2025-08-03 20:53] LABS: Troponin I 0.050 ng/ml
[2025-08-03 20:55] VITALS: BMI 30.8
[2025-08-03 21:00] VITALS: BP 138/72
--- NOTE | 2025-08-03 21:00 | ED.GENMED ---
History of Present Illness
General
Chief Complaint: Cardiac Symptoms
Source: patient and spouse
Exam Limitations: none
Time Seen by Provider: 08/03/25 20:44
Nursing documentation reviewed up to this point in time: agreed with
History of Present Illness
History of Present Illness:
Note:
CHIEF COMPLAINT(S)
Chest congestion and difficulty breathing.
HISTORY OF PRESENT ILLNESS
The patient is a 64-year-old male with a significant cardiac history who presented with concerns of chest congestion and prior episodes of shortness of breath. The patient reports that these symptoms are currently better and denies any active chest
pain at the time of the consultation. The patient has an established history of cardiac issues, including two bypasses, placement of a couple of stents, and an atrial clip procedure, typically managed through the [facility]
healthcare system. The patient acknowledges reduced heart function at 36% and current management with dialysis. He mentions experiencing a sensation liliane to breathlessness earlier but feels stable presently.
PAST MEDICAL AND SURIGICAL HISTORY
The patient has a history of coronary artery bypass graft surgery (CABG), stent placements, and atrial clip procedure, with a current ejection fraction of 36%. The patient is on dialysis and continues to produce urine.
CHRONIC MEDICAL CONDITIONS SIGNIFICANTLY AFFECTING CARE
1. Coronary artery disease with history of CABG and stents.
2. Chronic kidney disease requiring dialysis.
3. Heart failure with reduced ejection fraction (36%).
PHYSICAL EXAM
General: Alert, no acute distress.
Skin: Warm, dry.
Head: Normocephalic, atraumatic.
Neck: Supple, trachea midline.
Eye Ears, nose, mouth, and throat: Oral mucosa moist.
Cardiovascular: Normal peripheral perfusion, bilateral edema noted.
Respiratory: Non-labored breathing reported currently. rales at bases
Gastrointestinal: Abdomen nondistended
Back: Normal range of motion, Normal alignment.
Musculoskeletal: Normal range of motion, normal strength.
Neurological: Alert and oriented to person, place, time, and situation, no focal neurological deficit observed.
Psychiatric: Cooperative, appropriate mood & affect.
PLAN
1. Arrange for chest x-ray to evaluate potential fluid overload.
2. Consider admitting the patient to the hospital for overnight observation.
3. Continue current dialysis regimen as planned.
DIFFERENTIAL DIAGNOSIS
The Differential Diagnosis includes, in no particular order and is not limited to:
1. Congestive heart failure exacerbation.
2. Pulmonary edema.
3. Coronary artery disease progression.
4. Acute coronary syndrome.
5. Chronic obstructive pulmonary disease exacerbation.
6. Pleural effusion.
7. Pulmonary embolism.
8. Arrhythmias.
9. Hypertensive heart disease.
10. Diabetic cardiovascular complications.
CARE-UPDATE
08/03/25 - 23:19
Patient admitted for further evaluation due to concerns of fluid overload and elevated BNP levels. Chest pain assessment ongoing.
Disposition:
SUMMARY OF ENCOUNTER
The patient, a 64-year-old male with a significant cardiac history, presented to the emergency department with concerns of chest congestion and episodes of shortness of breath but denied active chest pain during consultation. The patient has a
history of coronary artery disease with past interventions including coronary artery bypass grafts, stent placements, and an atrial clip procedure. He has heart failure with reduced ejection fraction, currently at 36%, and is managed with dialysis
for chronic kidney disease. Given these complexities, his presentation was evaluated for fluid overload and potential cardiac events. Diagnostics include a chest x-ray, suspecting potential fluid overload as a cause for the symptoms.
DISPOSITION
Admit the hospitalist for further evaluation and observation due to concerns of fluid overload and to trend troponin levels to rule out acute coronary syndrome.
ASSESSMENT
The patients symptoms and history suggest a possible episode of fluid overload, potentially linked to heart failure exacerbation. Despite the absence of acute coronary syndrome signs, trending of cardiac markers was warranted. The potential
differential includes congestive heart failure exacerbation and fluid retention due to chronic kidney disease.
PLAN
1. Admit for further evaluation and management by the hospitalist team.
2. Continue with dialysis regimen.
3. Trend troponin levels to monitor for any delayed signs of acute coronary syndrome.
4. Conduct a chest x-ray to evaluate potential fluid overload.
INDEPENDENT REVIEW OF LABS AND INTERPRETATION OF TESTS
My independent review suggests trending of troponin levels is required to rule out myocardial injury despite the current absence of signs of acute coronary syndrome.
MEDICAL DECISION MAKING
Chronic conditions affecting care: Coronary artery disease, chronic kidney disease requiring dialysis, heart failure with reduced ejection fraction.
-Data:
Category 1
My independent interpretation of the chest x-ray is pending, targeting potential fluid overload.
-Risk:
Admission was considered necessary due to the complexity and risk of fluid overload and potential cardiac concerns, considering the patients underlying comorbidities and presenting complaints.
DIAGNOSIS
1. Fluid overload, possibly due to heart failure exacerbation (ICD-10: I50.9)
2. Chest pain, unspecified (ICD-10: R07.9)
Past History
Past History
ED Past Medical History: CAD, Cancer (L Kidney, Prostate CA, ), GERD, HTN, Hypercholesterolemia, [place], Renal failure, Seizures, Valvular disease and Other (Self Peritoneal Dialysis, Sleep apnea, H-Pylori, Anemia, GI bleeding)
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
3, Hydrocele X 2)
Social History
Tobacco: Former smoker
Alcohol: None
Drug: None
Personal:
Living: with family
Employment: Employed
Family History
Family History: Hypertension
Phy Exam
Physical Exam
Physical Exam:
.
Course
Orders/Labs/Results
Orders:
Orders
08/03/25 19:59
Electrocardiogram (*1) Urgent
Reason for Study: Chest Pain
EKG- Treatment ONCE
08/03/25 20:14
BNP [NT-proBNP] Urgent
Complete Blood Count/With Diff Urgent
Comprehensive Metabolic Panel Urgent
Troponin I Urgent
08/03/25 21:02
CR Chest - 2 Views Urgent
Comment:
Reason For Exam: short of breath, chest pain
08/03/25 22:46
Furosemide [Lasix] 80 mg IV NOW STA
08/03/25 23:32
CARDIOLOGY CONSULT Routine
Consulting Provider: Madi Lomas
Was physician already notified: No
Reason for consult: volume overload, chest pain
Consult Notification Routine
Specialty to Notify: Cardiology
08/03/25 23:33
Admit/Transfer Patient As Directed
Co-Sign Provider:
Level of Care: Inpatient admission
Assign to:: Telemetry
Physician / Group: adriane al
Diagnosis: chest pain concern acs, hx ckd5 peritoneal dialysis,cardiomyopathy
Reason for Telemetry: Arrhythmia
Date to Stop Telemetry: 08/06/25
Time to Stop Telemetry: 11:00
Reason for Hospitalization: chest pain concern acs, hx ckd5 peritoneal dialysis,cardiomyopathy
Expected length of stay greater than two midnights?: Yes
ELOS- Estimated Length of Stay in days: 3
I certify the patient meets the requirements for IP care: Yes
Code Status As Directed
Resuscitation Status: Full Code
08/03/25 23:37
PRN Pain Medication Management As Directed
May give lesser potent ordered pain med per pt: Yes
preference::
Protocol:: Medication orders for pain may be administered in a
manner that supports deferring to patient preference
when the pt is:
- Requesting an ordered lesser potent pain medication.
Least to most potent pain medications are defined
as: acetaminophen < NSAID < tramadol < opioids
(morphine, oxycodone, hydromorphone).
- Requesting a lesser dose of the same medication IF
ORDERED.
- Requesting a less intrusive route of administration
if both routes are prescribed by the provider (PO <
IV).
08/03/25 23:42
Consult Notification Routine
Specialty to Notify: Nephrology
NEPHROLOGY CONSULT Routine
Consulting Provider: Arnaud Carty V.
Was physician already notified: No
Reason for consult: ckd5 peritoneal dialysis daily
08/06/25 11:00
DC Protocol for Telemetry ONCE
Abnormal Lab Results
08/03/25
20:14
RBC 3.31 L 10^6/uL
(4.70-6.10)
Hgb 9.1 L g/dL
(13.0-18.0)
Hct 30.0 L %
(39.0-52.0)
MCHC 30.3 L g/dL
(33.0-37.0)
RDW 15.8 H %
(11.5-14.5)
MPV 11.3 H fL
(7.4-10.4)
Absolute Lymphs (auto) 0.7 L 10^3/uL
(1.2-3.4)
Neutrophils % 77.7 H %
(42.2-75.2)
Lymphocytes % 9.6 L %
(20.5-51.1)
Chloride 115 H mmol/L
(98-107)
Carbon Dioxide 17 L mmol/L
(22-30)
BUN 63 H mg/dl
(9-20)
Creatinine 5.2 H* mg/dL
(0.7-1.3)
Glucose 242 H mg/dl
(70-99)
Calcium 8.0 L mg/dl
(8.4-10.2)
AST 16 L U/L
(17-59)
Troponin I 0.050 H* ng/ml
Total Protein 5.9 L g/dl
(6.3-8.2)
08/03/25 20:14
08/03/25 20:14
Vital Signs
Initial and Last Documented VS:
Initial Vital Signs
Temp Pulse Resp BP Pulse Ox
98.6 F 107 20 156/91 98
08/03/25 20:02 08/03/25 20:02 08/03/25 20:02 08/03/25 20:02 08/03/25 20:02
Last Documented Vital Signs
Temp Pulse Resp BP Pulse Ox
98.6 F 87 18 127/81 97
08/03/25 20:02 08/03/25 23:16 08/03/25 23:16 08/03/25 23:16 08/03/25 23:16
*Pulse Oximetry
SaO2: 100
Oxygen Mode of Delivery: Room air
Patient hypoxic: no
*Critical Care Note
Total Time (30-74mins, 75-104mins- exclusive of procedures): Not Applicable
ED Attending Note
-
Portions of this chart may have been created with voice recognition software.� Occasional wrong word or��sound alike� substitutions may have occurred due to the inherent limitations of voice recognition software.
Discharge Plan
Departure
Patient Disposition: Admit
Date of Disposition: 08/03/25
Time of Disposition: 22:44
Admit to: Telemetry
Presentation/result/management discussed w/ accepting MD/DO: Hospitalist
Patient with high blood pressure during this ER visit?: Yes
Condition: Fair
Discharge Problem:
Fluid overload, Chest pain, CKD (chronic kidney disease), Anemia
Prescriptions:
No Action
sertraline 100 mg Tablet
100 mg PO HS
aspirin 81 mg Tablet,Delayed Release (Dr/Ec)
81 mg PO DAILY
rosuvastatin 20 mg Tablet
20 mg PO HS
sevelamer carbonate 800 mg Tablet
800 mg PO BID@1200,2000
furosemide [Lasix] 80 mg Tablet
80 mg PO BID
calcitriol 0.25 mcg Capsule
0.25 mcg PO Q48H@0800
sacubitril-valsartan [Entresto] 49-51 mg Tablet
1 tab PO BID
sevelamer carbonate 800 mg Tablet
1,600 mg PO DAILY
Emetrol Chewable 230 mg Tablet,Chewable
230 mg PO DAILYPRN PRN (Reason: nausea)
Referrals:
Zack Bullock MD [Family Provider, General]
Interventions
Interventions:
*Risk Screen - Suicide Last Done: 08/03/25 20:54
*General Assessment Last Done: 08/03/25 20:02
*Neglect/Abuse Screening Last Done: 08/03/25 20:54
*ED- Fall Risk Assessment Last Done: 08/03/25 20:54
*ED COVID-19 Vaccine History Last Done: 08/03/25 20:54
ED- Cardiac Assessment Last Done: 08/03/25 20:55
ED- Pulmonary Assessment Last Done: 08/03/25 20:55
Discharge Date and Time
Print Language: SOUTH AFRICAN
--- NOTE | 2025-08-03 22:56 | HPS.HSE ---
Family Physician
-
Family Physician: Zack Bullock MD
Chief Complaint
-
Shortness of breath vomiting, chest pounding after eating ring ding dessert tonight
History of Present Illness
64-year-old male from home who states he went upstairs this evening at around 730 when his gave him a chocolate ring ding dessert to eat. He states he then started to throw up mucus he felt his chest pounding as it does normally he states with
any kind of walking or exertion due to a reported EF of 36% he states via echo 2 to 3 months ago at [facility]. He reports he is status post bypass 2 vessels within the past year 1 being his LAD he is unsure of other. He has a port to his
right upper chest wall. He is on a kidney transplant list but is on hold due to poor ejection fraction. He was started on Entresto in hopes of improving his cardiomyopathy. He states he runs 222 pounds weighs himself nightly before his daily p.m.
peritoneal dialysis 7 days a week. He also reports he has chronic small intestine bleeding gets octreotide once a month of which he got last week by hematology.
Past medical history left kidney cancer, CKD 5 peritoneal dialysis, HTN, HLD, hypocalcemia, CAD status post stents, TAVR, NSTEMI/CABG x 2 vessel [facility], GI bleed, hyperparathyroidism, prostate cancer,Chronic small intestine bleed gets long-acting
octreotide once a month 2 injections got 1 week ago July 2025 at [facility] hematology
Medical History
Past Medical History
Past Medical History: Reports Other
Additional Past Medical History:
Bypass x 2 vessel 2023
HTN
HLD
LBBB
CAD s/p Stentsx2
Aortic Stenosis s/p TAVR,
ELENI untreated
Prostate Ca
BPH
Hx chronic small intestine GIB on Chronic Octreotide monthly follows with hematology
Chronic Anemia
Former Tobacco abuse
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
Social History
Tobacco: Former Smoker
Alcohol: None
Drug: None
Personal:
Employment: Employed
Family History
Family History: Other (Father with HTN and CAD)
Allergies / Home Medications
Allergies reflects when Allergies were last updated in [facility].
Home Medications with original date entered in [facility]
Allergy/Medication List:
Allergies
Allergy/AdvReac Type Severity Reaction Status Date / Time
isosorbide Allergy Unknown Verified 08/03/25 20:02
Penicillins Allergy Anaphylaxis Verified 08/03/25 20:02
Home Medications
aspirin 81 mg tablet,delayed release 81 mg PO DAILY Blood Clot Prevention/Tx 03/09/24
sertraline 100 mg tablet 100 mg PO HS Mental Health/Anxiety 03/09/24
rosuvastatin 20 mg tablet 20 mg PO HS 07/09/24
sevelamer carbonate 800 mg tablet 800 mg PO BID@1200,2000 07/09/24
calcitriol 0.25 mcg capsule 0.25 mcg PO Q48H@0800 03/01/25
furosemide 80 mg tablet (Lasix) 80 mg PO BID 03/01/25
sacubitril 49 mg-valsartan 51 mg tablet (Entresto) 1 tab PO BID 05/17/25
sevelamer carbonate 800 mg tablet 1,600 mg PO DAILY 08/03/25
sodium citrate 230 mg chewable tablet (Emetrol Chewable) 230 mg PO DAILYPRN PRN nausea 08/03/25
Review of Systems
-
History Source: Patient
A 12 point ROS was completed and negative except as noted: Yes
Constitutional: Denies Fever, Weight Gain, Fatigue or Chills
EENT: Denies Sore Throat or Runny Nose
Respiratory: Reports Trouble Breathing; Denies Cough
Cardiac: Reports Chest Pain (Chest pounding after throwing up mucus); Denies Palpitations
Abdomen/GI: Reports Vomiting; Denies Abdominal Pain, Nausea, Diarrhea, Constipated or Bloody Stools
: Reports Other (Patient chronic peritoneal dialysis 7 days a week)
Musculoskeletal: Denies Joint Pain or Edema
Skin: Reports Other (Port right upper chest wall); Denies Itching or Rash
Neurological: Denies Dizzy or Headache
Endocrine: Reports No Symptoms
Hematologic/Lymphatic: Reports No Symptoms
Psych: Reports Calm
Physical Exam
Vital Signs
Vital Signs
Temp Pulse Resp BP Pulse Ox
98.6 F 78 18 138/72 96
08/03/25 20:02 08/03/25 21:30 08/03/25 21:30 08/03/25 21:00 08/03/25 21:30
Physical Exam
General: Comfortable and Conversant; No Pain, Fever or Chills
HEENT: NormoCephalic, Anicteric, Moist mucous membranes, PERRLA, [place] Conjunctivae and No Ptosis
Respiratory: Clear; No Wheezes, Rales or Rhonchi
Cardiac: S1/S2 and Regular Rhythm; No Murmur, Rub, Gallop or Peripheral Edema
GI: Soft, Non Tender, Non Distended, Normal Bowel Sounds and No Hepatosplenomegaly
Genito-urinary: Deferred by me
Musculoskeletal: No Clubbing, No Cyanosis and No Edema
Skin: Warm, Dry and Other (Port right upper chest wall); No Rash or Jaundice
Neuro: AO x 3, No Motor Deficits, Nonfocal/grossly intact, Cranial Nerves Intact and No Sensory Deficits; No Slurred Speech, Facial Droop or Tremors
Psych: Calm
Laboratory Results
-
08/03/25 20:14
08/03/25 20:14
Laboratory Results
Total Bilirubin 0.3 mg/dl (0.2-1.3) 08/03/25 20:14
AST 16 U/L (17-59) L 08/03/25 20:14
ALT 11 U/L (0-50) 08/03/25 20:14
Alkaline Phosphatase 69 U/L (38-126) 08/03/25 20:14
Troponin I 0.050 ng/ml H* 08/03/25 20:14
Data Reviewed
-
Lab Data: Labs Reviewed by me
Impression/Plan
-
Impression/plan:
Admit to telemetry
#Chest pain concern for ACS
#Chronic troponin elevation
#History of CABG x 2 vessel [facility] reports recent EF 36% approximately 2 to 3 months ago at [facility]
#History of NSTEMI 06/05/2024/stent
Troponin 0.050 was 7.52 on 06/05/2024
-Trend troponins
-Continue aspirin 81 mg daily, rosuvastatin 20 mg at bedtime
EKG: NSR 97 bpm, LBBB no change from July 23, 2025, QTc B538 MS
#Chronic cardiomyopathy
reports recent EF 36% approximately 2 to 3 months ago at [facility]
BNP 23,600 > 6700 on 07/09/2024
patient reports weight has been consistent 222 pounds as he weighs himself every night, however our scale is weighing at 233 pounds
I/O, daily weights
-Continue Entresto
Continue Lasix 80 mg twice daily
-Obtain 2D echo from [facility]
- Consult CBC cardiology
2D echo 06/07/2024: EF 55-60% abnormal septal motion consistent with LBBB, normal LV S LVSF, well-seated bioprosthetic aortic valve status post TAVR, mild to moderate MR
#Status post TAVR
#CKD V/Peritoneal dialysis
#Left kidney cancer is on transplant list at [facility] but on hold due to low ejection fraction
Creat 5.2
-Consult nephrology
- Continue sevelamer
#Chronic small intestine bleed gets long-acting octreotide once a month 2 injections got 1 week ago July 2025 at [facility] hematology
#Anemia of chronic disease/CKD
Hgb 9.1 appears near baseline for patient
- Follow CBC
#Chronic hypocalcemia/hypoparathyroidism
Calcium 8
-continue Calcitrol 0.25 mcg p.o. every 48 H
#HTN�benign
BP 138/72
#HLD
Continue statin
#History aortic stenosis status post TAVR at [facility]
#History of GI bleed was treated with octreotide
#Anxiety/depression
-Continue Zoloft
DVT prophylaxis
SCDs
Full code
--- NOTE | 2025-08-03 22:58 | W.PN.UPDATE ---
Update Note
Progress Note Update
I
This note serves as an addendum to the H&P by machine compositor ADEN�
Paola Aron
HPI
63M HX CKDV, on PD, TAVR, untreated ELENI, LBBB, HLDSzDO, CAD s/p PCI x2, chronic anemia due to GIB on chronic octreotide, Prostate Ca, BPH seen at ER:
- report central chest discomfort
- N/V
Relevant VS
Temp Pulse Resp BP Pulse Ox
98.6 F 78 18 138/72 96
08/03/25 20:02 08/03/25 21:30 08/03/25 21:30 08/03/25 21:00 08/03/25 21:30
PE
Gen: NAD
HEENT: anicteric
Neck: supple
Lungs: symmetric AE , PORT at Rt Chest
Cor: RRR S1s2
Abdomen:�soft BS
DRY LUMBER GRADER: NFND
MS:edema
Psych: nl mod and affect
Relevant data�
07/23/25 08/03/25
15:22 20:14
WBC 5.9 7.0
Hgb 7.0 L 9.1 L
Plt Count 238 242
Chloride 115 H
Carbon Dioxide 19 L 17 L
BUN 64 H 63 H
Creatinine 6.0 H* 5.2 H*
eGFR 9.79 11.62
Troponin I 0.050 H*
Izg-V-Xhdjyslexnm Pept 36006
TTE 05/07/2024
Normal biventricular size and systolic function without regional wall motion
abnormality. Estimated LVEF 55-60%.
Mild concentric left ventricular hypertrophy.
Abnormal (paradoxical) septal motion consistent with left bundle branch block.
s/p TAVR. Peak/mean gradients 31/18 mmHg. No aortic regurgitation is seen.
ASSESSMENT & PLAN
Pending Rx reconciliation
No prior study available for comparison.
Last hospitalist admission:
ASSESSMENT & PLAN
Pending Rx reconciliation
Central CP with abn TPNI 0.050
HX CAD s/p Stent, CABG
HX severe LV dysfunction reports 36%
Risk HTN + HLD
- Trend TPNI
- r/o for ACS - NSTEMI
- c/w ASA
- SL NTG PRN
- Check Lipids/A1C.
- CBC card consult
HX CKD V on PD
Metabolic Acidosis - Bicarb 16.
- DISC JOCKEY bicarb
- Significant pro BNP but CKD4 patient
- stable Wt per patent - 222 lbs at home
- Renal consult for PD
- Followed by transplant team at the [facility] but now considering double heart and Kidnee y
- He has a family donor who is in the process of their workup.
Anemia of chronic dz - current Hgb 9s
-Patient states he usually gets transfused for hemoglobins less than 7.8.
- He is on chronic Procrit as well.
- He is followed by hematology at the [facility].
HX Aortic Stenosis - S/P TAVR approx 1 year ago at [facility].
Hx GIB
- On octreotide SC monthly
Anxiety/Depression - Continue sertraline.
DVT Ppx: SCDs, consider chemical pending reassessment of H&H and monitor of GIB
Code status: Full
DVT Px: SCD
Full code
IMU
[2025-08-03 23:16] VITALS: BP 127/81
[2025-08-03] MEDS: LASIX 80 MG IV (23:20)
[2025-08-04] VITALS (7 sets, daily range): BP systolic 123–140; BP diastolic 62–87; BMI 29.4
[2025-08-04 02:43] LABS: Hematocrit 28.3 % (39.0-52.0); Hemoglobin 8.6 g/dL (13.0-18.0); Mean Corp Hgb Conc. 30.4 g/dL (33.0-37.0); Mean Corpuscular Volume 90.1 fL (80.0-94.0); Nucleated Red Blood Cells % 0 % (-); Platelet Count 228 10^3/uL (130-400); Red Cell Dist. Width 15.8 % (11.5-14.5)
[2025-08-04 03:15] LABS: ALT (SGPT) < 10 U/L (0-50); AST (SGOT) 15 U/L (17-59); Albumin 3.6 g/dl (3.5-5.0); Alkaline Phosphatase 58 U/L (38-126); Blood Urea Nitrogen 65 mg/dl (9-20); Calcium 7.9 mg/dl (8.4-10.2); Carbon Dioxide 19 mmol/L (22-30); Chloride 114 mmol/L (98-107); Estimated Creatinine Clearance 17 ml/min; Glucose 106 mg/dl (70-99); Potassium 4.9 mmol/L (3.5-5.1); Sodium 143 mmol/L (135-145); Total Protein 5.7 g/dl (6.3-8.2); eGFR 11.90
[2025-08-04 03:16] LABS: Troponin I 0.080 ng/ml
--- NOTE | 2025-08-04 04:48 | PTCARENOTE ---
Received pt into room 2248 from ED RN @ approx 0145. pt placed on tele, SR with [facility], HR 80's. Admission completed. pt oriented to room and call bonilla. pt updated on plan of care. Encouraged pt to call RN with any questions/concerns. Call bonilla within
reach
[2025-08-04 07:00] LABS: Troponin I 0.079 ng/ml
[2025-08-04] MEDS: RENVELA 1600 MG PO (08:24)
[2025-08-04] MEDS: ROCALTROL 0.25 MCG PO (08:25)
[2025-08-04] MEDS: LASIX 80 MG PO (08:25)
[2025-08-04] MEDS: ENTRESTO 49 MG/51 MG 1 TAB PO ×2 (08:25→20:12)
[2025-08-04] MEDS: ASPIR LOW (ENTERIC COATED) 81 MG PO (08:25)
--- NOTE | 2025-08-04 08:33 | W.CON.NEPH ---
Consultation
-
Date/Time Consultation Requested: 08/04/25 7:30 AM
Date/Time Consultation Performed: 08/04/25 8:30 AM
Requesting Provider: Dr. Villanueva
Performing Provider: Dr. Carty
Reason for Consultation: ESRD/PD
Medical History
-
Chief Complaint: ESRD\\PD
History of Present Illness:
The patient is a 64-year-old male with a past medical history of ESRD now on peritoneal dialysis since.. He has a history of hypertension and congestive heart failure and is maintained on Entresto. He is maintained on sevelamer for
hyperphosphatemia in the setting of his end-stage renal disease and is maintained on calcitriol for secondary hyperparathyroidism. The patient does have an extensive history of coronary artery disease and has undergone previous coronary stents the
last 1 being approximately 1 year prior to [facility]. He also has a history of aortic stenosis and has undergone previous TAVR procedure at an outside institution. He presented to the hospital last evening following symptoms of
vomiting and chest pounding. Nephrology was consulted for end-stage renal disease management of his peritoneal dialysis.
Past Medical History
CAD previous PCI in 2022, GI bleeding, chronic anemia, hypertension hyperlipidemia, hypertension ESRD on PD on transplant list, TAVR 02/2024, TIA 01/2023, ELENI untreated, secondary hyperparathyroidism, metabolic acidosis
Past Surgical History: Other (CAD-PCI January 2023 and April 2023, TAVR 02/2024-all at [facility]. Bilateral rotator cuff surgery, left nephrectomy, brain tumor removed as a child, hernia repair) CABG x 2 vessel June 2024 at [facility]
Social History
Tobacco: Former Smoker
Alcohol: None
Family History
No CKD
Allergies / Home Medications
Allergy/AdvReac Type Severity Reaction Status Date / Time
isosorbide Allergy Unknown Verified 08/03/25 20:02
Penicillins Allergy Anaphylaxis Verified 08/03/25 20:02
�Medication �Instructions �Recorded �Confirmed �Type
aspirin 81 mg tablet,delayed 81 mg PO DAILY Blood Clot 03/09/24 08/03/25 History
release Prevention/Tx
sertraline 100 mg tablet 100 mg PO HS Mental Health/Anxiety 03/09/24 08/03/25 History
rosuvastatin 20 mg tablet 20 mg PO HS 07/09/24 08/03/25 History
sevelamer carbonate 800 mg tablet 800 mg PO BID@1200,2000 07/09/24 08/03/25 History
calcitriol 0.25 mcg capsule 0.25 mcg PO Q48H@0800 03/01/25 08/03/25 History
furosemide 80 mg tablet (Lasix) 80 mg PO BID 03/01/25 08/03/25 History
sacubitril 49 mg-valsartan 51 mg 1 tab PO BID 05/17/25 08/03/25 History
tablet (Entresto)
sevelamer carbonate 800 mg tablet 1,600 mg PO DAILY 08/03/25 08/03/25 History
sodium citrate 230 mg chewable 230 mg PO DAILYPRN PRN nausea 08/03/25 08/03/25 History
tablet (Emetrol Chewable)
Review of Systems
-
History Source: Patient
All other systems: Negative unless noted
Constitutional: No Symptoms
EENT: No Symptoms
Respiratory: No Symptoms
Cardiac: No Symptoms
Abdomen/GI: No Symptoms
: No Symptoms
Musculoskeletal: No Symptoms
Skin: No Symptoms
Neurological: No Symptoms
Endocrine: No Symptoms
Hematologic/Lymphatic: No Symptoms
Physical Exam
Vital Signs
Vital Signs
Temp Pulse Resp BP Pulse Ox
97.7 F 84 20 123/62 97
08/04/25 07:00 08/04/25 08:25 08/04/25 07:00 08/04/25 08:25 08/04/25 07:00
Lab Results
08/04/25 02:32
08/04/25 02:32
WBC 6.5 10^3/uL (4.8-10.8) 08/04/25 02:32
RBC 3.14 10^6/uL (4.70-6.10) L 08/04/25 02:32
Hgb 8.6 g/dL (13.0-18.0) L 08/04/25 02:32
Hct 28.3 % (39.0-52.0) L 08/04/25 02:32
Plt Count 228 10^3/uL (130-400) 08/04/25 02:32
Sodium 143 mmol/L (135-145) 08/04/25 02:32
Potassium 4.9 mmol/L (3.5-5.1) 08/04/25 02:32
Chloride 114 mmol/L (98-107) H 08/04/25 02:32
Carbon Dioxide 19 mmol/L (22-30) L 08/04/25 02:32
BUN 65 mg/dl (9-20) H 08/04/25 02:32
Creatinine 5.1 mg/dL (0.7-1.3) H* 08/04/25 02:32
eGFR 11.90 08/04/25 02:32
Glucose 106 mg/dl (70-99) H 08/04/25 02:32
Calcium 7.9 mg/dl (8.4-10.2) L 08/04/25 02:32
Cgk-D-Vqkxpvkcmgg Pept 87824 pg/ml 08/03/25 20:14
Albumin 3.6 g/dl (3.5-5.0) 08/04/25 02:32
Physical Exam
General: AOx3, Nontoxic , NAD
HEENT: PERRL, EOMI, Anicteric, Conjunctivae Clear, Ear/Nose Intact, Hearing Normal, Oropharynx Clear/Moist, Dentition Intact, Facial Symmetry, Neck Supple, Neck: Trachea Midline, No JVD and No Thyromegaly, no Bruits
Respiratory: Cracklesnoted bilaterally with normal lung exersion
Cardiac: S1/S2 and Regular Rate/Rhythm
Breast: Deferred by me
Abdomen: Soft, Nontender, Nondistended, Normal Bowel Sounds and No Hepatosplenomegaly, PD catheter
Rectal: Deferred by Provider
Genito-urinary: No Costovertebral Tenderness
Extremities: No Clubbing, No Cyanosis and No Edema
Skin: No Rash or open lesions
Neuro: Nonfocal/Grossly Intact, CN II-XII (Intact) and Strength (Musculoskeletal exam 5 out of 5 both upper and lower extremities)
Hematologic/Lymphatic: No Cervical Lymphadenopathy, No Submandibular Lymphadenopathy and No Supraclavicular Lymphadenopathy
Psych: Mood/afflect pleasant, Insight/judgement good and Appropriate
Vascular: plus 2 pedal and radial pulses
Data Reviewed
-
Radiology: Image Personally Visualized and interpreted (Chest x-ray personally reviewed on admission notable for sternal wires left pleural effusion, some mild interstitial edema bilaterally)
Medical Tests (Nuc Med, Echo etc): Other (EKG on presentation noted normal sinus rhythm with left bundle branch block 87 bpm)
Labs: Labs Reviewed by me (BMP CBC)
Old Records: Reviewed (Reviewed previous nephrology consultation from June 05, 2024)
Assessment/Plan
-
Impression:
ESRD on PD
Presentation with chest discomfort positive troponin/vomiting
Cardiomyopathy EF ~35%
Secondary hyperparathyroidism
Chronic metabolic acidosis
Chronic anemia
Coronary artery disease with previous PCI in January and April 2023 with stents
History of TAVR are February 2024
History of GI bleed
Plan:
Will initiate PD 2 L fill volumes every 5 hours at 2.5%
Patient with noted volume overload on chest x-ray and crackles on exam
Will attempt to UF weight down
If patient stays we will provide DANIEL therapy for anemia of chronic kidney disease
Hemodynamically stable
--- NOTE | 2025-08-04 09:30 | CON.CAR ---
Addendum entered and electronically signed by Madi Lomas MD 08/04/25 12:55:
Patient seen and examined in collaboration with PHOTOGRAPHIC PROCESSOR; agree with below.
- 64-year-old male with complex medical history, including CAD/CABG, ICM (EF 35-40%, per patient), TAVR, hypertension, hyperlipidemia, end-stage renal disease on daily PD, and obesity presenting with chest pain, shortness of breath, and
nausea/vomiting.
-Chest pain was likely noncardiac and was most likely secondary to GI etiology.
-Troponin elevation is most likely secondary to chronic non-ischemic myocardial injury in setting of ESRD, CHF, and anemia.
-Nephrology consult to assist with volume management; continue Lasix 80 mg PO BID.
-Will obtain an echocardiogram.
-No further cardiac recommendations at this time as patient is on tolerated GDMT; further GDMT limited by CKD and BP.
-Cardiology will remain available on an as-needed basis; can follow-up with primary Manager [employer] as an outpatient.
Original Note:
Consultation
Consultation Request
Date/Time Consultation Requested: 08/03/25 7912
Date/Time Consultation Performed: 08/04/25 4520
Requesting Provider: Paola Sharp NP
Performing Provider: Zoë ROCHA for Dr. Lomas
Reason for Consultation: chest discomfort
Medical History
-
Chief Complaint: CP, nausea, SOB, vomiting
History of Present Illness:
64 y/o male with complex PMH including hypertension, hyperlipidemia, s/p TAVR, NC, CAD with hx stenting, then CABG 2023, LBBB, mitral clip per patient (also 2023), sleep apnea, ESRD on HD, cardiomyopathy EF 36% per patient, chronic anemia due to
GIB (on octreotide, and requires blood transfusions- last was last week in ER here). He is here for evaluation of an episode last night around 7:30. He ate a 'ring ding' chocolate dessert, then about 10 mins later developed chest cramping, SOB,
nausea/vomiting. The whole ordeal lasted about 1 hour. He came to the ER and was admitted. He is in no distress at the time of my assessment. He has chronic unchanged ALVAREZ. CXR suggestive CHF.
Dr. Paige at [facility] is his dental mold maker.
Past Medical History
Past Medical History: CAD, HTN, Hypercholesterolemia, Valvular Disease and Other (as above)
Social History
Personal:
Living: With Family
Family History
Family History: Reviewed & Not Pertinent
Allergies / Home Medications
Allergy/AdvReac Type Severity Reaction Status Date / Time
isosorbide Allergy Unknown Verified 08/03/25 20:02
Penicillins Allergy Anaphylaxis Verified 08/03/25 20:02
�Medication �Instructions �Recorded �Confirmed �Type
aspirin 81 mg tablet,delayed 81 mg PO DAILY Blood Clot 03/09/24 08/03/25 History
release Prevention/Tx
sertraline 100 mg tablet 100 mg PO HS Mental Health/Anxiety 03/09/24 08/03/25 History
rosuvastatin 20 mg tablet 20 mg PO HS 07/09/24 08/03/25 History
sevelamer carbonate 800 mg tablet 800 mg PO BID@1200,2000 07/09/24 08/03/25 History
calcitriol 0.25 mcg capsule 0.25 mcg PO Q48H@0800 03/01/25 08/03/25 History
furosemide 80 mg tablet (Lasix) 80 mg PO BID 03/01/25 08/03/25 History
sacubitril 49 mg-valsartan 51 mg 1 tab PO BID 05/17/25 08/03/25 History
tablet (Entresto)
sevelamer carbonate 800 mg tablet 1,600 mg PO DAILY 08/03/25 08/03/25 History
sodium citrate 230 mg chewable 230 mg PO DAILYPRN PRN nausea 08/03/25 08/03/25 History
tablet (Emetrol Chewable)
Review of Systems
-
History Source: Patient
All other systems: Negative unless noted
Respiratory: Trouble Breathing
Cardiac: Chest Pain
Abdomen/GI: Nausea and Vomiting
Physical Exam
Vital Signs
Temp Pulse Resp BP Pulse Ox
97.7 F 84 20 123/62 97
08/04/25 07:00 08/04/25 08:25 08/04/25 07:00 08/04/25 08:25 08/04/25 07:00
Lab Results
08/04/25 02:32
08/04/25 02:32
Troponin I 0.079 ng/ml H* 08/04/25 06:01
Pam-D-Rljioamhjkk Pept 49946 pg/ml 08/03/25 20:14
Physical Exam
General: Well Developed, Well Nourished and No Apparent Distress
HEENT: Normocephalic and Anicteric
Respiratory: Crackles (b/l bases)
Musculoskeletal: No Edema
Skin: Warm and Dry
Neuro: AO x 3
Psych: Calm
Impression / Plan
-
CP, SOB, N/V: resolved
-seems to have been related to his ingestion prior to the event
-did not feel like his anginal CP
-troponins flat. EKG LBBB, stable.
-checking echo
Cgfmz-mb-bzygxxm HFrEF/Likely ICM EF 36% per patient:
-weight stable, no edema, but CXR suggestive CHF. He has chronic ALVAREZ, which is unchanged
-volume is being managed with PD- nephro note reviewed
-on Entresto as OP- follow-up with primary dental mold maker
-will update echo
Abnormal troponin:
-chronic, non-ischemic myocardial injury in setting of ESRD and anemia
CAD with hx stenting/CABG:
-continue ASA, statin
ESRD:
-on PD
-neprho on the case
Anemia:
-hx recurrent GIB per patient
-gets transfusions if hgb <8
Valve disease:
-hx TAVR and mitral clip per patient
-on ASA, continue to follow-up with usual dental mold maker
Data Reviewed
-
EKG: Tracing Personally Visualized and interpreted (NSR LBBB)
Radiology: Report Reviewed by me (CXR: Mild congestive heart failure.)
Medical Tests (Nuc Med, Echo etc): Report Reviewed by me
Labs: Labs Reviewed by me
[2025-08-04] MEDS: RENVELA 800 MG PO (11:39)
--- NOTE | 2025-08-04 12:44 | CM ---
Chart reviewed. Patient is independent of ADLS, lives with his in 2 STH, 4-5 ATUL, 0 DME. Plan is for the patient to return home. CM to follow
--- NOTE | 2025-08-04 14:03 | W.PN.HOSP.TC ---
Today's Communication/Plan
-
Monitor vitals
See plan
Echo pending
Continue with Lasix
PD per nephro
Assessment / Plan
Assessment / Plan
General: Comfortable and Conversant; No Pain, Fever or Chills
HEENT: NormoCephalic, Anicteric, Moist mucous membranes, PERRLA, [place] Conjunctivae and No Ptosis
Respiratory: Clear; No Wheezes, Rales or Rhonchi
Cardiac: S1/S2 and Regular Rhythm; No Murmur, Rub, Gallop or Peripheral Edema
GI: Soft, Non Tender, Non Distended, Normal Bowel Sounds
Musculoskeletal: No Edema
Skin: Warm, Dry and Other (Port right upper chest wall)
Neuro: AO x 3, No Motor Deficits, Nonfocal/grossly intact
Psych: Calm
Chest pain
#Chronic troponin elevation
#History of CABG x 2 vessel [facility] reports recent EF 36% approximately 2 to 3 months ago at [facility]
#History of NSTEMI 06/05/2024/stent
Troponin 0.050 was 7.52 on 06/05/2024
No need to trend further troponin, likely nonischemic myocardial injury
-Continue aspirin 81 mg daily, rosuvastatin 20 mg at bedtime
echo pending
pain could be GI in origin however patient reports pain felt different
#Chronic cardiomyopathy
reports recent EF 36% approximately 2 to 3 months ago at [facility]
BNP 23,600 > 6700 on 07/09/2024
patient reports weight has been consistent 222 pounds as he weighs himself every night, however our scale is weighing at 233 pounds
I/O, daily weights
-Continue Entresto
Continue Lasix 80 mg twice daily
-Obtain 2D echo from [facility]
CBC cardiology following
2D echo 06/07/2024: EF 55-60% abnormal septal motion consistent with LBBB, normal LV S LVSF, well-seated bioprosthetic aortic valve status post TAVR, mild to moderate MR
#Status post TAVR
#CKD V/Peritoneal dialysis
#Left kidney cancer is on transplant list at [facility] but on hold due to low ejection fraction
Creat 5.2
Nephrology following for PD
- Continue sevelamer
#Chronic small intestine bleed gets long-acting octreotide once a month 2 injections got 1 week ago July 2025 at [facility] hematology
#Anemia of chronic disease/CKD
Hgb 9.1 appears near baseline for patient
- Follow CBC
#Chronic hypocalcemia/hypoparathyroidism
-continue Calcitrol 0.25 mcg p.o. every 48 H
#HTN�benign
#HLD
Continue statin
#History aortic stenosis status post TAVR at [facility]
#History of GI bleed was treated with octreotide
#Anxiety/depression
-Continue Zoloft
DVT prophylaxis
SCDs
Full code
Anticipated Discharge: Within 24 hours
Subjective/Interval History
-
Date of Service: August 04, 2025
denies nausea
Objective Data
-
Labs:
Laboratory Results
08/04/25
02:32
WBC 6.5
Hgb 8.6 L
Hct 28.3 L
Plt Count 228
Sodium 143
Potassium 4.9
Chloride 114 H
Carbon Dioxide 19 L
BUN 65 H
Creatinine 5.1 H*
Glucose 106 H
Calcium 7.9 L
Total Bilirubin 0.3
AST 15 L
ALT < 10
Alkaline Phosphatase 58
Vital Signs:
Vital Signs
Temp Pulse Resp BP Pulse Ox
97.6 F 84 24 123/62 98
08/04/25 12:33 08/04/25 08:25 08/04/25 12:33 08/04/25 08:25 08/04/25 12:33
I&O
08/03/25 08/04/25 08/05/25
06:59 06:59 06:59
Intake Total 240 / 240
Output Total 975 / 975 0 / 0
Balance -735 / -735 0 / 0
[2025-08-04] MEDS: CRESTOR 20 MG PO (21:39)
[2025-08-04] MEDS: ZOLOFT 100 MG PO (21:39)
[2025-08-05 03:29] VITALS: BP 132/69
[2025-08-05 03:36] VITALS: BMI 28.1
[2025-08-05 04:37] LABS: Hematocrit 29.8 % (39.0-52.0); Hemoglobin 9.3 g/dL (13.0-18.0); Mean Corp Hgb Conc. 31.2 g/dL (33.0-37.0); Mean Corpuscular Volume 91.1 fL (80.0-94.0); Nucleated Red Blood Cells % 0 % (-); Platelet Count 253 10^3/uL (130-400); Red Cell Dist. Width 15.5 % (11.5-14.5)
[2025-08-05 05:21] LABS: ALT (SGPT) < 10 U/L (0-50); AST (SGOT) 15 U/L (17-59); Albumin 3.7 g/dl (3.5-5.0); Alkaline Phosphatase 58 U/L (38-126); Blood Urea Nitrogen 57 mg/dl (9-20); Calcium 8.4 mg/dl (8.4-10.2); Carbon Dioxide 22 mmol/L (22-30); Chloride 110 mmol/L (98-107); Estimated Creatinine Clearance 17 ml/min; Glucose 139 mg/dl (70-99); Potassium 4.8 mmol/L (3.5-5.1); Sodium 140 mmol/L (135-145); Total Protein 5.8 g/dl (6.3-8.2); eGFR 12.18
--- NOTE | 2025-08-05 06:10 | PTCARENOTE ---
Pt awake throughout the night. Pt unhappy about current PD schedule. Pt reports abd discomfort and inability to eat due to constant full stomach. Emotional support provided. Vital signs stable. PD without complications. Will continue to monitor.
[2025-08-05 07:39] VITALS: BMI 28.1
[2025-08-05 07:45] VITALS: BP 135/66
[2025-08-05] MEDS: ENTRESTO 49 MG/51 MG 1 TAB PO (08:55)
[2025-08-05] MEDS: ASPIR LOW (ENTERIC COATED) 81 MG PO (08:56)
[2025-08-05] MEDS: LASIX 80 MG PO (08:56)
[2025-08-05] MEDS: RENVELA PO (09:02)
--- NOTE | 2025-08-05 10:22 | W.PN.NEPH.PH ---
Today's Communication / Plan
-
ok fo rd/c
Assessment/Plan
-
Impression:
ESRD on PD
Presentation with chest discomfort positive troponin/vomiting
Cardiomyopathy EF ~35%
Secondary hyperparathyroidism
Chronic metabolic acidosis
Chronic anemia
Coronary artery disease with previous PCI in January and April 2023 with stents
History of TAVR are February 2024
History of GI bleed
Plan:
Wt is down with improvement of symp
pt will resume home cycler after d/c
currently no dwelling
Hemodynamically stable
resume home meds
he will f/u at [facility]
-
-
Date of Service: August 05, 2025
CC / HPI / ROS
-
Chief Complaint:
ESRD o n PD
History of Present Illness:
Hemodynamically stable
hb better at 9.3
wt is down
Bp stable
Review of Systems:
feeling well
no cp or sob
Labs
-
Labs:
WBC 6.6 10^3/uL (4.8-10.8) 08/05/25 03:47
RBC 3.27 10^6/uL (4.70-6.10) L 08/05/25 03:47
Hgb 9.3 g/dL (13.0-18.0) L 08/05/25 03:47
Hct 29.8 % (39.0-52.0) L 08/05/25 03:47
Plt Count 253 10^3/uL (130-400) 08/05/25 03:47
Sodium 140 mmol/L (135-145) 08/05/25 03:47
Potassium 4.8 mmol/L (3.5-5.1) 08/05/25 03:47
Chloride 110 mmol/L (98-107) H 08/05/25 03:47
Carbon Dioxide 22 mmol/L (22-30) 08/05/25 03:47
BUN 57 mg/dl (9-20) H 08/05/25 03:47
Creatinine 5.0 mg/dL (0.7-1.3) H* 08/05/25 03:47
eGFR 12.18 08/05/25 03:47
Glucose 139 mg/dl (70-99) H 08/05/25 03:47
Calcium 8.4 mg/dl (8.4-10.2) 08/05/25 03:47
Ikj-K-Olvrfcnizdh Pept 09912 pg/ml 08/03/25 20:14
Albumin 3.7 g/dl (3.5-5.0) 08/05/25 03:47
Physical Exam
-
Vital Signs:
Vital Signs
Temp Pulse Resp BP Pulse Ox
97.8 F 77 18 135/66 97
08/05/25 07:47 08/05/25 10:00 08/05/25 07:47 08/05/25 07:45 08/05/25 08:36
Cardiovascular:: Regular rate and rhythm
Respiratory:: Bilateral: CTA
Lung Excursion:: Normal
Bowel Sounds:: Normal
Extremity Edema:: None: Bilateral:
Joseph Catheter: No
--- NOTE | 2025-08-05 10:28 | W.PN.HOSP.TC ---
Today's Communication/Plan
-
Monitor vital signs see plan
Discussed with cardiology, okay to discharge today
PD per nephrology
Time of discharge 38 minutes
Assessment / Plan
Assessment / Plan
General: Comfortable and Conversant; No Pain, Fever or Chills
HEENT: NormoCephalic, Anicteric, Moist mucous membranes, PERRLA, [place] Conjunctivae and No Ptosis
Respiratory: Clear; No Wheezes, Rales or Rhonchi
Cardiac: S1/S2 and Regular Rhythm; No Murmur, Rub, Gallop or Peripheral Edema
GI: Soft, Non Tender, Non Distended, Normal Bowel Sounds
Musculoskeletal: No Edema
Skin: Warm, Dry and Other (Port right upper chest wall)
Neuro: AO x 3, No Motor Deficits, Nonfocal/grossly intact
Psych: Calm
Chest pain
#Chronic troponin elevation
#History of CABG x 2 vessel [facility] reports recent EF 36% approximately 2 to 3 months ago at [facility]
#History of NSTEMI 06/05/2024/stent
Troponin 0.050 was 7.52 on 06/05/2024
No need to trend further troponin, likely nonischemic myocardial injury
-Continue aspirin 81 mg daily, rosuvastatin 20 mg at bedtime
echo Noted with reduced EF and wall motion abnormality, discussed with cardiology and they did not feel this is new as they got his records from [facility]. Patient at this time denies any pain. Cardiology recommended patient to follow-up with his
physician at [facility]
pain could be GI in origin however patient reports pain felt different
#Chronic cardiomyopathy
reports recent EF 36% approximately 2 to 3 months ago at [facility]
BNP 23,600 > 6700 on 07/09/2024
patient reports weight has been consistent 222 pounds as he weighs himself every night, however our scale is weighing at 233 pounds
I/O, daily weights
-Continue Entresto
Continue Lasix 80 mg twice daily
-Obtain 2D echo from [facility]
CBC cardiology following
2D echo 06/07/2024: EF 55-60% abnormal septal motion consistent with LBBB, normal LV S LVSF, well-seated bioprosthetic aortic valve status post TAVR, mild to moderate MR
#Status post TAVR
#CKD V/Peritoneal dialysis
#Left kidney cancer is on transplant list at [facility] but on hold due to low ejection fraction
Creat 5.2
Nephrology following for PD
- Continue sevelamer
#Chronic small intestine bleed gets long-acting octreotide once a month 2 injections got 1 week ago July 2025 at [facility] hematology
#Anemia of chronic disease/CKD
Hgb 9.1 appears near baseline for patient
- Follow CBC
#Chronic hypocalcemia/hypoparathyroidism
-continue Calcitrol 0.25 mcg p.o. every 48 H
#HTN�benign
#HLD
Continue statin
#History aortic stenosis status post TAVR at [facility]
#History of GI bleed was treated with octreotide
#Anxiety/depression
-Continue Zoloft
DVT prophylaxis
SCDs
Full code
Anticipated Discharge: Today
Subjective/Interval History
-
Date of Service: August 05, 2025
Denies any further chest pain
Objective Data
-
Labs:
Laboratory Results
08/05/25
03:47
WBC 6.6
Hgb 9.3 L
Hct 29.8 L
Plt Count 253
Sodium 140
Potassium 4.8
Chloride 110 H
Carbon Dioxide 22
BUN 57 H
Creatinine 5.0 H*
Glucose 139 H
Calcium 8.4
Total Bilirubin 0.4
AST 15 L
ALT < 10
Alkaline Phosphatase 58
Vital Signs:
Vital Signs
Temp Pulse Resp BP Pulse Ox
97.8 F 81 18 132/69 95
08/05/25 07:47 08/05/25 07:47 08/05/25 07:47 08/05/25 03:29 08/05/25 07:47
I&O
08/04/25 08/05/25 08/06/25
06:59 06:59 06:59
Intake Total 240 / 240 240 / 240
Output Total 975 / 975 2800 / 2800
Balance -735 / -735 -2560 / -2560
--- NOTE | 2025-08-05 10:31 | W.DCSUMMARY ---
Discharge Summary
Discharge Data
Date of Admission: 08/03/25
Date of Discharge: 08/05/25
-
Pending Results: No
Hospital Course
64-year-old male with past medical history of CAD status post CABG, CHF, cardiomyopathy, aortic stenosis status post TAVR, CKD stage V on peritoneal dialysis, chronic small intestine bleed on chronic octreotide, hypertension, hyperlipidemia,
anxiety, depression came to the hospital with chest pain. Patient was seen by cardiology throughout hospitalization and it appeared that chest pain likely was not cardiac in nature. His symptoms continue to improve over time. He also had an
echocardiogram which showed reduced EF. Per cardiology they got records from [facility] and it appeared not much changed on his echocardiogram. Cardiology recommended patient to follow-up with his outpatient performing arts technicians. Patient did require
peritoneal dialysis while he was hospitalized. Since his symptoms continue to improve, he was then discharged with instructions to follow-up with all the physicians outpatient.
Discharge Plan
-
Patient Disposition: Home (Routine Discharge)
Discharge Diagnosis/Procedures: Chest pain
CKD on peritoneal dialysis
Suspect acute on chronic CHF
Diet: As tolerated and Low Cholesterol
Activity: As tolerated
Driving Restrictions: As prior to admission
Bathing Restrictions: None
Activity Restrictions/Additional Instructions:
Follow-up with your performing arts technicians and harvest manager from [facility]
Referrals:
Zack Bullock MD [Family Provider, General] - in less than 1 week
Prescriptions:
Continued
sertraline 100 mg Tablet
100 mg PO HS
aspirin 81 mg Tablet,Delayed Release (Dr/Ec)
81 mg PO DAILY
rosuvastatin 20 mg Tablet
20 mg PO HS
sevelamer carbonate 800 mg Tablet
1,600 mg PO BID@1200,2000
Patient Comments:
pt also takes extra dose w/ snacks
furosemide [Lasix] 80 mg Tablet
80 mg PO BID
calcitriol 0.25 mcg Capsule
0.25 mcg PO Q48H@0800
sacubitril-valsartan [Entresto] 49-51 mg Tablet
1 tab PO BID
sevelamer carbonate 800 mg Tablet
1,600 mg PO DAILY
Emetrol Chewable 230 mg Tablet,Chewable
230 mg PO DAILYPRN PRN (Reason: nausea)
Discharge Orders:
Discharge Patient (As Directed); Ordered 08/05/25
Ordered By: Vicente Villanueva
Care Plan Goals
Care Plan Goals:
Problem: Readiness for enhanced knowledge related to diagnosis and treatment plan
Goal: Understand your diagnosis and treatment plan needs, including medications if applicable.
Instructions: Know your diagnosis, underlying causes and treatment plan options, including medications if applicable. Consult with your health care team to learn about your diagnosis and treatment plan, including medications if applicable.
Discharge Date and Time
Discharge Date/Time: 08/05/25 11:43
Print Language: [place]
--- NOTE | 2025-08-05 11:10 | PTCARENOTE ---
Pt was discharged to home with . VAT nurse deaccessed the port and pt was removed from patient monitor. Pt verbalized understanding of all discharge instructions. Pt left with extension port for Peritoneal Dialysis with antibacterial end cap. Pt
states ' I will take off the extension and put on my cap when I get home.'
== END 2025-08-05 11:43 | disposition home or self-care (01) | DRG 291 ==
LOC: IVU 23:58
PROVIDERS: Clinical Nurse Specialist Family Health; ADMITTING PHYSICIAN Internal Medicine; ATTENDING PHYSICIAN Internal Medicine; CONSULT PHYSICIAN Internal Medicine; CONSULT PHYSICIAN Specialist; EMERGENCY PHYSICIAN Emergency Medicine; FAMILY PHYSICIAN Internal Medicine
DX: I13.2 Hypertensive heart and chronic kidney disease with heart failure and with stage 5 chronic kidney disease, or end stage renal disease (principal); I50.23 Acute on chronic systolic (congestive) heart failure; N18.6 End stage renal disease; N25.81 Secondary hyperparathyroidism of renal origin; E87.22 Chronic metabolic acidosis; I42.9 Cardiomyopathy, unspecified; I5A Non-ischemic myocardial injury (non-traumatic); I25.10 Atherosclerotic heart disease of native coronary artery without angina pectoris; N40.0 Benign prostatic hyperplasia without lower urinary tract symptoms; I44.7 Left bundle-branch block, unspecified; D63.1 Anemia in chronic kidney disease; E83.51 Hypocalcemia; F41.9 Anxiety disorder, unspecified; F32.A Depression, unspecified; E78.00 Pure hypercholesterolemia, unspecified; G47.33 Obstructive sleep apnea (adult) (pediatric); E83.39 Other disorders of phosphorus metabolism; K21.9 Gastro-esophageal reflux disease without esophagitis; I25.2 Old myocardial infarction; Z85.46 Personal history of malignant neoplasm of prostate; Z95.1 Presence of aortocoronary bypass graft; Z99.2 Dependence on renal dialysis; Z85.528 Personal history of other malignant neoplasm of kidney; Z86.19 Personal history of other infectious and parasitic diseases; Z95.5 Presence of coronary angioplasty implant and graft; Z87.891 Personal history of nicotine dependence; Z90.5 Acquired absence of kidney; Z95.2 Presence of prosthetic heart valve; Z79.82 Long term (current) use of aspirin; Z79.899 Other long term (current) drug therapy; Z76.82 Awaiting organ transplant status; Z87.19 Personal history of other diseases of the digestive system; Z82.49 Family history of ischemic heart disease and other diseases of the circulatory system; Z88.0 Allergy status to penicillin; Z88.8 Allergy status to other drugs, medicaments and biological substances
CPT/HCPCS: 71046; 80053; 83880; 84484; 85025; 93005; 93306; 96374; 99285; Q9950